=== PATIENT | female | born 1945 | race Caucasian/White ===

== ENCOUNTER → 2018-06-17 09:13 | Outpatient (CLI) | payer MEDICARE, OTHER, SELFPAY ==
[2018-06-17 10:33] LABS: Absolute Lymphocyte Count 1.86 X10^3/ul (0.83-4.51); Absolute Neutrophil Count 3.3 X10^3/uL (2.0-7.7); Basophil# 0.07 X10^3/uL; Basophil% 1.1 % (0-1); Eosinophil# 0.38 X10^3/uL; Eosinophils% 6.1 % (0-5); Hematocrit 43.9 % (37-47); Hemoglobin 14.1 g/dl (12.0-15.0); Lymphocyte # 1.86 X10^3/ul (4.0); Lymphocyte % 29.8 % (19-41); Mean Corp Hgb Conc 32.1 g/gl (32-36); Mean Corpuscular Hgb 31.1 pg (27.0-32.0); Mean Corpuscular Volume 96.9 fL (81-99); Monocyte# 0.59 X10^3/uL; Monocyte% 9.4 % (0-10); Neutrophil # 3.34 X10^3/uL (2.7-7.7); Neutrophil % 53.4 % (47-70); Platelet Count 218 K/mm3 (150-450); RBC Distribution Width CV 12.7 % (11.6-14.6); RBC Distribution Width SD 43.9 fl (35.1-43.9); Red Blood Count 4.53 M/mm3 (4.2-5.4); White Blood Count 6.3 K/mm3 (4.4-11.0)
[2018-06-17 10:40] LABS: POSITIVE COUNT NO; POSITIVE DIFFERENTIAL NO; POSITIVE MORPHOLOGY NO
[2018-06-17 10:52] LABS: Microalbumin,Random Urine 17.4 mg/L (NO RANGE EST.); Microalbumin:Creatinine Ratio 8.6 mg/g CRE (<30 mg/g CRE)
[2018-06-17 11:02] LABS: Vitamin D,25 Hydroxy 26.8 ng/mL (29.95-100.01)
[2018-06-17 11:26] LABS: ALB/GLOB Ratio 0.9 RATIO (0.9-2.4); AST(SGOT) 18 U/L (15-37); Alanine Aminotransfer ALT/SGPT 23 U/L (13-56); Albumin, Serum 3.4 g/dL (3.2-5.0); Alkaline Phosphatase 85 U/L (45-117); Anion Gap 5 (5-15); BUN 16 mg/dL (7-18); BUN/Creat Ratio 16.7 RATIO (10-20); Calcium,Total 9.2 mg/dL (8.5-10.1); Chloride 109 mmol/L (98-107); Cholesterol 189 mg/dL (200); Creatinine, Serum 0.96 mg/dL (0.55-1.02); EST Glomerular Filtration Rate 61 mL/min (>60); Est Glom Filt Rate - Afr Amer 74 mL/min (>60); Ferritin 154 ng/mL (8-252); Free T3 2.7 pg/mL (2.18-3.98); Globulin 3.8 g/dL (2.2-4.2); Glucose 91 mg/dL (74-106); High Density Lipoprotein 38 mg/dL; Potassium 4.5 mmol/L (3.5-5.1); Protein, Total 7.2 g/dL (6.4-8.2); Sodium Level 143 mmol/L (136-145); T4 Free Direct 1.27 ng/dL (0.76-1.46); Thyroid Stim Hormone (TSH) 1.04 uIU/mL (0.358-3.74); Triglycerides 268 mg/dL; Very Low Density Lipoprotein 54 mg/dL (5-40)
== END ==
PROVIDERS: Family Provider Family Medicine; PCP Family Medicine; Visit Provider Family Medicine
DX: I10 Essential (primary) hypertension (principal); E78.5 Hyperlipidemia, unspecified; E03.9 Hypothyroidism, unspecified; E55.9 Vitamin D deficiency, unspecified; M79.7 Fibromyalgia; E72.12 Methylenetetrahydrofolate reductase deficiency
CPT/HCPCS: 36415; 80053; 80061; 82043; 82306; 82570; 82728; 84439; 84443; 84481; 85025

== ENCOUNTER → 2018-07-02 09:54 | Outpatient (CLI) | payer MEDICARE, OTHER, SELFPAY ==
--- NOTE | 2018-07-02 10:20 | CT_ITS ---
STUDY: CT ABDOMEN AND PELVIS WITHOUT CONTRAST REASON FOR EXAM: Female, 73 years old. Bloody diarrhea. History of colitis. RADIATION DOSAGE (If Supplied By Facility): CTDIvol = ( 13.70 ) mGy, DLP = ( 708.34 ) mGycm TECHNIQUE: Transaxial images were obtained from the dome of the diaphragm to the symphysis pubis without oral contrast, and without intravenous contrast. Sagittal and coronal images were reconstructed. Individualized dose optimization techniques were used for this CT. COMPARISON: Comparison is made with prior study dated April 04, 2010. FINDINGS: Mild degree of increased markings at the lung bases with evidence of bronchiectasis in the left lower lobe suggestive of scarring. Calcified granulomas in the right lung base. Coronary artery calcification. Minimal pericardial thickening. Normal liver. Normal gallbladder and extrahepatic biliary system. There are multiple benign calcified granulomata of the spleen. Normal pancreas. Normal bilateral adrenal glands. Normal right kidney. Normal left kidney. Normal visualized stomach. Mild degree of thickening of the terminal ileum. There are scattered colonic diverticula consistent with diverticulosis. The appendix is visualized and appears normal. There is diffuse atherosclerotic calcification of the abdominal aorta and its major visceral branches, without a demonstrated aneurysm. Normal inferior vena cava. There is borderline retroperitoneal lymphadenopathy with enlarged nodes no greater than 10mm in the short axis diameter. Normal urinary bladder. There is a 2 cm x 2.6 cm cyst in the left ovary. This is essentially unchanged. There is also evidence of a septated cyst in the right ovary measuring 2.4 cm x 1.7 cm. There is a small umbilical hernia containing fat. There are diffuse degenerative changes of the visualized lumbar spine. CT/Abdomen/Pelvis without Cont IMPRESSION: Small bilateral ovarian cysts. Mild degree of thickening of the terminal ileum. Moderate amount of fecal material is seen in the colon. Electronically Signed: Haider Driscoll MD at 13:30 EDT Tel [phone], Service support ,
[2018-07-02 12:00] LABS: Absolute Lymphocyte Count 1.72 X10^3/ul (0.83-4.51); Absolute Neutrophil Count 4.7 X10^3/uL (2.0-7.7); Basophil# 0.04 X10^3/uL; Basophil% 0.5 % (0-1); Eosinophil# 0.34 X10^3/uL; Eosinophils% 4.6 % (0-5); Hematocrit 45.4 % (37-47); Hemoglobin 14.4 g/dl (12.0-15.0); Lymphocyte # 1.72 X10^3/ul (4.0); Lymphocyte % 23.3 % (19-41); Mean Corp Hgb Conc 31.7 g/gl (32-36); Mean Corpuscular Hgb 30.6 pg (27.0-32.0); Mean Corpuscular Volume 96.4 fL (81-99); Mean Platelet Vol. 9.8 fl (6.2-12.0); Monocyte# 0.62 X10^3/uL; Monocyte% 8.4 % (0-10); Neutrophil # 4.66 X10^3/uL (2.7-7.7); Neutrophil % 63.2 % (47-70); POSITIVE COUNT NO; POSITIVE DIFFERENTIAL NO; POSITIVE MORPHOLOGY NO; Platelet Count 219 K/mm3 (150-450); RBC Distribution Width CV 12.7 % (11.6-14.6); RBC Distribution Width SD 44.7 fl (35.1-43.9); Red Blood Count 4.71 M/mm3 (4.2-5.4); White Blood Count 7.4 K/mm3 (4.4-11.0)
[2018-07-02 12:01] LABS: Erythrocyte Sedimentation Rate 14 mm/hr (0-30)
[2018-07-02 12:12] LABS: ALB/GLOB Ratio 0.9 RATIO (0.9-2.4); AST(SGOT) 23 U/L (15-37); Alanine Aminotransfer ALT/SGPT 28 U/L (13-56); Albumin, Serum 3.6 g/dL (3.2-5.0); Alkaline Phosphatase 98 U/L (45-117); Anion Gap 8 (5-15); BUN 11 mg/dL (7-18); BUN/Creat Ratio 10.9 RATIO (10-20); Calcium,Total 9.2 mg/dL (8.5-10.1); Chloride 106 mmol/L (98-107); Creatinine, Serum 1.01 mg/dL (0.55-1.02); EST Glomerular Filtration Rate 57 mL/min (>60); Est Glom Filt Rate - Afr Amer 69 mL/min (>60); Globulin 3.8 g/dL (2.2-4.2); Glucose 99 mg/dL (74-106); Potassium 4.2 mmol/L (3.5-5.1); Protein, Total 7.4 g/dL (6.4-8.2); Sodium Level 141 mmol/L (136-145)
== END ==
PROVIDERS: Family Provider Family Medicine; PCP Family Medicine; Referring Provider Family Medicine; Visit Provider Family Medicine
DX: K52.9 Noninfective gastroenteritis and colitis, unspecified (principal)
CPT/HCPCS: 36415; 74176; 80053; 85025; 85652; 86140; 87506

== ENCOUNTER → 2018-11-25 12:55 | Outpatient (CLI) | payer MEDICARE, OTHER, SELFPAY ==
--- NOTE | 2018-11-25 12:58 | BI_ITS ---
MAMMOGRAPHY - BILATERAL SCREENING 3-D EVY SYNTHESIS REASON FOR EXAM: Female, 73 years old. Bilateral Screening 3-D tomosynthesis PERTINENT HISTORY: Family history of breast cancer in maternal grandmother at age 70. TECHNIQUE: 2-D mammograms and 3-D Evy synthesis of the breast (s) were performed. CAD was performed. COMPARISON: August 11, 2017, August 09, 2016, July 12, 2015 FINDINGS: The breast composition is almost entirely fat. Scattered benign calcifications are stable. There are stable normal-appearing lymph nodes. No dense spiculated masses or suspicious microcalcifications are identified. No architectural distortion is identified. There is no skin thickening or retraction. There has been no significant change since the prior study. BI/SCREENING MAMM (CAD), BILAT IMPRESSION: No mammographic signs of malignancy. Routine yearly mammograms recommended. ASSESSMENT CATEGORY: BIRADS Category 2: Benign. A letter regarding these results will be sent to the patient by the facility within 30 days. FOLLOW UP RECOMMENDATION: Yearly follow up mammogram recommended. (A) Approximately 10% of breast cancers are not detected by mammography. A normal mammogram should not delay biopsy of a clinically suspicious abnormality. Electronically Signed: Justin Gonzalez MD at 13:05 EDT , Service support ,
== END ==
PROVIDERS: Family Provider Family Medicine; PCP Family Medicine; Referring Provider Family Medicine; Visit Provider Family Medicine
DX: Z12.31 Encounter for screening mammogram for malignant neoplasm of breast (principal)
CPT/HCPCS: 77063; 77067

== ENCOUNTER → 2019-01-14 08:45 | Outpatient (CLI) | payer MEDICARE, OTHER, SELFPAY ==
--- NOTE | 2019-01-14 08:50 | BD_ITS ---
STUDY: DUAL ENERGY X-RAY ABSORPTIOMETRY / DXA REASON FOR EXAM: Female, 73 years old. The patient is postmenopausal. Loss of height. TECHNIQUE: Bone Mineral Density (BMD) measurements of lumbar spine and bilateral hips were obtained. COMPARISON: Comparison is made with prior study dated August 11, 2014. FINDINGS: Lumbar Spine (L1-L4): g/cm2 (1.016) / T-score (-1.2) / Z-score (0.5) Findings are suggestive of osteopenia with a low fracture risk. Left Femur Total: g/cm2 (0.874) / T-score (-1.1) / Z-score (0.5) Left Femoral Neck: g/cm2 (0.835) / T-score (-1.5) / Z-score (0.4) Right Femur Total: g/cm2 (0.898) / T-score (-0.9) / Z-score (0.7) Right Femoral Neck: g/cm2 (0.834) / T-score (-1.5) / Z-score (0.3) The T-Scores on the most recent prior examination were: Lumbar Spine (L1-L4): There has been improvement of bone density since the previous examination. Left Femur Total: which represents a worsening of 4.9%. Right Femur Total: which represents a worsening of 1.3%. BD/Dexa Bone Density Study IMPRESSION: The patient is considered osteopenic as outlined below according to World [employer] Organization (WHO) criteria with a low fracture risk. There has been worsening of bone density since the previous examination. Reference Information: The T-score is the number of standard deviations above or below the standard which is normal for young adults at their peak bone mineral density. The World Health Organization (WHO) interprets the T-scores as follows: Above -1 Normal bone density Between -1 and -2.5 Osteopenia Equal to / or below -2.5 Osteoporosis As a practical clinical guideline, osteopenia may be graded as follows: Mild -1 through -1.5 Moderate -1.6 through -2.0 Severe -2.1 through -2.4 The Z-score is the number of standard deviations above or below age-matched controls. A Z-score of less than -1.5 would be considered abnormal. References: 1. NIH Osteoporosis and Related Bone Diseases http://www.osteo.org 2. International Society for Clinical Densitometry http://www.iscd.org 3. National Osteoporosis Foundation http://www.nof.org Electronically Signed: Haider Driscoll, at 12:56 EDT , Service support ,
== END ==
PROVIDERS: Family Provider Family Medicine; PCP Family Medicine; Referring Provider Family Medicine; Visit Provider Family Medicine
DX: Z78.0 Asymptomatic menopausal state (principal); M85.80 Other specified disorders of bone density and structure, unspecified site
CPT/HCPCS: 77080

== ENCOUNTER → 2019-07-12 | Outpatient (CLI) | payer MEDICARE, OTHER, SELFPAY ==
[2019-07-12 10:54] LABS: Erythrocyte Sedimentation Rate 10 mm/hr (0-30)
[2019-07-12 10:56] LABS: Hematocrit 46.4 % (37-47); Hemoglobin 14.9 g/dL (12.0-15.0); Mean Corp Hgb Conc 32.1 g/dL (32-36); Mean Corpuscular Volume 96.7 fL (81-99); Mean Platelet Vol. 9.7 fl (6.2-12.0); Platelet Count 232 K/mm3 (150-450); RBC Distribution Width CV 12.1 % (11.6-14.6); RBC Distribution Width SD 43.8 fl (35.1-43.9); White Blood Count 5.6 K/mm3 (4.4-11.0)
[2019-07-12 11:10] LABS: AST(SGOT) 24 U/L (15-37); Alanine Aminotransfer ALT/SGPT 22 U/L (13-56); Albumin, Serum 3.5 g/dL (3.2-5.0); Alkaline Phosphatase 80 U/L (45-117); Anion Gap 7 (5-15); BUN 18 mg/dL (7-18); Calcium,Total 9.4 mg/dL (8.5-10.1); Chloride 107 mmol/L (98-107); Cholesterol 181 mg/dL (200); EST Glomerular Filtration Rate 58 mL/min (>60); Est Glom Filt Rate - Afr Amer 70 mL/min (>60); Globulin 3.6 g/dL (2.2-4.2); Glucose 98 mg/dL (74-106); High Density Lipoprotein 46 mg/dL; Potassium 4.5 mmol/L (3.5-5.1); Protein, Total 7.1 g/dL (6.4-8.2); Sodium Level 140 mmol/L (136-145); T4 Free Direct 1.35 ng/dL (0.76-1.46); Thyroid Stim Hormone (TSH) 1.21 uIU/mL (0.358-3.74); Triglycerides 206 mg/dL; Very Low Density Lipoprotein 41 mg/dL (5-40)
[2019-07-12 11:36] LABS: Microalbumin,Random Urine 6.4 mg/L (NO RANGE EST.); Microalbumin:Creatinine Ratio 6.4 mg/g CRE (<30 mg/g CRE)
== END | disposition home or self-care (01) ==
LOC: MFPLAB 09:14
PROVIDERS: Family Provider Family Medicine; PCP Family Medicine; Visit Provider Family Medicine
DX: I10 Essential (primary) hypertension (principal); M79.7 Fibromyalgia; E03.9 Hypothyroidism, unspecified; E78.5 Hyperlipidemia, unspecified
CPT/HCPCS: 36415; 80053; 80061; 82043; 82570; 84439; 84443; 85027; 85652

== ENCOUNTER → 2020-06-09 | Outpatient (CLI) | payer MEDICARE, OTHER, SELFPAY ==
[2020-06-09 10:41] LABS: ALB/GLOB Ratio 0.9 RATIO (0.9-2.4); AST(SGOT) 30 U/L (15-37); Alanine Aminotransfer ALT/SGPT 36 U/L (13-56); Albumin, Serum 3.4 g/dL (3.2-5.0); Alkaline Phosphatase 96 U/L (45-117); Anion Gap 4 (5-15); BUN 13 mg/dL (7-18); BUN/Creat Ratio 12.7 RATIO (10-20); Calcium,Total 9.5 mg/dL (8.5-10.1); Chloride 109 mmol/L (98-107); Cholesterol 193 mg/dL (200); Creatinine, Serum 1.02 mg/dL (0.55-1.02); EST Glomerular Filtration Rate 56 mL/min (>60); Est Glom Filt Rate - Afr Amer 68 mL/min (>60); Globulin 3.9 g/dL (2.2-4.2); Glucose 101 mg/dL (74-106); High Density Lipoprotein 41 mg/dL; Protein, Total 7.3 g/dL (6.4-8.2); Sodium Level 142 mmol/L (136-145); Thyroid Stim Hormone (TSH) 2.38 uIU/mL (0.358-3.74); Triglycerides 258 mg/dL; Very Low Density Lipoprotein 52 mg/dL (5-40)
== END | disposition home or self-care (01) ==
LOC: MTLAB 08:11
PROVIDERS: PCP Family Medicine; Referring Provider Nurse Practitioner Family; Visit Provider Nurse Practitioner Family
DX: E78.5 Hyperlipidemia, unspecified (principal); E03.9 Hypothyroidism, unspecified; I10 Essential (primary) hypertension
CPT/HCPCS: 36415; 80053; 80061; 84443

== ENCOUNTER → 2020-06-10 | Outpatient (CLI) | payer MEDICARE, OTHER, SELFPAY ==
--- NOTE | 2020-06-10 10:54 | CT_ITS ---
HISTORY: FULLNESS LEFT SUPRECALVICULAR AREA EXAMINATION: CT Soft Tissue Neck W/O Contrast Injection TECHNIQUE: Multiple axial images were obtained of the neck. A radiation dose optimization technique was used for this scan. IV Contrast dosage and agent: COMPARISON: None FINDINGS: NASOPHARYNX: Unremarkable. SUPRAHYOID NECK: Unremarkable oropharynx, oral cavity, parapharyngeal space, and retropharyngeal space. INFRAHYOID NECK: Unremarkable larynx, hypopharynx, and supraglottis. THYROID: No focal lesions. SALIVARY GLANDS: Unremarkable. LYMPH NODES: Shotty supraclavicular lymphadenopathy is present. This does continue more cranially within the neck, left side to a slightly greater degree than the right VASCULAR STRUCTURES: Some calcific plaque within the elongated thoracic aorta. VISUALIZED PORTIONS OF THE ORBITS, PARANASAL SINUSES, MASTOID AIR CELLS AND SKULL BASE: Unremarkable. BONES: Multilevel degenerative disc disease. Facet arthritis. Levoscoliosis at the upper thoracic spine. No acute fracture. Degenerative malalignment. Metal within the patient's maxillary and mandibular teeth obscure some fine bony detail. THORACIC INLET: Clear lung apices. CT/Soft Tissue Neck without Contr IMPRESSION: Mild shotty lymphadenopathy within the neck greater on the left than right without focal abscess or perceived lesion. Individualized dose optimization techniques were used for this CT. at 0523 Reported and signed by: Jackson Olsen MD Electronically Signed: Jackson Olsen MD at 5:22 EDT Tel , Service support ,
== END | disposition home or self-care (01) ==
LOC: CT 10:50
PROVIDERS: PCP Family Medicine; Referring Provider Nurse Practitioner Family; Visit Provider Nurse Practitioner Family
DX: R22.2 Localized swelling, mass and lump, trunk (principal)
CPT/HCPCS: 70490

== ENCOUNTER → 2020-06-28 | Outpatient (CLI) | payer MEDICARE, OTHER, SELFPAY ==
--- NOTE | 2020-06-28 08:05 | BI_ITS ---
MAMMOGRAPHY - BILATERAL SCREENING REASON FOR EXAM: Female, 75 years old. Routine annual screening examination. PERTINENT HISTORY: Grandmother with breast cancer. Aunt with breast cancer. Remote left excisional breast biopsy. TECHNIQUE: Digital bilateral breast evy (3D mammographic acquisition) in the CC and MLO projections. 2-D mediolateral oblique (MLO) and craniocaudad (CC) views of both breasts were obtained. CAD: Full Field Digital Mammography with Computer Added Detection was performed. COMPARISON: Comparison is made with prior study dated 11/25/2018 and 08/11/2017. FINDINGS: Breast Composition: There are scattered areas of fibroglandular density. There are no dominant masses or suspicious calcifications. Stable 3.9 mm well-defined nodule in the upper lateral aspect of the right breast most likely representing a small lymph node. Stable benign-appearing bilateral axillary lymph nodes. No other significant abnormalities are identified. There has been no significant change since the prior study. BI/SCREEN MAMM (CAD) W/EVY BILAT IMPRESSION: Stable bilateral screening mammogram. Yearly follow-up mammogram recommended. (A) ASSESSMENT CATEGORY: BIRADS Category 2: Benign. A letter regarding these results will be sent to the patient by the facility within 30 days. Approximately 10% of breast cancers are not detected by mammography. A normal mammogram should not delay biopsy of a clinically suspicious abnormality. [id number] Electronically Signed: Haider Driscoll, at 10:13 EDT , Service support ,
== END | disposition home or self-care (01) ==
LOC: OPBI 08:04
PROVIDERS: PCP Family Medicine; Visit Provider Family Medicine
DX: Z12.31 Encounter for screening mammogram for malignant neoplasm of breast (principal)
CPT/HCPCS: 77063; 77067

== ENCOUNTER → 2020-12-04 10:36 | Outpatient (CLI) | payer MEDICARE, OTHER, SELFPAY ==
--- NOTE | 2020-12-04 10:43 | RAD_ITS ---
STUDY: X-RAY CHEST REASON FOR EXAM: Female, 75 years old. APNEA TECHNIQUE: PA and lateral views of the chest. COMPARISON: Comparison is made with prior examination dated 2015 and 08/26/2015. FINDINGS: Stable minimal elevation of the anterior aspect of the right hemidiaphragm. There is no demonstrated pleural abnormality. Normal size heart. Normal mediastinum and thony. Normal visualized pulmonary arteries. There is atherosclerotic calcification of the aortic arch with tortuosity. There is a dextroscoliosis of the thoracic spine. Normal visualized ribs, clavicles, and shoulders. There is no demonstrated abnormality of the visualized soft tissue structures of the upper abdomen. RAD/Chest PA and Lateral IMPRESSION: Stable examination. No acute abnormality is seen. Electronically Signed: Haider Driscoll MD at 11:08 EDT , Service support ,
[2020-12-04 12:04] LABS: Absolute Lymphocyte Count 1.93 X10^3/uL (0.83-4.51); Absolute Neutrophil Count 3.8 X10^3/uL (2.0-7.7); Basophil# 0.08 X10^3/uL; Basophil% 1.2 % (0-1); Eosinophil# 0.37 X10^3/uL; Eosinophils% 5.5 % (0-5); Hematocrit 46.5 % (37-47); Hemoglobin 14.8 g/dL (12.0-15.0); Lymphocyte # 1.93 X10^3/ul (4.0); Lymphocyte % 28.6 % (19-41); Mean Corp Hgb Conc 31.8 g/dL (32-36); Mean Corpuscular Hgb 30.6 pg (27.0-32.0); Mean Corpuscular Volume 96.3 fL (81-99); Mean Platelet Vol. 9.2 fl (6.2-12.0); Monocyte# 0.54 X10^3/uL; NRBC Flagged by Analyzer 0 % (0-5); Neutrophil # 3.82 X10^3/uL (2.7-7.7); Neutrophil % 56.4 % (47-70); Platelet Count 255 K/mm3 (150-450); RBC Distribution Width CV 12.4 % (11.6-14.6); RBC Distribution Width SD 44.5 fl (35.1-43.9); Red Blood Count 4.83 M/mm3 (4.2-5.4); White Blood Count 6.8 K/mm3 (4.4-11.0)
[2020-12-04 12:33] LABS: AST(SGOT) 34 U/L (15-37); Alanine Aminotransfer ALT/SGPT 38 U/L (13-56); Albumin, Serum 3.6 g/dL (3.2-5.0); Alkaline Phosphatase 102 U/L (45-117); Anion Gap 3 (5-15); BUN 12 mg/dL (7-18); BUN/Creat Ratio 11.7 RATIO (10-20); Calcium,Total 9.6 mg/dL (8.5-10.1); Chloride 107 mmol/L (98-107); Creatinine, Serum 1.03 mg/dL (0.55-1.02); EST Glomerular Filtration Rate 56 mL/min (>60); Est Glom Filt Rate - Afr Amer 67 mL/min (>60); Globulin 3.7 g/dL (2.2-4.2); Glucose 102 mg/dL (74-106); Potassium 4.3 mmol/L (3.5-5.1); Protein, Total 7.3 g/dL (6.4-8.2); Sodium Level 140 mmol/L (136-145)
== END ==
PROVIDERS: PCP Family Medicine; Referring Provider Family Medicine; Visit Provider Family Medicine
DX: R06.81 Apnea, not elsewhere classified (principal); R59.1 Generalized enlarged lymph nodes
CPT/HCPCS: 36415; 71046; 80053; 85025

== ENCOUNTER → 2021-05-30 10:24 | Outpatient (CLI) | payer MEDICARE, OTHER, SELFPAY ==
[2021-05-30 12:57] LABS: Anion Gap 5 (5-15); BUN 11 mg/dL (7-18); BUN/Creat Ratio 12.9 RATIO (10-20); Calcium,Total 9.3 mg/dL (8.5-10.1); Chloride 111 mmol/L (98-107); Creatinine, Serum 0.86 mg/dL (0.55-1.02); EST Glomerular Filtration Rate 69 mL/min (>60); Est Glom Filt Rate - Afr Amer 83 mL/min (>60); Glucose 105 mg/dL (74-106); Potassium 4.7 mmol/L (3.5-5.1); Sodium Level 141 mmol/L (136-145); T4 Free Direct 1.09 ng/dL (0.76-1.46)
[2021-05-30 13:02] LABS: Vitamin D,25 Hydroxy 40.7 ng/mL
== END ==
PROVIDERS: PCP Family Medicine; Referring Provider Family Medicine; Visit Provider Family Medicine
DX: I10 Essential (primary) hypertension (principal); M85.80 Other specified disorders of bone density and structure, unspecified site; E03.9 Hypothyroidism, unspecified
CPT/HCPCS: 36415; 80048; 82306; 84439; 84443

== ENCOUNTER 2021-12-09 13:33 | Inpatient (IN) | payer MEDICARE, OTHER, SELFPAY ==
[2021-12-09] VITALS (10 sets, daily range): BP systolic 148–176; BP diastolic 91–112; PULSE 73–91; RESP 18–20; TEMP 36.4–36.6; O2SAT 88–99; BMI 29.1; BMI 28.6
--- NOTE | 2021-12-09 13:48 | EKG12_ITS ---
Test Reason : SOB Blood Pressure : / mmHG Vent. Rate : 088 BPM Atrial Rate : 088 BPM P-R Int : 186 ms QRS Dur : 142 ms QT Int : 386 ms P-R-T Axes : 054 -44 019 degrees QTc Int : 467 ms Normal sinus rhythm Left axis deviation Right bundle branch block Left ventricular hypertrophy T wave abnormality, consisder LVH repolarization, myocardial ischemia; metabolic effect, medication e ffect Abnormal ECG Confirmed by EMILY JUAREZ, SANDY ([id number]), rewrite editor GERI DEMARCO ([id number]) on 12/12/2021 10:41:35 AM Referred By: RU Confirmed By:SANDY DIAZ MD
[2021-12-09] MEDS: Aspirin 81 MG TAB.CHEW 324 MG PO (13:59)
--- NOTE | 2021-12-09 14:09 | RAD_ITS ---
STUDY: X-RAY CHEST REASON FOR EXAM: Female, 76 years old. chest pain TECHNIQUE: Single AP portable view of the chest. COMPARISON: December 04, 2020 FINDINGS: The lungs are clear and expanded. There is no demonstrated pleural abnormality. Normal size heart. Normal mediastinum and thony. Normal visualized pulmonary arteries. There is atherosclerotic calcification of the aortic arch with tortuosity. There are diffuse degenerative changes of the visualized thoracic spine, as well as moderate dextroscoliosis. Normal visualized ribs, clavicles, and shoulders. There is no demonstrated abnormality of the visualized soft tissue structures of the upper abdomen. RAD/Chest 1 View (Portable) IMPRESSION: No acute process Electronically Signed: Aguilar Asher MD at 14:54 EDT ,
[2021-12-09 14:18] LABS: Absolute Neutrophil Count 7.3 X10^3/uL (2.0-7.7); Basophil# 0.06 X10^3/uL; Basophil% 0.6 % (0-1); Eosinophil# 0.24 X10^3/uL; Eosinophils% 2.3 % (0-5); Hematocrit 46.3 % (37-47); Hemoglobin 15.4 g/dL (12.0-15.0); Lymphocyte % 19.2 % (19-41); Mean Corp Hgb Conc 33.3 g/dL (32-36); Mean Corpuscular Hgb 31.7 pg (27.0-32.0); Mean Corpuscular Volume 95.3 fL (81-99); Mean Platelet Vol. 9.5 fl (6.2-12.0); Monocyte# 0.75 X10^3/uL; Monocyte% 7.2 % (0-10); NRBC Flagged by Analyzer 0 % (0-5); Neutrophil # 7.34 X10^3/uL (2.7-7.7); Neutrophil % 70.5 % (47-70); Platelet Count 239 K/mm3 (150-450); RBC Distribution Width CV 12.4 % (11.6-14.6); RBC Distribution Width SD 43.8 fl (35.1-43.9); Red Blood Count 4.86 M/mm3 (4.2-5.4); White Blood Count 10.4 K/mm3 (4.4-11.0)
--- NOTE | 2021-12-09 14:34 | EX.ED.DYSGE1 ---
HPI <CORA Kam - Last Filed: 12/09/21 17:25> History of Present Illness Chief Complaint: Shortness of Breath Narrative Narrative: 76-year-old female with history of hypertension, CAD presents to the emergency department with 5 days of progressing shortness of breath. Patient was ill 3 weeks ago was placed on antibiotics, steroids, patient did get better. Patient does live in [facility] for the last 5 days she has been feeling more short of breath worse on exertion, she did drive from [place] at home and got home last night. Today, patient was much more winded around the house and is here for evaluation. Denies any fevers or chills, denies any cough, denies any infectious symptoms, denies any sick contacts. PFSH <CORA Kam - Last Filed: 12/09/21 17:25> [facility] Medical History (Updated 12/09/21 @ 17:[address] Steven Mccarty, DO) History of kidney stones Hx of cardiac arrhythmia Hyperlipidemia Hypertension Hypothyroidism Home Medications amitriptyline 50 mg PO DAILY 08/26/15 [History Last Taken Unknown] aspirin 81 mg PO DAILY@0800 08/26/15 [History Last Taken Unknown] atorvastatin 40 mg PO QHS 08/26/15 [History Last Taken Unknown] levothyroxine 100 mcg PO DAILY 08/26/15 [History Last Taken Unknown] losartan 50 mg PO QHS 12/09/21 [History Last Taken Unknown] metoprolol succinate 100 mg PO DAILY 12/09/21 [History Last Taken Unknown] Allergy/AdvReac Type Severity Reaction Status Date / Time Iodinated Contrast Media Allergy Hives Verified 12/09/21 13:35 [Iodinated Contrast Media - IV Dye] Surgical History (Updated 12/09/21 @ 13:46 by Lalita Martinez) History of radiofrequency ablation procedure for cardiac arrhythmia Social History Smoking Status: Unknown if ever smoked ROS <CORA Kam - Last Filed: 12/09/21 17:25> ROS ED ROS Narrative Constitutional: Negative for fever, chills, weight loss or gain, weakness Eyes: Negative for vision loss, vision change, double vision ENT: Negative for any hearing changes, ringing in the ears, discharge, pain Nose: Negative for any congestion, runny nose, sinus pain, allergies Throat: Negative for any sore throat, swelling, voice changes, Cardiovascular: Negative for any chest pain, tightness, palpitations, racing heartbeat Respiratory: Negative for any cough, sputum production, hemoptysis. Positive shortness of breath, shortness of breath on exertion Gastrointestinal: Negative for any abdominal pain, nausea, vomiting, diarrhea, constipation, blood in stool, blood in vomit : Negative for any urinary frequency, incontinence, dysuria, retention, blood in urine Muscle skeletal: Negative for any muscle joint pain, stiffness, myalgias, arthralgias, neck pain, back pain Neurological: Negative for any headache, dizziness, syncope, numbness or tingling Skin: Negative for any rashes, lumps, itching, abrasions, lacerations Psychiatric: Negative for any depression, anxiety, stress, suicidal ideation, homicidal ideation Hematologic: Negative for any easy bruising, excessive bruising, easy bleeding Allergies: Negative for any eczema, hives, rash EXAM <CORA Kam - Last Filed: 12/09/21 17:25> Physical Exam Narrative Exam Narrative: At rest, patient was 88 to 89%, patient responds well to 2 L nasal cannula. Const Vital Signs: 12/09/21 13:33 12/09/21 13:42 12/09/21 13:50 Temperature 97.6 F L Temperature Source Temporal Pulse Rate 89 Respiratory Rate 20 H Respiratory Pattern Blood Pressure 176/112 H Blood Pressure Mean 133 Pulse Ox 99 88 97 Oxygen Delivery Method Room Air Room Air Nasal Cannula Oxygen Flow Rate (L/min) 2 12/09/21 13:58 12/09/21 17:15 Temperature Temperature Source Pulse Rate 85 Respiratory Rate 18 Respiratory Pattern Tachypnea Blood Pressure 148/102 H Blood Pressure Mean 117 Pulse Ox 97 Oxygen Delivery Method Nasal Cannula Oxygen Flow Rate (L/min) 2 Positive well nourished and well developed General Appearance ED: well developed HEENT Reports TM's clear and moist mucous membranes Tympanic Membrane ED: Yes TM's clear Eyes PERRL and EOMs intact bilaterally Neck no lymphadenopathy and supple Chest Wall inspection of chest normal and palpation of chest normal Resp normal respiratory effort and clear to auscultation bilaterally Cardio regular rate, regular rhythm and no murmurs GI normal to inspection, nondistended, normoactive bowel sounds, non-tender, non-distended and no masses Auscultation: normoactive bowel sounds Palpation: soft Back/Spine no CVA tenderness Extremity normal to inspection Neuro oriented x3 and CN's II-XII intact bilaterally Sensorium / Orientation: alert Motor Exam: strength 5/5 throughout Psych mental status grossly normal Mood & Affect: anxious Skin no rashes or lesions noted <Dr. Steven Mccarty DO - Last Filed: 12/09/21 17:11> Physical Exam Const Vital Signs: 12/09/21 13:33 12/09/21 13:42 12/09/21 13:50 Temperature 97.6 F L Temperature Source Temporal Pulse Rate 89 Respiratory Rate 20 H Respiratory Pattern Blood Pressure 176/112 H Blood Pressure Mean 133 Pulse Ox 99 88 97 Oxygen Delivery Method Room Air Room Air Nasal Cannula Oxygen Flow Rate (L/min) 2 12/09/21 13:58 12/09/21 17:15 Temperature Temperature Source Pulse Rate 85 Respiratory Rate 18 Respiratory Pattern Tachypnea Blood Pressure 148/102 H Blood Pressure Mean 117 Pulse Ox 97 Oxygen Delivery Method Nasal Cannula Oxygen Flow Rate (L/min) 2 MDM <CORA Kam - Last Filed: 12/09/21 17:25> [facility] MDM Narrative Medical decision making narrative: Patient appears in mild respiratory distress, patient responded well to liters nasal cannula oxygen, patient presents emergency department for worsening shortness of breath over the last 5 days. Patient did receive a full respiratory work-up, patient CBC was unremarkable however patient did have a elevated D-dimer, in the differential of her shortness of breath, a pulmonary embolus was considered. Due to the patient's allergy to IV contrast dye, the patient be premedicated with Solu-Medrol, Benadryl. That in 1 hour should be taken for a CTA of the chest to rule out any pulmonary embolus. Patient had multiple abnormal lab values, patient's D-dimer was significantly elevated, patient's troponin was 551, repeat was 616. I do believe that this is secondary to a pulmonary embolus. Patient did receive a CT scan of the chest, this showed a large volume acute pulmonary emboli involving all of the segmental and subsegmental pulmonary arteries. No evidence of the right heart strain. Few scattered areas of groundglass opacity in the right lower lobe and middle lobes may be infectious or inflammatory etiology. Patient was started on a heparin drip, patient remains stable, patient appears to be in no respiratory distress at rest. Patient will be admitted to the hospital for pulmonary embolus, elevated troponin. Patient stable for admission Lab Data Labs: Laboratory Results - last 24 hr 12/09/21 12/09/21 12/09/21 14:05 14:05 14:05 WBC 10.4 RBC 4.86 Hgb 15.4 H Hct 46.3 MCV 95.3 MCH 31.7 MCHC 33.3 RDW Std Deviation 43.8 RDW Coeff of Karina 12.4 Plt Count 239 MPV 9.5 Immature Gran % (Auto) 0.200 Neut % (Auto) 70.5 H Lymph % (Auto) 19.2 Amelia % (Auto) 7.2 Eos % (Auto) 2.3 Baso % (Auto) 0.6 Absolute Neuts (auto) 7.3 Absolute Lymphs (auto) 2.00 Nucleated RBC % 0 PT INR APTT D-Dimer Quant (PE/DVT) 6.27 H* Sodium Potassium Chloride Carbon Dioxide Anion Gap BUN Creatinine Estim Creat Clear Calc Est GFR (MDRD) Af Amer Est GFR (MDRD) Non-Af BUN/Creatinine Ratio Glucose Calcium Troponin I High Sens B-Natriuretic Peptide 330.0 H 12/09/21 12/09/21 12/09/21 14:05 14:05 16:43 WBC RBC Hgb Hct MCV MCH MCHC RDW Std Deviation RDW Coeff of Karina Plt Count MPV Immature Gran % (Auto) Neut % (Auto) Lymph % (Auto) Amelia % (Auto) Eos % (Auto) Baso % (Auto) Absolute Neuts (auto) Absolute Lymphs (auto) Nucleated RBC % PT 12.7 INR 1.0 APTT 31.3 D-Dimer Quant (PE/DVT) Sodium 140 Potassium 4.3 Chloride 109 H Carbon Dioxide 26.0 Anion Gap 5 BUN 13 Creatinine 1.10 H Estim Creat Clear Calc 42.97 Est GFR (MDRD) Af Amer 62 Est GFR (MDRD) Non-Af 51 L BUN/Creatinine Ratio 11.8 Glucose 113 H Calcium 9.7 Troponin I High Sens 551 H* 616 H* B-Natriuretic Peptide Radiography Diagnostic Testing: Clinical Impression(s) from Imaging Studies Chest X-Ray 12/09/21 14:09 IMPRESSION: No acute process Electronically Signed: Aguilar Asher MD at 14:54 EDT , Chest CTA 12/09/21 16:18 IMPRESSION: Large volume acute pulmonary emboli involving all of the segmental and subsegmental pulmonary arteries. No evidence of right heart strain. Few scattered areas of groundglass opacity in the right lower lobe and middle lobes may be infectious or inflammatory in etiology. Electronically Signed: Ashkan Jj MD at 16:54 EDT , <Dr. Steven Mccarty, DO - Last Filed: 12/09/21 17:11> [facility] Narrative Medical decision making narrative: I have personally performed a face to face assessment of the patient and have reviewed the MANDY Note. I performed a substantive portion of the visit including all aspects of the following. My wilson findings include: History is [patient presents with exertional dyspnea for at least a week. Patient recently drove back up from [place]. She had a illness about 3 weeks ago with headache cough and sore throat. She took several home Covid test that were negative. Patient denies any chest pain. No history of PE or DVT.] Exam is [HEENT-PERRLA, EOMI. Cranial nerves II through XII grossly intact. TMs clear. Mucous membranes moist. No adenopathy. Cardiovascular-regular rate and rhythm without murmur or ectopy Lungs-clear to auscultation, chest wall stable without crepitus or subcu emphysema Abdomen-normoactive bowel sounds, soft, nontender, no rebound or rigidity, no peritoneal signs. Extremities-intact ?4, normal range of motion, normal pulses, atraumatic] Medical Decison Making [IV line established on arrival. Patient placed on a traffic monitor specialist. Lab work was significant for an elevated D-dimer and an elevated troponin. I was concerned about PE therefore CTA was obtained to evaluate further. Patient was noted to have bilateral PEs with some groundglass opacities in both lower lobes. I suspect patient likely had Covid and subsequently developed PEs. Patient is hypoxic and will need to be admitted to the hospital. Patient was started on heparin drip. Case will be discussed with hospitalist for admission.] Other additions or changes: [None] Lab Data Attestation: I reviewed the patient's lab results. Labs: Laboratory Results - last 24 hr 12/09/21 12/09/21 12/09/21 14:05 14:05 14:05 WBC 10.4 RBC 4.86 Hgb 15.4 H Hct 46.3 MCV 95.3 MCH 31.7 MCHC 33.3 RDW Std Deviation 43.8 RDW Coeff of Karina 12.4 Plt Count 239 MPV 9.5 Immature Gran % (Auto) 0.200 Neut % (Auto) 70.5 H Lymph % (Auto) 19.2 Amelia % (Auto) 7.2 Eos % (Auto) 2.3 Baso % (Auto) 0.6 Absolute Neuts (auto) 7.3 Absolute Lymphs (auto) 2.00 Nucleated RBC % 0 PT INR APTT D-Dimer Quant (PE/DVT) 6.27 H* Sodium Potassium Chloride Carbon Dioxide Anion Gap BUN Creatinine Estim Creat Clear Calc Est GFR (MDRD) Af Amer Est GFR (MDRD) Non-Af BUN/Creatinine Ratio Glucose Calcium Troponin I High Sens B-Natriuretic Peptide 330.0 H 12/09/21 12/09/21 12/09/21 14:05 14:05 16:43 WBC RBC Hgb Hct MCV MCH MCHC RDW Std Deviation RDW Coeff of Karina Plt Count MPV Immature Gran % (Auto) Neut % (Auto) Lymph % (Auto) Amelia % (Auto) Eos % (Auto) Baso % (Auto) Absolute Neuts (auto) Absolute Lymphs (auto) Nucleated RBC % PT 12.7 INR 1.0 APTT 31.3 D-Dimer Quant (PE/DVT) Sodium 140 Potassium 4.3 Chloride 109 H Carbon Dioxide 26.0 Anion Gap 5 BUN 13 Creatinine 1.10 H Estim Creat Clear Calc 42.97 Est GFR (MDRD) Af Amer 62 Est GFR (MDRD) Non-Af 51 L BUN/Creatinine Ratio 11.8 Glucose 113 H Calcium 9.7 Troponin I High Sens 551 H* 616 H* B-Natriuretic Peptide Radiography Chest X-Ray - ED: 1 View Diagnostic Testing: Clinical Impression(s) from Imaging Studies Chest X-Ray 12/09/21 14:09 IMPRESSION: No acute process Electronically Signed: Aguilar Asher MD at 14:54 EDT , Chest CTA 12/09/21 16:18 IMPRESSION: Large volume acute pulmonary emboli involving all of the segmental and subsegmental pulmonary arteries. No evidence of right heart strain. Few scattered areas of groundglass opacity in the right lower lobe and middle lobes may be infectious or inflammatory in etiology. Electronically Signed: Ashkan Jj MD at 16:54 EDT , 1 view chest x-ray obtained interpreted by myself as no acute disease process. Radiology in agreement. EKG Initial EKG: Attestation: I personally reviewed and interpreted this EKG as follows: Comments: Sinus rhythm with a ventricular rate of 88 bpm with a right bundle branch block and LVH with early repole. Prior EKG tracings: available for review Prior: Changed Discharge Plan Dx/Rx/DC Orders Clinical Impression: Pulmonary emboli, Hypoxemia, Elevated troponin Disposition Disposition: Acute Care [facility]
[2021-12-09 14:46] LABS: D-Dimer Quantitative (DVT/PE) 6.27 FEU/ug/m (0.27-0.49)
[2021-12-09] MEDS: DiphenhydrAMINE 50 MG/ML Syringe 25 MG IV (14:53)
[2021-12-09] MEDS: MethylPREDNISolone 125 MG/2 ML Vial IV (14:53)
[2021-12-09 15:26] LABS: Anion Gap 5 (5-15); BUN 13 mg/dL (7-18); BUN/Creat Ratio 11.8 RATIO (10-20); Calcium,Total 9.7 mg/dL (8.5-10.1); Chloride 109 mmol/L (98-107); EST Glomerular Filtration Rate 51 mL/min (>60); Est Glom Filt Rate - Afr Amer 62 mL/min (>60); Estimated Creatinine Clearance 42.97 ml/min; Glucose 113 mg/dL (74-106); Potassium 4.3 mmol/L (3.5-5.1); Sodium Level 140 mmol/L (136-145); Troponin-I HS (w/2H Reflex) 551 pg/mL (3.0-54.0)
[2021-12-09 15:56] LABS: Prothrombin Time (Protime)PT. 12.7 SECONDS (11.7-14.9)
[2021-12-09 15:57] LABS: Partial Thromboplast Time 31.3 Seconds (24.1-36.2)
[2021-12-09] MEDS: Heparin Injection (Vial) 5,000 UNIT/ML VIAL 6000 UNIT IV (15:57)
[2021-12-09 16:16] LABS: Reflex Troponin-HS? (from REC) Y
--- NOTE | 2021-12-09 16:18 | CT_ITS ---
INDICATION: concern for PE EXAMINATION: CTA Chest WO/W Contrast Injection TECHNIQUE: Helically acquired images were obtained of the chest following administration of IV contrast. A radiation dose optimization technique was used for this scan. 3D postprocessing images including MIPS were reviewed. IV Contrast dosage and agent: IV 100mL [id number] COMPARISON: None. FINDINGS: Lungs: Few scattered areas of groundglass opacity in the right lower lobe and middle lobes. Mediastinum: The heart is mildly enlarged. No mediastinal, hilar or axillary adenopathy. Mild aortic arch and coronary artery calcifications. Moderate large volume of clot is seen within all of the segmental and subsegmental pulmonary arteries. No evidence of right heart strain. Pleura: Unremarkable Bones/Soft tissues: There are diffuse degenerative changes of the spine. Upper abdomen: No visualized abnormalities in the upper abdomen. CT/CTA Chest W/WO Contrast IMPRESSION: Large volume acute pulmonary emboli involving all of the segmental and subsegmental pulmonary arteries. No evidence of right heart strain. Few scattered areas of groundglass opacity in the right lower lobe and middle lobes may be infectious or inflammatory in etiology. Electronically Signed: Ashkan Jj MD at 16:54 EDT ,
[2021-12-09 17:16] LABS: Troponin-I HS 616 pg/mL (3.0-54.0)
--- NOTE | 2021-12-09 17:39 | HP.PCM.HOS_ITS ---
HPI - General General Date of Admission: 12/09/21 Date of Service: 12/09/21 Chief Complaint: shortness of breath HPI Narrative CASS RODRIGUEZ, is a 76 F who presents presents with shortness of breath. Shortness of breath began several weeks ago after eyad an illness. Did check herself these couple times of rapid Covid test that were negative. Did go to an urgent care but was not checked Covid was started on prednisone. Shortness of breath got worse several days ago. Admits that several days, patient came back from [place] to [place] and got back yesterday. Shortness of breath has not gotten any worse but has discontinued. Patient was just very short of breath exertion. She presented to the emergency room for work-up. D-dimer was elevated 6 troponin was elevated at 616 showed a large volume acute pulmonary emboli involv ing all of the segmental and subsegmental pulmonary arteries. No evidence of right heart strain. Patient was started on a heparin drip and the hospital service was contacted for admission. Patient denies ever having had DVT or PE previously. [facility] Medical History History of kidney stones Hx of cardiac arrhythmia Hyperlipidemia Hypertension Hypothyroidism Home Medications amitriptyline 50 mg PO DAILY 08/26/15 [History Last Taken Unknown] aspirin 81 mg PO DAILY@0800 08/26/15 [History Last Taken Unknown] atorvastatin 40 mg PO QHS 08/26/15 [History Last Taken Unknown] levothyroxine 100 mcg PO DAILY 08/26/15 [History Last Taken Unknown] losartan 50 mg PO QHS 12/09/21 [History Last Taken Unknown] metoprolol succinate 100 mg PO DAILY 12/09/21 [History Last Taken Unknown] Allergy/AdvReac Type Severity Reaction Status Date / Time Iodinated Contrast Media Allergy Hives Verified 12/09/21 13:35 [Iodinated Contrast Media - IV Dye] Surgical History History of radiofrequency ablation procedure for cardiac arrhythmia Social History (Updated 12/09/21 @ 17:[address] Tejas Titus DO) Smoking Status: Never smoker ROS ROS Narrative Patient states that she chronically gets right ankle swelling but has not noticed it lately and was checking it to try to [place]. She denies any history of hematochezia, melena, hematuria hemoptysis. All review of systems were negative except as mentioned above in the history of present illness and the other review of systems. Vital Signs Vital Signs Vital Signs: 12/09/21 13:33 12/09/21 13:42 12/09/21 13:50 Temperature 36.4 C L Temperature Source Temporal Pulse Rate 89 Respiratory Rate 20 H Respiratory Pattern Blood Pressure 176/112 H Blood Pressure Mean 133 Pulse Ox 99 88 97 Oxygen Delivery Method Room Air Room Air Nasal Cannula Oxygen Flow Rate (L/min) 2 12/09/21 13:58 12/09/21 17:15 12/09/21 17:30 Temperature 36.6 C Temperature Source Oral Pulse Rate 85 85 Respiratory Rate 18 19 H Respiratory Pattern Tachypnea Blood Pressure 148/102 H 152/91 H Blood Pressure Mean 117 111 Pulse Ox 97 95 Oxygen Delivery Method Nasal Cannula Nasal Cannula Oxygen Flow Rate (L/min) 2 2 Weight Weight: 84.368 kg Body Mass Index (BMI) 29.1 Physical Exam Const alert and no apparent distress General Appearance: cooperative HEENT normocephalic and head/scalp atraumatic Eyes Eyes Narrative: No icterus Neck no lymphadenopathy and no JVD Cardio regular rate, regular rhythm, S1 normal heart sound and S2 normal heart sound GI normal to inspection, nondistended, normoactive bowel sounds, soft to palpation, non-tender and non-distended Extremity normal to inspection and no clubbing, cyanosis or edema Extremity Narrative: No calf tenderness. Skin no rashes or lesions noted and no wounds Neuro oriented x3 Sensorium / Orientation: awake, alert and oriented to person Psych affect normal Results Lab / Micro Data Attestation: I reviewed the patient's lab results. Result Diagrams: 12/09/21 14:05 12/09/21 14:05 Labs: Laboratory Results - last 24 hr 12/09/21 14:05: B-Natriuretic Peptide 330.0 H 12/09/21 14:05: WBC 10.4, RBC 4.86, Hgb 15.4 H, Hct 46.3, MCV 95.3, MCH 31.7, MCHC 33.3, RDW Std Deviation 43.8, RDW Coeff of Karina 12.4, Plt Count 239, MPV 9.5, Immature Gran % (Auto) 0.200, Neut % (Auto) 70.5 H, Lymph % (Auto) 19.2, [place] % (Auto) 7.2, Eos % (Auto) 2.3, Baso % (Auto) 0.6, Absolute Neuts (auto) 7. 3, Absolute Lymphs (auto) 2.00, Nucleated RBC % 0 12/09/21 14:05: D-Dimer Quant (PE/DVT) 6.27 H* 12/09/21 14:05: Sodium 140, Potassium 4.3, Chloride 109 H, Carbon Dioxide 26.0, Anion Gap 5, BUN 13, Creatinine 1.10 H, Estim Creat Clear Calc 42.97, Est GFR (MDRD) Af Amer 62, Est GFR (MDRD) Non-Af 51 L, BUN/Creatinine Ratio 11.8, Glucose 113 H, Calcium 9.7, Troponin I High Sens 551 H* 12/09/21 14:05: PT 12.7, INR 1.0, APTT 31.3 12/09/21 16:43: Troponin I High Sens 616 H* Micro: Microbiology 12/09/21 14:05 Nasal Secretion SARS-CoV-2 & FLU Antigen (Rapid) - Final EKG Initial EKG: Attestation: I personally reviewed and interpreted this EKG as follows: Prior EKG tracings: available for review EKG Rhythm Intrepretation: Sinus Rhythm (Right bundle branch block. No prior EKG since August 26, 2015. No right bundle branch block was noted at that time) Radiology Impression Chest X-Ray 12/09/21 14:09 IMPRESSION: No acute process Electronically Signed: Aguilar Asher MD at 14:54 EDT , Chest CTA 12/09/21 16:18 IMPRESSION: Large volume acute pulmonary emboli involving all of the segmental and subsegmental pulmonary arteries. No evidence of right heart strain. Few scattered areas of groundglass opacity in the right lower lobe and middle lobes may be infectious or inflammatory in etiology. Electronically Signed: Ashkan Jj MD at 16:54 EDT , Assessment & Plan Assessment/Plan (1) Pulmonary emboli: QUALIFIERS: Pulmonary embolism type: multiple subsegmental (without acute cor pulmonale) Qualified Code(s): I26.94 - Multiple subsegmental pulmonary emboli without acute cor pulmonale (2) Acute and chronic respiratory failure with hypoxia: (3) NSTEMI, initial episode of care: PLAN: 1. Pulmonary emboli Patient had traveled but I feel that, given her history, the pulmonary emboli were present before her travel. Patient did have an unspecified illness that is unclear if that was actually Covid. Her tests were negative for Covid. Patient is started on heparin drip given the elevated troponins If echocardiogram does not show any heart strain and patient could be transitioned over to 10 a inhibitor such as apixaban or paroxetine. No need for TPA at this time I suspect the patient will need lifelong anticoagulation answers no clear etiology event 2. Acute hypoxic respiratory failure Secondary to PE Wean oxygen as able Check ambulatory pulse ox prior to discharge 3. Non-STEMI Likely type II event given the embolism Patient already on aspirin Cycle troponins 4. VTE prophylaxis: Not indicated while patient is anticoagulated 5. CODE STATUS: Addressed with the patient. Patient unsure. Told her that we would leave her at full CODE STATUS unless she indicates otherwise 6. COVID-19 vaccination status: Patient has been vaccinated and boosted. Patient was due for her fourth booster but I advised her to hold Discussed with the patient's son and at bedside. Charges/Coding Visit Charges Inpatient E&M: 87086 Init Hosp L3
--- NOTE | 2021-12-09 17:42 | ECHOCS_ITS ---
Reason For Study: PE Procedure This was a 2D Doppler, Color Flow transthoracic echocardiogram. The study was technically difficult. Contrast injection was performed. Exam performed portable in patient room. Left Ventricle Normal LV size. Mild eccentric left ventricular hypertrophy. Left ventricular systolic function is normal. The estimated ejection fraction is 65 %. No regional wall motion abnormalities noted. Right Ventricle Normal RV size. Normal systolic function. Atria Normal left atrium. Normal right atrium. Mitral Valve Normal mitral valve. Tricuspid Valve Normal tricuspid valve. Mild to moderate (1-2+) tricuspid valve insufficiency. Pulmonary artery systolic pressure is 44 mmHg. Aortic Valve Trisinus/trileaflet aortic valve. Pulmonic Valve The pulmonic valve is not well visualized. Great Vessels Mildly dilated aortic root. The pulmonary artery is normal size. Normal inferior vena cava. Pericardium/Pleural No pericardial effusion. Medication Diluted definity 2ml given slow IV push to enhance endocardial definition. MMode/2D Measurements & Calculations LVIDd: 3.6 cm IVSd: 1.4 cm Ao root diam: 3.8 cm LVIDs: 1.4 cm LVPWd: 1.1 cm RVDd: 3.4 cm FS: 59.5 % LAV(MOD-bp): 27.1 ml LVAd ap4: 18.1 cm2 SV(MOD-sp4): 31.2 ml LAV(MOD-bp) Indexed: 13.9 ml/m2 LVLd ap4: 7.2 cm LAV(MOD-sp2): 26.9 ml EDV(MOD-sp4): 39.5 ml LAV(MOD-sp4): 24.1 ml EDV(sp4-el): 38.6 ml LVAs ap4: 6.8 cm2 LVLs ap4: 5.0 cm ESV(MOD-sp4): 8.4 ml ESV(sp4-el): 7.9 ml EF(MOD-sp4): 78.9 % EF(sp4-el): 79.6 % SV(sp4-el): 30.7 ml LA A4 area: 10.9 cm2 LA dimension(2D): 4.1 cm RA A4 area: 13.2 cm2 Doppler Measurements & Calculations MV E max frank: 50.7 cm/sec Lat Peak E' Frank: 6.5 cm/sec Med Peak E' Frank: 6.6 cm/sec MV A max frank: 126.7 cm/sec E/E' lat: 7.9 E/E' med: 7.6 MV E/A: 0.40 Ao V2 max: 175.1 cm/sec LV V1 max: 156.0 cm/sec PA V2 max: 76.6 cm/sec Ao max P.3 mmHg LV V1 max P.7 mmHg Ao V2 mean: 121.0 cm/sec Ao mean P.6 mmHg Ao V2 VTI: 24.8 cm TR max frank: 317.4 cm/sec TR max P.3 mmHg ECHO/Echo Complete W/ Contrast Interpretation Summary Normal LV size. Mild eccentric left ventricular hypertrophy. Left ventricular systolic function is normal. The estimated ejection fraction is 65 %. Pulmonary artery systolic pressure is 44 mmHg. Contrast injection was performed. Ordering Physician: Tejas Titus Referring Physician: Tejas Garcia Performed By: Maureen Herman, ANA LAURA, RVT
--- NOTE | 2021-12-09 17:50 | EKG12_ITS ---
Test Reason : ADMIT EKG Blood Pressure : / mmHG Vent. Rate : 079 BPM Atrial Rate : 079 BPM P-R Int : 196 ms QRS Dur : 142 ms QT Int : 432 ms P-R-T Axes : 057 -51 -43 degrees QTc Int : 495 ms Normal sinus rhythm Left axis deviation Right bundle branch block Left ventricular hypertrophy with QRS widening T wave abnormality, consider lateral ischemia Abnormal ECG Confirmed by EMILY JUAREZ, SANDY ([id number]), editorial project manager DOUG ARELLANO ([id number]) on 12/20/2021 1:36:51 PM Referred By: DR KELLY Confirmed By:SANDY DIAZ MD
--- NOTE | 2021-12-09 18:46 | NURSING ---
Adilene primary RN notified of pt BP.
[2021-12-09 20:30] LABS: Troponin-I HS 452 pg/mL (3.0-54.0)
[2021-12-09] MEDS: Senna/Docusate Sodium 1 Tablet 2 TABLET PO (22:21)
[2021-12-09] MEDS: Atorvastatin Calcium 40 MG Tablet PO (22:26)
[2021-12-09] MEDS: Losartan Potassium 50 MG Tablet PO (22:26)
[2021-12-09 22:46] LABS: Partial Thromboplast Time 219.2 Seconds (24.1-36.2)
[2021-12-10] VITALS (10 sets, daily range): BP systolic 121–143; BP diastolic 86–100; PULSE 65–88; RESP 16–18; TEMP 36.3–37.1; O2SAT 95–98
[2021-12-10] MEDS: Levothyroxine 100 MCG Tablet PO (05:59)
[2021-12-10 06:46] LABS: Absolute Lymphocyte Count 1.03 X10^3/uL (0.83-4.51); Basophil# 0.01 X10^3/uL; Basophil% 0.1 % (0-1); Hematocrit 44.9 % (37-47); Lymphocyte # 1.03 X10^3/ul (0.83-4.51); Lymphocyte % 9.9 % (19-41); Mean Corp Hgb Conc 33.4 g/dL (32-36); Mean Corpuscular Hgb 31.5 pg (27.0-32.0); Mean Corpuscular Volume 94.3 fL (81-99); Mean Platelet Vol. 9.7 fl (6.2-12.0); Monocyte# 0.37 X10^3/uL; Monocyte% 3.6 % (0-10); NRBC Flagged by Analyzer 0 % (0-5); Neutrophil # 8.96 X10^3/uL (2.7-7.7); Platelet Count 242 K/mm3 (150-450); RBC Distribution Width CV 12.3 % (11.6-14.6); RBC Distribution Width SD 42.8 fl (35.1-43.9); Red Blood Count 4.76 M/mm3 (4.2-5.4); White Blood Count 10.4 K/mm3 (4.4-11.0)
[2021-12-10 06:57] LABS: Partial Thromboplast Time 85.4 Seconds (24.1-36.2)
[2021-12-10 07:33] LABS: ALB/GLOB Ratio 0.7 RATIO (0.9-2.4); AST(SGOT) 28 U/L (15-37); Alanine Aminotransfer ALT/SGPT 24 U/L (13-56); Albumin, Serum 3.1 g/dL (3.2-5.0); Alkaline Phosphatase 73 U/L (45-117); Anion Gap 6 (5-15); BUN 15 mg/dL (7-18); BUN/Creat Ratio 16.7 RATIO (10-20); Calcium,Total 9.5 mg/dL (8.5-10.1); Chloride 109 mmol/L (98-107); EST Glomerular Filtration Rate 65 mL/min (>60); Est Glom Filt Rate - Afr Amer 79 mL/min (>60); Estimated Creatinine Clearance 52.52 ml/min; Globulin 4.2 g/dL (2.2-4.2); Glucose 142 mg/dL (74-106); Protein, Total 7.3 g/dL (6.4-8.2); Sodium Level 138 mmol/L (136-145)
--- NOTE | 2021-12-10 08:13 | PCM.PN.HOSP ---
Subjective Subjective Follow-up for pulmonary emboli. Patient is states she had right-sided ischemic colitis found when she had abdominal pain in 2008. At that time, she had GI work-up by Dr. Garber. Her PCP, Dr. Garcia had work-up and found MTHFR abnormality but unclear heterozygous or homozygous. Since then she is on folic acid but I do not see it. She denies family history in her parents, grandparents, siblings or children She has dyspnea on exertion on going to bathroom but not at rest. Denies chest pain or tightness. Objective Data Objective Data Vital Signs: Vital Signs Temp Pulse Resp BP Pulse Ox 97.9 F 78 18 143/100 H 95 12/10/21 03:30 12/10/21 06:53 12/10/21 03:30 12/10/21 03:30 12/10/21 03:30 Oxygen Flow Rate (L/min) 3 Oxygen Delivery Method Nasal Cannula Weight: 182 lb 12.8 oz Body Mass Index (BMI) 28.6 Intake & Output: Intake and Output for Last 24 Hours 12/08/21 12/09/21 12/10/21 23:59 23:59 23:59 Intake Total 82 / 382 456.1 / 456.1 Output Total / Balance 82 / 382 455.1 / 455.1 Lab / Micro Data Result Diagrams: 12/10/21 06:37 12/10/21 06:37 Labs: Laboratory Results - last 24 hr 12/09/21 14:05: B-Natriuretic Peptide 330.0 H 12/09/21 14:05: WBC 10.4, RBC 4.86, Hgb 15.4 H, Hct 46.3, MCV 95.3, MCH 31.7, MCHC 33.3, RDW Std Deviation 43.8, RDW Coeff of Karina 12.4, Plt Count 239, MPV 9.5, Immature Gran % (Auto) 0.200, Neut % (Auto) 70.5 H, Lymph % (Auto) 19.2, [place] % (Auto) 7.2, Eos % (Auto) 2.3, Baso % (Auto) 0.6, Absolute Neuts (auto) 7.3, Absolute Lymphs (auto) 2.00, Nucleated RBC % 0 12/09/21 14:05: D-Dimer Quant (PE/DVT) 6.27 H* 12/09/21 14:05: Sodium 140, Potassium 4.3, Chloride 109 H, Carbon Dioxide 26.0, Anion Gap 5, BUN 13, Creatinine 1.10 H, Estim Creat Clear Calc 42.97, Est GFR (MDRD) Af Amer 62, Est GFR (MDRD) Non-Af 51 L, BUN/Creatinine Ratio 11.8, Glucose 113 H, Calcium 9.7, Troponin I High Sens 551 H* 12/09/21 14:05: PT 12.7, INR 1.0, APTT 31.3 12/09/21 16:43: Troponin I High Sens 616 H* 12/09/21 19:52: Troponin I High Sens 452 H* 12/09/21 22:14: APTT 219.2 H* 12/10/21 06:37: WBC 10.4, RBC 4.76, Hgb 15.0, Hct 44.9, MCV 94.3, MCH 31.5, MCHC 33.4, RDW Std Deviation 42.8, RDW Coeff of Karina 12.3, Plt Count 242, MPV 9.7, Immature Gran % (Auto) 0.400, Neut % (Auto) 86.0 H, Lymph % (Auto) 9.9 L, [place] % (Auto) 3.6, Eos % (Auto) 0.0, Baso % (Auto) 0.1, Absolute Neuts (auto) 9.0 H, Absolute Lymphs (auto) 1.03, Nucleated RBC % 0 12/10/21 06:37: Sodium 138, Potassium 4.0, Chloride 109 H, Carbon Dioxide 23.0, Anion Gap 6, BUN 15, Creatinine 0.90, Estim Creat Clear Calc 52.52, Est GFR (MDRD) Af Amer 79, Est GFR (MDRD) Non-Af 65, BUN/Creatinine Ratio 16.7, Glucose 142 H, Calcium 9.5, Total Bilirubin 0.70, AST 28, ALT 24, Alkaline Phosphatase 73, Total Protein 7.3, Albumin 3.1 L, Globulin 4.2, Albumin/Globulin Ratio 0.7 L 12/10/21 06:37: APTT 85.4 H Micro: Microbiology 12/09/21 14:05 Nasal Secretion SARS-CoV-2 & FLU Antigen (Rapid) - Final Radiography Diagnostic Testing: Radiology Impression Chest X-Ray 12/09/21 14:09 IMPRESSION: No acute process Electronically Signed: Aguilar Asher MD at 14:54 EDT , Chest CTA 12/09/21 16:18 IMPRESSION: Large volume acute pulmonary emboli involving all of the segmental and subsegmental pulmonary arteries. No evidence of right heart strain. Few scattered areas of groundglass opacity in the right lower lobe and middle lobes may be infectious or inflammatory in etiology. Electronically Signed: Ashkan Jj MD at 16:54 EDT , Physical Exam Narrative General: Alert, Oriented x3, Cooperative HEENT: Atraumatic, PERRLA, EOMI, Normocephalic Oral: No Gingival or Mucosal Lesions/ Ulcerations Neck: Supple, No JVD, Negative Carotid Bruits Lungs: Air entry diminished in bilateral lung bases. No crepitation/rhonchi Cardiovascular: Regular rate, Regular Rhythm, Normal S1, Normal S2, No murmurs Abdomen: Bowel Sounds Present, Soft, Non Tender, Non-Distended : No renal angle tenderness. No suprapubic tenderness. Extremities: No edema, Capillary Refill Less than 3 Seconds Skin: No rashes, No breakdown Musculoskeletal: No Tenderness to Palpation of Joints or Extremities Neurological: Cranial nerves II-XII grossly intact, DTR 2+/4 and Symmetrical, Neuro grossly intact Psych/Mental Status: Normal Affect, Appropriate Assessment & Plan Assessment/Plan (1) Pulmonary emboli: QUALIFIERS: Pulmonary embolism type: multiple subsegmental (without acute cor pulmonale) Qualified Code(s): I26.94 - Multiple subsegmental pulmonary emboli without acute cor pulmonale PLAN: This is 76-year-old female was admitted with shortness of breath for several weeks with negative rapid Covid test. In ED, D-dimer was found elevated along with troponin and BNP. CTPA showed large volume acute pulmonary emboli involving all the segmental and subsegmental pulmonary arteries. 1. Acute large volume pulmonary emboli involving all segmental and subsegmental pulmonary arteries with right heart strain: Patient is admitted in PCU. 2D echo shows mild to moderate TR, PASP 44 mmHg. Normal RV size and systolic function. Elevation in troponin and BNP suggestive of right-sided strain and echo shows mild to moderate tricuspid regurgitation with mild to moderate pulmonary hypertension. No hypotension but patient subjectively short of breath on exertion/dyspnea on exertion. Pulse ox 95% on 2 L of oxygen. No indication for TPA. Patient will need lifelong anticoagulation and follow-up in pulmonary clinic. 2. Acute hypoxic respiratory failure Secondary to PE Wean oxygen as able Check ambulatory pulse ox prior to discharge 3. Non-STEMI Likely type II event given the embolism. Serial troponin shows decrease in trends. Discontinue baby aspirin as patient is on full anticoagulation. Patient was on aspirin for primary prophylaxis. Denied history of a stroke or coronary artery disease. 4. VTE prophylaxis: Not indicated while patient is anticoagulated 5. CODE STATUS: Addressed with the patient. Patient unsure. Told her that we would leave her at full CODE STATUS unless she indicates otherwise 6. COVID-19 vaccination status: Patient has been vaccinated and boosted. Patient was due for her fourth booster but I advised her to hold Clinical Impression(s) from Imaging Studies Chest X-Ray 12/09/21 14:09 IMPRESSION: No acute process Chest CTA 12/09/21 16:18 IMPRESSION: Large volume acute pulmonary emboli involving all of the segmental and subsegmental pulmonary arteries. No evidence of right heart strain. Few scattered areas of groundglass opacity in the right lower lobe and middle lobes may be infectious or inflammatory in etiology. Echocardiogram 12/09/21 17:42 Interpretation Summary Normal LV size. Mild eccentric left ventricular hypertrophy. Left ventricular systolic function is normal. The estimated ejection fraction is 65 %. Pulmonary artery systolic pressure is 44 mmHg. Contrast injection was performed. Charges/Coding Visit Charges Inpatient E&M: 15579 Subs Hosp L2
[2021-12-10] MEDS: Aspirin 81 MG TAB.CHEW PO (08:32)
[2021-12-10] MEDS: Amitriptyline 25 MG Tablet 50 MG PO (09:58)
[2021-12-10] MEDS: Enoxaparin 80 MG/0.8 ML Syringe SC ×2 (09:58→21:28)
[2021-12-10] MEDS: Metoprolol(XL)Succ 100 MG Tablet PO (09:58)
[2021-12-10] MEDS: Senna/Docusate Sodium 1 Tablet 2 TABLET PO (09:59)
--- NOTE | 2021-12-10 11:15 | CASEMGMT ---
RN CM Face to Face with patient for initial transition planning/care coordination assessment. RN CM introduced self and role at [facility]. Patient lying in bed, alert and oriented, at bedside. Patient willing to participate in assessment and is able to answer all questions appropriately. Care providers, pharmacy, and demographics verified. Patient wishes to discharge home, denies need for home health at this time. Patient states she has no further needs or concerns at this time. CM to follow for discharge planning needs that may arise. PCP: Jose Specialists: none Preferred Pharmacy: [facility]; [facility] retail at discharge Insurance: MORELIA, Erinn Prescription Benefit: yes Living Will/HPOA: yes, Chilango Gonzales LNOK: , daughter, son Living Arrangements: Patient lives with in a single story home with 3 steps to enter. Patient states she is independent at home. Transportation: self, DME/HHC: Patient states she has shower chair, raised toilet, cane, walker, grab bar at home. Patient prefers [employer] for DME. Will monitor patient for home oxygen at discharge. Disposition Plan: Patient to discharge home with family support and follow-up plans in place. Laurie SANTOS, RN, CM
--- NOTE | 2021-12-10 14:23 | CHAPLAIN ---
Type of Pastoral Visit _x__ Initial Visit ___ Follow-up Visit ___ On-call Visit ___ General Patient Visit ___ Spiritual Assessment ___ Family Conference ___ Bereavement ___ Rapid Response ___ Code Blue ___ Other (describe below) Pastoral Care Referral From _x__ Patient ___ Family ___ Nurse ___ Physician ___ Hospital Nurse ___ Community Arts Officer ___ Other (describe below) Sacrament/Intervention _x__ Active listening ___ Anointing ___ Church ___ Bereavement ___ Communion ___ Mary Jane exploration ___ _x__ Life review _x__ Prayer ___ Reconciliation ___ Sacrament of Sick _x__ Supportive presence ___ Wedding ___ Other (describe below) Pastoral Comments patient gives her story about making it to [facility] from [place] for treatment and thankful that God answered her prayers; pt appreciative of staff and good care; pt hopeful and welcomes prayer and presence for support
[2021-12-10] MEDS: Losartan Potassium 50 MG Tablet PO (21:27)
[2021-12-10] MEDS: Atorvastatin Calcium 40 MG Tablet PO (21:27)
[2021-12-11] VITALS (7 sets, daily range): BP systolic 143–146; BP diastolic 79–93; PULSE 60–70; RESP 16–18; TEMP 36.4–36.6; O2SAT 88–96
[2021-12-11] MEDS: Levothyroxine 100 MCG Tablet PO (06:21)
--- NOTE | 2021-12-11 07:48 | PCM.DC ---
Discharge Instructions Diet Discharge Diet: Low fat / Low cholesterol and 2000 mg Sodium Diet Activity Discharge Activity: Return to Normal Activity Dressing / Incision Call your doctor if you observe: Fever of 101 or Higher, Coldness, Increased Pain, Numbness or Tingling, Change in Color, Inability to urinate, Inability to have a bowel movement, Using more than 1 pad per hour, Shortness of breath, Dizziness, Fainting spells, Swelling in the ankles, Chest pain, Prolonged hiccupping, Increased palpitations (irregular heartbeat), Calf discomfort and Uncontrolled pain Follow Up Care Test Results: Test results from this visit will be discussed in further detail at your follow-up appointment, if applicable. Discharge Plan Admission Admit Date/Time: 12/09/21 17:33 Primary Reason for Your Visit: B/L PE with hypoxia Attending Provider: Jakob Gomez Primary Care Provider: Tejas Garcia Discharge Orders/Prescriptions Prescriptions: New Eliquis DVT-PE Treat 30D Start 5 mg (74 tabs) tablets,dose pack 5 mg PO BID Qty: 74 RF: 0 Continued atorvastatin 40 MG tablet 40 mg PO QHS RF: 0 levothyroxine 100 MCG tablet 100 mcg PO DAILY RF: 0 amitriptyline 100 MG tablet 50 mg PO QHS RF: 0 losartan 50 mg tablet 50 mg PO QHS RF: 0 metoprolol succinate 100 mg tablet extended release 24 hr 100 mg PO DAILY RF: 0 Discontinued aspirin 81 MG tablet,chewable 81 mg PO DAILY@0800 RF: 0 Referrals / Follow Up: Jean-Claude Parkinson MD [STAFF PHYSICIAN] - Within 1 Month (For orthopnea. Possible diastolic heart failure.) Steve Staley DO [STAFF PHYSICIAN] - Within 1 Month ( For sleep study and PFT. Bilateral segmental and subsegmental PE with mild to moderate TR on Eliquis) Tejas Garcia MD [Primary Care Provider] - In 1 Week Disposition Disposition (needs filled in before D/C Order can be placed): Home, Self Care
[2021-12-11] MEDS: Aspirin 81 MG TAB.CHEW PO (08:28)
[2021-12-11 08:36] LABS: Absolute Lymphocyte Count 2.77 X10^3/uL (0.83-4.51); Absolute Neutrophil Count 9.2 X10^3/uL (2.0-7.7); Basophil# 0.05 X10^3/uL; Basophil% 0.4 % (0-1); Eosinophil# 0.24 X10^3/uL; Eosinophils% 1.8 % (0-5); Hematocrit 46.5 % (37-47); Hemoglobin 15.3 g/dL (12.0-15.0); Lymphocyte # 2.77 X10^3/ul (0.83-4.51); Lymphocyte % 20.7 % (19-41); Mean Corp Hgb Conc 32.9 g/dL (32-36); Mean Corpuscular Hgb 31.4 pg (27.0-32.0); Mean Corpuscular Volume 95.5 fL (81-99); Mean Platelet Vol. 9.7 fl (6.2-12.0); Monocyte# 1.07 X10^3/uL; NRBC Flagged by Analyzer 0 % (0-5); Neutrophil # 9.22 X10^3/uL (2.7-7.7); Neutrophil % 68.7 % (47-70); Platelet Count 249 K/mm3 (150-450); RBC Distribution Width CV 12.7 % (11.6-14.6); RBC Distribution Width SD 44.9 fl (35.1-43.9); Red Blood Count 4.87 M/mm3 (4.2-5.4); White Blood Count 13.4 K/mm3 (4.4-11.0)
[2021-12-11] MEDS: Metoprolol(XL)Succ 100 MG Tablet PO (09:50)
[2021-12-11] MEDS: Amitriptyline 25 MG Tablet 50 MG PO (09:50)
--- NOTE | 2021-12-11 10:19 | CASEMGMT ---
Addendum entered by Laurie Jones 12/11/21 11:26: Per [facility] pharm, pt's co-pay/deductible is $446.59 but eliquis 30 day free trial card applied so pt's cost today is $0. Pt/ updated on all(med/oxygen), voice understanding. Pt voices no further questions/concerns/needs. Jie ROSALES CM Addendum entered by Laurie Jones 12/11/21 10:33: Eliquis e-scribed to [facility] pharm and call to Keiko for her to have her call this RN CM back when she obtains coverage/co-pay for med. CM to follow. Jie ROSALES CM Original Note: Pt qualifies for 2L continuous home oxygen and had stated previous preference for [employer]. Order obtained and faxed to [facility] [place]. [facility] notified of new referral and need for e-tank. Pt also to be sent home on Eliquis and this RN CM will call to check coverage/co-pay. CM to follow. Jie ROSALES CM
--- NOTE | 2021-12-11 10:41 | PCM.DC.SUM ---
Providers Date of Admission: 12/09/21 Date of Discharge: 12/11/21 Primary Care Physician: Dr. Tejas Garcia MD Reason For Visit: PE Diagnosis Discharge Diagnosis (1) Pulmonary emboli: Status: Acute Code(s): I26.99 - Other pulmonary embolism without acute cor pulmonale Qualifiers: Pulmonary embolism type: multiple subsegmental (without acute cor pulmonale) Qualified Code(s): I26.94 - Multiple subsegmental pulmonary emboli without acute cor pulmonale Medications at Discharge Home Medications amitriptyline 50 mg PO QHS 08/26/15 atorvastatin 40 mg PO QHS 08/26/15 levothyroxine 100 mcg PO DAILY 08/26/15 losartan 50 mg PO QHS 12/09/21 metoprolol succinate 100 mg PO DAILY 12/09/21 apixaban [Eliquis DVT-PE Treat 30D Start] 5 mg PO BID #74 tab 12/11/21 Hospital Course Summary of Care Provided Hospital Course: This is 76-year-old female was admitted with shortness of breath for several weeks with negative rapid Covid test. In ED, D-dimer was found elevated along with troponin and BNP. CTPA showed large volume acute pulmonary emboli involving all the segmental and subsegmental pulmonary arteries. 1. Acute large volume pulmonary emboli involving all segmental and subsegmental pulmonary arteries with right heart strain: Patient is admitted in PCU. 2D echo shows mild to moderate TR, PASP 44 mmHg. Normal RV size and systolic function. Elevation in troponin and BNP suggestive of right-sided strain and echo shows mild to moderate tricuspid regurgitation with mild to moderate pulmonary hypertension. No hypotension but patient subjectively short of breath on exertion/dyspnea on exertion. Pulse ox 95% on 2 L of oxygen. No indication for TPA. Patient was started on IV heparin drip in the ED changed to Lovenox 1 mg/kg body weight every 12 hourly. In the morning today, started on Eliquis 10 mg twice daily. I explained the dose of Eliquis to patient and her , 10 mg twice daily for 1 week until 411 [id number] 5 mg twice daily to continue. Patient will need lifelong anticoagulation and follow-up in pulmonary clinic with Dr. Staley in 1 month.. 2. Acute hypoxic respiratory failure Secondary to PE. Patient requires 2 L of oxygen.Patient met criteria for home oxygen. Patient is ambulatory in home and in the community and requires home oxygen with portability. Patient symptom of orthopnea, not able to lay flat, gurgling sound in throat mainly from heart failure, obstructive sleep apnea. 2D echo shows mild eccentric LVH. Advised follow-up with regional sales consultant Dr. Parkinson as patient's follow-up with him. Patient is already on metoprolol succinate [id number] mg daily and losartan. Heart rate and blood pressure reasonably controlled.Chest x-ray and CT Does not show pulmonary edema. 3. Non-STEMI Likely type II event given the embolism. Serial troponin shows decrease in trends. Discontinue baby aspirin as patient is on full anticoagulation. Patient was on aspirin for primary prophylaxis. Denied history of a stroke or coronary artery disease. 4. VTE prophylaxis: Not indicated while patient is anticoagulated 5. CODE STATUS: Addressed with the patient. Patient unsure. Told her that we would leave her at full CODE STATUS unless she indicates otherwise 6. COVID-19 vaccination status: Patient has been vaccinated and boosted. Patient was due for her fourth booster but I advised her to hold Clinical Impression(s) from Imaging Studies Chest X-Ray 12/09/21 14:09 IMPRESSION: No acute process Chest CTA 12/09/21 16:18 IMPRESSION: Large volume acute pulmonary emboli involving all of the segmental and subsegmental pulmonary arteries. No evidence of right heart strain. Few scattered areas of groundglass opacity in the right lower lobe and middle lobes may be infectious or inflammatory in etiology. Echocardiogram 12/09/21 17:42 Interpretation Summary Normal LV size. Mild eccentric left ventricular hypertrophy. Left ventricular systolic function is normal. The estimated ejection fraction is 65 %. Pulmonary artery systolic pressure is 44 mmHg. Contrast injection was performed. Physical Exam Narrative Her said patient sleeps on a recliner or on the side. She gets short of breath when he lays flat on her back. Denies PND. Patient has not seen any regional sales consultant or table cut off saw operator in the past. No chest pain. General: Alert, Oriented x3, Cooperative HEENT: Atraumatic, PERRLA, EOMI, Normocephalic Oral: No Gingival or Mucosal Lesions/ Ulcerations Neck: Wide and short neck. Supple, No JVD, Negative Carotid Bruits Lungs: Air entry diminished in bilateral lung bases. No crepitation/rhonchi Cardiovascular: Regular rate, Regular Rhythm, Normal S1, Normal S2, No murmurs Abdomen: Bowel Sounds Present, Soft, Non Tender, Non-Distended : No renal angle tenderness. No suprapubic tenderness. Extremities: No pedal/ankle edema, Capillary Refill Less than 3 Seconds Skin: No rashes, No breakdown Musculoskeletal: No Tenderness to Palpation of Joints or Extremities Neurological: Cranial nerves II-XII grossly intact, DTR 2+/4 and Symmetrical, Neuro grossly intact Psych/Mental Status: Normal Affect, Appropriate Weight / BMI Weight Weight: 182 lb 12.211 oz Body Mass Index (BMI) 28.6 ABG / Lab / Microbiology Data Result Diagrams: 12/11/21 08:29 12/10/21 06:37 Microbiology: Microbiology 12/09/21 14:05 Nasal Secretion SARS-CoV-2 & FLU Antigen (Rapid) - Final Radiography Diagnostic Testing: Radiology Impression Echocardiogram 12/09/21 17:42 Interpretation Summary Normal LV size. Mild eccentric left ventricular hypertrophy. Left ventricular systolic function is normal. The estimated ejection fraction is 65 %. Pulmonary artery systolic pressure is 44 mmHg. Contrast injection was performed. Ordering Physician: Tejas Titus Referring Physician: Tejas Garcia Performed By: Maureen Herman, ANA LAURA, RVT Meaningful Use Info Meaningful Use Diagnoses (Choose all that apply): VTE VTE Anticoag overlap given w/in hospital stay or rx'd at dc?: No Pt receive overlap for 5 days?: No Reason overlap not ordered, prescribed, or given for 5 days: Procedure Not Indicated Discharge Plan Admission Admit Date/Time: 12/09/21 17:33 Primary Reason for Your Visit: B/L PE with hypoxia Attending Provider: Jakob Gomez Primary Care Provider: Tejas Garcia Discharge Orders/Prescriptions Prescriptions: New Eliquis DVT-PE Treat 30D Start 5 mg (74 tabs) tablets,dose pack 5 mg PO BID Qty: 74 RF: 0 Continued atorvastatin 40 MG tablet 40 mg PO QHS RF: 0 levothyroxine 100 MCG tablet 100 mcg PO DAILY RF: 0 amitriptyline 100 MG tablet 50 mg PO QHS RF: 0 losartan 50 mg tablet 50 mg PO QHS RF: 0 metoprolol succinate 100 mg tablet extended release 24 hr 100 mg PO DAILY RF: 0 Discontinued aspirin 81 MG tablet,chewable 81 mg PO DAILY@0800 RF: 0 Referrals / Follow Up: Jean-Claude Parkinson MD [STAFF PHYSICIAN] - Within 1 Month (For orthopnea. Possible diastolic heart failure.) Steve Staley DO [STAFF PHYSICIAN] - Within 1 Month ( For sleep study and PFT. Bilateral segmental and subsegmental PE with mild to moderate TR on Eliquis) Tejas Garcia MD [Primary Care Provider] - In 1 Week Disposition Disposition (needs filled in before D/C Order can be placed): Home, Self Care Charges/Coding Visit Charges Inpatient E&M: 16622 Disch Hosp
[2021-12-11] MEDS: APIXABAN 5 MG TABLET 10 MG PO (10:44)
== END 2021-12-11 13:00 | disposition home or self-care (01) | DRG 175 ==
LOC: ED 17:11 → PCU 17:36
PROVIDERS: Emergency Medicine; Nurse Practitioner; Emergency Provider Emergency Medicine; PCP Family Medicine; Visit Provider Internal Medicine
DX: I26.94 Multiple subsegmental thrombotic pulmonary emboli without acute cor pulmonale (principal); J96.01 Acute respiratory failure with hypoxia; I21.A1 Myocardial infarction type 2; I27.20 Pulmonary hypertension, unspecified; E78.5 Hyperlipidemia, unspecified; I25.10 Atherosclerotic heart disease of native coronary artery without angina pectoris; I10 Essential (primary) hypertension; I07.1 Rheumatic tricuspid insufficiency; E03.9 Hypothyroidism, unspecified; Z79.01 Long term (current) use of anticoagulants; Z79.899 Other long term (current) drug therapy
CPT/HCPCS: 36415; 71045; 71275; 80048; 80053; 83880; 84484; 85025; 85379; 85610; 85730; 87428; 93005; 93306; 99285; Q9957; Q9967; A4216; C8929

== ENCOUNTER 2021-12-18 09:09 | Outpatient (CLI) | payer MEDICARE, OTHER, SELFPAY ==
--- NOTE | 2021-12-18 09:11 | BI_ITS ---
MAMMOGRAPHY - BILATERAL SCREENING REASON FOR EXAM: Female, 76 years old. Routine annual screening examination. PERTINENT HISTORY: Grandmother with breast cancer. Aunt with breast cancer. Remote left excisional breast biopsy. TECHNIQUE: Digital bilateral breast evy (3D mammographic acquisition) in the CC and MLO projections. 2-D mediolateral oblique (MLO) and craniocaudad (CC) views of both breasts were obtained. CAD: Full Field Digital Mammography with Computer Added Detection was performed. COMPARISON: Comparison is made with prior study dated 06/28/2020 and 11/25/2018. FINDINGS: Breast Composition: There are scattered areas of fibroglandular density. There are no dominant masses or suspicious calcifications. Stable 3.9 mm well-defined nodule in the upper lateral aspect of the right breast most likely representing a small lymph node. Stable appearance of the left axillary lymph nodes. No other significant abnormalities are identified. There has been no significant change since the prior study. BI/SCRN MAMM (CAD)W/EVY BILAT IMPRESSION: Stable bilateral screening mammogram. Yearly follow-up mammogram recommended. (A) ASSESSMENT CATEGORY: BIRADS Category 2: Benign. A letter regarding these results will be sent to the patient by the facility within 30 days. Approximately 10% of breast cancers are not detected by mammography. A normal mammogram should not delay biopsy of a clinically suspicious abnormality. [id number] Electronically Signed: Haider Driscoll MD at 9:53 EDT ,
== END 2021-12-18 23:59 | disposition home or self-care (01) ==
LOC: OPBI 09:10
PROVIDERS: PCP Family Medicine; Visit Provider Family Medicine
DX: Z12.31 Encounter for screening mammogram for malignant neoplasm of breast (principal); Z80.3 Family history of malignant neoplasm of breast
CPT/HCPCS: 77063; 77067

== ENCOUNTER → 2022-01-07 | Outpatient (CLI) | payer MEDICARE, OTHER, SELFPAY | END | disposition home or self-care (01) | LOC: MFPLAB 13:36 | PROVIDERS: PCP Family Medicine; Visit Provider Nurse Practitioner Family | DX: N39.0 Urinary tract infection, site not specified (principal) | CPT/HCPCS: 87077; 87086; 87088; 87186 ==

== ENCOUNTER → 2022-01-09 | Outpatient (CLI) | payer MEDICARE, OTHER, SELFPAY ==
[2022-01-09 12:53] VITALS: PULSE 64; PULSE 69; PULSE 71; PULSE 79; PULSE 80; O2SAT 97; O2SAT 98; O2SAT 99
--- NOTE | 2022-01-10 09:48 | PCM.PSN.6M ---
PSN 6 Minute Walk Test 6 Minute Walk Test 6 Minute Walk Test: 6 Minute Walk Test PSN:6-Minute Walk Test Start: 01/09/22 12:53 Freq: Status: Active Protocol: [id number] Document 01/09/22 12:53 BRITTANI (Rec: 01/09/22 12:55 BRITTANI [id number]) 6 Minute Walk Test Date Performed 01/09/22 Time Performed 12:30 Height 5 ft 7 in Weight: 81.647 kg Weight in Pounds 180.[address]: Steve Staley Assistive device used: None Pre-test Oxygen Delivery Method Room Air Pulse Ox (%) 98 Pulse Rate (60-100 beats/min) 64 Dyspnea Brianne Scale (0-10) 0 Exertion Brianne Scale (6-20) 6 1st minute Oxygen Delivery Method Room Air Pulse Ox (%) 97 Pulse Rate (60-100 beats/min) 71 2nd minute Oxygen Delivery Method Room Air Pulse Ox (%) 99 Pulse Rate (60-100 beats/min) 79 3rd minute Oxygen Delivery Method Room Air Pulse Ox (%) 98 Pulse Rate (60-100 beats/min) 79 4th minute Oxygen Delivery Method Room Air Pulse Ox (%) 97 Pulse Rate (60-100 beats/min) 80 5th minute Oxygen Delivery Method Room Air Pulse Ox (%) 98 Pulse Rate (60-100 beats/min) 80 6th minute Oxygen Delivery Method Room Air Pulse Ox (%) 98 Pulse Rate (60-100 beats/min) 80 Dyspnea Brianne Scale (0-10) 3 Exertion Brianne Scale (6-20) 13 Post-test Oxygen Delivery Method Room Air Pulse Ox (%) 99 Pulse Rate (60-100 beats/min) 69 Full Laps Walked 19 Partial Lap, Number of Tiles Walked 5 Total Distance Walked (ft) 1126 Interpretation Interpretation: The patient ambulated 1126 feet over the course of 6 minutes beginning on room air without assistive devices or breaks. Seen oxygen saturation was noted to be 98% on room air. With ambulation, the clary oxygen saturation was 97%. There was no significant exertional oxygen desaturation. Recommendations Recommendations: There is no indication for the use of supplemental oxygen at this time.
== END | disposition home or self-care (01) ==
LOC: PSN 12:35
PROVIDERS: PCP Family Medicine; Visit Provider Internal Medicine Critical Care Medicine
DX: I26.99 Other pulmonary embolism without acute cor pulmonale (principal)
CPT/HCPCS: 94618

== ENCOUNTER → 2022-02-11 | Outpatient (CLI) | payer MEDICARE, OTHER, SELFPAY | END | disposition home or self-care (01) | PROVIDERS: PCP Family Medicine; Referring Provider Family Medicine; Visit Provider Family Medicine | DX: Z20.822 Contact with and (suspected) exposure to COVID-19 (principal) | CPT/HCPCS: 36415 ==

== ENCOUNTER → 2022-03-26 | Outpatient (CLI) | payer MEDICARE, OTHER, SELFPAY ==
[2022-03-26 12:36] LABS: Anion Gap 5 (5-15); BUN 12 mg/dL (7-18); BUN/Creat Ratio 11.5 RATIO (10-20); Calcium,Total 9.7 mg/dL (8.5-10.1); Chloride 106 mmol/L (98-107); Creatinine, Serum 1.04 mg/dL (0.55-1.02); EST Glomerular Filtration Rate 55 mL/min (>60); Est Glom Filt Rate - Afr Amer 66 mL/min (>60); Glucose 100 mg/dL (74-106); Potassium 4.1 mmol/L (3.5-5.1); Sodium Level 140 mmol/L (136-145)
== END | disposition home or self-care (01) ==
LOC: MFPLAB 10:39
PROVIDERS: PCP Family Medicine; Visit Provider Family Medicine
DX: I10 Essential (primary) hypertension (principal)
CPT/HCPCS: 36415; 80048

== ENCOUNTER → 2022-04-12 | Outpatient (CLI) | payer MEDICARE, OTHER, SELFPAY ==
--- NOTE | 2022-04-12 09:57 | ECHOCS_ITS ---
Reason For Study: Dyspnea/SOB Procedure This was a 2D Doppler, Color Flow transthoracic echocardiogram. Contrast injection was performed. Exam performed in department. Left Ventricle Normal LV size. Left ventricular systolic function is normal. The estimated ejection fraction is 55 %. Stage 1 diastolic dysfunction. No regional wall motion abnormalities noted. Right Ventricle Normal RV size. Normal systolic function. Atria Normal left atrium. Normal right atrium. Mitral Valve Normal mitral valve. Tricuspid Valve Normal tricuspid valve. Mild tricuspid valve insufficiency. Pulmonary artery systolic pressure is 29 mmHg. Aortic Valve Trisinus/trileaflet aortic valve. Pulmonic Valve The pulmonic valve is not well visualized. Great Vessels Normal aortic root. The pulmonary artery is normal size. Normal inferior vena cava. Pericardium/Pleural No pericardial effusion. Medication Diluted definity 3.5ml given slow IV push to enhance endocardial definition. MMode/2D Measurements & Calculations LVIDd: 3.8 cm IVSd: 1.3 cm Ao root diam: 3.8 cm LVIDs: 2.2 cm LVPWd: 1.0 cm RVDd: 2.6 cm FS: 42.7 % LAV(MOD-bp): 34.9 ml LVAd ap4: 20.1 cm2 SV(MOD-sp4): 36.4 ml LAV(MOD-bp) Indexed: 18.1 ml/m2 LVLd ap4: 6.4 cm LAV(MOD-sp2): 44.0 ml EDV(MOD-sp4): 53.1 ml LAV(MOD-sp4): 27.9 ml EDV(sp4-el): 53.7 ml LVAs ap4: 10.2 cm2 LVLs ap4: 5.3 cm ESV(MOD-sp4): 16.7 ml ESV(sp4-el): 16.7 ml EF(MOD-sp4): 68.5 % EF(sp4-el): 68.9 % SV(sp4-el): 37.0 ml LA A4 area: 12.9 cm2 LA dimension(2D): 3.8 cm RA A4 area: 11.6 cm2 Doppler Measurements & Calculations MV E max frank: 67.0 cm/sec Lat Peak E' Frank: 6.6 cm/sec Med Peak E' Frank: 4.7 cm/sec MV A max frank: 83.5 cm/sec E/E' lat: 10.2 E/E' med: 14.2 MV E/A: 0.80 Ao V2 max: 124.5 cm/sec LV V1 max: 114.3 cm/sec PA V2 max: 77.3 cm/sec Ao max P.2 mmHg LV V1 max P.2 mmHg Ao V2 mean: 85.6 cm/sec Ao mean P.2 mmHg Ao V2 VTI: 25.0 cm TR max frank: 245.0 cm/sec TR max P.0 mmHg ECHO/Echo Complete W/ Contrast Interpretation Summary Pulmonary artery systolic pressure is 29 mmHg. Normal LV size. Left ventricular systolic function is normal. The estimated ejection fraction is 55 %. Stage 1 diastolic dysfunction. Contrast injection was performed. Ordering Physician: Jean-Claude Parkinson Referring Physician: Tejas Garcia Performed By: Maureen Herman, RDCS, RVT
== END | disposition home or self-care (01) ==
LOC: CVS 09:57
PROVIDERS: PCP Family Medicine; Referring Provider Internal Medicine Cardiovascular Disease; Visit Provider Internal Medicine Cardiovascular Disease
DX: I26.94 Multiple subsegmental thrombotic pulmonary emboli without acute cor pulmonale (principal); R06.02 Shortness of breath
CPT/HCPCS: 93306; Q9957; A4216; C8929

== ENCOUNTER 2022-04-25 19:28 | Emergency (ER) | payer MEDICARE, OTHER, SELFPAY ==
[2022-04-25 19:29] VITALS: BP 130/81; PULSE 66; RESP 15; TEMP 36.8; O2SAT 95; BMI 28.6
--- NOTE | 2022-04-25 19:49 | CT_ITS ---
INDICATION: LLQ abdominal pain EXAMINATION: CT ABDOMEN AND PELVIS WITHOUT CONTRAST - CT Abdomen And Pelvis W/O Contrast Injection TECHNIQUE: Helically acquired images were obtained of the abdomen and pelvis without oral or IV contrast. A radiation dose optimization technique was used for this scan. IV Contrast dosage and agent: None. Oral contrast: None. RADIATION DOSAGE (If Supplied By Facility): CTDIvol = ( 10.96 ) mGy, DLP = ( 520.07 ) mGycm COMPARISON: 07/02/2018 FINDINGS: LOWER CHEST: Lung bases are clear of consolidation, minimal atelectasis and interstitial prominence at the LEFT lung base.. No cardiomegaly or pericardial effusion. LIVER: The liver has normal configuration and density given the limitation of noncontrast exam. No focal mass. GALLBLADDER AND BILIARY TREE: No calcified gallstones. No gallbladder distension or wall edema. No intra- or extrahepatic biliary ductal dilation. PANCREAS: No focal cystic or solid mass. SPLEEN: Normal size without focal cystic or solid mass. ADRENAL GLANDS: No nodules. KIDNEYS AND URETERS: Normal renal size and position. There is a exophytic low-density lesion from the inferior pole LEFT kidney measuring approximately 3.8 x 3.7 cm consistent with a benign cyst. No calcifications noted. No ureteral stones. PERITONEUM: No ascites or free air. No other fluid collection. BOWEL: Moderate amount retained stool throughout the colon consistent with developing constipation. No diverticulitis. No masses or bowel obstruction. No evidence of appendicitis. LYMPH NODES: No enlarged mesenteric or retroperitoneal lymph nodes. VESSELS: Aorta is non-dilated. URINARY BLADDER: Unremarkable. REPRODUCTIVE ORGANS: Normal appearance of the uterus. There is a 2.4 x 2.1 cm low-density LEFT ovary consistent with a cyst. No free fluid. ABDOMINAL WALL: No discrete abdominal or pelvic wall hernia. BONES: Mild lumbar spondylosis straightening of lordosis noted. No evidence fracture destructive bony process. CT/Abdomen/Pelvis without Cont IMPRESSION: 1. Moderate to large amount retained stool throughout the colon consistent with developing constipation. 2. No evidence of diverticulitis or appendicitis. 3. No free fluid. 4. There is a 2.4 x 2.1 cm low-density area in the LEFT ovary likely representing a cyst. No free fluid. 5. No radiodense calcifications gallbladder. 6. Minimal interstitial prominence at the LEFT lung base. No consolidation. Electronically Signed: Jaren Elias MD at 21:40 EDT ,
--- NOTE | 2022-04-25 19:49 | ED.VIS.GI ---
HPI HPI - GI History of Present Illness Chief Complaint: Abd Pain Informant: patient and family Narrative Narrative: Increasing lower abdominal pain since this afternoon causing nausea and lightheaded symptoms. She is constipated for 4 days had a period bowel movement yesterday however none today stool softeners. Prior to 4 days ago had diarrhea, for which she took Imodium which bacteria. No abdominal surgeries in the past. Colonoscopy [address] Garber. Denies any acute findings. No urinary symptoms. No fevers. From records recent history pulmonary emboli in December currently on Eliquis twice a day. Currently symptoms have subsided. Denies any diverticulitis in the past. Prior similar symptoms: No PFSH PFSH Medical History (HFpEF) heart failure with preserved ejection fraction Acute and chronic respiratory failure with hypoxia Depression Essential hypertension History of kidney stones History of non-ST elevation myocardial infarction (NSTEMI) (12/09/21) Hyperlipidemia Hypothyroidism Hypoxemia Ischemic colitis Kidney disease MTHFR gene mutation Pneumonia Pulmonary emboli (12/09/21) Right bundle branch block (RBBB) Secondary pulmonary arterial hypertension Wide-complex tachycardia Home Medications atorvastatin 40 mg tablet 40 mg PO QHS 08/26/15 [History Last Taken Unknown] levothyroxine 100 mcg tablet 100 mcg PO DAILY thyroid 08/26/15 [History Last Taken Unknown] metoprolol succinate 100 mg tablet,extended release 24 hr 100 mg PO DAILY bp 12/09/21 [History Last Taken Unknown] cyanocobalamin (vitamin B-12) 500 mcg lozenges 500 mcg PO DAILY 12/20/21 [History Last Taken Unknown] folic acid 800 mcg tablet 0.8 mg PO DAILY 12/20/21 [History Last Taken Unknown] tizanidine 4 mg capsule 4 mg PO QHS PRN Muscle Spasm 12/20/21 [History Last Taken Unknown] yoxcrxknvezxf-aacjvdvcimoiq-fbmhzsdbduvqo 65 mg-100 mg-325 mg capsule 1 cap PO .prn migraines 12/24/21 [History Last Taken Unknown] alprazolam 0.25 mg tablet 0.25 mg PO DAILY PRN Anxiety 12/28/21 [History Last Taken Unknown] losartan 50 mg tablet 50 mg PO BID #180 tabs 03/04/22 [Rx Last Taken Unknown] apixaban 5 mg tablet (Eliquis) 5 mg PO BID #180 tabs 03/19/22 [Rx Last Taken Unknown] amitriptyline 50 mg tablet 50 mg PO DAILY 04/19/22 [History Last Taken Unknown] bupropion HCl 150 mg 24 hr tablet, extended release 150 mg PO DAILY 04/19/22 [History Last Taken Unknown] spironolactone 25 mg-hydrochlorothiazide 25 mg tablet 1 tab PO DAILY 04/19/22 [History Last Taken Unknown] Allergy/AdvReac Type Severity Reaction Status Date / Time bupropion [From Wellbutrin] Allergy rash Verified 04/19/22 09:21 Iodinated Contrast Media Allergy Hives Verified 04/19/22 09:21 [Iodinated Contrast Media - IV Dye] nefazodone [From Serzone] Allergy Rash Verified 04/19/22 09:21 buspirone [From BuSpar] AdvReac weight gain Verified 04/19/22 09:21 escitalopram [From Lexapro] AdvReac affected Verified 04/19/22 09:21 sex sertraline [From Zoloft] AdvReac affected Verified 04/19/22 09:21 sex venlafaxine [From Effexor] AdvReac affected Verified 04/19/22 09:21 sleep Family History Grandfather Cancer Grandmother Heart disease Breast cancer Obesity Mother Heart disease Myocardial infarction, Onset Age: 78 Asthma Father Dementia Hypertension Cancer prostate CVA (cerebral vascular accident) Afib Surgical History H/O breast biopsy H/O lymph node biopsy History of dilatation and curettage History of electrophysiologic study (12/13/98) History of left heart catheterization (03/01/98) History of tonsillectomy and adenoidectomy Social History household members: spouse housing: house Smoking Status: Never smoker alcohol intake: current alcohol intake frequency: holidays/special occasions only Alcohol type: wine ROS ROS ED Constitutional Constitutional ED: Denies chills, fever(s) or sweats Eyes Eyes: Denies change in vision ENT ENT ED: Denies dysphagia or sore throat Cardiovascular Cardiovascular: Denies chest pain, leg edema, palpitations or racing heartbeat Respiratory/Chest Respiratory/Chest: Denies cough, dyspnea or dyspnea on exertion Gastrointestinal Gastrointestinal: Reports abdominal pain and nausea; Denies diarrhea or vomiting Genitourinary Genitourinary ED: Denies dysuria, hematuria or urinary frequency Musculoskeletal Musculoskeletal: Denies back pain, extremity pain or neck pain Integumentary Denies rash or wounds Neurologic Neurologic: Denies headache(s), paresthesias or weakness EXAM Physical Exam Const Vital Signs: 04/25/22 19:29 04/25/22 22:44 Temperature 98.3 F Temperature Source Temporal Pulse Rate 66 70 Respiratory Rate 15 15 Blood Pressure 130/81 H 162/75 H Blood Pressure Mean 97 Pulse Ox 95 98 Oxygen Delivery Method Room Air Positive well nourished and well developed General Appearance ED: well developed and NAD HEENT Reports dry mucous membranes normocephalic and atraumatic Mouth ED: Yes dry mucous membranes Mouth: dry mucous membranes Eyes PERRL, EOMs intact bilaterally and conjunctivae normal General Eye ED: Yes normal appearance of both eyes Neck no lymphadenopathy and supple General: Negative for tenderness Chest Wall Chest: Negative for tenderness Resp normal respiratory effort and normal air movement Effort and Inspection: symmetric chest movement; Negative for respiratory distress Cardio regular rate, regular rhythm and no murmurs Peripheral Pulses: pulses 2+ throughout GI normal to inspection, nondistended, normoactive bowel sounds GI Narrative: Tender deep palpation suprapubic left lower quadrant, no guarding or rebound Palpation: Negative for guarding or rebound tenderness present Back/Spine no CVA tenderness and no thoracic nor lumbar tenderness Extremity normal to inspection General Extremety ED: Negative for edema or tenderness General Extremity: Negative for edema Neuro oriented x3 and no sensory deficits noted Sensorium / Orientation: awake and alert Skin no rashes or lesions noted and no wounds MDM MDM MDM Narrative Medical decision making narrative: Patient with a nonsurgical abdomen. Tender to deep palpation left lower quadrant. Labs obtained white count 8.4 hemoglobin 14.6. Creatinine 1.62 up from 1.08 previously. She was given IV fluids. Urine noted leukocytes white cells however noted epithelials. Urine culture sent. She denies urine symptoms. Would not treat at this time. CT scan negative for any diverticulitis. Noted developing constipation. Also noted possible left ovarian cyst up to 2.4 cm. Discussed findings with the patient. She has MiraLAX at home, discussed using this to help with bowel movements. She understands. Prior to discharge IV fluids infiltrated upper left arm. They have are comfortable managing and monitoring at home. Follow-up as an outpatient. All questions were answered. Lab Data Attestation: I reviewed the patient's lab results. Labs: Laboratory Results - last 24 hr 04/25/22 04/25/22 04/25/22 19:53 19:53 20:07 WBC 8.4 RBC 4.65 Hgb 14.6 Hct 44.1 MCV 94.8 MCH 31.4 MCHC 33.1 RDW Std Deviation 42.3 RDW Coeff of Karina 12.1 Plt Count 203 MPV 10.3 Immature Gran % (Auto) 0.200 Neut % (Auto) 62.0 Lymph % (Auto) 25.7 Harmon % (Auto) 7.4 Eos % (Auto) 3.9 Baso % (Auto) 0.8 Absolute Neuts (auto) 5.2 Absolute Lymphs (auto) 2.15 Nucleated RBC % 0 Sodium 139 Potassium 4.6 Chloride 107 Carbon Dioxide 26.0 Anion Gap 6 BUN 19 H Creatinine 1.62 H Estim Creat Clear Calc 27.66 Est GFR (MDRD) Af Amer 40 L Est GFR (MDRD) Non-Af 33 L BUN/Creatinine Ratio 11.7 Glucose 135 H Calcium 9.8 Urine Color Yellow Urine Clarity Sl. Cloudy Urine pH 6.0 Ur Specific Drayton 1.015 Urine Protein 15 H Urine Glucose (UA) Normal Urine Ketones 5 H Urine Occult Blood 10 H Urine Nitrite Negative Urine Bilirubin Negative Urine Urobilinogen 1 H Ur Leukocyte Esterase 500 H Urine RBC 0-5 SEEN Urine WBC 10-25 SEEN Ur Squamous Epith Cells 10-25 SEEN Urine Bacteria 2+ Urine Mucus 0 SEEN Radiography Diagnostic Testing: Clinical Impression(s) from Imaging Studies Abdomen/Pelvis CT 04/25/22 19:49 IMPRESSION: 1. Moderate to large amount retained stool throughout the colon consistent with developing constipation. 2. No evidence of diverticulitis or appendicitis. 3. No free fluid. 4. There is a 2.4 x 2.1 cm low-density area in the LEFT ovary likely representing a cyst. No free fluid. 5. No radiodense calcifications gallbladder. 6. Minimal interstitial prominence at the LEFT lung base. No consolidation. Electronically Signed: Jaren Elias MD at 21:40 EDT , Discharge Plan Triage Chief Complaint: Abd Pain ED Provider: Gt Madsen Dx/Rx/DC Orders Clinical Impression: Constipation, Abdominal pain, LLQ, Acute renal insufficiency, Cyst of left ovary Instructions: ED Constipation (Adult), ED Renal Insufficiency Prescriptions: No Action alprazolam 0.25 mg tablet 0.25 mg PO DAILY PRN (Reason: Anxiety) cyanocobalamin (vitamin B-12) 500 mcg lozenge 500 mcg PO DAILY tizanidine 4 mg capsule 4 mg PO QHS PRN (Reason: Muscle Spasm) folic acid 800 mcg tablet 0.8 mg PO DAILY zyjzech-zdnkmyxdv-zthkulkamlrm 65-100-325 mg capsule 1 cap PO .prn Eliquis 5 mg tablet 5 mg PO BID Qty: 180 3RF amitriptyline 50 mg tablet 50 mg PO DAILY bupropion HCl 150 mg tablet extended release 24 hr 150 mg PO DAILY spironolacton-hydrochlorothiaz 25-25 mg tablet 1 tab PO DAILY atorvastatin 40 MG tablet 40 mg PO QHS levothyroxine 100 MCG tablet 100 mcg PO DAILY Rx Instructions: pt cant take generic. on synthroid metoprolol succinate 100 mg tablet extended release 24 hr 100 mg PO DAILY Label Comments: TAKE ONE TABLET BY MOUTH ONE TIME DAILY losartan 50 mg tablet 50 mg PO BID Qty: 180 3RF Primary Care Provider: Esthela Sands Referrals: Tejas Garcia MD [Med Staff - Cable Television Access Coordinator] - Activity Restrictions/Additional Instructions: White count normal creatinine 1.6 today. Status post 1 L fluids. Continue oral fluids for hydration. Reevaluate labs as an outpatient. CT scan for your pain notes constipation. Use your MiraLAX at home as discussed. Your urine shows signs of bacteria however also signs of contaminant. You have no symptoms. Urine culture sent. We will call you if positive for treatment. Follow-up with your doctor. Return if any worsening symptoms. Disposition Disposition: Home, Self Care Discharge Date/Time: 04/25/22 22:45
[2022-04-25] MEDS: 0.9% Normal Saline 1,000 ML 1000 ML IV (20:12)
[2022-04-25 20:14] LABS: Mucous, Urine 0 SEEN /hpf (<or=2+)
[2022-04-25 20:35] LABS: Absolute Lymphocyte Count 2.15 X10^3/uL (0.83-4.51); Absolute Neutrophil Count 5.2 X10^3/uL (2.0-7.7); Basophil# 0.07 X10^3/uL; Basophil% 0.8 % (0-1); Eosinophil# 0.33 X10^3/uL; Eosinophils% 3.9 % (0-5); Hematocrit 44.1 % (37-47); Hemoglobin 14.6 g/dL (12.0-15.0); Lymphocyte # 2.15 X10^3/ul (0.83-4.51); Lymphocyte % 25.7 % (19-41); Mean Corp Hgb Conc 33.1 g/dL (32-36); Mean Corpuscular Hgb 31.4 pg (27.0-32.0); Mean Corpuscular Volume 94.8 fL (81-99); Mean Platelet Vol. 10.3 fl (6.2-12.0); Monocyte# 0.62 X10^3/uL; Monocyte% 7.4 % (0-10); NRBC Flagged by Analyzer 0 % (0-5); Neutrophil # 5.19 X10^3/uL (2.7-7.7); Platelet Count 203 K/mm3 (150-450); RBC Distribution Width CV 12.1 % (11.6-14.6); RBC Distribution Width SD 42.3 fl (35.1-43.9); Red Blood Count 4.65 M/mm3 (4.2-5.4); White Blood Count 8.4 K/mm3 (4.4-11.0)
[2022-04-25 20:43] LABS: Color, Urine Yellow (Yellow); Glucose, Dipstick Normal (Normal); Ketone-Dipstick 5 mg/dl (Negative); Leukocyte Esterase-Dipstick 500 /ul (Negative); Nitrite-Dipstick Negative (Negative); Occult Blood-Urine 10 /ul (Negative); Protein-Dipstick 15 mg/dl (Negative); Specific Gravity, Urine 1.015 (1.002-1.030); Urine Bilirubin Dipstick Negative (Negative); Urine Clarity Sl. Cloudy (Clear); Urine Urobilinogen 1 mg/dl (Normal)
[2022-04-25 20:57] LABS: Anion Gap 6 (5-15); BUN 19 mg/dL (7-18); BUN/Creat Ratio 11.7 RATIO (10-20); Calcium,Total 9.8 mg/dL (8.5-10.1); Chloride 107 mmol/L (98-107); Creatinine, Serum 1.62 mg/dL (0.55-1.02); EST Glomerular Filtration Rate 33 mL/min (>60); Est Glom Filt Rate - Afr Amer 40 mL/min (>60); Estimated Creatinine Clearance 27.66 ml/min; Glucose 135 mg/dL (74-106); Potassium 4.6 mmol/L (3.5-5.1); Sodium Level 139 mmol/L (136-145)
[2022-04-25 21:19] LABS: Bacteria 2+ /hpf (None Seen); Red Blood Cells-Urine 0-5 SEEN /hpf (0-5); Squamous Epithelial Cells - UA 10-25 SEEN /hpf (5-10); White Blood Cells 10-25 SEEN /hpf (0-5)
[2022-04-25 22:44] VITALS: BP 162/75; PULSE 70; RESP 15; O2SAT 98
== END 2022-04-25 22:45 | disposition home or self-care (01) ==
PROVIDERS: Emergency Provider Emergency Medicine; PCP Internal Medicine; Visit Provider Emergency Medicine
DX: K59.00 Constipation, unspecified (principal); I11.0 Hypertensive heart disease with heart failure; I50.32 Chronic diastolic (congestive) heart failure; N28.9 Disorder of kidney and ureter, unspecified; N83.202 Unspecified ovarian cyst, left side; R10.32 Left lower quadrant pain; E78.5 Hyperlipidemia, unspecified; E03.9 Hypothyroidism, unspecified; F32.A Depression, unspecified; Z79.899 Other long term (current) drug therapy
CPT/HCPCS: 74176; 80048; 81001; 85025; 87077; 87086; 87088; 87186; 96360; 96361; 99284; J7030; A4216

== ENCOUNTER → 2022-05-02 | Outpatient (CLI) | payer MEDICARE, OTHER, SELFPAY ==
--- NOTE | 2022-05-02 16:08 | US_ITS ---
STUDY: ULTRASOUND OF THE FEMALE PELVIS - COMPLETE REASON FOR EXAM: Female, 77 years old. CYST-LTO LMP: Unknown. TECHNIQUE: Transabdominal and Transvaginal TECHNICAL QUALITY: Limited. Examination limited by bowel gas. COMPARISON: None. FINDINGS: The uterus is anteverted and is in a midline position. The uterus measures 6.8 x 4.1 x 3.7 cm. Normal uterine cervix. The endometrium measures 3 mm in thickness, and is fluid distended. There is no demonstrated endometrial mass. There is no demonstrated myometrial mass. I.U.D. - The patient does not have an I.U.D. The right ovary is non-visualized. No right adnexal lesions. The left ovary is visualized. The left ovary measures 3.5 x 2.2 x 1.8 cm. Dominant anechoic left ovarian follicle measuring 2.4 x 1.7 x 1.6 cm. There is no visualized left adnexal mass or complex lesion. There is normal arterial and normal venous vascularity. There is no fluid in the cul-de-sac. US/Pelvic (Non ) IMPRESSION: Mildly fluid distended endometrium, nonspecific. Nonvisualized right ovary. Dominant left ovarian follicle. Remainder is unremarkable. Electronically Signed: Arnaud Carlos DO at 6:44 EDT ,
== END | disposition home or self-care (01) ==
LOC: US 16:06
PROVIDERS: PCP Internal Medicine; Referring Provider Internal Medicine; Visit Provider Internal Medicine
DX: N83.202 Unspecified ovarian cyst, left side (principal)
CPT/HCPCS: 76856

== ENCOUNTER → 2022-05-23 | Outpatient (CLI) | payer MEDICARE, OTHER, SELFPAY ==
--- NOTE | 2022-05-23 13:00 | BD_ITS ---
STUDY: DUAL ENERGY X-RAY ABSORPTIOMETRY / DXA REASON FOR EXAM: Female, 77 years old. [id number]. Patient is postmenopausal. TECHNIQUE: Bone Mineral Density (BMD) measurements of lumbar spine and bilateral hips were obtained. COMPARISON: Comparison is made with prior study dated 01/14/2019. FINDINGS: Lumbar Spine (L1-L4): g/cm2 (0.931) / T-score (-1.1) / Z-score (1.4) Findings are suggestive of osteopenia with a low fracture risk. Left Femur Total: g/cm2 (0.815) / T-score (-1.0) / Z-score (0.8) Left Femoral Neck: g/cm2 (0.626) / T-score (-2.0) / Z-score (0.1) Right Femur Total: g/cm2 (0.848) / T-score (-0.8) / Z-score (1.1) Right Femoral Neck: g/cm2 (0.645) / T-score (-1.8) / Z-score (0.3) The T-Scores on the most recent prior examination were: Lumbar Spine (L1-L4): There has been worsening of bone density since the previous examination. Left Femur Total: which represents an improvement of 0.4%. Right Femur Total: which represents an improvement of 1.6%. BD/Dexa Bone Density Study IMPRESSION: The patient is considered osteopenic as outlined below according to World [place] Organization (WHO) criteria with a moderate fracture risk. There has been improvement of bone density since the previous examination. Reference Information: The T-score is the number of standard deviations above or below the standard which is normal for young adults at their peak bone mineral density. The World Health Organization (WHO) interprets the T-scores as follows: Above -1 Normal bone density Between -1 and -2.5 Osteopenia Equal to / or below -2.5 Osteoporosis As a practical clinical guideline, osteopenia may be graded as follows: Mild -1 through -1.5 Moderate -1.6 through -2.0 Severe -2.1 through -2.4 The Z-score is the number of standard deviations above or below age-matched controls. A Z-score of less than -1.5 would be considered abnormal. References: 1. NIH Osteoporosis and Related Bone Diseases www osteo.org 2. International Society for Clinical Densitometry www iscd.org 3. National Osteoporosis Foundation www nof.org Electronically Signed: Haider Driscoll MD at 10:04 EDT ,
== END | disposition home or self-care (01) ==
LOC: OPBD 12:52
PROVIDERS: PCP Internal Medicine; Referring Provider Internal Medicine; Visit Provider Internal Medicine
DX: M85.80 Other specified disorders of bone density and structure, unspecified site (principal); Z78.0 Asymptomatic menopausal state
CPT/HCPCS: 77080

== ENCOUNTER → 2022-12-23 | Outpatient (CLI) | payer MEDICARE, OTHER, SELFPAY ==
--- NOTE | 2022-12-23 07:40 | BI_ITS ---
MAMMOGRAPHY - BILATERAL SCREENING REASON FOR EXAM: Female, 77 years old. Routine annual screening examination. PERTINENT HISTORY: Grandmother with breast cancer. Aunt with breast cancer. TECHNIQUE: Digital bilateral breast evy (3D mammographic acquisition) in the CC and MLO projections. 2-D mediolateral oblique (MLO) and craniocaudad (CC) views of both breasts were obtained. CAD: Full Field Digital Mammography with Computer Added Detection was performed. COMPARISON: Comparison is made with prior study dated December 18, 2021 and June 28, 2020. FINDINGS: Breast Composition: There are scattered areas of fibroglandular density. There are no dominant masses or suspicious calcifications. Stable benign-appearing bilateral axillary lymph nodes. Stable 3.9 mm well-defined nodule in the upper lateral aspect of the right breast. No other significant abnormalities are identified. There has been no significant change since the prior study. BI/SCRN MAMM (CAD)W/EVY BILAT IMPRESSION: Stable bilateral screening mammogram. Yearly follow-up mammogram recommended. (A) ASSESSMENT CATEGORY: BIRADS Category 2: Benign. A letter regarding these results will be sent to the patient by the facility within 30 days. Approximately 10% of breast cancers are not detected by mammography. A normal mammogram should not delay biopsy of a clinically suspicious abnormality. [id number] Electronically Signed: Haider Driscoll MD at 8:54 EDT ,
== END | disposition home or self-care (01) ==
LOC: OPBI 07:38
PROVIDERS: PCP Internal Medicine; Referring Provider Internal Medicine; Visit Provider Internal Medicine
DX: Z12.31 Encounter for screening mammogram for malignant neoplasm of breast (principal)
CPT/HCPCS: 77063; 77067

== ENCOUNTER → 2023-01-28 | Outpatient (CLI) | payer MEDICARE, OTHER, SELFPAY ==
[2023-01-28 09:17] LABS: AST(SGOT) 29 U/L (15-37); Alanine Aminotransfer ALT/SGPT 33 U/L (13-56); Albumin, Serum 3.3 g/dL (3.2-5.0); Alkaline Phosphatase 86 U/L (45-117); Anion Gap 5 (5-15); BUN 16 mg/dL (7-18); BUN/Creat Ratio 13.4 RATIO (10-20); Calcium,Total 9.2 mg/dL (8.5-10.1); Chloride 110 mmol/L (98-107); Cholesterol 166 mg/dL (200); Creatinine, Serum 1.19 mg/dL (0.55-1.02); EST Glomerular Filtration Rate 47 mL/min (>60); Est Glom Filt Rate - Afr Amer 57 mL/min (>60); Globulin 3.3 g/dL (2.2-4.2); Glucose 117 mg/dL (74-106); High Density Lipoprotein 46 mg/dL; Potassium 3.9 mmol/L (3.5-5.1); Protein, Total 6.6 g/dL (6.4-8.2); Sodium Level 142 mmol/L (136-145); Thyroid Stim Hormone (TSH) 0.97 uIU/mL (0.358-3.74); Triglycerides 190 mg/dL; Very Low Density Lipoprotein 38 mg/dL (5-40)
== END | disposition home or self-care (01) ==
LOC: LAB 08:12
PROVIDERS: PCP Internal Medicine; Referring Provider Internal Medicine; Visit Provider Internal Medicine
DX: E78.00 Pure hypercholesterolemia, unspecified (principal)
CPT/HCPCS: 36415; 80053; 80061; 84443

== ENCOUNTER → 2023-02-19 | Outpatient (CLI) | payer MEDICARE, OTHER, SELFPAY ==
--- NOTE | 2023-02-19 09:18 | CT_ITS ---
STUDY: CT BRAIN WITHOUT CONTRAST REASON FOR EXAM: Female, 77 years old. HEAD TRAUMA-FALL ON BLOOD THINNERS RADIATION DOSAGE (If Supplied By Facility): CTDIvol = ( 47.06 ) mGy, DLP = ( 943.26 ) mGycm TECHNIQUE: Transaxial CT imaging of the brain was performed without administration of intravenous contrast material. Individualized dose optimization techniques were used for this CT. COMPARISON: No relevant priors. FINDINGS: Normal soft tissue structures. There is hyperostosis frontalis internus. There is mild cerebral atrophy with widening of the extra-axial spaces and ventricular dilatation. There are areas of decreased attenuation within the white matter tracts of the supratentorial brain, consistent with microvascular disease changes. Normal basal ganglia and thalami. Normal brainstem. Normal cerebellum. There is no intracranial hemorrhage. There are no findings of an acute ischemic infarction. Atherosclerotic calcification of the cavernous portions of the internal carotid arteries bilaterally. Mucosal thickening of the left maxillary and left ethmoid sinus. CT/Brain/Head without Contrast IMPRESSION: Chronic involutional changes of the brain. Electronically Signed: Haider Driscoll MD at 10:45 EDT ,
--- NOTE | 2023-02-19 09:20 | RAD_ITS ---
STUDY: X-RAY - RIGHT ELBOW REASON FOR EXAM: Female, 77 years old. Posterior elbow pain and swelling following a fall. TECHNIQUE: 3 view(s) of the elbow. COMPARISON: None. FINDINGS: Normal visualized humerus, radius and ulna. Normal radiocapitellar and ulnotrochlear articulations. Soft tissue swelling overlying the dorsal aspect of the proximal ulna. RAD/Elbow min 3 Views IMPRESSION: Soft tissue swelling overlying the dorsal aspect of the proximal ulna. No fracture or dislocation is seen. Electronically Signed: Haider Driscoll MD at 10:06 EDT ,
== END | disposition home or self-care (01) ==
PROVIDERS: PCP Internal Medicine; Referring Provider Nurse Practitioner Family; Visit Provider Nurse Practitioner Family
DX: S09.90XA Unspecified injury of head, initial encounter (principal); M25.521 Pain in right elbow; X58.XXXA Exposure to other specified factors, initial encounter
CPT/HCPCS: 70450; 73080

== ENCOUNTER → 2023-12-02 | Outpatient (CLI) | payer MEDICARE, OTHER, SELFPAY ==
[2023-12-02 11:16] LABS: Troponin-I HS 9 pg/mL (3.0-54.0)
== END | disposition home or self-care (01) ==
LOC: LABSPEC 10:44
PROVIDERS: PCP Internal Medicine; Referring Provider Internal Medicine; Visit Provider Internal Medicine
DX: R94.31 Abnormal electrocardiogram [ECG] [EKG] (principal)
CPT/HCPCS: 84484

== ENCOUNTER → 2023-12-04 | Outpatient (CLI) | payer MEDICARE, OTHER, SELFPAY ==
--- NOTE | 2023-12-04 12:28 | STRESSREP ---
Stress Test Report Exercise myocardial perfusion stress test. 78-year-old lady with a history of abnormal EKG Stress protocol: Resting EKG demonstrates normal sinus rhythm with a rate of 64 and a right bundle branch block ; resting blood pressure is 128/82 mmHg. The patient exercised according to the regular Gil protocol for a total duration of 4 minutes and 30 seconds attaining a maximum heart rate of 131 bpm which was 91% of maximum predicted heart rate; the maximum workload was 7 metabolic equivalents. At rest there were no ST or T wave changes noted to suggest ischemia and at peak exercise upsloping ST changes only were noted which did not meet the criteria for ischemia. No clinical angina was noted the test was terminated due to the target heart rate being achieved/fatigue. The peak blood pressure was 158/94 mmHg. Rate-pressure product was 16,700. Myocardial perfusion protocol. 12 mCi of technetium 99m sestamibi was injected at rest. The patient exercised according to regular Gil protocol for total duration of 4-1/2 minutes and at peak exercise 34.6 mCi of technetium 99m sestamibi was injected stress images were obtained stress and rest images were reconstructed in comparing the short axis vertical long and horizontal long axis. Gated images were also obtained. Perfusion SPECT analysis: Review of the stress images demonstrate normal uptake of tracer noted in all areas of the myocardium. The resting images similarly demonstrate normal uptake of tracer noted in all areas of the myocardium. No areas of reversibility are noted to suggest ischemia no previous infarct was noted. Gated SPECT analysis: The gated ejection fraction is 80% plus. Conclusion: Normal exercise myocardial perfusion stress test at a moderate workload Preserved ejection fraction.
== END | disposition home or self-care (01) ==
LOC: CVS 07:01
PROVIDERS: PCP Internal Medicine; Referring Provider Internal Medicine; Visit Provider Internal Medicine
DX: R07.9 Chest pain, unspecified (principal)
CPT/HCPCS: 78452; 93017; A9500

== ENCOUNTER → 2024-01-08 | Outpatient (CLI) | payer MEDICARE, OTHER, SELFPAY ==
--- NOTE | 2024-01-08 09:12 | BI_ITS ---
MAMMOGRAPHY - BILATERAL SCREENING REASON FOR EXAM: Female, 78 years old. Routine annual screening examination. PERTINENT HISTORY: Grandmother with breast cancer. Aunt with breast cancer. Remote left excisional breast biopsy. TECHNIQUE: Digital bilateral breast evy (3D mammographic acquisition) in the CC and MLO projections. 2-D mediolateral oblique (MLO) and craniocaudad (CC) views of both breasts were obtained. CAD: Full Field Digital Mammography with Computer Added Detection was performed. COMPARISON: Comparison is made with prior study dated December 23, 2022 and December 18, 2021. FINDINGS: Breast Composition: There are scattered areas of fibroglandular density. There are no dominant masses or suspicious calcifications. Stable bilateral fat containing axillary lymph nodes. Stable 3.9 mm well-defined nodule in the upper lateral aspect of the right breast. No other significant abnormalities are identified. There has been no significant change since the prior study. BI/SCRN MAMM (CAD)W/EVY BILAT IMPRESSION: Stable bilateral screening mammogram. Yearly follow-up mammogram recommended. (A) ASSESSMENT CATEGORY: BIRADS Category 2: Benign. A letter regarding these results will be sent to the patient by the facility within 30 days. Approximately 10% of breast cancers are not detected by mammography. A normal mammogram should not delay biopsy of a clinically suspicious abnormality. [id number] Electronically Signed: Haider Driscoll MD at 10:52 EDT ,
== END | disposition home or self-care (01) ==
LOC: OPBI 09:12
PROVIDERS: PCP Internal Medicine; Referring Provider Internal Medicine; Visit Provider Internal Medicine
DX: Z12.31 Encounter for screening mammogram for malignant neoplasm of breast (principal)
CPT/HCPCS: 77063; 77067

== ENCOUNTER → 2024-01-15 | Outpatient (CLI) | payer MEDICARE, OTHER, SELFPAY ==
--- NOTE | 2024-01-15 14:53 | CT_ITS ---
STUDY: CT SOFT TISSUE NECK WITH CONTRAST REASON FOR EXAM: Female, 78 years old. Nodule of parotid gland RADIATION DOSAGE (If Supplied By Facility): CTDIvol = ( 18.59 ) mGy, DLP = ( 535.86 ) mGycm TECHNIQUE: The patient was scanned in a multi-detector CT scanner. High resolution transaxial imaging was performed following intravenous administration of IV 75mL Isovue-300. Sagittal and coronal images were reconstructed. Individualized dose optimization techniques were used for this CT. COMPARISON: Comparison is made with prior study dated June 10, 2020. FINDINGS: There is a 6 mm x 7 mm enhancing nodule in the anterior lateral aspect of the right parotid gland. This corresponds to the palpable abnormality. A similar-appearing nodule is seen just cephalad to the dominant nodule. This nodule measures 4.4 mm x 4.4 mm. Normal bilateral educational program assistant spaces. Normal bilateral parapharyngeal spaces. Normal bilateral carotid spaces. Normal bilateral sublingual and submandibular glands and spaces. Normal visualized nasopharynx. Normal retropharyngeal space. Normal perivertebral space. Normal visualized bilateral faucial tonsils. There is asymmetry of soft tissue prominence in the left hypopharynx as seen on axial image #61 through 56. Clinical correlation recommended. There are small lymph nodes of the neck, with preservation of normal benjamin architecture, consistent with a reactive lymph hyperplasia. There is no demonstrated solid or cystic mass lesion. There is no abnormal contrast enhancement. Normal epiglottis, bilateral vallecula and hypopharynx. The pre-epiglottic and paraglottic adipose spaces are normal. Normal visualized bilateral piriform sinuses, aryepiglottic folds, vocal cords, and arytenoid-cricoid articulations. Normal subglottic trachea. Normal bilateral lobes of the thyroid gland. Normal visualized pulmonary apices. Normal visualized paranasal sinuses. Normal visualized cervical spine. CT/Soft Tissue Neck WITH Contrast IMPRESSION: The palpable abnormality corresponds to a 6 mm x 7 mm enhancing nodule in the anterior lateral aspect of the lower pole of the right parotid gland. A similar appearing nodular density measuring 4.4 mm x 4.4 mm is seen just cephalad to the dominant nodule. Biopsy recommended. Soft tissue asymmetry in the left upper phalanx as seen on axial image 56 through 61. Clinical correlation recommended. Electronically Signed: Haider Driscoll MD at 11:02 EDT ,
[2024-01-15 15:30] LABS: CREATININE FINGERSTICK 1.1 mg/dL (0.55-1.02)
== END | disposition home or self-care (01) ==
LOC: CT 14:53
PROVIDERS: PCP Internal Medicine; Visit Provider Internal Medicine
DX: K11.8 Other diseases of salivary glands (principal)
CPT/HCPCS: 70491; Q9967

== ENCOUNTER → 2024-01-22 | Outpatient (CLI) | payer MEDICARE, OTHER, SELFPAY ==
--- NOTE | 2024-01-22 | ASPOS_PTH ---
PATIENT: CASS RODRIGUEZ LOC: [facility] U#:[id number] AGE/SX: 78/F ROOM: RE01/22/[address]: Dr. Ander Carrasco MD : 1945 BED: DIS: 01/22/2024 SPEC #: [id number] RECD: 01/22/24 10:00 STATUS: FREDY KENDALLCj #: [id number] LOVELY: 01/22/24 00:[address]: Ander Carrasco DEPT: CYTOLOGY RECD BY: Marisol Cruz ENTERED: 01/22/24 12:18 SP TYPE: ASP HERE OTHR DR: Dr. Esthela Sands MD Tissues: Parotid gland, NOS Procedures: Surgery Specimen Level IV Cytology Other Fine Needle Asp on Site HEADER OPERATION: Fine needle aspiration right parotid mass PRE-OP DIAGNOSIS: Right parotid mass TISSUE SUBMITTED: Smears and fluid for cytology DIAGNOSIS CYTOLOGY Fine needle aspiration, right parotid mass (smears and cellblock): Normal salivary gland tissue. Chronic inflammatory cells present. See comment. AM/mr 01/23/2024 COMMENT Smears are prepared at time of procedure and reviewed by Dr. Hanks and the following interpretation is rendered: Fine needle aspiration, right parotid gland (wet preparation): Normal salivary gland tissue with mild chronic inflammation. Smears and cellblock show normal salivary gland elements. There is a background of chronic inflammatory cells present. A small lymph node adjacent to the parotid gland or within it cannot be entirely excluded. There is no evidence of malignancy. Clinical correlation is suggested. Case has been reviewed in consultation with Dr. Quintana who concurs with the above diagnosis. IDC:SJ CYTOLOGY STUDY Slides are reviewed. CYTOLOGY GROSS Received is 0.2 ml of reddish zamudio fluid labeled with the patient's name, and designated Right parotid mass. 4 imprints and 4 Paps are made from the submitted fluid and the rest is added to CytoLyt for cell block preparation. Submitted for cytology study. AM/mr 01/22/24 TC:3 CPT: 87271,82061,14390,90695
== END | disposition home or self-care (01) ==
LOC: LAB 09:14
PROVIDERS: PCP Internal Medicine; Referring Provider Otolaryngology; Visit Provider Otolaryngology
DX: K11.23 Chronic sialoadenitis (principal)
CPT/HCPCS: 10021; 88161; 88305

== ENCOUNTER → 2024-03-15 | Outpatient (CLI) | payer MEDICARE, OTHER, SELFPAY ==
[2024-03-15 12:08] LABS: Absolute Lymphocyte Count 1.75 X10^3/uL (0.83-4.51); Basophil# 0.07 X10^3/uL; Basophil% 1.2 % (0-1); Eosinophil# 0.39 X10^3/uL; Eosinophils% 6.8 % (0-5); Hematocrit 43.8 % (37-47); Hemoglobin 14.2 g/dL (12.0-15.0); Lymphocyte # 1.75 X10^3/ul (0.83-4.51); Lymphocyte % 30.6 % (19-41); Mean Corp Hgb Conc 32.4 g/dL (32-36); Mean Corpuscular Hgb 31.5 pg (27.0-32.0); Mean Corpuscular Volume 97.1 fL (81-99); Mean Platelet Vol. 9.4 fl (6.2-12.0); Monocyte# 0.52 X10^3/uL; Monocyte% 9.1 % (0-10); NRBC Flagged by Analyzer 0 % (0-5); Neutrophil # 2.96 X10^3/uL (2.7-7.7); Neutrophil % 51.9 % (47-70); Platelet Count 233 K/mm3 (150-450); RBC Distribution Width CV 12.4 % (11.6-14.6); RBC Distribution Width SD 44.3 fl (35.1-43.9); Red Blood Count 4.51 M/mm3 (4.2-5.4); White Blood Count 5.7 K/mm3 (4.4-11.0)
[2024-03-15 12:40] LABS: BNP,B-Type NATRIURETIC PEPTIDE 99.5 pg/mL (0-100)
[2024-03-15 12:46] LABS: Anion Gap 4 (5-15); BUN 18 mg/dL (7-18); BUN/Creat Ratio 15.8 RATIO (10-20); Calcium,Total 9.7 mg/dL (8.5-10.1); Chloride 106 mmol/L (98-107); Creatinine, Serum 1.14 mg/dL (0.55-1.02); EST Glomerular Filtration Rate 49 mL/min (>60); Est Glom Filt Rate - Afr Amer 59 mL/min (>60); Glucose 106 mg/dL (74-106); Potassium 3.9 mmol/L (3.5-5.1); Sodium Level 140 mmol/L (136-145); Thyroid Stim Hormone (TSH) 0.88 uIU/mL (0.358-3.74)
== END | disposition home or self-care (01) ==
LOC: LAB 11:34
PROVIDERS: PCP Internal Medicine; Referring Provider Nurse Practitioner Gerontology; Visit Provider Nurse Practitioner Gerontology
DX: R53.83 Other fatigue (principal); R06.09 Other forms of dyspnea
CPT/HCPCS: 36415; 80048; 83880; 84443; 85025

== ENCOUNTER → 2024-03-29 | Outpatient (CLI) | payer MEDICARE, OTHER, SELFPAY ==
--- NOTE | 2024-03-29 13:48 | ECHOCS_ITS ---
Reason For Study: SOB Procedure This was a 2D Doppler, Color Flow transthoracic echocardiogram. The study was technically difficult. Exam performed in department. Left Ventricle Normal LV size. Left ventricular systolic function is normal. The left ventricular ejection fraction is 65 %. No regional wall motion abnormalities noted. Right Ventricle Normal RV size. Normal systolic function. Atria The left atrium is not well visualized. The right atrium is not well visualized. Mitral Valve Normal mitral valve. Tricuspid Valve Normal tricuspid valve. Mild (1+) tricuspid valve insufficiency. Pulmonary artery systolic pressure is 25 mmHg. Aortic Valve Normal aortic valve. Pulmonic Valve The pulmonic valve is not well visualized. Great Vessels Normal aortic root. The pulmonary artery is normal size. Normal inferior vena cava. Pericardium/Pleural No pericardial effusion. Medication 22 gauge I.V. with prn adaptor inserted into left arm. Diluted definity 2.0ml given slow IV push to enhance endocardial definition. MMode/2D Measurements & Calculations RVDd: 2.7 cm Ao root diam: 3.7 cm LAV(MOD-bp): 35.6 ml LAV(MOD-bp) Indexed: 18.9 ml/m2 LAV(MOD-sp2): 41.9 ml LAV(MOD-sp4): 22.5 ml LA dimension(2D): 3.0 cm TAPSE: 1.7 cm LA A4 area: 11.9 cm2 Time Measurements MV dec time: 0.29 sec Doppler Measurements & Calculations MV E max frank: 59.4 cm/sec Lat Peak E' Frank: 7.7 cm/sec Med Peak E' Frank: 6.1 cm/sec MV A max frank: 97.7 cm/sec E/E' lat: 7.7 E/E' med: 9.8 MV E/A: 0.61 MV V2 max: 104.1 cm/sec Ao V2 max: 118.9 cm/sec MV max P.3 mmHg MV dec slope: 206.7 cm/sec2 Ao max P.7 mmHg MV V2 mean: 55.6 cm/sec MV mean P.4 mmHg MV V2 VTI: 21.8 cm LV V1 max: 98.0 cm/sec PA V2 max: 71.3 cm/sec TR max frank: 234.3 cm/sec LV V1 max P.8 mmHg TR max P.0 mmHg ECHO/Echo Complete W/ Contrast Interpretation Summary Normal LV size. Left ventricular systolic function is normal. The left ventricular ejection fraction is 65 %. Contrast injection was performed. The study was technically difficult. Ordering Physician: Bryanna Cee Referring Physician: Esthela Sands M.D. Performed By: Jasmine Velasco RDCS and Student
== END | disposition home or self-care (01) ==
LOC: CVS 13:47
PROVIDERS: PCP Internal Medicine; Referring Provider Nurse Practitioner Gerontology; Visit Provider Nurse Practitioner Gerontology
DX: R06.09 Other forms of dyspnea (principal)
CPT/HCPCS: 93306; Q9957; A4216; C8929

== ENCOUNTER → 2024-05-25 | Outpatient (CLI) | payer MEDICARE, OTHER, SELFPAY ==
--- NOTE | 2024-05-25 08:34 | BD_ITS ---
STUDY: DUAL ENERGY X-RAY ABSORPTIOMETRY / DXA REASON FOR EXAM: Female, 79 years old. [id number] TECHNIQUE: Bone Mineral Density (BMD) measurements of lumbar spine and bilateral hips were obtained. COMPARISON: Comparison is made with prior study dated May 23, 2022. FINDINGS: Lumbar Spine (L1-L4): g/cm2 (0.914) / T-score (-1.3) / Z-score (1.3) Findings are suggestive of osteopenia with a low fracture risk. Left Femur Total: g/cm2 (0.823) / T-score (-1.0) / Z-score (1.0) Left Femoral Neck: g/cm2 (0.645) / T-score (-1.8) / Z-score (0.4) Right Femur Total: g/cm2 (0.847) / T-score (-0.8) / Z-score (1.2) Right Femoral Neck: g/cm2 (0.677) / T-score (-1.6) / Z-score (0.7) The T-Scores on the most recent prior examination were: Lumbar Spine (L1-L4): There has been worsening of bone density since the previous examination. Left Femur Total: which represents an improvement of and post. Right Femur Total: which represents a worsening of 0.2%. BD/Dexa Bone Density Study IMPRESSION: The patient is considered osteopenic as outlined below according to World [employer] Organization (WHO) criteria with a moderate fracture risk. There has been worsening of bone density since the previous examination. Reference Information: The T-score is the number of standard deviations above or below the standard which is normal for young adults at their peak bone mineral density. The World Health Organization (WHO) interprets the T-scores as follows: Above -1 Normal bone density Between -1 and -2.5 Osteopenia Equal to / or below -2.5 Osteoporosis As a practical clinical guideline, osteopenia may be graded as follows: Mild -1 through -1.5 Moderate -1.6 through -2.0 Severe -2.1 through -2.4 The Z-score is the number of standard deviations above or below age-matched controls. A Z-score of less than -1.5 would be considered abnormal. References: 1. NIH Osteoporosis and Related Bone Diseases www osteo.org 2. International Society for Clinical Densitometry www iscd.org 3. National Osteoporosis Foundation www nof.org Electronically Signed: Haider Driscoll MD at 10:12 EDT ,
== END | disposition home or self-care (01) ==
LOC: OPBD 08:27
PROVIDERS: PCP Internal Medicine; Referring Provider Internal Medicine; Visit Provider Internal Medicine
DX: Z78.0 Asymptomatic menopausal state (principal)
CPT/HCPCS: 77080

== ENCOUNTER → 2025-01-24 | Outpatient (CLI) | payer MEDICARE, OTHER, SELFPAY ==
--- NOTE | 2025-01-24 07:50 | BI_ITS ---
EXAM: SCRN MAMM (CAD)W/EVY BILAT DATE: 01/24/2025 CLINICAL HISTORY: F, Age 79 y/o , SCRN MAMM (CAD)W/EVY BILAT BREAST CANCER RISK ASSESSMENT: Has not been calculated. TECHNIQUE: Bilateral screening digital breast tomosynthesis with 2D and 3D images. Computer aided detection. COMPARISON: Prior exam(s) dated 01/08/2024 and 12/23/2022 FINDINGS: TISSUE DENSITY: The breast tissue is composed of scattered area of fibroglandular density. Bilateral Breast Mammographic Findings: Stable benign-appearing intramammary lymph node in the superior outer aspect of the right breast is noted measuring approximately 6 mm. Benign vascular calcifications are seen in both breasts. There are no suspicious masses, suspicious cluster of microcalcifications, architectural distortion or secondary signs of malignancy identified in either breast. BI/SCRN MAMM (CAD)W/EVY BILAT IMPRESSION: OVERALL FINAL ASSESSMENT: BIRADS 2 BENIGN FINDING RECOMMENDATION: Routine annual follow-up in 1 Year A letter with findings and recommendations will be mailed to the patient. Reading Location: [id number]
== END | disposition home or self-care (01) ==
LOC: OPBI 07:48
PROVIDERS: PCP Internal Medicine; Referring Provider Internal Medicine; Visit Provider Internal Medicine
DX: Z12.31 Encounter for screening mammogram for malignant neoplasm of breast (principal)
CPT/HCPCS: 77063; 77067

== ENCOUNTER → 2025-02-14 | Outpatient (CLI) | payer MEDICARE, OTHER, SELFPAY ==
--- OUTSIDE RECORDS SUMMARY | 2025-02-14 06:46 | XMS RPT_ITS | CCD ---
Author Organization [facility] CliniSyak Care Team Providers Care Commodity Analyst Name Role Phone Dr. Tejas Garcia Primary Care Provider Dr. Steven Mccarty Emergency Provider Dr. Tejas Titus Admit Provider Dr. Tejas Titus Attending Provider Dr. Tejas Titus Other Provider Dr. Jakob Gomez Attending Provider Dr. Jakob Gomez Other Provider 1([facility])[phone] Jean-Claude Parkinson Attending Provider Dr. Tejas Garcia Referring Provider Dr. Sotero Murphy Attending Provider Dr. Tejas Garcia Primary Care Provider [phone] Stuart Prado Attending Provider Dr. Tejas Titus Referring Provider Dr. Jean-Claude Parkinson Attending Provider Dr. Steve Staley Attending Provider Dr. Steve Staley Other Provider Dr. Steve Staley Referring Provider Virgilio THREAD SINGER, THREAD SINGER-C Daria Attending Provider Esthela Sands MD Unavailable Carlin Peoples Unavailable Milady ORACLE BRM DEVELOPER, Marylin Unavailable Unavailable Raúl Alberts LPN Unavailable Unavailable Edgardo RN, Dary Ferguson Unavailable Unavailable Unavailable Unavailable Unavailable Unavailable Dr. Tejas Garcia Primary Care Provider Dr. Jean-Claude Parkinson Attending Provider Teresita Reed Attending Provider Unavailable Dr. Tejas Garcia Primary Care Provider Dr. Tejas Garcia Referring Provider Dr. Tejas Garcia Primary Care Provider Dr. Steve Staley Attending Provider Dr. Tejas Garcia Referring Provider Dr. Tejas Garcia Primary Care Provider Dr. Tejas Garcia Referring Provider Dr. Jean-Claude Parkinson Attending Provider [phone] Unavailable Unavailable Esthela Sands MD Unavailable [place] TELEPHONE QUOTATION CLERK, Kayela Unavailable Unavailable MD Esthela Rice Primary Care Provider Unava ilable MD Esthela Rice Referring Provider Unavaila ble Dr. Sotero Murphy Attending Provider Shiloh Lira CNP Unavailable Max Pa Unavailable Dr. Esthela Sands Primary Care Provider Dr. Jean-Claude Parkinson Attending Provider [phone] Yamila Multani LPN Unavailable Unavailable Esthela Sands MD Unavailable Max Pa Unavailable Carlin Peoples Unavailable Rangel HARVEY, Yamila Unavailable Unavailable Edgardo RN, Dary Ferguson Unavailable Unavailable Marylin Henning LPN Unavailable Unavailable Unavailable Unavailable Dr. Esthela Sands Primary Care Provider Dr. Audra Milan Referring Provider Dr. Audra Milan Other Provider Dr. Jean-Claude Parkinson Attending Provider Shavon JUAREZ, Dr. Proctor Primary Care Provider Shavon JUAREZ, Dr. Proctor Attending Provider Shavon JUAREZ, Dr. Proctor Referring Provider Lisa Estevez Attending Provider Fawn MONTENEGRO, Lisa Gore Attending Unavail able Lisa Estevez Referring Unavail able Bonezzi, Esthela Primary Care Unavailable Bonezzi, Esthela Referring Unavailable Bonezzi, Esthela Primary Care Unavailable Bonezzi, Esthela Attending Unavailable Iggy, [place] Attending Unavailable Bonezzi, Esthela Primary Care Unavailable Bonezzi, Esthela Primary Care Unavailable Coleman THREAD SINGER, Nay Attending Unavailable Bonezzi, Esthela Referring Unavailable Lisa Estevez Attending Unavail able Bonezzi, Esthela Primary Care Unavailable Bonezzi, Esthela Referring Unavailable Bonezzi, Esthela Primary Care Unavailable Coleman THREAD SINGER, Nay Attending Unavailable Bonezzi, Esthela Attending Unavailable Bonezzi, Esthela Referring Unavailable Bonezzi, Esthela Primary Care Unavailable Coleman DOCKERY, Nay Referring Unavailable Bonezzi, Esthela Primary Care Unavailable Coleman THREAD SINGER, Nay Attending Unavailable Bonezzi, Esthela Primary Care Unavailable Coleman THREAD SINGER, Nay Attending Unavailable Coleman THREAD SINGER, Nay Referring Unavailable Allergies Allergy Classification Reported Allergen(s) Allergy Type Date of Onset Reaction(s) Facility (18 sources) Iodinated Contrast Media; Translations: [Iodinated Contrast Media] Allergy to substance 12-10-19 [facility] (16 sources) buPROPion Drug Allergy 12-25-19 [facility] (20 sources) busPIRone; Translations: [BuSpar *ANTIANXIETY AGENTS*] Drug Allergy 12-25-19 22 weight gain [facility] Work Phone: Comment on above: weight gain (20 sources) Escitalopram; Translations: [Lexapro *ANTIDEPRESSANTS *] Drug Allergy 12-25-19 22 affected sex [facility] Work Phone: Comment on above: affect sex (20 sources) nefazodone; Translations: [Serzone *ANTIDEPRESSANTS *] Drug Allergy 12-25-19 22 [facility] Work Phone: Comment on above: rash (20 sources) Sertraline; Translations: [Zoloft *ANTIDEPRESSANTS *] Drug Allergy 12-25-19 affected sex [facility] Work Phone: Comment on above: affect sex (20 sources) venlafaxine; Translations: [Effexor *ANTIDEPRESSANTS *] Drug Allergy 12-25-19 affected sleep [facility] Work Phone: Comment on above: affect sex (20 sources) Iodinated Contrast; Translations: [Iodinated Contrast] Allergy to substance (finding) [facility] Work Phone: Comment on above: hives (1 source) buPROPion Drug Allergy 02-03-20 25 [facility] (1 source) busPIRone Drug Allergy 02-03-20 25 [facility] (1 source) Escitalopram Drug Allergy 02-03-20 25 [facility] (1 source) nefazodone Drug Allergy 02-03-20 25 [facility] (1 source) Sertraline Drug Allergy 03-15-20 24 [facility] (1 source) venlafaxine Drug Allergy 02-03-20 25 [facility] NEGATED: Highlighted row has been ruled out! (1 source) Allergy to drug (finding) 04-29-20 [facility] Work Phone: NEGATED: Highlighted row has been ruled out! (1 source) Allergy to drug (finding) 04-29-20 [facility]; [facility] Work Phone: NEGATED: Highlighted row has been ruled out! (1 source) Allergy to drug (finding) 04-29-20 [facility]; [facility] Work Phone: NEGATED: Highlighted row has been ruled out! (1 source) Allergy to drug (finding) 04-29-20 [facility]; [facility] Work Phone: NEGATED: Highlighted row has been ruled out! (1 source) Allergy to drug (finding) 04-29-20 [facility]; [facility] Work Phone: NEGATED: Highlighted row has been ruled out! (1 source) Allergy to drug (finding) 04-29-20 [facility]; [facility] Work Phone: NEGATED: Highlighted row has been ruled out! (1 source) Allergy to drug (finding) 04-29-20 [facility]; [facility] Work Phone: NEGATED: Highlighted row has been ruled out! (1 source) Allergy to drug (finding) 04-29-20 [facility]; [facility] Work Phone: NEGATED: Highlighted row has been ruled out! (1 source) Allergy to drug (finding) 04-29-20 [facility]; [facility] Work Phone: NEGATED: Highlighted row has been ruled out! (1 source) Allergy to drug (finding) 04-29-20 [facility]; [facility] Work Phone: NEGATED: Highlighted row has been ruled out! (1 source) Allergy to drug (finding) 04-29-20 [facility]; [facility] Work Phone: NEGATED: Highlighted row has been ruled out! (1 source) Allergy to drug (finding) 04-29-20 [facility]; [facility] Work Phone: NEGATED: Highlighted row has been ruled out! (1 source) Allergy to drug (finding) 04-29-20 [facility]; [facility] Work Phone: Medications Current Medications Medication Drug Class(es) Dates Sig (Normalized) Sig (Original) ALPRAZolam 0.25 mg oral tablet (20 sources) Benzodiazepine Start: 11-17-2015 take 1 tablet by mouth once daily as needed for anxiety Alprazolam 0.25 mg tablet Active 0.25 mg PO DAILY as needed for Anxiety December 28, 2021 12:00am Comment on above: Mail order. Mail order. ten amitriptyline hydrochloride 50 mg oral tablet (20 sources) Tricyclic Antidepressant Start: 06-05-2023 End: 02-02-2025 Amitriptyline 50 mg tablet Active 25 mg PO DAILY February 02, 2025 1:44pm Start: 06-05-2023 take 25 mg by mouth once daily Amitriptyline Active 25 MG PO DAILY June 05, 2023 9:57am Start: 03-10-2023 take 0.5 tablet by m outh once daily amitriptyline 50 mg oral tablet 1/2 Tablet QD for 0 days Quantity: 90 {Tablet} Refills: 3 Ordered: 10-Mar-2023 Esthela Sands MD, MD, Esthela Gore Start : 10-Mar-2023 Active Comments: EMILIE Start: 04-19-2022 End: 06-05-2023 take 1 tablet by mouth once daily Amitriptyline 50 mg tablet Discontinued 50 mg PO DAILY April 19, 2022 12:00am June 05, 2023 9:58am Start: 11-17-2015 take 1 tablet by jaylene th once daily AMITRIPTYLINE HCL, 50MG (Oral Tablet) 1 Tablet QD for 0 days Quantity: 90 {Tablet} Refills: 3 Ordered: 17-Nov-2015 Esthela Sands MD, MD, Esthela Gore Start : 17-Nov-2015 Active Comments: Mail order. Start: 08-26-2015 End: 04-19-2022 Amitriptyline 100 MG tablet Discontinued 50 mg PO AT BEDTIME August 26, 2015 1:00am April 19, 2022 10:48am cannot take generic- Start: 08-26-2015 End: 04-19-2022 take 50 mg by mouth at bedtime Amitriptyline Discontin ued 50 MG PO AT BEDTIME August 26, 2015 1:00am April 19, 2022 10:48am cannot take generic- Comment on above: Mail order. EMILIE atorvastatin 40 mg oral tablet (20 sources) HMG-CoA Reductase Inhibitor Start: 5 take 1 tablet by mouth at bedtime Atorvastatin 40 MG tablet Active 40 mg PO AT BEDTIME August 26, 2015 1:00am Start: 03-14-2011 End: 08-26-2011 Start: 03-14-2011 End: 08-26-2011 take 0.5 tablet by mouth once daily LIPITOR, 40MG (Oral Tablet) 1/2 Tablet QD for 0 days Quantity: 45 {Tablet} Refills: 3 Ordered: 26-Aug-2011 Krista Antonio LPN Start : 14-Mar-2011 End : 26-Aug-2011 Inactive Comment on above: Mail order. cholecalciferol 0.05 mg oral capsule (20 sources) Vitamin D Start: take 1 capsule by mouth once daily Cholecalciferol (Vitamin D3) 50 mcg (2,000 unit) capsule Active 50 ug PO DAILY March 15, 2024 12:00am Start: 04-02-2016 End: 04-10-2022 Start: 04-02-2016 End: 04-10-2022 take 1 tablet by mouth once daily Vitamin D3 50 MCG (2 000 UT) Oral Tablet 1 (one) Tablet daily for 0 days Quantity: 30 {Tablet} Refills: 0 Ordered: 10-Apr-2022 Blaze Le CMA Start : 02-Apr-2016 End : 10-Apr-2022 Inactive Start: 08-30-2015 End: 09-29-2015 Start: 08-30-2015 End: 09-29-2015 take 1 tablet by mouth once daily VITAMIN D3, 3000UNIT (Oral Tablet) 1 (one) Tablet daily for 30 days Refills: 0 Ordered: 17-Nov-2015 AngelaKait cardozo Start : 30-Aug-2015 End : 29-Sep-2015 Inactive folic acid 0.8 mg oral tablet (20 sources) Start: 12-20-2021 take 0.8 mg by mouth once daily Folic Acid 800 mcg tablet Active 0.8 mg PO DAILY December 20, 2021 12:00am Start: 12-20-2021 take 0.8 mg by mouth once adolph y Folic Acid Active 0.8 MG PO DAILY December 20, 2021 12:00am End: 08-08-2008 Kolalbs-Sfdkbbkew-Ldqtwwbzoc hn (20 sources) Start: 12-24-2021 Ozjginv-Dpmawlixs-Jqoffybrvx hn Active 1 CAP PO .prn December 24, 2021 10:00am Start: 12-20-2021 End: 12-24-2021 Tthoqcy-Dizeqywsn-Djixbachem hn Discontinued 0 PO .COMPLEX December 20, 2021 1:25pm December 24, 2021 10:01am PO; Start: 12-20-2021 End: 12-24-2021 Yyntvzy-Rpxtkokbz-Aftpbhtxgd hn Discontinued 0 PO .COMPLEX December 20, 2021 12:00am December 24, 2021 10:01am PO; levothyroxine sodium 0.1 mg oral tablet (20 sources) l-Thyroxine Start: 08-26-2015 End: 11-17-2015 take 1 tablet by mouth once daily Levothyroxine 100 MCG tablet Active 100 ug PO DAILY August 26, 2015 1:00am pt cant take generic. on synthroid Comment on above: Mail order. EMILIE Mail order. EMILIE losartan potassium 50 mg oral tablet (20 sources) Angiotensin 2 Receptor [place]ham Start: 12-09-2021 End: 03-08-2024 take 1 tablet by mouth twice daily Losartan 50 mg tablet Active 50 mg PO TWICE A DAY 180 March 08, 2024 2:21pm magnesium oxide 250 mg oral tablet (20 sources) Start: 02-02-2025 take 1 tablet by mouth once daily Magnesium Oxide 250 mg magnesium tablet Active 250 mg PO daily February 02, 2025 12:00am take 3 tablets by mouth once nancy ly MAGNESIUM OXIDE, 400MG (Oral Tablet) 3 qd (400 MG) Inactive melatonin 5 mg oral capsule (1 source) Start: 02-02-2025 Melatonin 5 mg capsule Active mg PO February 02, 2025 12:00am 24 hr metoprolol succinate 50 mg extended release oral tablet (20 sources) beta-Adrenergic [place]ham Start: 03-15-2024 take 1 tablet by mouth once daily Metoprolol Succinate 50 mg tablet extended release 24 hr Active 50 mg PO DAILY March 15, 2024 11:14am Start: 06-09-2023 Start: 06-05-2023 End: 03-15-2024 take 2 tablets by mouth once daily Metoprolol Succinate 100 mg tablet extended release 24 hr Discontinued 50 mg PO DAILY June 05, 2023 9:57am March 15, 2024 11:15am Start: 04-08-2023 take 50 mg by mouth once daily Metoprolol Succinate Active 50 MG PO DAILY June 05, 2023 9:57am Start: 02-14-2023 take 1 tablet by jaylene th once daily metoprolol succinate 50 mg oral Tablet, Extended Release 24 hr 1 (one) Tablet daily for 90 days Quantity: 90 {Tablet} Refills: 3 Ordered: 14-Feb-2023 Shavon JUAREZ, Esthela Sands MD, Esthela Gore Start : 14-Feb-2023 Active Comments: Mail order. Start: 12-09-2021 End: 06-05-2023 take 1 tablet by mouth once daily Metoprolol Succinate 100 mg tablet extended release 24 hr Discontinued 100 mg PO DAILY December 09, 2021 12:00am June 05, 2023 9:58am Comment on above: Mail order. sertraline 50 mg oral tablet (1 source) Serotonin Reuptake Inhibitor Start: 5 Sertraline 50 mg tablet Active 75 mg PO daily February 02, 2025 12:00am tiZANidine 4 mg oral capsule (16 sources) Central alpha-2 Adrenergic Agonist Start: 2 take 1 capsule by mouth at bedtime as needed for muscle spasms Tizanidine 4 mg capsule Active 4 mg PO AT BEDTIME as needed for Muscle Spasm December 20, 2021 12:00am vitamin b12 0.5 mg oral lozenge (20 sources) Vitamin B12 Start: 2 take 500 ug by mouth once daily Cyanocobalamin (Vitamin B-12) 500 mcg lozenge Active 500 ug PO DAILY December 20, 2021 12:00am Completed/Discontinued Medications Medication Drug Class(es) Dates Sig (Normalized) Sig (Original) acetaminophen 300 mg / butalbital 50 mg / caffeine 40 mg oral capsule (20 sources) Barbiturate, Central Nervous System Stimulant, Methylxanthine Start: 11-23-2015 End: 04-10-2022 Comment on above: twenty acetaminophen 325 mg / dichloralphenazone 100 mg / isometheptene 65 mg oral capsule (20 sources) Start: 11-17-2015 End: 11-17-2015 Start: 08-02-2009 End: 08-21-2011 Start: 08-02-2009 End: 08-21-2011 take 1 capsule by mouth once as needed MIGRAZONE, [id number] (Oral Capsule) Capsule prn for 0 days Quantity: 20 {Capsule} Refills: 0 Ordered: 02-Aug-2009 Dary Reynoso RN Start : 02-Aug-2009 End : 21-Aug-2011 Discontinued Comments: This order discontinued per [facility]. Comment on above: Mail order. This order discontin ued per [facility]. acetaminophen 325 mg / HYDROcodone bitartrate 5 mg oral tablet (20 sources) Opioid Agonist Start: 09-28-2022 End: 02-14-2023 Start: 09-28-2022 End: 02-14-2023 take 1 tablet by mouth every six hours as needed HYDROcodone-acetaminophen 5-325 mg oral tablet 1 (one) tablet every 6hrs prn for 0 days Quantity: 10 {Tablet} Refills: 0 Ordered: 14-Feb-2023 Rashmi Billingsley CMA Start : 28-Sep-2022 End : 14-Feb-2023 Inactive Comments: ten Comment on above: ten acetaminophen 325 mg / oxyCO DONE hydrochloride 5 mg oral tablet (20 sources) Opioid Agonist Start: 05-28-2013 End: 03-14-2014 Start: 05-28-2013 End: 03-14-2014 take 1 tablet by mouth every six hours as needed PERCOCET, 5-325MG (Oral Tablet) 1 Tablet every 6 hours prn for 0 days Quantity: 10 {Tablet} Refills: 0 Ordered: 14-Mar-2014 PRANAY Colon LPN Start : 28-May-2013 End : 14-Mar-2014 Inactive Comments: ten Comment on above: alejandra [id number] 200 actuat albuter ol 0.09 mg/actuat metered dose inhaler (20 sources) beta2-Adrenergic Agonist Start: 08-30-2015 End: 09-15-2015 Start: 08-30-2015 End: 09-15-2015 PROAIR HFA, 108 (90 Base)MCG /ACT (Inhalation Aerosol Solution) 1 (one) Aerosol Soln q 4 hours as needed for 30 days Quantity: 1 {Inhaler} Refills: 0 Ordered: 15-Sep-2015 Marylin Henning LPN Start : 30-Aug-2015 End : 15-Sep-2015 Discontinued Comments: Medication taken as needed. Start: 07-22-2013 End: 08-08-2014 Start: 07-22-2013 End: 08-08-2014 PROVENTIL HFA, 108 (90 Base) MCG/ACT (Inhalation Aerosol Solution) 2 (two) Aerosol Soln Aerosol Soln q 6 hr prn for 0 days Quantity: 1 {Aerosol_Soln} Refills: 0 Ordered: 08-Aug-2014 PRANAY Colon LPN Start : 22-Jul-2013 End : 08-Aug-2014 Inactive Comment on above: Medication taken as needed. amoxicillin 875 mg oral tabl et (20 sources) Penicillin-class Antibacterial Start: 03-14-2023 End: 03-21-2023 Start: 04-05-2016 End: 04-15-2016 take 1 tablet by mouth twice daily Amoxicillin 875 MG Oral Tablet 1 (one) Tablet bid for 10 days Quantity: 20 {Tablet} Refills: 0 Ordered: 05-Apr-2016 Shavon JUAREZ, Esthela Sands MD, Esthela Gore Start : 05-Apr-2016 End : 15-Apr-2016 Inactive amoxicillin 875 mg / clavula kelly 125 mg oral tablet (20 sources) Penicillin-class Antibacterial Start: 08-29-2009 Start: 08-29-2009 take 1 tablet by jaylene th twice daily AUGMENTIN, 875-125MG (Oral Tablet) 1 (one) Tablet Twice daily for 0 days Quantity: 20 {Tablet} Refills: 0 Ordered: 20-Sep-2009 PRANAY Colon LPN Start : 29-Aug-2009 Inactive apixaban 5 mg oral tablet (20 sources) Factor Xa Inhibitor Start: 12-28-2021 End: 11-12-2022 take 1 tablet by mouth twice daily Apixaban (Eliquis) 5 mg tablet Discontinued 5 mg PO TWICE A DAY 180 November 11, 2022 11:58am November 12, 2022 6:43am Start: 12-11-2021 End: 01-22-2022 take 2 tablets by mouth twice daily, then take 1 tablet by mouth twice daily Apixaban (Eliquis Dvt-Pe Treat 30d Start) 5 mg (74 tabs) tablets,dose pack Discontinued 5 mg PO TWICE A DAY 74 December 11, 2021 12:00am January 22, 2022 12:58pm 10 mg twice daily for 1 week until 12/17/2021 then 5 mg twice daily to continue ascorbic acid 500 mg chewabl e tablet (20 sources) Vitamin C End: 12-17-2012 End: 12-17-2012 take 1 tablet by mouth once daily VITAMIN C, 500MG (Oral Tablet Chewable) 1 QD for 0 days Refills: 0 Ordered: 17-Dec-2012 PRANAY Colon LPN End : 17-Dec-2012 Inactive take 1 tablet by jaylene th once daily VITAMIN C (Oral Tablet Chewable) 1,000mg qd Inactive aspirin 81 mg chewable tablet (20 sources) Platelet Aggregation Inhibitor, Nonsteroidal Anti-inflammatory Drug Start: 08-26-2015 End: 12-11-2021 take 1 tablet by mouth once daily Aspirin 81 MG tablet,chewable Discontinued 81 mg PO DAILY@0800 August 26, 2015 1:00am December 11, 2021 10:23am atenolol 50 mg oral tablet (20 sources) beta-Adrenergic [place]ham Start: 11-17-2015 End: 04-10-2022 Comment on above: Mail order. ZITHROMAX Z-MYRTLE, 250MG (Oral Tablet) (20 sources) Macrolide Antimicrobial Start: 07-22-2013 End: 03-14-2014 Start: 07-22-2013 End: 03-14-2014 take 1 tablet by mouth once daily ZITHROMAX Z-MYRTLE, 250MG (Oral Tablet) tad Tablet qd for 0 days Quantity: 1 {package(s)} Refills: 0 Ordered: 14-Mar-2014 PRANAY Colon LPN Start : 22-Jul-2013 End : 14-Mar-2014 Inactive bifidobacterium animalis [id number] unt / lactobacillus acidophilus [id number] unt oral capsule (20 sources) Start: 04-02-2016 End: 04-10-2022 Start: 04-02-2016 End: 04-10-2022 take 1 capsule by mouth once daily Probiotic Oral Capsule 1 (one) Capsule daily for 0 days Quantity: 30 {Capsule} Refills: 0 Ordered: 10-Apr-2022 Blaze Le CMA Start : 02-Apr-2016 End : 10-Apr-2022 Discontinued Comments: This order discontinued per [facility]. Comment on above: This order discontin ued per [facility]. 24 hr buPROPion hydrochlorid e 150 mg extended release oral tablet (20 sources) Aminoketone Start: 06-04-2023 Start: 05-29-2022 take 1 tablet by jaylene th every twenty-four hours in the morning Wellbutrin XL 150 MG Oral Tablet Extended Release 24 Hour 1 (one) Tablet in am for 90 days Quantity: 90 {Tablet} Refills: 3 Ordered: 29-May-2022 Shavon JUAREZ, Esthela Javier MD Start : 29-May-2022 Active Start: 04-19-2022 End: 02-02-2025 take 1 tablet by mouth once daily Bupropion Hcl 150 mg tablet extended release 24 hr Discontinued 150 mg PO DAILY April 19, 2022 12:00am February 02, 2025 1:44pm Start: 04-10-2022 take 1 tablet by jaylene th every twenty-four hours in the morning Wellbutrin XL 150 MG Oral Tablet Extended Release 24 Hour 1 (one) Tablet in am for 30 days Quantity: 30 {Tablet} Refills: 0 Ordered: 10-Apr-2022 Esthela Sands MD, MD, Esthela Gore Start : 10-Apr-2022 Active Comment on above: Mail order. cefdinir 300 mg oral capsule (20 sources) Cephalosporin Antibacterial Start: 6 End: 6 Cerefolin (13 sources) Start: 1 End: 1 CEREFOLIN, 6-1-50-5MG (Oral Tablet) (20 sources) Start: 1 End: 1 take 1 tablet by mouth once daily CEREFOLIN, 6-1-50-5MG (Oral Tablet) 1 Tablet QD for 0 days Quantity: 90 {Tablet} Refills: 3 Ordered: 16-Apr-2011 PRANAY Colon LPN Start : 16-Apr-2011 End : 16-Apr-2011 Inactive ciprofloxacin 500 mg oral tablet (20 sources) Quinolone Antimicrobial Start: 3 Start: 04-02-2016 End: 04-05-2016 Start: 04-20-2009 End: 08-02-2009 take 1 tablet by mouth twice daily CIPRO, 500MG (Oral Tablet) 1 Tablet Twice daily for 0 days Quantity: 20 {Tablet} Refills: 0 Ordered: 20-Apr-2009 PRANAY Colon LPN Start : 20-Apr-2009 End : 02-Aug-2009 Inactive Coconut Oil (20 sources) Start: 04-02-2016 End: 05-02-2016 Start: 04-02-2016 End: 05-02-2016 take 2 capsules by mouth once daily Coconut Oil 1000 MG Oral Capsule 2 (two) Capsule daily for 30 days Quantity: 60 {Capsule} Refills: 0 Ordered: 02-Apr-2016 Rashmi Billingsley CMA Start : 02-Apr-2016 End : 02-May-2016 Inactive codeine phosphate 2 mg/ml / phenylephrine hydrochloride 1 mg/ml / promethazine hydrochloride 1.25 mg/ml oral solution (7 sources) Opioid Agonist, Phenothiazine, alpha-1 Adrenergic Agonist Start: 08-30-2015 End: 09-15-2015 take 5 mL by mouth every six hours as needed PROMETHAZINE VC/CODEINE, 6.25-5-10MG/5ML (Oral Syrup) 5 Milliliter q6hrs prn for 0 days Quantity: 120 {Milliliter} Refills: 0 Ordered: 15-Sep-2015 Milady HARVEYMarylin Start : 30-Aug-2015 End : 15-Sep-2015 Discontinued cranberry fruit (13 sources) CRANBERRY FRUIT, 475MG (Oral Capsule) (20 sources) take 1 capsule by mouth once daily CRANBERRY FRUIT, 475MG (Oral Capsule) 1 qd (475 MG) Active cyclobenzaprine hydrochloride 10 mg oral tablet (20 sources) Muscle Relaxant Start: 03-14-2014 Start: 08-08-2008 End: 08-02-2009 doxycycline hyclate 100 mg oral tablet (20 sources) Tetracycline-class Drug Start: 08-30-2015 End: 09-09-2015 DULoxetine 30 mg delayed release oral capsule (20 sources) Serotonin and Norepinephrine Reuptake Inhibitor Start: 10-12-2012 End: 10-12-2012 Start: 10-12-2012 End: 10-12-2012 take 4 capsules by mouth once daily CYMBALTA, 30MG (Oral Capsule Delayed Release Particles) [address] Part daily for 0 days Quantity: 90 {Capsule_DR_Part} Refills: 3 Ordered: 12-Oct-2012 Shavon JUAREZ, Esthela Sands MD, Esthela Gore Start : 12-Oct-2012 End : 12-Oct-2012 Discontinued Comments: Mail order. Comment on above: Mail order. escitalopram 5 mg oral tablet (20 sources) Serotonin Reuptake Inhibitor Start: 2 End: 2 take 1 tablet by mouth once daily Escitalopram Oxalate 5 mg tablet Discontinued 5 mg PO DAILY January 22, 2022 12:00am April 19, 2022 10:50am Start: 12-17-2012 End: 12-17-2012 Comment on above: hives, unable to hav e orgasim gabapentin 300 mg oral capsu le (20 sources) Anti-epileptic Agent Start: 03-05-2010 End: 08-08-2008 hydroCHLOROthiazide 12.5 mg oral tablet (20 sources) Thiazide Diuretic Start: 03-15-2024 End: 02-02-2025 take 1 tablet by mouth once daily Hydrochlorothiazide 12.5 mg tablet Discontinued 12.5 mg PO DAILY March 15, 2024 10:58am February 02, 2025 1:45pm Start: 05-26-2023 Start: 04-08-2023 take 1 capsule by mo [facility] once daily hydroCHLOROthiazide 12.5 mg oral capsule 1 (one) Capsule daily for 0 days Quantity: 90 {Capsule} Refills: 3 Ordered: 08-Apr-2023 Shavon JUAREZ, Esthela Sands MD, Esthela Gore Start : 08-Apr-2023 Active Comments: Mail order. Start: 12-23-2022 End: 03-15-2024 take 1 tablet by mouth every other day Hydrochlorothiazide 12.5 mg tablet Discontinued 12.5 mg PO every other day December 23, 2022 12:00am March 15, 2024 10:58am Start: 05-14-2022 hydroCHLOROthi azide 12.5 MG Oral Capsule 1 (one) Capsule every other day and then can increase daily if need for BP and swelling for 0 days Quantity: 30 {Capsule} Refills: 4 Ordered: 14-May-2022 Raúl Alberts LPN Start : 14-May-2022 Active Comment on above: Mail order. hydroCHLOROthiazide 25 mg / spironolactone 25 mg oral tablet (20 sources) Thiazide Diuretic, Aldosterone Antagonist Start: 04-30-2022 End: 04-30-2022 Start: 04-19-2022 End: 12-23-2022 take 1 tablet by mouth once daily Spironolacton-Hydrochlorothiaz 25-25 mg tablet Discontinued 1 {tbl} PO DAILY April 19, 2022 12:00am December 23, 2022 3:05pm Start: 04-19-2022 End: 12-23-2022 take 1 tablet by mouth once daily Spironolacton-Hydrochlorothiaz Discontin ued 1 TABLET PO DAILY April 19, 2022 12:00am December 23, 2022 3:05pm Start: 04-10-2022 take 1 tablet by jaylene in the morning Spironolactone-HCTZ 25-25 MG Oral Tablet 1 (one) Tablet in am for 0 days Quantity: 30 {Tablet} Refills: 0 Ordered: 10-Apr-2022 Shavon JUAREZ, Esthela Javier MD Start : 10-Apr-2022 Active ibuprofen 600 mg oral tablet (20 sources) Nonsteroidal Anti-inflammatory Drug Start: 03-08-2013 End: 05-28-2013 Start: 03-08-2013 End: 05-28-2013 IBUPROFEN, 600MG (Oral Table t) 1 Tablet q 8 with food for 7 days then prn for 0 days Quantity: 60 {Tablet} Refills: 0 Ordered: 28-May-2013 PRANAY Colon LPN Start : 08-Mar-2013 End : 28-May-2013 Inactive Jqekulk-Ztzxlkmtj-Yjlhpbjriz hn 65-100-325 mg capsule (2 sources) Start: 12-24-2021 End: 02-02-2025 Mlcfjww-Ldadhxytu-Rytobjgrau hn 65-100-325 mg capsule Discontinued 1 NMA PO .prn December 24, 2021 10:00am February 02, 2025 1:45pm Start: 12-20-2021 End: 12-24-2021 Hgikozd-Ddkcczvfb-Saiqagcdfz hn 65-100-325 mg capsule Discontinued 0 PO .COMPLEX December 20, 2021 12:00am December 24, 2021 10:01am PO; linaclotide 0.29 mg oral capsule (20 sources) Guanylate Cyclase-C Agonist Start: 05-21-2022 liothyronine sodium 0.025 mg oral tablet (20 sources) l-Triiodothyronine Start: 08-27-2007 End: 09-26-2008 lubiprostone 0.008 mg oral capsule (20 sources) Chloride Channel Activator Start: 05-14-2022 End: 02-14-2023 meloxicam 7.5 mg oral tablet (20 sources) Nonsteroidal Anti-inflammatory Drug Start: 05-24-2013 End: 03-14-2014 Metanx (13 sources) Start: 04-22-2011 End: 08-21-2011 METANX, 3-35-2MG (Oral Tablet) (20 sources) Start: 04-22-2011 End: 08-21-2011 take 1 tablet by mouth once daily METANX, 3-35-2MG (Oral Tablet) 1 Tablet daily for 0 days Quantity: 90 {Tablet} Refills: 3 Ordered: 21-Aug-2011 Dary Reynoso RN Start : 22-Apr-2011 End : 21-Aug-2011 Inactive Metaprolol (4 sources) Metaprolol 100mg 1 (One) Once a day. Active methylPREDNISolone 4 mg oral tablet (20 sources) Corticosteroid Start: 09-28-2022 End: 02-14-2023 Start: 05-28-2013 End: 03-14-2014 MEDROL (MYRTLE), 4MG (Oral Tabl et) 1 (one) Tablet as directed for 0 days Quantity: 1 {Package(s)} Refills: 0 Ordered: 14-Mar-2014 PRANAY Colon LPN Start : 28-May-2013 End : 14-Mar-2014 Inactive nortriptyline 50 mg oral cap gilma (20 sources) Tricyclic Antidepressant Start: 01-06-2015 End: 01-06-2015 omeprazole 40 mg delayed rel ease oral capsule (20 sources) Proton Pump Inhibitor Start: 11-01-2010 End: 08-21-2011 Start: 11-01-2010 End: 08-21-2011 OMEPRAZOLE, 40MG (Oral Capsu le Delayed Release) [address] daily for 0 days Quantity: 30 {Capsule_DR} Refills: 0 Ordered: 21-Aug-2011 Dary Reynoso RN Start : 01-Nov-2010 End : 21-Aug-2011 Inactive oseltamivir 75 mg oral capsu le (20 sources) Neuraminidase Inhibitor Start: 09-05-2014 End: 09-15-2014 plecanatide 3 mg oral tablet (20 sources) Start: 05-16-2022 End: 05-21-2022 Comment on above: Pt will call when e is ready for fill predniSONE 20 mg oral tablet (20 sources) Start: 06-12-2023 Start: 08-30-2015 End: 09-15-2015 Start: 07-22-2013 End: 03-14-2014 Promethazine VC-Codeine (13 sources) Start: 08-30-2015 End: 09-15-2015 PROMETHAZINE VC/CODEINE, 6.25-5-10MG/5ML (Oral Syrup) (13 sources) Start: 08-30-2015 End: 09-15-2015 take 5 mL by mouth every six hours as needed PROMETHAZINE VC/CODEINE, 6.25-5-10MG/5ML (Oral Syrup) 5 Milliliter q6hrs prn for 0 days Quantity: 120 {Milliliter} Refills: 0 Ordered: 15-Sep-2015 Marylin Henning LPN Start : 30-Aug-2015 End : 15-Sep-2015 Discontinued risedronate sodium 150 mg oral tablet (20 sources) Start: 11-01-2010 End: 11-01-2010 Start: 09-17-2010 End: 09-17-2010 Start: 09-17-2010 End: 09-17-2010 take 1 tablet by mouth every week ACTONEL, 35MG (Oral Tablet) 1 q week (35 MG) Start : 17-Sep-2010 End : 17-Sep-2010 Inactive rosuvastatin calcium 40 mg o ral tablet (20 sources) HMG-CoA Reductase Inhibitor Start: 01-06-2015 End: 01-06-2015 Start: 01-06-2015 End: 01-06-2015 take 0.5 tablet by mouth once daily CRESTOR, 40MG (Oral Tablet) 1/2 Tablet qd for 0 days Quantity: 45 {Tablet} Refills: 3 Ordered: 06-Jan-2015 Shavon JUAREZ, Esthela Sands MD, Esthela Gore Start : 06-Jan-2015 End : 06-Jan-2015 Discontinued ubidecarenone 200 mg oral ca psule (20 sources) Start: 03-31-2013 End: 04-10-2022 valACYclovir 1000 mg oral ta blet (20 sources) Herpesvirus Nucleoside Analog DNA Polymerase Inhibitor, Herpes Simplex Virus Nucleoside Analog DNA Polymerase Inhibitor, Herpes Zoster Virus Nucleoside Analog DNA Polymerase Inhibitor Start: 12-17-2012 End: 08-08-2014 Problems Active Problems Problem Classification Problem Date Documented Date Episodic/Chronic Abdominal pain (20 sources) Acute abdominal pain; Translations: [Abdominal pain, acute, right upper quadrant] Resolved: 3 07-24-2015 Episodic Comment on above: ? GB Acute bronchitis (6 sources) Acute infective bronchitis; Translations: [Acute bronchitis due to other specified organisms] 06-12-2023 Episodic Acute myocardial infarction (20 sources) Myocardial infarction; Translations: [Non-ST elevation (NSTEMI) myocardial infarction] Chronic Anxiety disorders (20 sources) Mixed anxiety and depressive disorder; Translations: [Depression with anxiety] Resolved: 4 04-02-2016 Chronic Comment on above: seeing sam avila counselor. tried buspar, wellbutrin, SSRI. not notice hlep. stable father just at 91 yo. Asthma (20 sources) Uncomplicated asthma; Translations: [Unspecified asthma, uncomplicated] Resolved: 0 08-16-2015 Chronic Comment on above: Asthmatic bronchitis Asthma (20 sources) Asthma Blindness and vision defects (20 sources) Blurring of visual image; Translations: [Blurred vision] 04-02-2016 Episodic Comment on above: on prednisone from E R with blurred vision Cardiac dysrhythmias (20 sources) Wide QRS ventricular tachycardia; Translations: [Ventricular tachycardia] 04-02-2016 Chronic Comment on above: stable last saw year ago and stable work up good not want genetic and he not want to follow up stable last saw year ago and stable work up good not want genetic and he not want to follow upcath 1995 clear stable last saw year ago and stable work up good not want genetic and he not want to follow upcath 1995 clear did ablation nothing to ablate. using metoprolol Cardiac dysrhythmias (7 sources) Tachycardia; Translations: [Tachycardia, unspecified] 01-21-2022 Episodic Chronic kidney disease (20 sources) Chronic kidney disease stage 3; Translations: [CKD (chronic kidney disease), stage III] 05-14-2022 Chronic Chronic obstructive pulmonary disease and bronchiectasis (20 sources) Bronchitis; Translations: [Bronchitis] Resolved: 4 03-14-2014 Episodic Coagulation and hemorrhagic disorders (20 sources) Hypercoagulability state; Translations: [Hypercoagulable state] 04-02-2016 Chronic Comment on above: homocystiene good Conduction disorders (20 sources) Right bundle branch block; Translations: [Unspecified right bundle-branch block] 05-14-2022 Chronic Comment on above: onset 4-22 Congestive heart failure; nonhypertensive (14 sources) Heart failure with normal ejection fraction; Translations: [Unspecified diastolic (congestive) heart failure] 01-21-2022 Chronic Coronary atherosclerosis and other heart disease (20 sources) History of non-ST segment elevation myocardial infarction; Translations: [Old myocardial infarction] Onset: 2 05-14-2022 Chronic Comment on above: 4-22 Diabetes mellitus without complication (20 sources) Impaired fasting glycemia; Translations: [Impaired fasting glucose] 04-10-2022 Episodic Diseases of mouth; excluding dental (20 sources) Bleeding from mouth; Translations: [Nodule of cheek] 04-08-2023 Episodic Comment on above: getting smaller will recheck Disorders of lipid metabolism (20 sources) Hyperlipidemia; Translations: [Hyperlipidemia, unspecified] 04-02-2016 Chronic Comment on above: pt want cheaper than crestor. increase vegetales, lower pasteries, check atherosclerosis, do BV screening told CIMT, CCTA E Codes: Fall (20 sources) Accidental fall ; Translations: [Accidental fall] 02-19-2023 Episodic Essential hypertension (20 sources) Essential hypertension; Translations: [Essential (primary) hypertension] Chronic Comment on above: high now and think f rom lower bbkler. no signs and symptoms of ERNESTINE. willinrease backup Genitourinary symptoms and ill-defined conditions (20 sources) Urinary symptoms ; Translations: [UTI symptoms] Resolved: 9 04-10-2022 Episodic Comment on above: she has to heart to t he bathroom cranberry tablets help Headache; including migraine (20 sources) Migraine with aura; Translations: [Migraine with aura and without status migrainosus, not intractable] 04-02-2016 Chronic Comment on above: rarely. will stay aw ay from imitrex with TCA and heart issues. was using isometh/apap but not making anymore. last [id number] ago rare try fiorect Immunizations and screening for infectious disease (20 sources) Patient encounter status; Translations: [Encounter for immunization] Resolved: 5 07-25-2015 Episodic Comment on above: 2010 BD osteopenia. colonscopy 2009. pap 1-13 Mood disorders (6 sources) Mild depression; Translations: [Mild depression] 04-10-2022 Chronic Mood disorders (20 sources) Mood disorders Nausea and vomiting (20 sources) Nausea and vomiting; Translations: [Nausea and vomiting] Resolved: 3 12-17-2012 Episodic Comment on above: ? reflux ? actonel ? GB hold actonel for now Nutritional deficiencies (20 sources) Vitamin D deficiency; Translations: [Vitamin D deficiency] 05-14-2022 Chronic Open wounds of extremities (20 sources) Laceration of finger; Translations: [Laceration of finger, initial encounter] 04-02-2016 Episodic Comment on above: rt thumb with knife Other aftercare (20 sources) Long-term current use of anticoagulant; Translations: [Chronic anticoagulation] 02-19-2023 Episodic Comment on above: eliquis for PE. Other bone disease and musculoskeletal deformities (20 sources) Osteopenia; Translations: [Osteopenia] 04-02-2016 Episodic Comment on above: bd 12-14 some improv ement in hips mild osteopenia. pt aware risk fracture even in osteopenia. she is back on calcium and will make sure with vit d3 and exercising more. Other circulatory disease (20 sources) Raynaud's disease; Translations: [Raynaud's syndrome] 04-02-2016 Chronic Other circulatory disease (20 sources) Raynaud's syndrome Chronic Other circulatory disease (20 sources) History of cardiac arrhythmia; Translations: [History of cardiac arrhythmia] 05-14-2022 Episodic Comment on above: history of radiofreq uency ablation Other connective tissue disease (20 sources) Fibromyalgia; Translations: [Fibromyalgia] 04-02-2016 Episodic Comment on above: cymbalta not help do ing very well on clean eating and exercise. Other connective tissue disease (20 sources) Trochanteric bursitis; Translations: [Greater trochanteric bursitis] Resolved: 5 05-19-2015 Episodic Comment on above: better now reviewed with patient specialist's note PT mte will continue stretches an dexercises Other connective tissue disease (20 sources) Primary fibromyalgia syndrome Episodic Other diseases of kidney and ureters (10 sources) Acute renal insufficiency; Translations: [Disorder of kidney and ureter, unspecified] 05-03-2022 Episodic Other diseases of kidney and ureters (20 sources) Renal insufficiency; Translations: [Renal insufficiency, mild] 05-14-2022 Episodic Other eye disorders (20 sources) Tear film insufficiency; Translations: [Dry eye syndrome, bilateral] 05-14-2022 Episodic Other gastrointestinal disorders (20 sources) Constipation; Translations: [Constipation, unspecified] 05-21-2022 Episodic Comment on above: related to meds and IBS. tried mirilax and colace. senakot stillissue try amitiza related to meds and IBS. tried mirilax and colace. right now senofot and working. Other gastrointestinal disorders (20 sources) History of ischemic colitis; Translations: [History of ischemic colitis] 05-14-2022 Episodic Comment on above: 2009 had MTHFR Other hematologic conditions (17 sources) Raised cardiac enzyme or marker; Translations: [Other specified abnormalities of plasma proteins] 12-19-2021 Episodic Other hematologic conditions (6 sources) Other specified abnormalities of plasma proteins; Translations: [Other abnormal blood chemistry] Episodic Other injuries and conditions due to external causes (20 sources) Injury of head; Translations: [Head trauma] 02-19-2023 Episodic Other lower respiratory disease (1 source) Hypoxemia; Translations: [Hypoxemia] Episodic Other lower respiratory disease (1 source) Hypoxemia; Translations: [Hypoxemia] Episodic Other lower respiratory disease (20 sources) Dyspnea on exertion; Translations: [Dyspnea, unspecified] Resolved: 0 07-21-2015 Episodic Other lower respiratory disease (20 sources) Cough; Translations: [Cough] Resolved: 5 Episodic Other lower respiratory disease (20 sources) Abnormal findings on diagnostic imaging of lung; Translations: [Pulmonary infiltrate in right lung on CXR] Resolved: 6 11-17-2015 Episodic Comment on above: resolved, off predni sone, off doxycycline, chest xray repeated and normal Other lower respiratory disease (20 sources) Wheezing; Translations: [Wheezing] Resolved: 4 03-14-2014 Episodic Other lower respiratory disease (16 sources) Dyspnea Episodic Other lower respiratory disease (2 sources) Other forms of dyspnea; Translations: [Other forms of dyspnea] Onset: Episodic Other non-traumatic joint disorders (20 sources) Hip pain; Translations: [Hip pain] Resolved: 5 05-19-2015 Episodic Other non-traumatic joint disorders (20 sources) Pain in elbow; Translations: [Right elbow pain] 02-19-2023 Episodic Comment on above: sally cain ongoing. neg xray but will reimage and send to ortho Other nutritional; endocrine; and metabolic disorders (20 sources) Body mass index 25-29 - overweight; Translations: [BMI 27.0-27.9,adult] 04-10-2022 Episodic Other nutritional; endocrine; and metabolic disorders (20 sources) Overweight; Translations: [Over weight] 04-02-2016 Episodic Comment on above: doing very well. kelli matamoros about where to do with this. on phase 2 diet and add back some diary. talk bout 80% good and if have sweet or sugar then alot water and rinse out. not have sugar or sweets for 3 days for sure after. Other nutritional; endocrine; and metabolic disorders (20 sources) Overweight in adulthood with body mass index of 25 or more but less than 30; Translations: [BMI 26.0-26.9,adult] Resolved: 3 05-14-2022 Episodic Other screening for suspected conditions (not mental disorders or infectious disease) (20 sources) Electrocardiogram abnormal; Translations: [Abnormal EKG] Onset: 5 Resolved: 5 07-24-2015 Episodic Comment on above: new flipped T waves in anterior leads. in past had vt with stress. Other skin disorders (20 sources) [place] - lesion ; Translations: [[place] of foot] 06-09-2023 Episodic Other upper respiratory disease (20 sources) Acute bronchospasm; Translations: [Bronchospasm] 04-02-2016 Episodic Other upper respiratory infections (20 sources) Acute sinusitis; Translations: [Acute sinusitis, unspecified] Resolved: 0 06-13-2015 Episodic Comment on above: pos Ovarian cyst (20 sources) Cyst of ovary; Translations: [Unspecified ovarian cyst, left side] 05-14-2022 Episodic Comment on above: follow up on this Peripheral and visceral atherosclerosis (20 sources) Ischemic colitis Resolved: 9 09-10-2012 Chronic Comment on above: reveiwed with patien t recent tests and hosp reports blood pressure not too low. do hpercoag work up Pleurisy; pneumothorax; pulmonary collapse (20 sources) Atelectasis; Translations: [Atelectasis] 04-02-2016 Episodic Comment on above: will order spirometr y Pulmonary heart disease (20 sources) Pulmonary arterial hypertension; Translations: [Secondary pulmonary arterial hypertension] 04-10-2022 Chronic Comment on above: having repeat and th inik secondary to PE Residual codes; unclassified (20 sources) Hereditary disorder of endocrine system; Translations: [Genetic susceptibility to other disease] 05-14-2022 Episodic Residual codes; unclassified (6 sources) Non-smoker; Translations: [Non-smoker] 06-12-2023 Episodic Respiratory failure; insufficiency; arrest (adult) (2 sources) Eewgg-re-gnrrgpq respiratory failure; Translations: [Acute and chronic respiratory failure with hypoxia] Chronic Spondylosis; intervertebral disc disorders; other back problems (20 sources) Degeneration of lumbar intervertebral disc; Translations: [Degeneration of intervertebral disc of lumbar region] 04-02-2016 Chronic Spondylosis; intervertebral disc disorders; other back problems (20 sources) Low back pain; Translations: [Low back pain] Resolved: 5 09-10-2012 Episodic Comment on above: better with PT will continue and do home program doing better with ch iropactor care. will give some percocet and medrol dose myrtle to take with her on trip Substance-related disorders (20 sources) Tobacco dependence in remission; Translations: [Tobacco abuse, in remission (Renamed from Tobacco dependence in remission)] 04-10-2022 Chronic Thyroid disorders (20 sources) Hypothyroidism; Translations: [Hypothyroidism] 04-02-2016 Chronic Comment on above: pt feel better witht hat little increase and tsh is still good Unclassified (20 sources) Allergy to contrast media (Renamed from contrast media) Resolved: 0 09-10-2012 Unclassified (20 sources) Allergy to Serzone (Renamed from Wellbutrin) Resolved: 0 09-10-2012 Unclassified (20 sources) Allergy to Wellbutrin (Renamed from Wellbutrin) Resolved: 0 09-10-2012 Unclassified (20 sources) NSVT Resolved: 0 09-10-2012 Unclassified (20 sources) WWV-BARE Resolved: 9 09-10-2012 Unclassified (20 sources) Unclassified (20 sources) Headache,Migraine (346.00) Unclassified (20 sources) DEGENERATION, DISC NOS (722.6) Unclassified (20 sources) HYPERCOAGULABLE STATE, PRIMARY, OTHER SPECIFIED DISEASES OF BLOOD AND BLOOD-FORMING ORGANS (289.81) Unclassified (20 sources) [employer] Exam , Medicare (V76.2) (Renamed from [facility] Exam , Medicare (V76.2, V72.31)) Unclassified (12 sources) Greater trochanteric bursitis (726.5) Unclassified (12 sources) Abnormal EKG(794.31) Unclassified (12 sources) Recurrent cold sores (054.9) Unclassified (4 sources) Need for shingles vaccine (V04.89) Unclassified (16 sources) Stress Reaction (308.4) Unclassified (12 sources) ABNORMAL BLOOD CHEMISTRY NEC (790.6) Unclassified (8 sources) SCREENING MAMMOGRAM NEC (V76.12) Unclassified (20 sources) LOW BACK PAIN WITH RADICULOPATHY (724.4) Urinary tract infections (20 sources) Acute cystitis; Translations: [Cystitis, acute] Resolved: 9 07-04-2015 Episodic Viral infection (20 sources) Herpes zoster with complication; Translations: [Other complicated herpes zoster] Resolved: 4 08-18-2015 Episodic Comment on above: labialisrecurrent tr y valtrex use lysine and ASA Past or Other Problems Problem Classification Problem Date Documented Date Episodic/Chronic Malaise and fatigue (15 sources) Fatigue; Translations: [Other fatigue] Onset: 03-25-2024 01-22-2022 Episodic Pulmonary heart disease (20 sources) Pulmonary embolism; Translations: [Other pulmonary embolism without acute cor pulmonale] Onset: 12-09-2021 Resolved: 05-14-2022 Episodic Comment on above: 12-28 multiiple 4- Large volume acute p ulmonary emboli involving all of the segmental and subsegmental pulmonary arteries. No evidence of right heart strain. CT 12/09/21 Residual codes; unclassified (1 source) Asymptomatic menopausal state; Translations: [Asymptomatic menopausal state] Onset: 06-21-2024 Episodic Unclassified (20 sources) Deliveries (Parity); Translations: [Deliveries (Parity)] 04-10-2022 Comment on above: 2 Unclassified (20 sources) Pregnancies (); Translations: [Pregnancies ()] 04-10-2022 Comment on above: 2 Unclassified (20 sources) Unspecified Diagnosis Resolved: 11-17-2015 04-05-2016 Unclassified (8 sources) Tobacco abuse, in remission (Renamed from Tobacco dependence in remission) Unclassified (4 sources) Laceration of finger, initial encounter Unclassified (4 sources) Encounter for screening for malignant neoplasm of cervix Unclassified (4 sources) Encounter for Medicare annual wellness exam Unclassified (4 sources) BMI 27.0-27.9,adult Unclassified (4 sources) Migraine with aura and without status migrainosus, not intractable Unclassified (4 sources) Degeneration of intervertebral disc of lumbar region Unclassified (8 sources) Blurred vision Unclassified (4 sources) Hypercoagulable state Unclassified (8 sources) Pulmonary infiltrate in right lung on CXR Unclassified (4 sources) SHINGLES,NEED FOR PROPHYLACTIC VACCINATION AND INOCULATION AGAINST (V05.8) Unclassified (12 sources) Annual Medicare Physical (V70.0) Unclassified (4 sources) Abdominal Pain,RUQ(789.01) Unclassified (4 sources) SYMPTOMS INVOLVING URINARY SYSTEM; DYSURIA (788.1) Unclassified (4 sources) Cystitis,Acute (595.0) Unclassified (3 sources) Multiple pulmonary emboli Unclassified (13 sources) Deliveries (Parity); Translations: [Deliveries (Parity)] 06-09-2023 Unclassified (13 sources) Pregnancies (); Translations: [Pregnancies ()] 06-09-2023 Urinary tract infections (4 sources) Urinary tract infections Results Test Name Value Interpretation Reference Range Facility Cardiology Visit Reporton Cardiology Visit Report [facility] [address] [place] [address] OFFICE VISIT Date of Service: 02/02/25 MR#: [id number] Acct: [id number] Name: CASS GONZALES Rep #: [id number] : 1945 Provider: LAN Diaz Age/Sex: 79/F [place] [facility] Status: Signed HPI HPI History of Present Illness Details: Pleasant 79-year-old lady who presents to the office today for a cardiovascular follow up visit. She has no previous obstructive coronary artery disease history whose history dates back to 1995 when she had presented with a wide-complex tachycardia on a treadmill stress test. She underwent a left heart catheterization which demonstrated normal coronary arteries. In 1998 she underwent an EP study during which no inducible VT was noted. She had had a cardiac MRI which demonstrated no evidence of right ventricular dysplasia this was repeated in 2011. She also had a normal echocardiogram as well as stress echocardiogram. She said that she had been in [place] the last few months and had noticed that she was getting increasingly short of breath. In December of this year they decided to drive up from [place] and she was getting rather short of breath she presented to the emergency room here and was diagnosed as having multiple pulmonary emboli and an elevated troponin level. She had an echocardiogram performed which demonstrated an ejection fraction of 65%, mild concentric left ventricular hypertrophy, pulmonary systolic pressure 44 mmHg. She was anticoagulated and was eventually discharged home on Eliquis as well as 2 L of supplemental oxygen. She says that she has been doing much better and has recently been off her Lasix. She was identified a few years ago was having the MTHFR mutation. She has been on folic acid and B12 since. A coronary calcium score in 2018 was 0 and she has been on lipid-lowering medication. She is here for a follow-up. Since her last visit she has done remarkably well. She did have a repeat echocardiogram in April 2022 demonstrating an ejection fraction of 55%, no wall motion abnormalities, stage I diastolic dysfunction and pulmonary systolic pressure of 29 mmHg. From a cardiac standpoint, patient is doing well. She does not have any chest discomfort/heaviness/t ightness. Her exercise tolerance is stable for her age. She does not have any worsening symptoms of shortness of breath. She does not have any orthopnea. She denies PND. She does not have any symptoms of congestive heart failure. She does not have any palpitations that she is aware of. She does not have any lightheadedness or dizziness. She does not have any near- syncope or syncope. She does not have any lower extremity edema. She does not have any symptoms of claudication. Intake Vital Signs 03/15/24 10:51 02/02/25 13:48 Height 5 ft 7 in 5 ft 7 in Weight: 175 lb BMI 27.3 BP 128/83 H Blood Pressure Location Lt brachial Position Sitting Respiration 16 Pulse 73 Pulse Source NIBP Intake Visit Reasons: 8 m fu Applications Development Analyst Required: No Accompanied by: Is patient in pain?: No Allergies bupropion (From Wellbutrin) Allergy (Verified 02/02/25 13:43) rash Iodinated Contrast Media (Iodinated Contrast Media - IV Dye) Allergy (Verified 02/02/25 13:43) Hives nefazodone (From Serzone) Allergy (Verified 02/02/25 13:43) Rash buspirone (From BuSpar) Adverse Reaction (Verified 02/02/25 13:43) weight gain escitalopram (From Lexapro) Adverse Reaction (Verified 02/02/25 13:43) affected sex venlafaxine (From Effexor) Adverse Reaction (Verified 02/02/25 13:43) affected sleep Medications ???Medication ???Instructions ???Recorded ???Confirmed ???Type atorvastatin 40 mg tablet 40 mg PO QHS 08/26/15 02/02/25 His tory levothyroxine 100 mcg tablet 100 mcg PO DAILY thyroid 08/26/15 02/02/25 History cyanocobalamin (vitamin B-12) 500 500 mcg PO DAILY 12/20/21 5 History mcg lozenges folic acid 800 mcg tablet 0.8 mg PO DAILY 12/20/21 02/02/25 History tizanidine 4 mg capsule 4 mg PO QHS PRN Muscle Spasm 12/2002/02/25 History alprazolam 0.25 mg tablet 0.25 mg PO DAILY PRN Anxiety 12/2802/02/25 History apixaban 5 mg tablet (Eliquis) 5 mg PO BID #180 tabs 11/12/22 Rx losartan 50 mg tablet 50 mg PO BID #180 tabs 03/08/24 Rx cholecalciferol (vitamin D3) 50 50 mcg PO DAILY 03/15/24 02/02/25 History mcg (2,000 unit) capsule metoprolol succinate 50 mg 50 mg PO DAILY bp #90 tabs 4 02/02/25 Rx tablet,extended release 24 hr amitriptyline 50 mg tablet 25 mg PO DAILY 02/02/25 02/02/25 H istory magnesium oxide 250 mg PO QDAY 02/02/25 02/02/25 H istory melatonin 5 mg capsule mg PO 02/02/25 02/02/25 History sertraline 50 mg tablet 75 mg PO QDAY 02/02/25 02/02/[address] (more content not included)... Normal [facility] SCRN MAMM (CAD)W/EVY BILATo n 01-24-2025 SCRN MAMM (CAD)W/EVY BILAT [facility] Imaging Services [address] [place] [address] SCRN MAMM (CAD)W/EVY BILAT MR#: [id number] Acct: [id number] Name: CASS GONZALES Rep #: [id number] : 1945 F 79 From: Judy Fonseca PCP: Dr. Esthela Sands MD Status: REG CLI Study: SCRN MAMM (CAD)W/EVY BILAT Date of Exam: 01/06 06/02 Exam# [id number] Ordering Dr: Esthela Sands MD EXAM: SCRN MAMM (CAD)W/EVY BILAT DATE: 01/24/2025 CLINICAL HISTORY: F, Age 79 y/o , SCRN MAMM (CAD)W/EVY BILAT BREAST CANCER RISK ASSESSMENT: Has not been calculated. TECHNIQUE: Bilateral screening digital breast tomosynthesis with 2D and 3D images. Computer aided detection. COMPARISON: Prior exam(s) dated 01/08/2024 and 12/23/2022 FINDINGS: TISSUE DENSITY: The breast tissue is composed of scattered area of fibroglandular density. Bilateral Breast Mammographic Findings: Stable benign-appearing intramammary lymph node in the superior outer aspect of the right breast is noted measuring approximately 6 mm. Benign vascular calcifications are seen in both breasts. There are no suspicious masses, suspicious cluster of microcalcifications, architectural distortion or secondary signs of malignancy identified in either breast. BI/SCRN MAMM (CAD)W/EVY BILAT IMPRESSION: OVERALL FINAL ASSESSMENT: BIRADS 2 BENIGN FINDING RECOMMENDATION: Routine annual follow-up in 1 Year A letter with findings and recommendations will be mailed to the patient. Reading Location: [id number] CC: Dr. Esthela Sands MD Metals Sales Representative: Signed Normal [facility] Dexa Bone Density Studyon Dexa Bone Density Study [facility] Imaging Services [address] [place] [address] Dexa Bone Density Study MR#: [id number] Acct: [id number] Name: CASS GONZALES Rep #: [id number] : 1945 F 79 From: Haider flores MD PCP: Dr. Esthela Sands MD Status: [facility] Study: Dexa Bone Density Study Date of Exam: 05/25/24 Exam# [id number] Ordering Dr: Esthela Sands MD [id number] STUDY: DUAL ENERGY X-RAY ABSORPTIOMETRY / DXA REASON FOR EXAM: Female, 79 years old. Z780 TECHNIQUE: Bone Mineral Density (BMD) measurements of lumbar spine and bilateral hips were obtained. COMPARISON: Comparison is made with prior study dated May 23, 2022. FINDINGS: Lumbar Spine (L1-L4): g/cm2 (0.914) / T-score (-1.3) / Z-score (1.3) Findings are suggestive of osteopenia with a low fracture risk. Left Femur Total: g/cm2 (0.823) / T-score (-1.0) / Z-score (1.0) Left Femoral Neck: g/cm2 (0.645) / T-score (-1.8) / Z-score (0.4) Right Femur Total: g/cm2 (0.847) / T-score (-0.8) / Z-score (1.2) Right Femoral Neck: g/cm2 (0.677) / T-score (-1.6) / Z-score (0.7) The T-Scores on the most recent prior examination were: Lumbar Spine (L1-L4): There has been worsening of bone density since the previous examination. Left Femur Total: which represents an improvement of and post. Right Femur Total: which represents a worsening of 0.2%. BD/Dexa Bone Density Study IMPRESSION: The patient is considered osteopenic as outlined below according to World R[place] Organization (WHO) criteria with a moderate fracture risk. There has been worsening of bone density since the previous examination. Reference Information: The T-score is the number of standard deviations above or below the standard which is normal for young adults at their peak bone mineral density. The World Health Organization (WHO) interprets the T-scores as follows: Above -1 Normal bone density Between -1 and -2.5 Osteopenia Equal to / or below -2.5 Osteoporosis As a practical clinical guideline, osteopenia may be graded as follows: Mild -1 through -1.5 Moderate -1.6 through -2.0 Severe -2.1 through -2.4 The Z-score is the number of standard deviations above or below age-matched controls. A Z-score of less than -1.5 would be considered abnormal. References: 1. NIH Osteoporosis and Related Bone Diseases www osteo.org 2. International Society for Clinical Densitometry www iscd.org 3. National Osteoporosis Foundation www nof.org Electronically Signed: Haider Driscoll MD at 10:12 EDT Reading Location ID and State: [address] [place] [address] , Service support , CC: Dr. Esthela Sands MD Metals Sales Representative: Signed Normal [facility] Echo Complete W/ Contraston 03-29-2024 Echo Complete W/ Contrast [facility] Services [address] [place] [address] Echo Complete W/ Contrast 03/29/24 1424 MR#: [id number] Acct: [id number] Name: CASS GONZALES Rep #: [id number] : 1945 79 From: Jean-Claude Parkinson MD Attending Dr: Nay Cee NP-C Status: REG C Ordering Dr: Nay Cee NP THREAD SINGER-C Date: 03/29/24 Location: [facility] Sex: F C Admitted: Reason For Study: SOB Procedure This was a 2D Doppler, Color Flow transthoracic echocardiogram. The study was technically difficult. Exam performed in department. Left Ventricle Normal LV size. Left ventricular systolic function is normal. The left ventricular ejection fraction is 65 %. No regional wall motion abnormalities noted. Right Ventricle Normal RV size. Normal systolic function. Atria The left atrium is not well visualized. The right atrium is not well visualized. Mitral Valve Normal mitral valve. Tricuspid Valve Normal tricuspid valve. Mild (1+) tricuspid valve insufficiency. Pulmonary artery systolic pressure is 25 mmHg. Aortic Valve Normal aortic valve. Pulmonic Valve The pulmonic valve is not well visualized. Great Vessels Normal aortic root. The pulmonary artery is normal size. Normal inferior vena cava. Pericardium/Pleural No pericardial effusion. Medication 22 gauge I.V. with prn adaptor inserted into left arm. Diluted definity 2.0ml given slow IV push to enhance endocardial definition. MMode/2D Measurements Calculations RVDd: 2.7 cm Ao root diam: 3.7 cm LAV(MOD-bp): 35.6 ml LAV(MOD-bp) Indexed: 18.9 ml/m2 LAV(MOD-sp2): 41.9 ml LAV(MOD-sp4): 22.5 ml LA dimension(2D): 3.0 cm TAPSE: 1.7 cm LA A4 area: 11.9 cm2 Time Measurements MV dec time: 0.29 sec Doppler Measurements Calculations MV E max lisa: 59.4 cm/sec Lat Peak E' Lisa: 7.7 cm/sec Med Peak E' Lisa: 6.1 cm/sec MV A max lisa: 97.7 cm/sec E/E' lat: 7.7 E/E' med: 9.8 MV E/A: 0.61 MV V2 max: 104.1 cm/sec Ao V2 max: 118.9 cm/sec MV max P.3 mmHg MV dec slope: 206.7 cm/sec2 Ao max P.7 mmHg MV V2 mean: 55.6 cm/sec MV mean P.4 mmHg MV V2 VTI: 21.8 cm LV V1 max: 98.0 cm/sec PA V2 max: 71.3 cm/sec TR max lisa: 234.3 cm/sec LV V1 max P.8 mmHg TR max P.0 mmHg ECHO/Echo Complete W/ Contrast Interpretation Summary Normal LV size. Left ventricular systolic function is normal. The left ventricular ejection fraction is 65 %. Contrast injection was performed. The study was technically difficult. Ordering Physician: Nay Cee Referring Physician: Esthela Sands M.D. Performed By: Jasmine Velasco RDCS and Student 03/29/24 1729 Date Jean-Claude Parkinson MD CC: CORA Cee; Dr. Esthela Sands MD Date Dictated: 03/29/24 1424 Date Transcribed: 03/29/24 6467 Metals Sales Representative: Signed Normal [facility] BNP,B-Type NATRIURETIC PEPTI Jacek 03-15-2024 Natriuretic peptide B (Bld) [Mass/Vol] 99.5 pg/mL Normal 0-100 [facility] Comment on above: Performed By: #### L 503.6620, L100.0100, L500.2500, L501.9520 #### [facility] [address] [place], [address] Basic Metabolic Profile (BMP )on 03-15-2024 BUN/CRE 15.8 RATIO Normal 10-20 [facility] Comment on above: Performed By: #### L 503.6620, L100.0100, L500.2500, L501.9520 #### [facility] [address] [place], [address] CA,Total 9.7 mg/dL Normal 8.5-10.1 [facility] Comment on above: Performed By: #### L 503.6620, L100.0100, L500.2500, L501.9520 #### [facility] [address] [place], [address] Chloride [Moles/Vol] 106 mmol/L Normal 98-107 [facility] Comment on above: Performed By: #### L 503.6620, L100.0100, L500.2500, L501.9520 #### [facility] [address] [place], [address] CO2 [Moles/Vol] 30.0 mmol/L Normal 21.0-32.0 [facility] Comment on above: Performed By: #### L 503.6620, L100.0100, L500.2500, L501.9520 #### [facility] [address] [place], [address] Creatinine [Mass/Vol] 1.14 mg/dL High 0.55-1.02 [facility] Comment on above: Result Comment: The validity of the calculated GFR GFRAA in patients over 70 years has not been determined. Clinical correlation is essential. Performed By: #### L 503.6620, L100.0100, L500.2500, L501.9520 #### [facility] [address] [place], [address] EST GFR - AA 59 mL/min Low >60 [facility] Comment on above: Result Comment: Afri can [place] GFR Calc Performed By: #### L 503.6620, L100.0100, L500.2500, L501.9520 #### [facility] [address] [place], [address] GAP 4 Low 5-15 [facility] Comment on above: Performed By: #### L 503.6620, L100.0100, L500.2500, L501.9520 #### [facility] [address] [place], [address] GFR/1.73 sq M.predicted among non-blacks MDRD (S/P/Bld) [Vol rate/Area] 49 mL/min/{1.73_m2} Low >60 [facility] Comment on above: Result Comment: Non- GFR Calc Performed By: #### L 503.6620, L100.0100, L500.2500, L501.9520 #### [facility] [address] [place], [address] Glucose [Mass/Vol] 106 mg/dL Normal 74-106 [facility] Comment on above: Result Comment: Fast ing Glucose result from 100 to 125 mg/dL suggests IMPAIRED HOMEOSTASIS per A.D.A. criteria. Performed By: #### L 503.6620, L100.0100, L500.2500, L501.9520 #### [facility] [address] [place], [address] Potassium [Moles/Vol] 3.9 mmol/L Normal 3.5-5.1 [facility] Comment on above: Performed By: #### L 503.6620, L100.0100, L500.2500, L501.9520 #### [facility] [address] [place], [address] Sodium [Moles/Vol] 140 mmol/L Normal 136-145 [facility] Comment on above: Performed By: #### L 503.6620, L100.0100, L500.2500, L501.9520 #### [facility] [address] [place], [address] Urea nitrogen [Mass/Vol] 18 mg/dL Normal 7-18 [facility] Comment on above: Performed By: #### L 503.6620, L100.0100, L500.2500, L501.9520 #### [facility] [address] [place], [address] CBC W/Diff, Automatedon 07-0 8-4 Absolute Lymph 1.75 X10 3/uL Normal 0.83-4.51 [facility] Comment on above: Performed By: #### L 503.6620, L100.0100, L500.2500, L501.9520 #### [facility] [address] [place], [address] Absolute Neut 3.0 X10 3/uL Normal 2.0-7.7 [facility] Comment on above: Performed By: #### L 503.6620, L100.0100, L500.2500, L501.9520 #### [facility] [address] [place], [address] Basophils/100 WBC (Bld) 1.2 % High 0-1 [facility] Comment on above: Performed By: #### L 503.6620, L100.0100, L500.2500, L501.9520 #### [facility] [address] [place], [address] Eosinophils/100 WBC (Bld) 6.8 % High 0-5 [facility] Comment on above: Performed By: #### L 503.6620, L100.0100, L500.2500, L501.9520 #### [facility] [address] [place], [address] Erythrocyte distribution width (RBC) [Ratio] 12.4 % Normal 11.6-14.6 [facility] Comment on above: Performed By: #### L 503.6620, L100.0100, L500.2500, L501.9520 #### [facility] [address] [place], [address] Hematocrit (Bld) [Volume fraction] 43.8 % Normal 37-47 [facility] Comment on above: Performed By: #### L 503.6620, L100.0100, L500.2500, L501.9520 #### [facility] [address] [place], [address] Hemoglobin (Bld) [Mass/Vol] 14.2 g/dL Normal 12.0-15.0 [facility] Comment on above: Performed By: #### L 503.6620, L100.0100, L500.2500, L501.9520 #### [facility] [address] [place], [address] IG% 0.400 Normal 0.0-0.9 [facility] Comment on above: Result Comment: IG% - Immature Granulocytes (promyelocytes, myelocytes and metamyelocytes) > 1% indicates that a LEFT SHIFT is Present. Performed By: #### L 503.6620, L100.0100, L500.2500, L501.9520 #### [facility] [address] [place], [address] Lymphocytes/100 WBC (Bld) 30.6 % Normal 19-41 [facility] Comment on above: Performed By: #### L 503.6620, L100.0100, L500.2500, L501.9520 #### [facility] [address] [place], [address] MCH (RBC) [Entitic mass] 31.5 pg Normal 27.0-32.0 [facility] Comment on above: Performed By: #### L 503.6620, L100.0100, L500.2500, L501.9520 #### [facility] [address] [place], [address] MCHC (RBC) [Mass/Vol] 32.4 g/dL Normal 32-36 [facility] Comment on above: Performed By: #### L 503.6620, L100.0100, L500.2500, L501.9520 #### [facility] [address] [place], [address] MCV (RBC) [Entitic vol] 97.1 fL Normal 81-99 [facility] Comment on above: Performed By: #### L 503.6620, L100.0100, L500.2500, L501.9520 #### [facility] [address] [place], [address] Monocytes/100 WBC (Bld) 9.1 % Normal 0-10 [facility] Comment on above: Performed By: #### L 503.6620, L100.0100, L500.2500, L501.9520 #### [facility] [address] [place], [address] Neutrophils/100 WBC (Bld) 51.9 % Normal 47-70 [facility] Comment on above: Performed By: #### L 503.6620, L100.0100, L500.2500, L501.9520 #### [facility] [address] [place], [address] Nucleated RBC (Bld) [#/Vol] 0 10*3/uL Normal 0-5 [facility] Comment on above: Performed By: #### L 503.6620, L100.0100, L500.2500, L501.9520 #### [facility] [address] [place], [address] Platelet mean volume (Bld) [Entitic vol] 9.4 fL Normal 6.2-12.0 [facility] Comment on above: Performed By: #### L 503.6620, L100.0100, L500.2500, L501.9520 #### [facility] [address] [place], [address] Platelets (Bld) [#/Vol] 233 10*3/uL Normal 150-450 [facility] Comment on above: Performed By: #### L 503.6620, L100.0100, L500.2500, L501.9520 #### [facility] [address] [place], [address] RBC (Bld) [#/Vol] 4.51 10*6/uL Normal 4.2-5.4 [facility] Comment on above: Performed By: #### L 503.6620, L100.0100, L500.2500, L501.9520 #### [facility] [address] [place], [address] RDW SD 44.3 fl High 35.1-43.9 [facility] Comment on above: Performed By: #### L 503.6620, L100.0100, L500.2500, L501.9520 #### [facility] [address] [place], [address] WBC (Bld) [#/Vol] 5.7 10*3/uL Normal 4.4-11.0 [facility] Comment on above: Performed By: #### L 503.6620, L100.0100, L500.2500, L501.9520 #### [facility] [address] [place], [address] Cardiology Visit Reporton Cardiology Visit Report [facility] [address] [place] [address] OFFICE VISIT Date of Service: 03/15/24 MR#: [id number] Acct: [id number] Name: CASS GONZALES Rep #: [id number] : 1945 Provider: CORA portillo Age/Sex: 78/F [facility] [facility] Status: Signed HPI HPI History of Present Illness Details: Pleasant 78-year-old lady who presents to the office today for a cardiovascular follow up visit. She has no previous obstructive coronary artery disease history whose history dates back to 1995 when she had presented with a wide-complex tachycardia on a treadmill stress test. She underwent a left heart catheterization which demonstrated normal coronary arteries. In 1998 she underwent an EP study during which no inducible VT was noted. She had had a cardiac MRI which demonstrated no evidence of right ventricular dysplasia this was repeated in 2011. She also had a normal echocardiogram as well as stress echocardiogram. She said that she had been in [place] the last few months and had noticed that she was getting increasingly short of breath. In December of this year they decided to drive up from [place] and she was getting rather short of breath she presented to the emergency room here and was diagnosed as having multiple pulmonary emboli and an elevated troponin level. She had an echocardiogram performed which demonstrated an ejection fraction of 65%, mild concentric left ventricular hypertrophy, pulmonary systolic pressure 44 mmHg. She was anticoagulated and was eventually discharged home on Eliquis as well as 2 L of supplemental oxygen. She says that she has been doing much better and has recently been off her Lasix. She was identified a few years ago was having the MTHFR mutation. She has been on folic acid and B12 since. A coronary calcium score in 2018 was 0 and she has been on lipid-lowering medication. She is here for a follow-up. Since her last visit she has done remarkably well. She did have a repeat echocardiogram in April 2022 demonstrating an ejection fraction of 55%, no wall motion abnormalities, stage I diastolic dysfunction and pulmonary systolic pressure of 29 mmHg. From a cardiac standpoint, the patient is doing well. She denies any palpitations, chest pain, pressure or heaviness. She does acknowledge SOB with exertion-this is newer. She denies Orthopnea, and PND. She does not have bleeding issues; no blood in urine, stool or nosebleeds. She does acknowledge a decrease in energy level. She states that her has been ill over the last 7 months, and she is attributing this to stress. She denies myalgias, or claudication. She does not have edema, or sudden weight gain. She denies dizziness, lightheadedness, syncopal or near syncopal episodes, and headaches. Intake Vital Signs 06/05/23 09:54 03/15/24 10:51 Height 5 ft 7 in 5 ft 7 in Weight: 170 lb BMI 26.6 BP 113/76 Blood Pressure Location Lt brachial Position Sitting Respiration 18 Pulse 65 Pulse Source Monitor Pulse Oximetry (%) 97 Intake Visit Reasons: 3 M FU Applications Development Analyst Required: No Is patient in pain?: No Allergies bupropion (From Wellbutrin) Allergy (Verified 03/15/24 11:04) rash Iodinated Contrast Media (Iodinated Contrast Media - IV Dye) Allergy (Verified 03/15/24 11:04) Hives nefazodone (From Serzone) Allergy (Verified 03/15/24 11:04) Rash buspirone (From BuSpar) Adverse Reaction (Verified 03/15/24 11:04) weight gain escitalopram (From Lexapro) Adverse Reaction (Verified 03/15/24 11:04) affected sex sertraline (From Zoloft) Adverse Reaction (Verified 03/15/24 11:04) affected sex venlafaxine (From Effexor) Adverse Reaction (Verified 03/15/24 11:04) affected sleep Medications ???Medication ???Instructions ???Recorded ???Confirmed ???Type atorvastatin 40 mg tablet 40 mg PO QHS 08/26/15 03/15/24 History levothyroxine 100 mcg tablet 100 mcg PO DAILY thyroid 08/26/15 03/15/24 History cyanocobalamin (vitamin B-12) 500 500 mcg PO DAILY 12/20/21 03/15/24 History mcg lozenges folic acid 800 mcg tablet 0.8 mg PO DAILY 12/20/21 03/15/24 History tizanidine 4 mg capsule 4 mg PO QHS PRN Muscle Spasm 12/20/21 03/15/24 History isometheptene-dichlora lphen-acetaminophen 1 cap PO .prn migraines 12/24/21 03/15/24 History 65 mg-100 mg-325 mg capsule alprazolam 0.25 mg tablet 0.25 mg PO DAILY PRN Anxiety 12/28/21 03/15/24 History bupropion HCl 150 mg 24 hr tablet, 150 mg PO DAILY 04/19/22 03/15/24 History extended release apixaban 5 mg tablet (Eliquis) 5 mg PO BID #180 tabs 11/12/22 03/15/24 Rx amitriptyline 50 mg tablet 25 mg PO DAILY 06/05/23 03/15/24 History losartan 50 mg tablet 50 mg PO BID #180 tabs 03/08/24 03/15/24 Rx cholecalciferol (vitamin D3) 50 50 mcg PO DAILY 03/15/24 03/15/24 History mcg (2,000 unit) capsule (more content not included)... Normal [facility] Thyroid Stim Hormone (TSH)on 03-15-2024 TSH 0.88 uIU/mL Normal 0.358-3.74 [facility] Comment on above: Performed By: #### L 503.6620, L100.0100, L500.2500, L501.9520 #### [facility] [address] [place], [address] Basophil percentageOrdered B y: Esthela Sands on 01-15-2024 Creatinine [Mass/Vol] 1.1 mg/dL 0.55-1.02 [facility] - Chemistry and C hemistry - challengeOrdered By: Esthela Sands on 01-15-2024 GFR/1.73 sq M.predicted among non-blacks MDRD (S/P/Bld) [Vol rate/Area] 52.0000 mL/min/{1.73_m2} >60 [facility] No Panel InformationOrdered By: Audra Milan on 12-02-2023 Troponin I High Sensitivity 9 pg/mL 3.0-54.0 [facility] Comment on above: Please Note: New [place] t Units and Gender Specific Reference Ranges. For more information see Policy Stat Procedure [place] High Sensitivity Troponin (TNIH) and attachments. TSH (THYROID STIMULATING HOR [place]) (34016)Ordered By: Patrol Agent on 05-01-2023 TSH Qn 0.795 {uIU/mL} Normal 0.450-4.500 [facility]; [facility] Work Phone: Comment on above: PATIENT WAS FASTINGP ERFORMED BY: [facility] [place] [id number] URINE ZIGGY CULTURE-IDENTIF[place] ([id number])Ordered By: Patrol Agent on 03-10-2023 Bacteria identified Cx Nom (U) Final report Abnormal [facility]; [facility] Work Phone: Comment on above: PERFORMED BY: [employer] richa [place] [id number] Information: SRC:UR Bacteria identified Cx Nom (U) ECV Abnormal [facility]; [facility] Work Phone: Comment on above: Escherichia coli, id entified by an automated biochemical system.Greater than 100,000 colony forming units per mLCefazolin <=4 ug/mLCefazolin with an RENETTA <=16 predicts susceptibility to the oral agentscefaclor, cefdinir, cefpodoxime, cefprozil, cefuroxime, cephalexin,and loracarbef when used for therapy of uncomplicated urinary tractinfections due to E. coli, Klebsiella pneumoniae, and Proteusmirabilis. S = Susceptible; I = Intermediate; R = Resistant P = Positive; N = Negative MICS are expressed in micrograms per mL Antibiotic RSLT#1 RSLT#2 RSLT#3 RSLT#4Amoxicillin/Clavulanic Acid SAmpicillin SCefepime SCeftriaxone SCefuroxime ICiprofloxacin RErtapenem SGentamicin SImipenem SLevofloxacin RMeropenem SNitrofurantoin SPiperacillin/Tazobactam STetracycline STobramycin STrimethoprim/Sulfa S PERFORMED BY: [facility] rich[place] [id number] Information: SRC:UR Urinalysis, Office ([id number])Or dered By: Blaze Le on 03-10-2023 Bilirubin Ql (U) Negative Normal Com[facility]; [facility] Work Phone: Glucose Test strip (U) [Mass/Vol] Negative Normal [facility]; [facility] Work Phone: Hemoglobin Ql (U) + Abnormal Compreh [facility]; [facility] Work Phone: Ketones Ql (U) Negative Normal [facility]prehens [facility]; [facility] Work Phone: Leukocyte esterase Test strip Ql (U) Small Normal [facility]; [facility] Work Phone: Nitrite Ql (U) Negative Normal [facility]; [facility] Work Phone: pH (U) 6.0 [pH] Normal [facility]; [facility] Work Phone: Protein Ql (U) Negative Normal [facility]; [facility] Work Phone: Specific gravity (U) [Rel density] 1.020 1 Normal [facility]; [facility] Work Phone: Urobilinogen (24H U) [Mass/Time] 2 mg/dL Normal [facility]; [facility] Work Phone: Basophil percentageOrdered B y: Dr. Sands on 01-28-2023 Bilirubin [Mass/Vol] 0.40 mg/dL 0.20-1.00 [facility] Comment on above: For patients on eltr ombopag therapy, use of Dimension [place] TBIL is not recommended. Chloride [Moles/Vol] 110 mmol/L 98-107 [facility] Cholesterol [Mass/Vol] 166 mg/dL <200 [facility] Comment on above: <200 mg/dL Desirable 200-240 mg/dL Borderline >240 mg/dL High Risk Glucose [Mass/Vol] 117 mg/dL 74-106 [facility] Comment on above: Fasting Glucose resu lt from 100 to 125 mg/dL suggests IMPAIRED HOMEOSTASIS per A.D.A. criteria. Potassium [Moles/Vol] 3.9 mmol/L 3.5-5.1 [facility] Protein [Mass/Vol] 6.6 g/dL 6.4-8.2 [facility] Sodium [Moles/Vol] 142 mmol/L 136-145 [facility] Triglyceride [Mass/Vol] 190 mg/dL <199 [facility] Comment on above: The drugs N-Acetylcy steine and Metamizole may falsely depress this assay.Serum Triglycerides Reference Interval Normal <150 mg/dL Borderline high 150 - 199 mg/dL High 200 - 499 mg/dL Very High > or = 500 mg/dL Laboratory - Chemistry and C hemistry - challengeOrdered By: Dr. Sands on 01-28-2023 ALP [Catalytic activity/Vol] 86 U/L 45-117 [facility] ALT [Catalytic activity/Vol] 33 U/L 13-56 [facility] CO2 [Moles/Vol] 27.0 mmol/L 21.0-32.0 [facility] Globulin (S) [Mass/Vol] 3.3 g/dL 2.2-4.2 [facility] Urea nitrogen/Creatinine [Mass ratio] 13.4 mg/mg 10-20 [facility] No Panel InformationOrdered By: Dr. Sands on 01-28-2023 Estimated GFR (MDRD) Amer 57 mL/min >60 [facility] Comment on above: GFR Calc Estimated GFR (MDRD) Non-Af Amer 47 mL/min >60 [facility] Comment on above: Non- GFR Calc Thyroid Stimulating Hormone (TSH) 0.97 uIU/mL 0.358-3.74 [facility] Serum or plasma albumin delilah urement (mass/volume)Ordered By: Dr. Sands on 01-28-2023 Albumin [Mass/Vol] 3.3 g/dL 3.2-5.0 [facility] Serum or plasma albumin/glob ulin mass ratioOrdered By: Dr. Sands on 01-28-2023 Albumin/Globulin [Mass ratio] 1.0 {ratio} 0.9-2.4 [facility] Serum or plasma calcium delilah urement (mass/volume)Ordered By: Dr. Sands on 01-28-2023 Calcium [Mass/Vol] 9.2 mg/dL 8.5-10.1 [facility] Serum or plasma cholesterol in HDL measurement (mass/volume)Ordered By: Dr. Sands on 01-28-2023 Cholesterol in HDL [Mass/Vol] 46 mg/dL >40 [facility] Comment on above: The drugs N-Acetylcy steine and Metamizole may falsely depress this assay. Reference Range HDL <40 mg/dL Low HDL Cholesterol HDL >or= 60 mg/dL High HDL Cholesterol Serum or plasma cholesterol in VLDL measurement (mass/volume)Ordered By: Dr. Sands on 01-28-2023 Cholesterol in VLDL [Mass/Vol] 38 mg/dL 5-40 [facility] Serum or plasma creatinine m easurement (mass/volume)Ordered By: Dr. Sands on 01-28-2023 Creatinine [Mass/Vol] 1.19 mg/dL 0.55-1.02 [facility] Comment on above: The validity of the calculated GFR & GFRAA in patients over 70 years has not been determined. Clinical correlation is essential. Serum or plasma low density lipoprotein (LDL) cholesterol measurement (mass/volume)Ordered By: Dr. Sands on 01-28-2023 Cholesterol in LDL [Mass/Vol] 82 mg/dL 0-130 [facility] Serum or plasma urea nitroge n measurement (mass/volume)Ordered By: Dr. Sands on 01-28-2023 Urea nitrogen [Mass/Vol] 16 mg/dL 7-18 [facility] Thin prep Papanicolaou smear with manual screeningOrdered By: Dr. Sands on 01-28-2023 Thin prep Papanicolaou smear with manual screening 29 U/L 15-37 [facility] Thin prep Papanicolaou smear with manual screening 5 5-15 [facility] Absolute lymphocyte counton 04-25-2022 Lymphocytes Auto (Unsp spec) [#/Vol] 2.15 10*3/uL 0.83-4.51 [facility] Work Phone: Basophil percentageon 2021 Basophil percentage 10-25 SEEN /hpf 0-5 [facility] Work Phone: Basophils/100 WBC (Bld) 0.8 % 0-1 [facility] Work Phone: Chloride [Moles/Vol] 107 mmol/L 98-107 [facility] Work Phone: Eosinophils/100 WBC (Bld) 3.9 % 0-5 [facility] Work Phone: Glucose [Mass/Vol] 135 mg/dL 74-106 [facility] Work Phone: Comment on above: Fasting Glucose resu lt greater than or equal to 126 mg/dL suggests DIABETES MELLITUS per A.D.A. criteria. Neutrophils (Bld) [#/Vol] 5.2 10*3/uL 2.0-7.7 [facility] Work Phone: Neutrophils/100 WBC (Bld) 62.0 % 47-70 [facility] Work Phone: Potassium [Moles/Vol] 4.6 mmol/L 3.5-5.1 [facility] Work Phone: Comment on above: Moderate Hemolysis, Result may be falsely increased. Sodium [Moles/Vol] 139 mmol/L 136-145 [facility] Work Phone: WBC (Bld) [#/Vol] 8.4 10*3/uL 4.4-11.0 [facility] Work Phone: Bilirubin Test strip Ql (U)o n 04-25-2022 Bilirubin Ql (U) Negative Negative [facility] Work Phone: Blood erythrocytes count (nu mber/volume)on 04-25-2022 RBC (Bld) [#/Vol] 4.65 10*6/uL 4.2-5.4 [facility] Work Phone: Blood hemoglobin measurement (mass/volume)on 04-25-2022 Hemoglobin (Bld) [Mass/Vol] 14.6 g/dL 12.0-15.0 [facility] Work Phone: Blood lymphocytes/100 leukoc yteson 04-25-2022 Lymphocytes/100 WBC (Bld) 25.7 % 19-41 [facility] Work Phone: Blood monocytes/100 leukocyt eson 04-25-2022 Monocytes/100 WBC (Bld) 7.4 % 0-10 [facility] Work Phone: Blood platelet mean volumeon 04-25-2022 Platelet mean volume (Bld) [Entitic vol] 10.3 fL 6.2-12.0 [facility] Work Phone: Determination of erythrocyte mean corpuscular volume (MCV)on 04-25-2022 MCV (RBC) [Entitic vol] 94.8 fL 81-99 [facility] Work Phone: Hematocrit Auto (Bld) [Volum e fraction]on 04-25-2022 Hematocrit (Bld) [Volume fraction] 44.1 % 37-47 [facility] Work Phone: Ketones Test strip Ql (U)on 04-25-2022 Ketones Ql (U) 5 mg/dl Negative [facility] Work Phone: Laboratory - Chemistry and C hemistry - challengeon 04-25-2022 CO2 [Moles/Vol] 26.0 mmol/L 21.0-32.0 [facility] Work Phone: Urea nitrogen/Creatinine [Mass ratio] 11.7 mg/mg 10-20 [facility] Work Phone: Laboratory - Hematology and Cell countson 04-25-2022 Erythrocyte distribution width (RBC) [Entitic vol] 42.3 fL 35.1-43.9 [facility] Work Phone: Erythrocyte distribution width (RBC) [Ratio] 12.1 % 11.6-14.6 [facility] Work Phone: Immature granulocytes/100 WBC (Bld) 0.200 % 0.0-0.9 [facility] Work Phone: Comment on above: IG% - Immature Granu locytes (promyelocytes, myelocytes and metamyelocytes) > 1% indicates that a LEFT SHIFT is Present. MCH (RBC) [Entitic mass] 31.4 pg 27.0-32.0 [facility] Work Phone: Nucleated RBC/100 WBC (Bld) [Ratio] 0 % 0-5 [facility] Work Phone: MCHC Auto (RBC) [Mass/Vol]on 04-25-2022 MCHC (RBC) [Mass/Vol] 33.1 g/dL 32-36 [facility] Work Phone: Mucus LM Ql (Urine sed)on Mucus Ql (Urine sed) 0 SEEN /hpf [facility] Work Phone: Nitrite Test strip Ql (U)on 04-25-2022 Nitrite Ql (U) Negative Negative [facility] Work Phone: No Panel Informationon 04-25 Estimated Creatinine Clearance Calc 27.66 ml/min [facility] Work Phone: Estimated GFR (MDRD) Amer 40 mL/min >60 [facility] Work Phone: Comment on above: GFR Calc Estimated GFR (MDRD) Non-Af Amer 33 mL/min >60 [facility] Work Phone: Comment on above: Non- GFR Calc Platelets bldon 04-25-2022 Platelets (Bld) [#/Vol] 203 10*3/uL 150-450 [facility] Work Phone: Protein Test strip Ql (U)on 04-25-2022 Protein Ql (U) 15 mg/dl Negative [facility] Work Phone: Serum or plasma calcium delilah urement (mass/volume)on 04-25-2022 Calcium [Mass/Vol] 9.8 mg/dL 8.5-10.1 [facility] Work Phone: Serum or plasma creatinine m easurement (mass/volume)on 04-25-2022 Creatinine [Mass/Vol] 1.62 mg/dL 0.55-1.02 [facility] Work Phone: Comment on above: The validity of the calculated GFR & GFRAA in patients over 70 years has not been determined. Clinical correlation is essential. Serum or plasma urea nitroge n measurement (mass/volume)on 04-25-2022 Urea nitrogen [Mass/Vol] 19 mg/dL 03-25 [facility] Work Phone: Squamous epithelial cells de tection in urine sediment by light microscopyon 04-25-2022 Epithelial cells.squamous LM Ql (Urine sed) 10-25 SEEN /hpf 5-10 [facility] Work Phone: Thin prep Papanicolaou smear with manual screeningon 04-25-2022 Thin prep Papanicolaou smear with manual screening 6 5-15 [facility] Work Phone: Urine blood detectionon 04-08 RBC Ql (U) 10 /ul Negative [facility] Work Phone: RBC Ql (U) 0-5 SEEN /hpf 0-5 [facility] Work Phone: Urine clarityon 04-25-2022 Clarity (U) Sl. Cloudy Clear [facility] Work Phone: Urine color determinationon 04-25-2022 Color (U) Yellow Yellow [facility] Work Phone: Urine glucose detectionon Glucose Ql (U) Normal mg/dl Normal [facility] Work Phone: Urine leukocyte esterase det ection by dipstickon 04-25-2022 Leukocyte esterase Test strip Ql (U) 500 /ul Negative [facility] Work Phone: Urine pHon 04-25-2022 pH (U) 6.0 [pH] 5.0 - 8.0 [facility] Work Phone: Urine sediment bacteria coun t by microscopy (number/high power field)on 04-25-2022 Bacteria LM.HPF (Urine sed) [#/Area] 2 /[HPF] None Seen [facility] Work Phone: Urine specific gravity measu rementon 04-25-2022 Specific gravity (U) [Rel density] 1.015 1.002-1.030 [facility] Work Phone: Urobilinogen Auto test strip Ql (U)on 04-25-2022 Urobilinogen Ql (U) 1 mg/dl [facility] Work [facility]: Basophil percentageon 2021 Chloride [Moles/Vol] 106 mmol/L 98-107 [facility] Work Phone: Glucose [Mass/Vol] 100 mg/dL 74-106 [facility] Work Phone: Comment on above: Fasting Glucose resu lt from 100 to 125 mg/dL suggests IMPAIRED HOMEOSTASIS per A.D.A. criteria. Potassium [Moles/Vol] 4.1 mmol/L 3.5-5.1 [facility] Work Phone: Sodium [Moles/Vol] 140 mmol/L 136-145 [facility] Work Phone: Laboratory - Chemistry and C hemistry - challengeon 03-26-2022 CO2 [Moles/Vol] 29.0 mmol/L 21.0-32.0 [facility] Work Phone: Urea nitrogen/Creatinine [Mass ratio] 11.5 mg/mg 10-20 [facility] Work Phone: No Panel Informationon 03-26 Estimated GFR (MDRD) Amer 66 mL/min >60 [facility] Work Phone: Comment on above: GFR Calc Estimated GFR (MDRD) Non-Af Amer 55 mL/min >60 [facility] Work Phone: Comment on above: Non- GFR Calc Serum or plasma calcium delilah urement (mass/volume)on 03-26-2022 Calcium [Mass/Vol] 9.7 mg/dL 8.5-10.1 [facility] Work Phone: Serum or plasma creatinine m easurement (mass/volume)on 03-26-2022 Creatinine [Mass/Vol] 1.04 mg/dL 0.55-1.02 [facility] Work Phone: Comment on above: The validity of the calculated GFR & GFRAA in patients over 70 years has not been determined. Clinical correlation is essential. Serum or plasma urea nitroge n measurement (mass/volume)on 03-26-2022 Urea nitrogen [Mass/Vol] 12 mg/dL 7-18 [facility] Work Phone: Thin prep Papanicolaou smear with manual screeningon 03-26-2022 Thin prep Papanicolaou smear with manual screening 5 5-15 [facility] Work Phone: No Panel Informationon 02-11 Miscellaneous Test See comment [facility] Work Phone: Comment on above: TEST RESULT LIMITSSA RS-COV-2 Ab, Nucleocapsid Negative NegativeThis sample does not contain detectable SARS-CoV-2 antibodies. This negative result does not rule out SARS-CoV-2 infection. Correlation with epidemiologic risk factors and other clinical and laboratory findings is recommended. Serologic results should not be used as the sole basis to diagnose or exclude recent SARS-CoV-2 infection.This assay will not detect antibodies induced by the currently available SARS-CoV-2 vaccines. The current vaccines elicit antibodies specific to the viral spike protein. [employer] offers two test codes that detect viral spike-specific antibodies:910297 SARS-CoV-2 Semi-Quantitative Total Antibody, Tony [id number] SARS-CoV-2 Antibody, IgG, Tony (Qualitative).Positive results with this SARS-CoV-2 Antibodies, Nucleocapsid assay suggest recent or previous natural infection with SARS-CoV-2.CommentsA: This test has not been FDA cleared or approved. This test has been authorized by FDA under an Emergency Use Authorization (EUA). This test is onlyauthorized for the duration of the declaration that circumstances exist justifying the authorization of emergency use of in vitro diagnostics for detectionand/or diagnosis of COVID-19 under Section 564(b)(1) of the Act, 21 U.S.C. 360bbb-3(b)(1), unless the authorization is terminated or revoked sooner. [employer]est has been authorized only for detecting the presence of antibodies against SARS-CoV-2, not for any other viruses or pathogens. ___ TESTING PERFORMED AT [facility]. ORIGINAL REPORT ON FILE IN LAB CONTAINS ADDITIONAL TEST SITE INFORMATION. Culture, urineon 01-07-2022 Bacteria identified Cx Nom (U) Escherichia coli [facility] Work Phone: Absolute lymphocyte counton 12-11-2021 Lymphocytes Auto (Unsp spec) [#/Vol] 2.77 10*3/uL 0.83-4.51 [facility] Work Phone: Basophil percentageon 2021 Basophils/100 WBC (Bld) 0.4 % 0-1 [facility] Work Phone: Eosinophils/100 WBC (Bld) 1.8 % 0-5 [facility] Work Phone: Neutrophils (Bld) [#/Vol] 9.2 10*3/uL 2.0-7.7 [facility] Work Phone: Neutrophils/100 WBC (Bld) 68.7 % 47-70 [facility] Work Phone: WBC (Bld) [#/Vol] 13.4 10*3/uL 4.4-11.0 [facility] Work Phone: Blood erythrocytes count (nu mber/volume)on 12-11-2021 RBC (Bld) [#/Vol] 4.87 10*6/uL 4.2-5.4 [facility] Work Phone: Blood hemoglobin measurement (mass/volume)on 12-11-2021 Hemoglobin (Bld) [Mass/Vol] 15.3 g/dL 12.0-15.0 [facility] Work Phone: Blood lymphocytes/100 leukoc yteson 12-11-2021 Lymphocytes/100 WBC (Bld) 20.7 % 19-41 [facility] Work Phone: Blood monocytes/100 leukocyt eson 12-11-2021 Monocytes/100 WBC (Bld) 8.0 % 0-10 [facility] Work Phone: Blood platelet mean volumeon 12-11-2021 Platelet mean volume (Bld) [Entitic vol] 9.7 fL 6.2-12.0 [facility] Work Phone: Determination of erythrocyte mean corpuscular volume (MCV)on 12-11-2021 MCV (RBC) [Entitic vol] 95.5 fL 81-99 [facility] Work Phone: Hematocrit Auto (Bld) [Volum e fraction]on 12-11-2021 Hematocrit (Bld) [Volume fraction] 46.5 % 37-47 [facility] Work Phone: Laboratory - Hematology and Cell countson 12-11-2021 Erythrocyte distribution width (RBC) [Entitic vol] 44.9 fL 35.1-43.9 [facility] Work Phone: Erythrocyte distribution width (RBC) [Ratio] 12.7 % 11.6-14.6 [facility] Work Phone: Immature granulocytes/100 WBC (Bld) 0.400 % 0.0-0.9 [facility] Work Phone: Comment on above: IG% - Immature Granu locytes (promyelocytes, myelocytes and metamyelocytes) > 1% indicates that a LEFT SHIFT is Present. MCH (RBC) [Entitic mass] 31.4 pg 27.0-32.0 [facility] Work Phone: Nucleated RBC/100 WBC (Bld) [Ratio] 0 % 0-5 [facility] Work Phone: MCHC Auto (RBC) [Mass/Vol]on 12-11-2021 MCHC (RBC) [Mass/Vol] 32.9 g/dL 32-36 [facility] Work Phone: Platelets bldon 12-11-2021 Platelets (Bld) [#/Vol] 249 10*3/uL 150-450 [facility] Work Phone: Basophil percentageon 2021 Bilirubin [Mass/Vol] 0.70 mg/dL 0.20-1.00 [facility] Work Phone: Comment on above: For patients on eltr ombopag therapy, use of Dimension [place] TBIL is not recommended. Chloride [Moles/Vol] 109 mmol/L 98-107 [facility] Work Phone: Glucose [Mass/Vol] 142 mg/dL 74-106 [facility] Work Phone: Comment on above: Fasting Glucose resu lt greater than or equal to 126 mg/dL suggests DIABETES MELLITUS per A.D.A. criteria. Potassium [Moles/Vol] 4.0 mmol/L 3.5-5.1 [facility] Work Phone: Protein [Mass/Vol] 7.3 g/dL 6.4-8.2 [facility] Work Phone: Sodium [Moles/Vol] 138 mmol/L 136-145 [facility] Work Phone: Laboratory - Chemistry and C hemistry - challengeon 12-10-2021 ALP [Catalytic activity/Vol] 73 U/L 45-117 [facility] Work Phone: ALT [Catalytic activity/Vol] 24 U/L 13-56 [facility] Work Phone: CO2 [Moles/Vol] 23.0 mmol/L 21.0-32.0 [facility] Work Phone: Globulin (S) [Mass/Vol] 4.2 g/dL 2.2-4.2 [facility] Work Phone: Urea nitrogen/Creatinine [Mass ratio] 16.7 mg/mg 10-20 [facility] Work Phone: Laboratory - Coagulationon 0 12-10-2021 aPTT Coag (Bld) [Time] 85.4 s 24.1-36.2 [facility] Work Phone: No Panel Informationon 12-10 Estimated Creatinine Clearance Calc 52.52 ml/min [facility] Work Phone: Estimated GFR (MDRD) Amer 79 mL/min >60 [facility] Work Phone: Comment on above: GFR Calc Estimated GFR (MDRD) Non-Af Amer 65 mL/min >60 [facility] Work Phone: Comment on above: Non- GFR Calc Serum or plasma albumin delilah urement (mass/volume)on 12-10-2021 Albumin [Mass/Vol] 3.1 g/dL 3.2-5.0 [facility] Work Phone: Serum or plasma albumin/glob ulin mass ratioon 12-10-2021 Albumin/Globulin [Mass ratio] 0.7 {ratio} 0.9-2.4 [facility] Work Phone: Serum or plasma calcium delilah urement (mass/volume)on 12-10-2021 Calcium [Mass/Vol] 9.5 mg/dL 8.5-10.1 [facility] Work Phone: Serum or plasma creatinine m easurement (mass/volume)on 12-10-2021 Creatinine [Mass/Vol] 0.90 mg/dL 0.55-1.02 [facility] Work Phone: Comment on above: The validity of the calculated GFR & GFRAA in patients over 70 years has not been determined. Clinical correlation is essential. Serum or plasma urea nitroge n measurement (mass/volume)on 12-10-2021 Urea nitrogen [Mass/Vol] 15 mg/dL 7-18 [facility] Work Phone: Thin prep Papanicolaou smear with manual screeningon 12-10-2021 Thin prep Papanicolaou smear with manual screening 28 U/L 15-37 [facility] Work Phone: Thin prep Papanicolaou smear with manual screening 6 5-15 [facility] Work Phone: INR in Blood by Coagulation assayon 12-09-2021 INR Coag (Bld) [Relative time] 1.0 {INR} [facility] Work Phone: Laboratory - Chemistry and C hemistry - challengeon 12-09-2021 Natriuretic peptide B (Bld) [Mass/Vol] 330.0 pg/mL 0-100 [facility] Work Phone: Laboratory - Coagulationon 0 12-09-2021 PT Coag (PPP) [Time] 12.7 s 11.7-14.9 [facility] Work Phone: No Panel Informationon 12-09 Troponin I High Sensitivity 452 pg/mL 3.0-54.0 [facility] Work Phone: Comment on above: Critical Result(s) C alled at: 20:35:51 12/09/2021 by: Marcelo Gongora to Rosalba(RN PCU). Results read back by same. Please Note: New Test Units and Gender Specific Reference Ranges. For more information see Policy Stat Procedure [place] High Sensitivity Troponin (TNIH) and attachments. D-Dimer Quantitative (PE/DVT) 6.27 FEU/ug/m 0.27-0.49 [facility] Work Phone: Comment on above: D-Dimer ELEVATED (>0 .49): Additional studies and clinicalassessments are indicated to conclude diagnosis of:Deep Vein Thrombosis (DVT) or Pulmonary Embolism (PE) SARS-CoV-2 & FLU Antigen (Rapid) [facility] Work Phone: URINE ZIGGY CULTURE-KVNG COL C OUNT ([id number])Ordered By: Patrol Agent on 04-02-2016 Bacteria identified Cx Nom (U) Final report Abnormal [facility]; [facility] Work Phone: Comment on above: PATIENT NOT FASTINGP ERFORMED BY: [facility] [id number] [id number] Information: SRC:[facility] [id number] Bacteria identified Cx Nom (U) ECV Abnormal [facility]; [facility] Work Phone: Comment on above: Escherichia coli, id entified by an automated biochemical system.Greater than 100,000 colony forming units per mL S = Susceptible; I = Intermediate; R = Resistant P = Positive; N = Negative MICS are expressed in micrograms per mL Antibiotic RSLT#1 RSLT#2 RSLT#3 RSLT#4Amoxicillin/Clavulanic Acid SAmpicillin SCefepime SCeftriaxone SCefuroxime ICephalothin RCiprofloxacin RErtapenem SGentamicin SImipenem SLevofloxacin RNitrofurantoin SPiperacillin STetracycline STobramycin STrimethoprim/Sulfa S PATIENT NOT FASTINGP ERFORMED BY: ABIEL [facility] [id number] Bob RoadDublin [place] [id number] Information: SRC:[facility] [id number] Urinalysis, Office ([id number])Or dered By: Nikole Guaman on 04-02-2016 Bilirubin Ql (U) Negative Normal Com[facility]; [facility] Work Phone: Glucose Test strip (U) [Mass/Vol] Negative Normal [facility]; [facility] Work Phone: Hemoglobin Ql (U) non-hemolyzed trace Normal [facility]; [facility] Work Phone: Ketones Ql (U) Negative Normal [facility]; [facility] Work Phone: Leukocyte esterase Test strip Ql (U) Moderate Normal [facility]; [facility] Work Phone: Nitrite Ql (U) Positive Normal [facility]; [facility] Work Phone: pH (U) 6 [pH] Abnormal [facility]; [facility] Work Phone: Protein Ql (U) Negative Normal [facility]; [facility] Work Phone: Specific gravity (U) [Rel density] 1.020 1 Normal [facility]; [facility] Work Phone: Urobilinogen (24H U) [Mass/Time] Normal Normal [facility]; [facility] Work Phone: Thin Prep Pap ([id number])Ordered By: Patrol Agent on 11-20-2015 Thin Prep Pap ([id number]) AGE7 Normal Com [facility]; [facility] Work Phone: Comment on above: <21 or >65 or no age provided Source.............C ervical;EndocervicalNo. of containers..01 CYTYC Thin Prep VialPATIENT NOT FASTINGPERFORMED BY: =G [employer] [id number] BY: WB [employer] [id number] Information: [id number] HgA1C , Office ([id number])Ordere d By: PRANAY Colon on 11-17-2015 HbA1c (Bld) [Mass fraction] 5.3 % Normal 4.6 - 7.1 [facility]; [facility] Work Phone: Blood Glucose , Office ([phone])Ordered By: Nikole Guaman on 08-30-2015 Glucose Glucometer (BldC) [Moles/Vol] 96 1 Normal [facility]; [facility] Work Phone: Blood Glucose , Office ([phone])Ordered By: PRANAY Colon on 05-19-2015 Glucose Glucometer (BldC) [Moles/Vol] 97 1 Normal [facility]; [facility] Work Phone: HgA1C , Office ([phone])Ordere d By: Esthela Sands on 05-19-2015 HbA1c (Bld) [Mass fraction] 5.5 % Normal 4.6 - 7.1 [facility]; [facility] Work Phone: Blood Glucose , Office ([phone])Ordered By: Rashmi Billingsley on 01-06-2015 Glucose Glucometer (BldC) [Moles/Vol] 105 1 Normal [facility]; [facility] Work Phone: Comment on above: fasting HgA1C , Office ([phone])Ordere d By: Rashmi Billingsley on 01-06-2015 HbA1c (Bld) [Mass fraction] 5.6 % Normal 4.6 - 7.1 [facility]; [facility] Work Phone: Blood Glucose , Office ([phone])Ordered By: PRANAY Colon on 10-07-2014 Glucose Glucometer (BldC) [Moles/Vol] 107 1 Normal [facility]; [facility] Work Phone: HgA1C , Office ([phone])Ordere d By: PRANAY Colon on 10-07-2014 HbA1c (Bld) [Mass fraction] 5.7 % Normal 4.6 - 7.1 [facility]; [facility] Work Phone: Thin prep Pap ([id number])Ordered By: Patrol Agent on 09-10-2012 Microscopic observation Other stain Nom (Unsp spec) . Normal Comprehens [facility]; [facility] Work Phone: Comment on above: Source.............C ervical;EndocervicalNo. of containers..01 CYTYC Thin Prep VialPATIENT NOT FASTINGPERFORMED BY: [facility] [employer] [id number] Information: [id number] Pathology report final diagnosis Narrative SPRCS Normal [facility]; [facility] Work Phone: Comment on above: NEGATIVE FOR INTRAEP ITHELIAL LESION AND MALIGNANCY.Satisfactory for evaluation. Endocervical and/or squamous metaplasticcells (endocervical component) are present.V76.2 ; Screening for malignant neoplasm of the cervixDana Lynne [employer] Operator Source.............C ervical;EndocervicalNo. of containers..01 CYTYC Thin Prep VialPATIENT NOT FASTINGPERFORMED BY: [employer] [place] [employer] [place] [id number] Information: [id number] Thin prep Pap ([id number]) PAPSMR Normal Com [facility]; [facility] Work Phone: Comment on above: The Pap smear is a s creening test designed to aid in the detection ofpremalignant and malignant conditions of the uterine cervix. It is not adiagnostic procedure and should not be used as the sole means of detectingcervical cancer. Both false-positive and false-negative reports do occur. .This liquid based ThinPrep(R) pap test was screened with theuse of an image guided system.The HPV DNA reflex criteria were not met with this specimen resulttherefore, no HPV testing was performed. . Source.............C ervical;EndocervicalNo. of containers..01 CYTYC Thin Prep VialPATIENT NOT FASTINGPERFORMED BY: [address] [id number] Information: [id number] Blood Glucose , Office ([phone])Ordered By: PRANAY Colon on 03-06-2012 Glucose Glucometer (BldC) [Moles/Vol] 100 1 Normal [facility]; [facility] Work Phone: HgA1C , Office ([phone])Ordere d By: PRANAY Colon on 03-06-2012 HbA1c (Bld) [Mass fraction] 5.8 % Normal 4.6 - 7.1 [facility]; [facility] Work Phone: Thin prep Pap ([id number])Ordered By: Patrol Agent on 08-21-2011 Microscopic observation Other stain Nom (Unsp spec) . Normal Comprehens [facility]; [facility] Work Phone: Comment on above: Source.............C ervical;EndocervicalNo. of containers..01 CYTYC Thin Prep VialPATIENT NOT FASTINGPERFORMED BY: [address] [id number] Information: [id number] Pathology report final diagnosis Narrative SPR[facility] Normal [facility]; [facility] Work Phone: Comment on above: NEGATIVE FOR INTRAEP ITHELIAL LESION AND MALIGNANCY.Satisfactory for evaluation. Endocervical and/or squamous metaplasticcells (endocervical component) are present.V76.2 ; Screening for malignant neoplasm of the cervixNay Calvillo, [employer] Operator (ASCP) Source.............C ervical;EndocervicalNo. of containers..01 CYTYC Thin Prep VialPATIENT NOT FASTINGPERFORMED BY: [employer] [id number] Information: [id number] Thin prep Pap ([id number]) PAPSMR [facility]; [facility] Work Phone: Comment on above: The Pap smear is a s creening test designed to aid in the detection ofpremalignant and malignant conditions of the uterine cervix. It is not adiagnostic procedure and should not be used as the sole means of detectingcervical cancer. Both false-positive and false-negative reports do occur. .This liquid based ThinPrep(R) pap test was screened with theuse of an image guided system.The HPV DNA reflex criteria were not met with this specimen resulttherefore, no HPV testing was performed. . Source.............C ervical;EndocervicalNo. of containers..01 CYTYC Thin Prep VialPATIENT NOT FASTINGPERFORMED BY: [employer] [id number] Information: [id number] HgA1C , Office ([phone])Ordere d By: Krista Antonio on 09-04-2010 HbA1c (Bld) [Mass fraction] 5.8 % Normal 4.6 - 7.1 [facility]; [facility] Work Phone: Urinalysis, Office ([phone])Or dered By: Krista Antonio on 04-20-2009 Bilirubin Ql (U) Negative Normal Comprehe nsive [facility]; [facility] Work Phone: Glucose Test strip (U) [Mass/Vol] Negative Normal [facility]; [facility] Work Phone: Hemoglobin Ql (U) Negative Normal Compreh ensive [facility]; [facility] Work Phone: Ketones Ql (U) Negative Normal Comprehens [facility]; [facility] Work Phone: Leukocyte esterase Test strip Ql (U) Moderate Normal [facility]; [facility] Work Phone: Nitrite Ql (U) Negative Normal Comprehens [facility]; [facility] Work Phone: pH (U) 8.5 [pH] Normal [facility]; [facility] Work Phone: Protein Ql (U) Trace Normal Comprehens [facility]; [facility] Work Phone: Specific gravity (U) [Rel density] 1.015 1 Normal [facility]; [facility] Work Phone: Urobilinogen (24H U) [Mass/Time] Normal Normal [facility]; [facility] Work Phone: Rapid Strep Test, Office ([phone])Ordered By: Nay Gomes on 10-27-2008 S. pyogenes Ag EIA Ql (Throat) Positive Normal [facility]; [facility] Work Phone: Comment on above: pos Culture, urine Bacteria identified Cx Nom (U) Escherichia coli [facility] Work Phone: No Panel Information SARS-CoV-2 & FLU Antigen (Rapid) [facility] Work Phone: Vital Signs Date Time Vital Sign Value Performing Clinician Facility 02-02-2025 13:48-0400 Body height 170.[address] Esthela Sands MD Work Phone: [facility] 02-02-2025 13:48-0400 Body mass index (BMI) [Ratio] 27.3 kg/m2 Dr. Esthela Sands MD Work Phone: [facility] 02-02-2025 13:48-0400 Body weight 79.[address] Esthela Sands MD Work Phone: [facility] 02-02-2025 13:48-0400 Diastolic blood pressure 83 mm[Hg] Dr. Esthela Sands MD Work Phone: [facility] 02-02-2025 13:48-0400 Heart rate 73 /min Dr. Esthela Sands MD Work Phone: [facility] 02-02-2025 13:48-0400 Respiratory rate 16 /min Dr. Esthela Sands MD Work Phone: [facility] 02-02-2025 13:48-0400 Systolic blood pressure 128 mm[Hg] Dr. Esthela Sands MD Work Phone: [facility] 06-12-2023 14:44-0400 Body height 172.72 cm Yamila Multani LPN [facility]; [facility] Work Phone: 06-12-2023 14:44-0400 Body mass index (BMI) [Ratio] 26.53 kg/m2 Yamila Multani LPN [facility]; [facility] Work Phone: 06-12-2023 14:44-0400 Body surface area Derived from formula 1.93 m2 Yamila Multani LPN [facility]; [facility] Work Phone: 06-12-2023 14:44-0400 Body temperature 97.9 [degF] Yamila Multani LPN [facility]; [facility] Work Phone: 06-12-2023 14:44-0400 Body weight 79.15 kg Yamila Multani LPN [facility]; [facility] Work Phone: 06-12-2023 14:44-0400 Diastolic blood pressure 82 mm[Hg] Yamila Multani LPN [facility]; [facility] Work Phone: 06-12-2023 14:44-0400 Heart rate 65 /min Yamila Multani LPN [facility]; [facility] Work Phone: 06-12-2023 14:44-0400 Respiratory rate 16 /min Yamila Rangel CANDICE [facility]; [facility] Work Phone: 06-12-2023 14:44-0400 SaO2% (BldA) [Mass fraction] 97 % Yamilabisi Multani CANDICE [facility]; [facility] Work Phone: 06-12-2023 14:44-0400 Systolic blood pressure 118 mm[Hg] Yamila Rangel HARVEY [facility]; [facility] Work Phone: 06-09-2023 10:07-0400 Body height 172.72 cm Yamila Multani LPN [facility]; [facility] Work Phone: 06-09-2023 10:07-0400 Body mass index (BMI) [Ratio] 26.53 kg/m2 Yamila Multani LPN [facility]; [facility] Work Phone: 06-09-2023 10:07-0400 Body surface area Derived from formula 1.93 m2 Yamila Rangel LPN [facility]; [facility] Work Phone: 06-09-2023 10:07-0400 Body temperature 98.1 [degF] Yamilabisi Multani CANDICE [facility]; [facility] Work Phone: 06-09-2023 10:07-0400 Body weight 79.15 kg Yamila Multani LPN [facility]; [facility] Work Phone: 06-09-2023 10:07-0400 Diastolic blood pressure 90 mm[Hg] Yamila Multani LPN [facility]; [facility] Work Phone: 06-09-2023 10:07-0400 Heart rate 69 /min Yamila Multani LPN [facility]; [facility] Work Phone: 06-09-2023 10:07-0400 Respiratory rate 16 /min Yamila Multani LPN [facility]; [facility] Work Phone: 06-09-2023 10:07-0400 SaO2% (BldA) [Mass fraction] 97 % Yamilabisi Multani CANDICE [facility]; [facility] Work Phone: 06-09-2023 10:07-0400 Systolic blood pressure 128 mm[Hg] Yamila Multani CANDICE [facility]; [facility] Work Phone: 04-08-2023 09:32-0400 Body height 172.72 cm Yamila Multani CANDICE [facility]; [facility] Work Phone: 04-08-2023 09:32-0400 Body mass index (BMI) [Ratio] 26.93 kg/m2 Yamilabisi Multani CANDICE [facility]; [facility] Work Phone: 04-08-2023 09:32-0400 Body surface area Derived from formula 1.94 m2 Yamilabisi Multani CANDICE [facility]; [facility] Work Phone: 04-08-2023 09:32-0400 Body temperature 98.1 [degF] Yamila Multani CANDICE [facility]; [facility] Work Phone: 04-08-2023 09:32-0400 Body weight 80.34 kg Yamila Multani CANDICE [facility]; [facility] Work Phone: 04-08-2023 09:32-0400 Diastolic blood pressure 92 mm[Hg] Yamilabisi Multani CANDICE [facility]; [facility] Work Phone: Comment on above: Patient Position: Sitting; Cuff Location : Left Arm; Cuff Size: Standard 04-08-2023 09:32-0400 Heart rate 64 /min Yamilabisi Multani CANDICE [facility]; [facility] Work Phone: Comment on above: Pattern: Regular 04-08-2023 09:32-0400 Respiratory rate 16 /min Yamilabisi Multani CANDICE [facility]; [facility] Work Phone: Comment on above: Pattern: Unlabored 04-08-2023 09:32-0400 SaO2% (BldA) [Mass fraction] 99 % Yamila Multani [employer] [facility]; [facility] Work Phone: Comment on above: Room air 04-08-2023 09:32-0400 Systolic blood pressure 148 mm[Hg] Yamila Multani CANDICE [facility]; [facility] Work Phone: Comment on above: Patient Position: Sitting; Cuff Location : Left Arm; Cuff Size: Standard 03-10-2023 08:130400 [facility] Work Phone: 03-10-2023 08:130400 Body mass index (BMI) [Ratio] 27.29 kg/m2 [facility]; [facility] Work Phone: 03-10-2023 08:130400 Body surface area Derived from formula 1.[address] [facility]; [facility] Work Phone: 03-10-2023 08:13-0400 Body temperature 98 [degF] [facility]; [facility] Work Phone: 03-10-2023 08:130400 Body weight 81.42 kg [facility]; [facility] Work Phone: 03-10-2023 08:130400 Diastolic blood pressure 80 mm[Hg] [facility]; [facility] Work Phone: Comment on above: Patient Position: Sitting; Cuff Location : Left Arm; Cuff Size: Standard 03-10-2023 08:130400 Heart rate 65 /min [facility]; [facility] Work Phone: Comment on above: Pattern: Regular 03-10-2023 08:13-0400 Respiratory rate 16 /min [facility]; [facility] Work Phone: Comment on above: Pattern: Unlabored 03-10-2023 08:13-0400 SaO2% (BldA) [Mass fraction] 99 % Blaze Le [facility]; [facility] Work Phone: Comment on above: Room air 03-10-2023 08:13-0400 Systolic blood pressure 130 mm[Hg] Blaze Le [facility]; [facility] Work Phone: Comment on above: Patient Position: Sitting; Cuff Location : Left Arm; Cuff Size: Standard 02-28-2023 09:55-0400 Body height 172.72 cm Marylin Olguinrb [employer] [facility]; [facility] Work Phone: 02-28-2023 09:55-0400 Body mass index (BMI) [Ratio] 27.49 kg/m2 Marylin Slarb [employer] [facility]; [facility] Work Phone: 02-28-2023 09:55-0400 Body surface area Derived from formula 1.96 m2 Marylin Slarb [employer] [facility]; [facility] Work Phone: 02-28-2023 09:55-0400 Body temperature 97.3 [degF] Marylin Sharifrb [employer] [facility]; [facility] Work Phone: Comment on above: Method: Temporal 02-28-2023 09:55-0400 Body weight 82.01 kg Marylin Olguinrb [employer] [facility]; [facility] Work Phone: 02-28-2023 09:55-0400 Diastolic blood pressure 82 mm[Hg] Marylin Slarb [employer] [facility]; [facility] Work Phone: Comment on above: Patient Position: Sitting; Cuff Location : Left Arm; Cuff Size: Standard 02-28-2023 09:55-0400 Heart rate 80 /min Marylin Slarb [employer] [facility]; [facility] Work Phone: Comment on above: Pattern: Regular 02-28-2023 09:55-0400 Respiratory rate 17 /min Marylin Slarb [employer] [facility]; [facility] Work Phone: Comment on above: Pattern: Unlabored 02-28-2023 09:55-0400 SaO2% (BldA) [Mass fraction] 98 % Marylin Sharifrb [employer] [facility]; [facility] Work Phone: Comment on above: Room air 02-28-2023 09:55-0400 Systolic blood pressure 124 mm[Hg] Marylin Olguinrb [employer] [facility]; [facility] Work Phone: Comment on above: Patient Position: Sitting; Cuff Location : Left Arm; Cuff Size: Standard 02-19-2023 08:35-0400 Body height 172.72 cm Marylin Slarb [employer] [facility]; [facility] Work Phone: 02-19-2023 08:35-0400 Body mass index (BMI) [Ratio] 27.49 kg/m2 Marylin Slarb [employer] [facility]; [facility] Work Phone: 02-19-2023 08:35-0400 Body surface area Derived from formula 1.96 m2 Marylin Slarb [employer] [facility]; [facility] Work Phone: 02-19-2023 08:35-0400 Body temperature 97.1 [degF] Marylin Slarb [employer] [facility]; [facility] Work Phone: Comment on above: Method: Temporal 02-19-2023 08:35-0400 Body weight 82.01 kg Marylin Sharifrb [employer] [facility]; [facility] Work Phone: 02-19-2023 08:35-0400 Diastolic blood pressure 86 mm[Hg] Marylin Slarb [employer] [facility]; [facility] Work Phone: Comment on above: Patient Position: Sitting; Cuff Location : Left Arm; Cuff Size: Standard 02-19-2023 08:35-0400 Heart rate 77 /min Marylin Slarb [employer] [facility]; [facility] Work Phone: Comment on above: Pattern: Regular 02-19-2023 08:35-0400 Respiratory rate 16 /min Marylin Slarb [employer] [facility]; [facility] Work Phone: Comment on above: Pattern: Unlabored 02-19-2023 08:35-0400 SaO2% (BldA) [Mass fraction] 99 % Marylin Henning [facility]; [facility] Work Phone: Comment on above: Room air 02-19-2023 08:35-0400 Systolic blood pressure 130 mm[Hg] Marylin Henning [facility]; [facility] Work Phone: Comment on above: Patient Position: Sitting; Cuff Location : Left Arm; Cuff Size: Standard 02-14-2023 08:06-0400 Body height 172.72 [facility]; [facility] Work Phone: 02-14-2023 08:06-0400 Body mass index (BMI) [Ratio] 27.49 kg/m2 [facility]; [facility] Work Phone: 02-14-2023 08:06-0400 Body surface area Derived from formula 1.96 m2 [facility]; [facility] Work Phone: 02-14-2023 08:06-0400 Body temperature 97.4 [degF] [facility]; [facility] Work Phone: Comment on above: Method: Thermal Scan 02-14-2023 08:06-0400 Body weight 82.01 kg [facility]; [facility] Work Phone: 02-14-2023 08:06-0400 Diastolic blood pressure 88 mm[Hg] [facility]; [facility] Work Phone: Comment on above: Patient Position: Sitting; Cuff Location : Left Arm; Cuff Size: Standard 02-14-2023 08:06-0400 Heart rate 61 /min [facility]; [facility] Work Phone: Comment on above: Pattern: Regular 02-14-2023 08:06-0400 Respiratory rate 16 /min [facility]; [facility] Work Phone: Comment on above: Pattern: Unlabored 02-14-2023 08:06-0400 SaO2% (BldA) [Mass fraction] 98 % Rashmi Billingsley [facility]; [facility] Work Phone: Comment on above: Room air 02-14-2023 08:06-0400 Systolic blood pressure 132 mm[Hg] Rashmi Baigsaturnino [facility]; [facility] Work Phone: Comment on above: Patient Position: Sitting; Cuff Location : Left Arm; Cuff Size: Standard 12-23-2022 15:07-0400 Body height 170.18 cm [facility] 12-23-2022 15:07-0400 Body mass index (BMI) [Ratio] 28.5 kg/m2 [facility] 12-23-2022 15:07-0400 Body temperature 97.6 [degF] [facility]-23-[facility]22 15:07-0400 Body weight 82.78 kg [facility] 12-23-2022 15:07-0400 Diastolic blood pressure 89 mm[Hg] [facility] 12-23-2022 15:07-0400 Heart rate 59 /min Esthela [facility] 12-23-2022 15:07-0400 Respiratory rate 16 /min [facility] 12-23-2022 15:07-0400 SaO2% (BldA) [Mass fraction] 97 % [facility] 12-23-2022 15:07-0400 Systolic blood pressure 128 mm[Hg] [facility] 05-23-2022 12:55-0400 Body height [address] Tejas Garcia Work Phone: [facility] Work Phone: 05-14-2022 07:54-0400 Body height 172.72 cm Raúl Alberts LPN [facility]; [facility] Work Phone: 05-14-2022 07:54-0400 Body mass index (BMI) [Ratio] 26.88 kg/m2 Raúl Alberts LPN [facility]; [facility] Work Phone: 05-14-2022 07:54-0400 Body surface area Derived from formula 1.94 m2 Raúl Alberts LPN [facility]; [facility] Work Phone: 05-14-2022 07:54-0400 Body temperature 97 [degF] Raúl Alberts LPN [facility]; [facility] Work Phone: Comment on above: Method: Infrared 05-14-2022 07:54-0400 Body weight 80.2 kg Raúl Alberts LPN [facility]; [facility] Work Phone: 05-14-2022 07:54-0400 Diastolic blood pressure 80 mm[Hg] Raúl Alberts LPN [facility]; [facility] Work Phone: Comment on above: Patient Position: Sitting; Cuff Location : Left Arm; Cuff Size: Standard 05-14-2022 07:54-0400 Heart rate 70 /min Raúl Alberts LPN [facility]; [facility] Work Phone: Comment on above: Pattern: Regular 05-14-2022 07:54-0400 Respiratory rate 17 /min Raúl Alberts LPN [facility]; [facility] Work Phone: Comment on above: Pattern: Unlabored 05-14-2022 07:54-0400 SaO2% (BldA) [Mass fraction] 96 % Raúl Alberts LPN [facility]; [facility] Work Phone: Comment on above: Room air 05-14-2022 07:54-0400 Systolic blood pressure 142 mm[Hg] Raúl Alberts LPN [facility]; [facility] Work Phone: Comment on above: Patient Position: Sitting; Cuff Location : Left Arm; Cuff Size: Standard 04-30-2022 08:09-0400 Body height 172.72 cm Esthela Sands MD Work Phone: [facility]; [facility] Work Phone: 04-30-2022 08:09-0400 Body mass index (BMI) [Ratio] 27.37 kg/m2 Esthela Sands MD Work Phone: [facility]; [facility] Work Phone: 04-30-2022 08:09-0400 Body surface area Derived from formula 1.95 m2 Esthela Sands MD Work Phone: [facility]; [facility] Work Phone: 04-30-2022 08:09-0400 Body temperature 96.62 [degF] Esthela Sands MD Work Phone: [facility]; [facility] Work Phone: Comment on above: Method: Oral 04-30-2022 08:09-0400 Body weight 81.65 kg Esthela Sands MD Work Phone: [facility]; [facility] Work Phone: 04-30-2022 08:09-0400 Diastolic blood pressure 90 mm[Hg] Esthela Sands MD Work Phone: [facility]; [facility] Work Phone: Comment on above: Patient Position: Sitting 04-30-2022 08:09-0400 Heart rate 69 /min Esthela Sands MD Work Phone: [facility]; [facility] Work Phone: Comment on above: Pattern: Regular 04-30-2022 08:09-0400 Respiratory rate 18 /min Esthela Sands MD Work Phone: [facility]; [facility] Work Phone: 04-30-2022 08:09-0400 SaO2% (BldA) [Mass fraction] 97 % Esthela Sands MD Work Phone: [facility]; [facility] Work Phone: Comment on above: Room air 04-30-2022 08:09-0400 Systolic blood pressure 121 mm[Hg] Esthela Sands MD Work Phone: [facility]; [facility] Work Phone: Comment on above: Patient Position: Sitting 04-25-2022 22:44-0400 Diastolic blood pressure 75 mm[Hg] Dr. Tejas Garcia Work Phone: [facility] Work Phone: 04-25-2022 22:44-0400 Heart rate 70 /min Dr. Tejas Garcia Work Phone: [facility] Work Phone: 04-25-2022 22:44-0400 Respiratory rate 15 /min Dr. Tejas Garcia Work Phone: [facility] Work Phone: 04-25-2022 22:44-0400 SaO2% (BldA) [Mass fraction] 98 % Dr. Tejas Garcia Work Phone: [facility] Work Phone: 04-25-2022 22:44-0400 Systolic blood pressure 162 mm[Hg] Dr. Tejas Garcia Work Phone: [facility] Work Phone: 04-25-2022 19:29-0400 Body height [address] Tejas Garcia Work Phone: [facility] Work Phone: 04-25-2022 19:29-0400 Body mass index (BMI) [Ratio] 28.6 kg/m2 Dr. Tejas Garcia Work Phone: [facility] Work Phone: 04-25-2022 19:29-0400 Body temperature 98.3 [degF] Dr. Tejas Garcia Work Phone: [facility] Work Phone: 04-25-2022 19:29-0400 Body weight 82.[address] Tejas Garcia Work Phone: [facility] Work Phone: 04-19-2022 09:20-0400 Body mass index (BMI) [Ratio] 27.8 kg/m2 Dr. Tejas Garcia Work Phone: [facility] Work Phone: 04-19-2022 09:20-0400 Body weight 80.[address] Tejas Garcia Work Phone: [facility] Work Phone: 04-19-2022 09:20-0400 Diastolic blood pressure 86 mm[Hg] Dr. Tejas Garcia Work Phone: [facility] Work Phone: 04-19-2022 09:20-0400 Heart rate 72 /min Dr. Tejas Garcia Work Phone: [facility] Work Phone: 04-19-2022 09:20-0400 Respiratory rate 16 /min Dr. Tejas Garcia Work Phone: [facility] Work Phone: 04-19-2022 09:20-0400 SaO2% (BldA) [Mass fraction] 96 % Dr. Tejas Garcia Work Phone: [facility] Work Phone: 04-19-2022 09:20-0400 Systolic blood pressure 127 mm[Hg] Dr. Tejas Garcia Work Phone: [facility] Work Phone: 04-10-2022 07:57-0400 Body height 172.72 cm [facility]; [facility] Work Phone: 04-10-2022 07:57-0400 Body mass index (BMI) [Ratio] 27.37 kg/m2 [facility]; [facility] Work Phone: 04-10-2022 07:57-0400 Body surface area Derived from formula 1.95 m2 Kayela Rey TELE[employer]ONE QUOTATION CLERK [facility]; [facility] Work Phone: 04-10-2022 07:57-0400 Body temperature 96.9 [degF] [facility]; [facility] Work Phone: 04-10-2022 07:57-0400 Body weight 81.65 kg [facility]; [facility] Work Phone: 04-10-2022 07:57-0400 Diastolic blood pressure 90 mm[Hg] [facility]; [facility] Work Phone: Comment on above: Patient Position: Sitting; Cuff Location : Left Arm; Cuff Size: Standard 04-10-2022 07:57-0400 Heart rate 63 /min [facility]; [facility] Work Phone: Comment on above: Pattern: Regular 04-10-2022 07:57-0400 Respiratory rate 16 /min [facility]; [facility] Work Phone: Comment on above: Pattern: Unlabored 04-10-2022 07:57-0400 SaO2% (BldA) [Mass fraction] 98 % [facility]; [facility] Work Phone: Comment on above: Room air 04-10-2022 07:57-0400 Systolic blood pressure 132 mm[Hg] [facility]; [facility] Work Phone: Comment on above: Patient Position: Sitting; Cuff Location : Left Arm; Cuff Size: Standard 03-19-2022 10:15-0400 Body height 170.[address] Tejas Garcia Work Phone: [facility] Work Phone: 03-19-2022 10:15-0400 Body mass index (BMI) [Ratio] 28 kg/m2 Dr. Tejas Garcia Work Phone: [facility] Work Phone: 03-19-2022 10:15-0400 Body temperature 97.2 [degF] Dr. Tejas Garcia Work Phone: [facility] Work Phone: 03-19-2022 10:15-0400 Body weight 81.[address] Tejas Garcia Work Phone: [facility] Work Phone: 03-19-2022 10:15-0400 Diastolic blood pressure 92 mm[Hg] Dr. Tejas Garcia Work Phone: [facility] Work Phone: 03-19-2022 10:15-0400 Heart rate 77 /min Dr. Tejas Garcia Work Phone: [facility] Work Phone: 03-19-2022 10:15-0400 Respiratory rate 16 /min Dr. Tejas Garcia Work Phone: [facility] Work Phone: 03-19-2022 10:15-0400 SaO2% (BldA) [Mass fraction] 95 % Dr. Tejas Garcia Work Phone: [facility] Work Phone: 03-19-2022 10:15-0400 Systolic blood pressure 150 mm[Hg] Dr. Tejas Garcia Work Phone: [facility] Work Phone: 01-22-2022 08:34-0400 Body height 170.[address] Tejas Garcia Work Phone: [facility] Work Phone: 01-22-2022 08:34-0400 Body mass index (BMI) [Ratio] 28.5 kg/m2 Dr. Tejas Garcia Work Phone: [facility] Work Phone: 01-22-2022 08:34-0400 Body weight 82.[address] Tejas Garcia Work Phone: [facility] Work Phone: 01-22-2022 08:34-0400 Diastolic blood pressure 97 mm[Hg] Dr. Tejas Garcia Work Phone: [facility] Work Phone: 01-22-2022 08:34-0400 Heart rate 70 /min Dr. Tejas Garcia Work Phone: [facility] Work Phone: 01-22-2022 08:34-0400 Respiratory rate 16 /min Dr. Tejas Garcia Work Phone: [facility] Work Phone: 01-22-2022 08:34-0400 SaO2% (BldA) [Mass fraction] 96 % Dr. Tejas Garcia Work Phone: [facility] Work Phone: 01-22-2022 08:34-0400 Systolic blood pressure 172 mm[Hg] Dr. Tejas Garcia Work Phone: [facility] Work Phone: 01-22-2022 08:34-0400 Body height 170.[address] Tejas Garcia Work Phone: [facility] Work Phone: 01-22-2022 08:34-0400 Body mass index (BMI) [Ratio] 28.5 kg/m2 Dr. Tejas Garcia Work Phone: [facility] Work Phone: 01-22-2022 08:34-0400 Body weight 82.[address] Tejas Garcia Work Phone: [facility] Work Phone: 01-22-2022 08:34-0400 Diastolic blood pressure 97 mm[Hg] Dr. Tejas Garcia Work Phone: [facility] Work Phone: 01-22-2022 08:34-0400 Heart rate 70 /min Dr. Tejas Garcia Work Phone: [facility] Work Phone: 01-22-2022 08:34-0400 Respiratory rate 16 /min Dr. Tejas Garcia Work Phone: [facility] Work Phone: 01-22-2022 08:34-0400 SaO2% (BldA) [Mass fraction] 96 % Dr. Tejas Garcia Work Phone: [facility] Work Phone: 01-22-2022 08:34-0400 Systolic blood pressure 172 mm[Hg] Dr. Tejas Garcia Work Phone: [facility] Work Phone: 01-09-2022 12:53-0400 Body height 170.[address] Tejas Garcia Work Phone: [facility] Work Phone: 01-09-2022 12:53-0400 Body weight 81.[address] Tejas Garcia Work Phone: [facility] Work Phone: 01-09-2022 12:53-0400 Heart rate 64 /min Dr. Tejas Garcia Work Phone: [facility] Work Phone: 01-09-2022 12:53-0400 SaO2% (BldA) [Mass fraction] 98 % Dr. Tejas Garcia Work Phone: [facility] Work Phone: 12-28-2021 10:40-0400 Body mass index (BMI) [Ratio] 28.2 kg/m2 Dr. Tejas Garcia Work Phone: [facility] Work Phone: 12-28-2021 10:40-0400 Body temperature 98.4 [degF] Dr. Tejas Garcia Work Phone: [facility] Work Phone: 12-28-2021 10:40-0400 Body weight [address] Tejas Garcia Work Phone: [facility] Work Phone: 12-28-2021 10:40-0400 Diastolic blood pressure 82 mm[Hg] Dr. Tejas Garcia Work Phone: [facility] Work Phone: 12-28-2021 10:40-0400 Heart rate 67 /min Dr. Tejas Garcia Work Phone: [facility] Work Phone: 12-28-2021 10:40-0400 Inhaled oxygen flow rate 2 L/min Dr. Tejas Garcia Work Phone: [facility] Work Phone: 12-28-2021 10:40-0400 Respiratory rate 16 /min Dr. Tejas Garcia Work Phone: [facility] Work Phone: 12-28-2021 10:40-0400 SaO2% (BldA) [Mass fraction] 98 % Dr. Tejas Garcia Work Phone: [facility] Work Phone: 12-28-2021 10:40-0400 Systolic blood pressure 135 mm[Hg] Dr. Tejas Garcia Work Phone: [facility] Work Phone: 12-28-2021 10:40-0400 Body mass index (BMI) [Ratio] 28.2 kg/m2 Dr. Tejas Garcia Work Phone: [facility] Work Phone: 12-28-2021 10:40-0400 Body temperature 98.4 [degF] Dr. Tejas Garcia Work Phone: [facility] Work Phone: 12-28-2021 10:40-0400 Body weight [address] Tejas Garcia Work Phone: [facility] Work Phone: 12-28-2021 10:40-0400 Diastolic blood pressure 82 mm[Hg] Dr. Tejas Garcia Work Phone: [facility] Work Phone: 12-28-2021 10:40-0400 Heart rate 67 /min Dr. Tejas Garcia Work Phone: [facility] Work Phone: 12-28-2021 10:40-0400 Respiratory rate 16 /min Dr. Tejas Garcia Work Phone: [facility] Work Phone: 12-28-2021 10:40-0400 SaO2% (BldA) [Mass fraction] 98 % Dr. Tejas Garcia Work Phone: [facility] Work Phone: 12-28-2021 10:40-0400 Systolic blood pressure 135 mm[Hg] Dr. Tejas Garcia Work Phone: [facility] Work Phone: 12-24-2021 10:04-0400 Body mass index (BMI) [Ratio] 28.5 kg/m2 Dr. Tejas Garcia Work Phone: [facility] Work Phone: 12-24-2021 10:04-0400 Body temperature 97.3 [degF] Dr. Tejas Garcia Work Phone: [facility] Work Phone: 12-24-2021 10:04-0400 Body weight 82.[address] Tejas Garcia Work Phone: [facility] Work Phone: 12-24-2021 10:04-0400 Diastolic blood pressure 90 mm[Hg] Dr. Tejas Garcia Work Phone: [facility] Work Phone: 12-24-2021 10:04-0400 Heart rate 65 /min Dr. Tejas Garcia Work Phone: [facility] Work Phone: 12-24-2021 10:04-0400 Inhaled oxygen flow rate 2 L/min Dr. Tejas Garcia Work Phone: [facility] Work Phone: 12-24-2021 10:04-0400 Respiratory rate 16 /min Dr. Tejas Garcia Work Phone: [facility] Work Phone: 12-24-2021 10:04-0400 SaO2% (BldA) [Mass fraction] 97 % Dr. Tejas Garcia Work Phone: [facility] Work Phone: 12-24-2021 10:04-0400 Systolic blood pressure 149 mm[Hg] Dr. Tejas Garcia Work Phone: [facility] Work Phone: 12-24-2021 10:04-0400 Body height 170.[address] Tejas Garcia Work Phone: [facility] Work Phone: 12-24-2021 10:04-0400 Body mass index (BMI) [Ratio] 28.5 kg/m2 Dr. Tejas Garcia Work Phone: [facility] Work Phone: 12-24-2021 10:04-0400 Body temperature 97.3 [degF] Dr. Tejas Garcia Work Phone: [facility] Work Phone: 12-24-2021 10:04-0400 Body weight 82.[address] Tejas Garcia Work Phone: [facility] Work Phone: 12-24-2021 10:04-0400 Diastolic blood pressure 90 mm[Hg] Dr. Tejas Garcia Work Phone: [facility] Work Phone: 12-24-2021 10:04-0400 Heart rate 65 /min Dr. Tejas Garcia Work Phone: [facility] Work Phone: 12-24-2021 10:04-0400 Respiratory rate 16 /min Dr. Tejas Garcia Work Phone: [facility] Work Phone: 12-24-2021 10:04-0400 SaO2% (BldA) [Mass fraction] 97 % Dr. Tejas Garcia Work Phone: [facility] Work Phone: 12-24-2021 10:04-0400 Systolic blood pressure 149 mm[Hg] Dr. Tejas Garcia Work Phone: [facility] Work Phone: 12-11-2021 09:50-0400 Diastolic blood pressure 79 mm[Hg] Dr. Tejas Garcia Work Phone: [facility] Work Phone: 12-11-2021 09:50-0400 Heart rate 70 /min Dr. Tejas Garcia Work Phone: [facility] Work Phone: 12-11-2021 09:50-0400 Systolic blood pressure 143 mm[Hg] Dr. Tejas Garcia Work Phone: [facility] Work Phone: 12-11-2021 08:22-0400 Inhaled oxygen flow rate 2 L/min Dr. Tejas Garcia Work Phone: [facility] Work Phone: 12-11-2021 08:12-0400 SaO2% (BldA) [Mass fraction] 94 % Dr. Tejas Garcia Work Phone: [facility] Work Phone: 12-11-2021 08:10-0400 Body temperature 97.5 [degF] Dr. Tejas Garcia Work Phone: [facility] Work Phone: 12-11-2021 08:10-0400 Respiratory rate 18 /min Dr. Tejas Garcia Work Phone: [facility] Work Phone: 12-10-2021 13:13-0400 Body height 170.[address] Tejas Garcia Work Phone: [facility] Work Phone: 12-10-2021 13:13-0400 Body weight 82.[address] Tejas Garcia Work Phone: [facility] Work Phone: 12-09-2021 17:49-0400 Body mass index (BMI) [Ratio] 28.6 kg/m2 Dr. Tejas Garcia Work Phone: [facility] Work Phone: 04-02-2016 15:12-0400 Body height 172.72 cm Marylin Henning LPN [facility]; [facility] Work Phone: 04-02-2016 15:12-0400 Body mass index (BMI) [Ratio] 28.13 kg/m2 Marylin Sharifrb [employer] DEVELOPER [facility]; [facility] Work Phone: 04-02-2016 15:12-0400 Body surface area Derived from formula 1.98 m2 Marylin Milady HARVEY [facility]; [facility] Work Phone: 04-02-2016 15:12-0400 Body temperature 97.4 [degF] Mraylin Sharifrb [employer] DEVELOPER [facility]; [facility] Work Phone: 04-02-2016 15:12-0400 Body weight 83.92 kg Marylin Sharifrb [employer] DEVELOPER [facility]; [facility] Work Phone: 04-02-2016 15:12-0400 Diastolic blood pressure 76 mm[Hg] Marylin Milady CASTREJONN [facility]; [facility] Work Phone: Comment on above: Patient Position: Sitting; Cuff Location : Left Arm; Cuff Size: Standard 04-02-2016 15:12-0400 Heart rate 74 /min Marylin Henning LPN [facility]; [facility] Work Phone: Comment on above: Pattern: Regular 04-02-2016 15:12-0400 Respiratory rate 16 /min Marylin Sharifrb [employer] DEVEL[employer] [facility]; [facility] Work Phone: Comment on above: Pattern: Unlabored 04-02-2016 15:12-0400 SaO2% (BldA) [Mass fraction] 98 % Marylin Slarb [employer] DEVELOPER [facility]; [facility] Work Phone: Comment on above: Room air 04-02-2016 15:12-0400 Systolic blood pressure 114 mm[Hg] Marylin Slarb [employer] DEVEL[employer] [facility]; [facility] Work Phone: Comment on above: Patient Position: Sitting; Cuff Location : Left Arm; Cuff Size: Standard 11-27-2015 08:24-0400 Body height 172.72 cm Marylin Slarb [employer]EL[employer] [facility]; [facility] Work Phone: 11-27-2015 08:24-0400 Body mass index (BMI) [Ratio] 28.13 kg/m2 Marylin Slarb [employer] [facility]; [facility] Work Phone: 11-27-2015 08:24-0400 Body surface area Derived from formula 1.98 m2 Marylin Slarb [employer] DEVELOPER [facility]; [facility] Work Phone: 11-27-2015 08:24-0400 Body temperature 97.8 [degF] Marylin Slarb [employer] DEVEL[employer] [facility]; [facility] Work Phone: 11-27-2015 08:24-0400 Body weight 83.92 kg Marylin Slarb [employer] DEVELOPER [facility]; [facility] Work Phone: 11-27-2015 08:24-0400 Diastolic blood pressure 84 mm[Hg] Marylin Slarb [employer] DEVEL[employer] [facility]; [facility] Work Phone: Comment on above: Patient Position: Sitting; Cuff Location : Left Arm; Cuff Size: Standard 11-27-2015 08:24-0400 Heart rate 69 /min Marylin Slarb [employer] DEVEL[employer] [facility]; [facility] Work Phone: Comment on above: Pattern: Regular 11-27-2015 08:24-0400 Respiratory rate 16 /min Marylin Henning CANDICE [facility]; [facility] Work Phone: Comment on above: Pattern: Unlabored 11-27-2015 08:24-0400 SaO2% (BldA) [Mass fraction] 97 % Marylin Henning CANDICE [facility]; [facility] Work Phone: Comment on above: Room air 11-27-2015 08:24-0400 Systolic blood pressure 126 mm[Hg] Marylin Henning CANDICE [facility]; [facility] Work Phone: Comment on above: Patient Position: Sitting; Cuff Location : Left Arm; Cuff Size: Standard 11-17-2015 09:35-0500 Body height 172.72 cm PRANAY Colon LPN [facility]; [facility] Work Phone: 11-17-2015 09:35-0500 Body mass index (BMI) [Ratio] 28.13 kg/m2 PRANAY Colon LPN [facility]; [facility] Work Phone: 11-17-2015 09:35-0500 Body surface area Derived from formula 1.98 m2 PRANAY Colon LPN [facility]; [facility] Work Phone: 11-17-2015 09:35-0500 Body temperature 97.6 [degF] PRANAY Colon LPN [facility]; [facility] Work Phone: Comment on above: Method: Temporal 11-17-2015 09:35-0500 Body weight 83.92 kg PRANAY Colon LPN [facility]; [facility] Work Phone: 11-17-2015 09:35-0500 Diastolic blood pressure 90 mm[Hg] PRANAY Colon LPN [facility]; [facility] Work Phone: Comment on above: Patient Position: Sitting; Cuff Location : Left Arm; Cuff Size: Large 11-17-2015 09:35-0500 Heart rate 74 /min PRANAY Colon LPN [facility]; [facility] Work Phone: Comment on above: Pattern: Regular 11-17-2015 09:35-0500 Respiratory rate 18 /min PRANAY Colon [employer]EL[employer] [facility]; [facility] Work Phone: Comment on above: Pattern: Unlabored 11-17-2015 09:35-0500 SaO2% (BldA) [Mass fraction] 97 % PRANAY Colon [employer]EL[employer] [facility]; [facility] Work Phone: Comment on above: Room air 11-17-2015 09:35-0500 Systolic blood pressure 130 mm[Hg] PRANAY Colon [employer]EL[employer] [facility]; [facility] Work Phone: Comment on above: Patient Position: Sitting; Cuff Location : Left Arm; Cuff Size: Large 09-15-2015 10:36-0500 Body height 172.72 cm Marylin Slaefren CASTREJONN [facility]; [facility] Work Phone: 09-15-2015 10:36-0500 Body mass index (BMI) [Ratio] 28.17 kg/m2 Marylin Sharifrb [employer]EL[employer] [facility]; [facility] Work Phone: 09-15-2015 10:36-0500 Body surface area Derived from formula 1.98 m2 Marylin Slarb [employer] DEVELOPER [facility]; [facility] Work Phone: 09-15-2015 10:36-0500 Body temperature 97.6 [degF] Marylin Slarb [employer] [facility]; [facility] Work Phone: 09-15-2015 10:36-0500 Body weight 84.03 kg Marylin Slarb [employer] [facility]; [facility] Work Phone: 09-15-2015 10:36-0500 Diastolic blood pressure 84 mm[Hg] Marylin Slarb [employer] [facility]; [facility] Work Phone: Comment on above: Patient Position: Sitting; Cuff Location : Left Arm; Cuff Size: Standard 09-15-2015 10:36-0500 Heart rate 72 /min Marylin Slarb [employer]EL[employer] [facility]; [facility] Work Phone: Comment on above: Pattern: Regular 09-15-2015 10:36-0500 Respiratory rate 16 /min Marylin Olguinrb [employer]EL[employer] [facility]; [facility] Work Phone: Comment on above: Pattern: Unlabored 09-15-2015 10:36-0500 SaO2% (BldA) [Mass fraction] 96 % Marylin Sharifrb [employer] [facility]; [facility] Work Phone: Comment on above: Room air 09-15-2015 10:36-0500 Systolic blood pressure 132 mm[Hg] Marylin Olguinrb [employer]EL[employer] [facility]; [facility] Work Phone: Comment on above: Patient Position: Sitting; Cuff Location : Left Arm; Cuff Size: Standard 08-30-2015 10:13-0500 Body height 172.72 cm Marylin Slarb [employer] [facility]; [facility] Work Phone: 08-30-2015 10:13-0500 Body mass index (BMI) [Ratio] 28.15 kg/m2 Marylin Slarb [employer] [facility]; [facility] Work Phone: 08-30-2015 10:13-0500 Body surface area Derived from formula 1.98 m2 Marylin Slarb [employer] [facility]; [facility] Work Phone: 08-30-2015 10:13-0500 Body temperature 97.1 [degF] Marylin Slarb [employer] [facility]; [facility] Work Phone: 08-30-2015 10:13-0500 Body weight 83.97 kg Marylin Sharifrb [employer] [facility]; [facility] Work Phone: 08-30-2015 10:13-0500 Diastolic blood pressure 78 mm[Hg] Marylin Slarb [employer] [facility]; [facility] Work Phone: Comment on above: Patient Position: Sitting; Cuff Location : Left Arm; Cuff Size: Standard 08-30-2015 10:13-0500 Heart rate 72 /min Marylin Slarb [employer] [facility]; [facility] Work Phone: Comment on above: Pattern: Regular 08-30-2015 10:13-0500 Respiratory rate 16 /min Marylin Slarb [employer] [facility]; [facility] Work Phone: Comment on above: Pattern: Unlabored 08-30-2015 10:13-0500 SaO2% (BldA) [Mass fraction] 95 % Marylinfavian Henning CANDICE [facility]; [facility] Work Phone: Comment on above: Room air 08-30-2015 10:13-0500 Systolic blood pressure 122 mm[Hg] Marylinfavian Henning CANDICE [facility]; [facility] Work Phone: Comment on above: Patient Position: Sitting; Cuff Location : Left Arm; Cuff Size: Standard 05-19-2015 09:39-0400 Body height 172.72 cm PRANAY Colon LPN [facility]; [facility] Work Phone: 05-19-2015 09:39-0400 Body mass index (BMI) [Ratio] 27.52 kg/m2 PRANAY Colon LPN [facility]; [facility] Work Phone: 05-19-2015 09:39-0400 Body surface area Derived from formula 1.96 m2 PRANAY Colon LPN [facility] Work Phone: 05-19-2015 09:39-0400 Body temperature 97.8 [degF] PRANAY Colon LPN [facility]; [facility] Work Phone: Comment on above: Method: Temporal 05-19-2015 09:39-0400 Body weight 82.1 kg PRANAY Colon LPN [facility]; [facility] Work Phone: 05-19-2015 09:39-0400 Diastolic blood pressure 82 mm[Hg] PRANAY Colon LPN [facility]; [facility] Work Phone: Comment on above: Patient Position: Sitting; Cuff Location : Left Arm; Cuff Size: Large 05-19-2015 09:39-0400 Heart rate 68 /min PRANAY Colon LPN [facility]; [facility] Work Phone: Comment on above: Pattern: Regular 05-19-2015 09:39-0400 Respiratory rate 20 /min PRANAY Colno LPN [facility]; [facility] Work Phone: Comment on above: Pattern: Unlabored 05-19-2015 09:39-0400 SaO2% (BldA) [Mass fraction] 98 % PRANAY Colon CANDICE [facility]; [facility] Work Phone: Comment on above: Room air 05-19-2015 09:39-0400 Systolic blood pressure 124 mm[Hg] PRANAY Colon LPN [facility]; [facility] Work Phone: Comment on above: Patient Position: Sitting; Cuff Location : Left Arm; Cuff Size: Large 02-10-2015 09:03-0400 Body height 172.72 cm PRANAY Colon LPN [facility]; [facility] Work Phone: 02-10-2015 09:03-0400 Body mass index (BMI) [Ratio] 27.82 kg/m2 PRANAY Colon LPN [facility]; [facility] Work Phone: 02-10-2015 09:03-0400 Body surface area Derived from formula 1.97 m2 PRANAY Colon LPN [facility]; [facility] Work Phone: 02-10-2015 09:03-0400 Body temperature 97.8 [degF] PRANAY Colon LPN [facility]; [facility] Work Phone: Comment on above: Method: Temporal 02-10-2015 09:03-0400 Body weight 83.01 kg PRANAY Colon LPN [facility]; [facility] Work Phone: 02-10-2015 09:03-0400 Diastolic blood pressure 80 mm[Hg] PRANAY Colon LPN [facility]; [facility] Work Phone: Comment on above: Patient Position: Sitting; Cuff Location : Left Arm; Cuff Size: Standard 02-10-2015 09:03-0400 Heart rate 70 /min PRANAY Colon LPN [facility]; [facility] Work Phone: Comment on above: Pattern: Regular 02-10-2015 09:03-0400 Respiratory rate 18 /min PRANAY Colon LPN [facility]; [facility] Work Phone: Comment on above: Pattern: Unlabored 02-10-2015 09:03-0400 SaO2% (BldA) [Mass fraction] 98 % PRANAY Colon CANDICE [facility]; [facility] Work Phone: Comment on above: Room air 02-10-2015 09:03-0400 Systolic blood pressure 120 mm[Hg] PRANAY Colon CANDICE [facility]; [facility] Work Phone: Comment on above: Patient Position: Sitting; Cuff Location : Left Arm; Cuff Size: Standard 01-06-2015 08:37-0400 Body height 172.72 cm RashmiGifi [facility]; [facility] Work Phone: 01-06-2015 08:37-0400 Body mass index (BMI) [Ratio] 29.8 kg/m2 Rashmi [employer] [facility] Work Phone: 01-06-2015 08:37-0400 Body surface area Derived from formula 2.03 m2 Rashmi [employer] [facility] Work Phone: 01-06-2015 08:37-0400 Body temperature 98.1 [degF] Rashmi [employer] [facility] Work Phone: Comment on above: Method: Oral 01-06-2015 08:37-0400 Body weight 88.91 kg Rashmi [employer] [facility] Work Phone: 01-06-2015 08:37-0400 Diastolic blood pressure 80 mm[Hg] Rashmi [employer] [facility]; [facility] Work Phone: Comment on above: Patient Position: Sitting; Cuff Location : Left Arm; Cuff Size: Standard 01-06-2015 08:37-0400 Heart rate 72 /min Rashmi [employer] [facility] Work Phone: Comment on above: Pattern: Regular 01-06-2015 08:37-0400 Respiratory rate 16 /min Rashmi [employer] [facility]; [facility] Work Phone: Comment on above: Pattern: Unlabored 01-06-2015 08:37-0400 SaO2% (BldA) [Mass fraction] 98 % Rashmi Mandeysi [facility]; [facility] Work Phone: Comment on above: Room air 01-06-2015 08:37-0400 Systolic blood pressure 130 mm[Hg] Rashmikarla Billingsley [facility]; [facility] Work Phone: Comment on above: Patient Position: Sitting; Cuff Location : Left Arm; Cuff Size: Standard 10-07-2014 08:15-0500 Body height 172.72 cm PRANAY Colon LPN [facility]; [facility] Work Phone: 10-07-2014 08:15-0500 Body mass index (BMI) [Ratio] 29.5 kg/m2 PRANAY Colon LPN [facility]; [facility] Work Phone: 10-07-2014 08:15-0500 Body surface area Derived from formula 2.02 m2 PRANAY Colon LPN [facility]; [facility] Work Phone: 10-07-2014 08:15-0500 Body temperature 97.9 [degF] PRANAY Colon LPN [facility]; [facility] Work Phone: Comment on above: Method: Temporal 10-07-2014 08:15-0500 Body weight 88 kg PRANAY Colon LPN [facility]; [facility] Work Phone: 10-07-2014 08:15-0500 Diastolic blood pressure 90 mm[Hg] PRANAY Colon LPN [facility]; [facility] Work Phone: Comment on above: Patient Position: Sitting; Cuff Location : Left Arm; Cuff Size: Standard 10-07-2014 08:15-0500 Heart rate 82 /min PRANAY Colon LPN [facility]; [facility] Work Phone: Comment on above: Pattern: Regular 10-07-2014 08:15-0500 Respiratory rate 18 /min PRANAY Colon LPN [facility]; [facility] Work Phone: Comment on above: Pattern: Unlabored 10-07-2014 08:15-0500 SaO2% (BldA) [Mass fraction] 97 % PRANAY Colon CANDICE [facility]; [facility] Work Phone: Comment on above: Room air 10-07-2014 08:15-0500 Systolic blood pressure 130 mm[Hg] PRANAY Colon CANDICE [facility]; [facility] Work Phone: Comment on above: Patient Position: Sitting; Cuff Location : Left Arm; Cuff Size: Standard 08-08-2014 14:41-0500 Body height 172.72 cm PRANAY Colon CNADICE [facility]; [facility] Work Phone: 08-08-2014 14:41-0500 Body mass index (BMI) [Ratio] 29.5 kg/m2 PRANAY Colon CANDICE [facility]; [facility] Work Phone: 08-08-2014 14:41-0500 Body surface area Derived from formula 2.02 m2 PRANAY Colon CANDICE [facility]; [facility] Work Phone: 08-08-2014 14:41-0500 Body temperature 97.7 [degF] PRANAY Colon CANDICE [facility]; [facility] Work Phone: Comment on above: Method: Temporal 08-08-2014 14:41-0500 Body weight 88 kg PRANAY Colon CANDICE [facility]; [facility] Work Phone: 08-08-2014 14:41-0500 Diastolic blood pressure 78 mm[Hg] PRANAY Colon CANDICE [facility]; [facility] Work Phone: Comment on above: Patient Position: Sitting; Cuff Location : Left Arm; Cuff Size: Standard 08-08-2014 14:41-0500 Heart rate 70 /min PRANAY Colon CANDICE [facility]; [facility] Work Phone: Comment on above: Pattern: Regular 08-08-2014 14:41-0500 Respiratory rate 20 /min PRANAY Colon CANDICE [facility]; [facility] Work Phone: Comment on above: Pattern: Unlabored 08-08-2014 14:41-0500 Systolic blood pressure 120 mm[Hg] PRANAY Colon CANDICE [facility]; [facility] Work Phone: Comment on above: Patient Position: Sitting; Cuff Location : Left Arm; Cuff Size: Standard 03-14-2014 13:10-0400 Body height 172.72 cm PRANAY Colon CANDICE [facility]; [facility] Work Phone: 03-14-2014 13:10-0400 Body mass index (BMI) [Ratio] 29.8 kg/m2 PRANAY Colon [employer] [facility]; [facility] Work Phone: 03-14-2014 13:10-0400 Body surface area Derived from formula 2.03 m2 PRANAY Colon CANDICE [facility]; [facility] Work Phone: 03-14-2014 13:10-0400 Body temperature 97.6 [degF] PRANAY Colon CANDICE [facility]; [facility] Work Phone: Comment on above: Method: Oral 03-14-2014 13:10-0400 Body weight 88.91 kg PRANAY Colon [employer] [facility]; [facility] Work Phone: 03-14-2014 13:10-0400 Diastolic blood pressure 80 mm[Hg] PRANAY Colon [employer] [facility]; [facility] Work Phone: Comment on above: Patient Position: Sitting; Cuff Location : Left Arm; Cuff Size: Standard 03-14-2014 13:10-0400 Heart rate 74 /min PRANAY Colon CANDICE [facility]; [facility] Work Phone: Comment on above: Pattern: Regular 03-14-2014 13:10-0400 Respiratory rate 20 /min PRANAY Colon CANDICE [facility]; [facility] Work Phone: Comment on above: Pattern: Unlabored 03-14-2014 13:10-0400 Systolic blood pressure 120 mm[Hg] PRANAY Colon [employer] [facility]; [facility] Work Phone: Comment on above: Patient Position: Sitting; Cuff Location : Left Arm; Cuff Size: Standard 07-22-2013 08:58-0500 Body height 172.72 cm Nay Gomes RN [facility]; [facility] Work Phone: 07-22-2013 08:58-0500 Body mass index (BMI) [Ratio] 28.89 kg/m2 Nay Gomes RN [facility]; [facility] Work Phone: 07-22-2013 08:58-0500 Body surface area Derived from formula 2 m2 Nay Gomes RN [facility]; [facility] Work Phone: 07-22-2013 08:58-0500 Body temperature 98.4 [degF] Nay Gomes RN [facility]; [facility] Work Phone: Comment on above: Method: Oral 07-22-2013 08:58-0500 Body weight 86.18 kg Nay Gomes RN [facility]; [facility] Work Phone: 07-22-2013 08:58-0500 Diastolic blood pressure 90 mm[Hg] Nay Gomes RN [facility]; [facility] Work Phone: Comment on above: Patient Position: Sitting; Cuff Location : Left Arm; Cuff Size: Large 07-22-2013 08:58-0500 Heart rate 84 /min Nay Gomes RN [facility]; [facility] Work Phone: Comment on above: Pattern: Regular 07-22-2013 08:58-0500 Respiratory rate 20 /min Nay Gomes RN [facility]; [facility] Work Phone: Comment on above: Pattern: Unlabored 07-22-2013 08:58-0500 SaO2% (BldA) [Mass fraction] 98 % Nay Gomes RN [facility]; [facility] Work Phone: Comment on above: Room air 07-22-2013 08:58-0500 Systolic blood pressure 132 mm[Hg] Nay Gomes RN [facility]; [facility] Work Phone: Comment on above: Patient Position: Sitting; Cuff Location : Left Arm; Cuff Size: Large 05-28-2013 10:32-0400 Body height 172.72 cm PRANAY Colon LPN [facility]; [facility] Work Phone: 05-28-2013 10:32-0400 Body mass index (BMI) [Ratio] 28.89 kg/m2 PRANAY Colon LPN [facility]; [facility] Work Phone: 05-28-2013 10:32-0400 Body surface area Derived from formula 2 m2 PRANAY Colon LPN [facility]; [facility] Work Phone: 05-28-2013 10:32-0400 Body temperature 97.6 [degF] PRANAY Colon LPN [facility]; [facility] Work Phone: Comment on above: Method: Oral 05-28-2013 10:32-0400 Body weight 86.18 kg PRANAY Colon LPN [facility]; [facility] Work Phone: 05-28-2013 10:32-0400 Diastolic blood pressure 78 mm[Hg] PRANAY Colon LPN [facility]; [facility] Work Phone: Comment on above: Patient Position: Sitting; Cuff Location : Left Arm; Cuff Size: Standard 05-28-2013 10:32-0400 Heart rate 74 /min PRANAY Colon LPN [facility]; [facility] Work Phone: Comment on above: Pattern: Regular 05-28-2013 10:32-0400 Respiratory rate 20 /min PRANAY Colon LPN [facility]; [facility] Work Phone: Comment on above: Pattern: Unlabored 05-28-2013 10:32-0400 Systolic blood pressure 120 mm[Hg] PRANAY Colon LPN [facility]; [facility] Work Phone: Comment on above: Patient Position: Sitting; Cuff Location : Left Arm; Cuff Size: Standard 05-24-2013 09:05-0400 Body height 172.72 cm [facility]; [facility] Work Phone: 05-24-2013 09:05-0400 Body mass index (BMI) [Ratio] 28.89 kg/m2 [facility]; [facility] Work Phone: 05-24-2013 09:05-0400 Body surface area Derived from formula 2 m2 Rashmi Billingsley [facility]; [facility] Work Phone: 05-24-2013 09:05-0400 Body weight 86.18 kg Rashmi Billingsley [facility]; [facility] Work Phone: 05-24-2013 09:05-0400 Diastolic blood pressure 78 mm[Hg] Rashmi Billingsley [facility]; [facility] Work Phone: Comment on above: Patient Position: Sitting; Cuff Location : Left Arm; Cuff Size: Standard 05-24-2013 09:05-0400 Heart rate 80 /min Rashmi Billingsley [facility]; [facility] Work Phone: Comment on above: Pattern: Regular 05-24-2013 09:05-0400 Respiratory rate 16 /min Rashmi Billingsley [facility]; [facility] Work Phone: Comment on above: Pattern: Unlabored 05-24-2013 09:05-0400 SaO2% (BldA) [Mass fraction] 98 % Rashmi Billingsley [facility]; [facility] Work Phone: Comment on above: Room air 05-24-2013 09:05-0400 Systolic blood pressure 124 mm[Hg] Rashmi Billingsley [facility]; [facility] Work Phone: Comment on above: Patient Position: Sitting; Cuff Location : Left Arm; Cuff Size: Standard 05-11-2013 15:02-0400 Body height 172.72 cm Patricia Johnson [facility]; [facility] Work Phone: 05-11-2013 15:02-0400 Body mass index (BMI) [Ratio] 28.89 kg/m2 Patricia Alex [facility]; [facility] Work Phone: 05-11-2013 15:02-0400 Body surface area Derived from formula 2 m2 Patricia Johnson [facility]; [facility] Work Phone: 05-11-2013 15:02-0400 Body weight 86.18 kg Patricia Johnson LPN [facility]; [facility] Work Phone: 05-11-2013 15:02-0400 Diastolic blood pressure 86 mm[Hg] Patricia Johnson LPN [facility]; [facility] Work Phone: Comment on above: Patient Position: Sitting; Cuff Location : Left Arm; Cuff Size: Standard 05-11-2013 15:02-0400 Heart rate 80 /min Patricia Johnson LPN [facility]; [facility] Work Phone: Comment on above: Pattern: Regular 05-11-2013 15:02-0400 Respiratory rate 18 /min Patricia Johnson LPN [facility]; [facility] Work Phone: 05-11-2013 15:02-0400 SaO2% (BldA) [Mass fraction] 96 % Patricia Johnson LPN [facility]; [facility] Work Phone: Comment on above: Room air 05-11-2013 15:02-0400 Systolic blood pressure 132 mm[Hg] Patricia Johnson LPN [facility]; [facility] Work Phone: Comment on above: Patient Position: Sitting; Cuff Location : Left Arm; Cuff Size: Standard 03-31-2013 09:46-0400 Body height 172.72 cm Nikole Guaman [facility]; [facility] Work Phone: 03-31-2013 09:46-0400 Body mass index (BMI) [Ratio] 28.89 kg/m2 Nikole Guaman [facility]; [facility] Work Phone: 03-31-2013 09:46-0400 Body surface area Derived from formula 2 m2 Nikole Guaman [facility]; [facility] Work Phone: 03-31-2013 09:46-0400 Body temperature 97.8 [degF] Nikole Guaman [facility]; [facility] Work Phone: Comment on above: Method: Oral 03-31-2013 09:46-0400 Body weight 86.18 kg Nikole Guaman [facility]; [facility] Work Phone: 03-31-2013 09:46-0400 Diastolic blood pressure 78 mm[Hg] Nikole Guaman [facility]; [facility] Work Phone: Comment on above: Patient Position: Sitting; Cuff Location : Left Arm; Cuff Size: Standard 03-31-2013 09:46-0400 Heart rate 77 /min Nikole Guaman [facility]; [facility] Work Phone: Comment on above: Pattern: Regular 03-31-2013 09:46-0400 Respiratory rate 16 /min Nikole Guaman [facility]; [facility] Work Phone: Comment on above: Pattern: Unlabored 03-31-2013 09:46-0400 SaO2% (BldA) [Mass fraction] 98 % Nikole Guaman [facility]; [facility] Work Phone: Comment on above: Room air 03-31-2013 09:46-0400 Systolic blood pressure 138 mm[Hg] Nikole Guaman [facility]; [facility] Work Phone: Comment on above: Patient Position: Sitting; Cuff Location : Left Arm; Cuff Size: Standard 03-08-2013 11:48-0400 Body height 172.72 cm Nay Gomes RN [facility]; [facility] Work Phone: 03-08-2013 11:48-0400 Body mass index (BMI) [Ratio] 28.59 kg/m2 Nay Gomes RN [facility]; [facility] Work Phone: 03-08-2013 11:48-0400 Body surface area Derived from formula 1.99 m2 Nay Gomes RN [facility]; [facility] Work Phone: 03-08-2013 11:48-0400 Body weight 85.28 kg Nay Gomes RN [facility]; [facility] Work Phone: 03-08-2013 11:48-0400 Diastolic blood pressure 80 mm[Hg] Nay Gomes RN [facility]; [facility] Work Phone: Comment on above: Patient Position: Sitting; Cuff Location : Left Arm; Cuff Size: Large 03-08-2013 11:48-0400 Heart rate 68 /min Nay Gomes RN [facility]; [facility] Work Phone: Comment on above: Pattern: Regular 03-08-2013 11:48-0400 Respiratory rate 20 /min Nay Gomes RN [facility]; [facility] Work Phone: Comment on above: Pattern: Unlabored 03-08-2013 11:48-0400 Systolic blood pressure 122 mm[Hg] Nay Gomes RN [facility]; [facility] Work Phone: Comment on above: Patient Position: Sitting; Cuff Location : Left Arm; Cuff Size: Large 12-17-2012 11:28-0400 Body height 172.72 cm PRANAY Colon LPN [facility]; [facility] Work Phone: 12-17-2012 11:28-0400 Body mass index (BMI) [Ratio] 28.59 kg/m2 PRANAY Colon LPN [facility]; [facility] Work Phone: 12-17-2012 11:28-0400 Body surface area Derived from formula 1.99 m2 PRANAY Colon LPN [facility]; [facility] Work Phone: 12-17-2012 11:28-0400 Body temperature 97.6 [degF] PRANAY Colon LPN [facility]; [facility] Work Phone: Comment on above: Method: Oral 12-17-2012 11:28-0400 Body weight 85.28 kg PRANAY Colon LPN [facility]; [facility] Work Phone: 12-17-2012 11:28-0400 Diastolic blood pressure 78 mm[Hg] PRANAY Colon LPN [facility]; [facility] Work Phone: Comment on above: Patient Position: Sitting; Cuff Location : Left Arm; Cuff Size: Standard 12-17-2012 11:28-0400 Heart rate 70 /min PRANAY Colon LPN [facility]; [facility] Work Phone: Comment on above: Pattern: Regular 12-17-2012 11:28-0400 Respiratory rate 18 /min PRANAY Colon LPN [facility]; [facility] Work Phone: Comment on above: Pattern: Unlabored 12-17-2012 11:28-0400 Systolic blood pressure 120 mm[Hg] PRANAYDAYNE Colon CANDICE [facility]; [facility] Work Phone: Comment on above: Patient Position: Sitting; Cuff Location : Left Arm; Cuff Size: Standard 10-12-2012 09:26-0500 Body height 172.72 cm Dary Reynoso RN [facility]; [facility] Work Phone: 10-12-2012 09:26-0500 Body mass index (BMI) [Ratio] 28.59 kg/m2 Dary Reynoso RN [facility]; [facility] Work Phone: 10-12-2012 09:26-0500 Body surface area Derived from formula 1.99 m2 Dary Reynoso RN [facility]; [facility] Work Phone: 10-12-2012 09:26-0500 Body temperature 98.1 [degF] Dary Reynoso RN [facility]; [facility] Work Phone: Comment on above: Method: Temporal 10-12-2012 09:26-0500 Body weight 85.28 kg Dary Reynoso RN [facility]; [facility] Work Phone: 10-12-2012 09:26-0500 Diastolic blood pressure 78 mm[Hg] Dary Reynoso RN [facility]; [facility] Work Phone: Comment on above: Patient Position: Sitting; Cuff Location : Left Arm; Cuff Size: Standard 10-12-2012 09:26-0500 Heart rate 68 /min Dary Reynoso RN [facility]; [facility] Work Phone: Comment on above: Pattern: Regular 10-12-2012 09:26-0500 Respiratory rate 16 /min Dary Reynoso RN [facility]; [facility] Work Phone: Comment on above: Pattern: Unlabored 10-12-2012 09:26-0500 SaO2% (BldA) [Mass fraction] 98 % Dary Reynoso RN [facility]; [facility] Work Phone: Comment on above: Room air 10-12-2012 09:26-0500 Systolic blood pressure 124 mm[Hg] Dary Reynoso RN [facility]; [facility] Work Phone: Comment on above: Patient Position: Sitting; Cuff Location : Left Arm; Cuff Size: Standard 09-10-2012 08:57-0500 Body height 172.72 cm PRANAY Colon [facility]; [facility] Work Phone: 09-10-2012 08:57-0500 Body mass index (BMI) [Ratio] 28.59 kg/m2 PRANAY Colon LPN [facility]; [facility] Work Phone: 09-10-2012 08:57-0500 Body surface area Derived from formula 1.99 m2 PRANAY Colon LPN [facility]; [facility] Work Phone: 09-10-2012 08:57-0500 Body temperature 97.6 [degF] PRANAY Colon LPN [facility]; [facility] Work Phone: Comment on above: Method: Oral 09-10-2012 08:57-0500 Body weight 85.28 kg PRANAY Colon LPN [facility]; [facility] Work Phone: 09-10-2012 08:57-0500 Diastolic blood pressure 74 mm[Hg] PRANAY Colon LPN [facility]; [facility] Work Phone: Comment on above: Patient Position: Sitting; Cuff Location : Left Arm; Cuff Size: Standard 09-10-2012 08:57-0500 Heart rate 70 /min PRANAY Colon LPN [facility]; [facility] Work Phone: Comment on above: Pattern: Regular 09-10-2012 08:57-0500 Respiratory rate 18 /min PRANAY Colon LPN [facility]; [facility] Work Phone: Comment on above: Pattern: Unlabored 09-10-2012 08:57-0500 Systolic blood pressure 120 mm[Hg] PRANAY Colon LPN [facility]; [facility] Work Phone: Comment on above: Patient Position: Sitting; Cuff Location : Left Arm; Cuff Size: Standard 03-06-2012 08:56-0400 Body height 172.72 cm PRANAY Colon CANDICE [facility]; [facility] Work Phone: 03-06-2012 08:56-0400 Body mass index (BMI) [Ratio] 28.13 kg/m2 PRANAY Colon CANDICE [facility]; [facility] Work Phone: 03-06-2012 08:56-0400 Body surface area Derived from formula 1.98 m2 PRANAY Colon CANDICE [facility]; [facility] Work Phone: 03-06-2012 08:56-0400 Body temperature 98 [degF] PRANAY Colon CANDICE [facility]; [facility] Work Phone: Comment on above: Method: Oral 03-06-2012 08:56-0400 Body weight 83.92 kg PRANAY Colon CANDICE [facility]; [facility] Work Phone: 03-06-2012 08:56-0400 Diastolic blood pressure 70 mm[Hg] PRANAY Colon CANDICE [facility]; [facility] Work Phone: Comment on above: Patient Position: Sitting; Cuff Location : Left Arm; Cuff Size: Standard 03-06-2012 08:56-0400 Heart rate 78 /min PRANAY Colon CANDICE [facility]; [facility] Work Phone: Comment on above: Pattern: Regular 03-06-2012 08:56-0400 Respiratory rate 20 /min PRANAY Colon CANDICE [facility]; [facility] Work Phone: Comment on above: Pattern: Unlabored 03-06-2012 08:56-0400 Systolic blood pressure 118 mm[Hg] PRANAY Colon CANDICE [facility]; [facility] Work Phone: Comment on above: Patient Position: Sitting; Cuff Location : Left Arm; Cuff Size: Standard 08-21-2011 12:35-0500 Body height 172.72 cm Dary Reynoso RN [facility]; [facility] Work Phone: 08-21-2011 12:35-0500 Body mass index (BMI) [Ratio] 28.13 kg/m2 Dary Reynoso RN [facility]; [facility] Work Phone: 08-21-2011 12:35-0500 Body surface area Derived from formula 1.98 m2 Dary Reynoso RN [facility]; [facility] Work Phone: 08-21-2011 12:35-0500 Body temperature 97.2 [degF] Dary Reynoso RN [facility]; [facility] Work Phone: Comment on above: Method: Oral 08-21-2011 12:35-0500 Body weight 83.92 kg Dary Reynoso RN [facility]; [facility] Work Phone: 08-21-2011 12:35-0500 Diastolic blood pressure 72 mm[Hg] Dary Reynoso RN [facility]; [facility] Work Phone: Comment on above: Patient Position: Sitting; Cuff Location : Left Arm; Cuff Size: Standard 08-21-2011 12:35-0500 Heart rate 72 /min Dary Reynoso RN [facility]; [facility] Work Phone: Comment on above: Pattern: Regular 08-21-2011 12:35-0500 Respiratory rate 16 /min Dary Reynoso RN [facility]; [facility] Work Phone: Comment on above: Pattern: Unlabored 08-21-2011 12:35-0500 Systolic blood pressure 122 mm[Hg] Dary Reynoso RN [facility]; [facility] Work Phone: Comment on above: Patient Position: Sitting; Cuff Location : Left Arm; Cuff Size: Standard 11-01-2010 12:48-0500 Body height 172.72 cm PRANAY Colon LPN [facility]; [facility] Work Phone: 11-01-2010 12:48-0500 Body mass index (BMI) [Ratio] 28.13 kg/m2 PRANAY Colon LPN [facility]; [facility] Work Phone: 11-01-2010 12:48-0500 Body surface area Derived from formula 1.98 m2 PRANAY Colon LPN [facility]; [facility] Work Phone: 11-01-2010 12:48-0500 Body temperature 97.6 [degF] PRANAY Colon LPN [facility]; [facility] Work Phone: Comment on above: Method: Oral 11-01-2010 12:48-0500 Body weight 83.92 kg PRANAY Colon LPN [facility]; [facility] Work Phone: 11-01-2010 12:48-0500 Diastolic blood pressure 78 mm[Hg] PRANAY Colon LPN [facility]; [facility] Work Phone: Comment on above: Patient Position: Sitting; Cuff Location : Left Arm; Cuff Size: Standard 11-01-2010 12:48-0500 Heart rate 72 /min PRANAY Colon LPN [facility]; [facility] Work Phone: Comment on above: Pattern: Regular 11-01-2010 12:48-0500 Respiratory rate 18 /min PRANAY Colon LPN [facility]; [facility] Work Phone: Comment on above: Pattern: Unlabored 11-01-2010 12:48-0500 Systolic blood pressure 118 mm[Hg] PRANAY Colon LPN [facility]; [facility] Work Phone: Comment on above: Patient Position: Sitting; Cuff Location : Left Arm; Cuff Size: Standard 09-04-2010 14:49-0500 Body height 172.72 cm PRANAY Colon LPN [facility]; [facility] Work Phone: 09-04-2010 14:49-0500 Body mass index (BMI) [Ratio] 28.13 kg/m2 PRANAY Colon LPN [facility]; [facility] Work Phone: 09-04-2010 14:49-0500 Body surface area Derived from formula 1.98 m2 PRANAY Colon LPN [facility]; [facility] Work Phone: 09-04-2010 14:49-0500 Body temperature 97.6 [degF] PRANAY Colon LPN [facility]; [facility] Work Phone: Comment on above: Method: Oral 09-04-2010 14:49-0500 Body weight 83.92 kg PRANAY Colon LPN [facility]; [facility] Work Phone: 09-04-2010 14:49-0500 Diastolic blood pressure 80 mm[Hg] PRANAY Colon LPN [facility]; [facility] Work Phone: Comment on above: Patient Position: Sitting; Cuff Location : Left Arm; Cuff Size: Standard 09-04-2010 14:49-0500 Heart rate 74 /min PRANAY Colon LPN [facility]; [facility] Work Phone: Comment on above: Pattern: Regular 09-04-2010 14:49-0500 Respiratory rate 18 /min PRANAY Colon LPN [facility]; [facility] Work Phone: Comment on above: Pattern: Unlabored 09-04-2010 14:49-0500 Systolic blood pressure 120 mm[Hg] PARNAY Colon LPN [facility]; [facility] Work Phone: Comment on above: Patient Position: Sitting; Cuff Location : Left Arm; Cuff Size: Standard 03-29-2010 09:27-0400 Body weight 81.19 kg PRANAY Colon LPN [facility]; [facility] Work Phone: 03-29-2010 09:27-0400 Diastolic blood pressure 78 mm[Hg] PRANAY Colon LPN [facility]; [facility] Work Phone: Comment on above: Patient Position: Sitting; Cuff Location : Left Arm; Cuff Size: Standard 03-29-2010 09:27-0400 Heart rate 76 /min PRANAY Colon LPN [facility]; [facility] Work Phone: Comment on above: Pattern: Regular 03-29-2010 09:27-0400 Respiratory rate 18 /min PRANAY Colon LPN [facility]; [facility] Work Phone: Comment on above: Pattern: Unlabored 03-29-2010 09:27-0400 Systolic blood pressure 124 mm[Hg] PRANAY Colon CANDICE [facility]; [facility] Work Phone: Comment on above: Patient Position: Sitting; Cuff Location : Left Arm; Cuff Size: Standard 03-05-2010 09:45-0400 Body temperature 97.7 [degF] Patricia Johnson LPN [facility]; [facility] Work Phone: Comment on above: Method: Oral 03-05-2010 09:45-0400 Body weight 82.56 kg Patricia Johnson [employer] [facility]; [facility] Work Phone: 03-05-2010 09:45-0400 Diastolic blood pressure 74 mm[Hg] Patricia Johnson [employer] [facility]; [facility] Work Phone: Comment on above: Patient Position: Sitting; Cuff Location : Left Arm; Cuff Size: Standard 03-05-2010 09:45-0400 Heart rate 82 /min Patricia Johnson [employer] [facility]; [facility] Work Phone: Comment on above: Pattern: Regular 03-05-2010 09:45-0400 Respiratory rate 16 /min Patricia Johnson LPN [facility]; [facility] Work Phone: Comment on above: Pattern: Unlabored 03-05-2010 09:45-0400 Systolic blood pressure 122 mm[Hg] Patricia Johnson LPN [facility]; [facility] Work Phone: Comment on above: Patient Position: Sitting; Cuff Location : Left Arm; Cuff Size: Standard 02-19-2010 12:11-0400 Body temperature 97 [degF] Patricia Johnson LPN [facility]; [facility] Work Phone: Comment on above: Method: Oral 02-19-2010 [id number]:[id number] Body weight 82.56 kg Patricia Johnson LPN [facility]; [facility] Work Phone: 02-19-2010 12:11-0400 Diastolic blood pressure 78 mm[Hg] Patricia Johnson [employer] [facility]; [facility] Work Phone: Comment on above: Patient Position: Sitting; Cuff Location : Left Arm; Cuff Size: Standard 02-19-2010 12:11-0400 Heart rate 84 /min Patricia Johnson LPN [facility]; [facility] Work Phone: Comment on above: Pattern: Regular 02-19-2010 12:11-0400 Respiratory rate 17 /min Patricia Johnson LPN [facility]; [facility] Work Phone: Comment on above: Pattern: Unlabored 02-19-2010 12:11-0400 Systolic blood pressure 132 mm[Hg] Patricia Johnson LPN [facility]; [facility] Work Phone: Comment on above: Patient Position: Sitting; Cuff Location : Left Arm; Cuff Size: Standard 08-29-2009 13:21-0500 Body height 0 cm Patricia Johnson LPN [facility]; [facility] Work Phone: 08-29-2009 13:21-0500 Body temperature 97.8 [degF] Patricia Johnson LPN [facility]; [facility] Work Phone: Comment on above: Method: Oral 08-29-2009 13:21-0500 Body weight 82.56 kg Patricia Johnson LPN [facility]; [facility] Work Phone: 08-29-2009 13:21-0500 Diastolic blood pressure 78 mm[Hg] Patricia Johnson LPN [facility]; [facility] Work Phone: Comment on above: Patient Position: Sitting; Cuff Location : Left Arm; Cuff Size: Standard 08-29-2009 13:21-0500 Head Occipital-frontal circumference 0 cm Patricia Johnson LPN [facility]; [facility] Work Phone: 08-29-2009 13:21-0500 Heart rate 81 /min Patricia Johnson LPN [facility]; [facility] Work Phone: Comment on above: Pattern: Regular 08-29-2009 13:21-0500 Respiratory rate 17 /min Patricia Johnson LPN [facility]; [facility] Work Phone: Comment on above: Pattern: Unlabored 08-29-2009 13:21-0500 SaO2% (BldA) [Mass fraction] 97 % Patricia Alex HARVEY [facility]; [facility] Work Phone: Comment on above: Room air 08-29-2009 13:21-0500 Systolic blood pressure 134 mm[Hg] Patricia Alex HARVEY [facility]; [facility] Work Phone: Comment on above: Patient Position: Sitting; Cuff Location : Left Arm; Cuff Size: Standard 08-02-2009 11:35-0500 Body height 0 cm Esthela Sands MD Work Phone: [facility]; [facility] Work Phone: 08-02-2009 11:35-0500 Body temperature 97.8 [degF] Esthela Sands MD Work Phone: [facility]; [facility] Work Phone: Comment on above: Method: Oral 08-02-2009 11:35-0500 Body weight 82.56 kg Esthela Sands MD Work Phone: [facility]; [facility] Work Phone: 08-02-2009 11:35-0500 Diastolic blood pressure 68 mm[Hg] Esthela Sands MD Work Phone: [facility]; [facility] Work Phone: Comment on above: Patient Position: Sitting; Cuff Location : Left Arm; Cuff Size: Large 08-02-2009 11:35-0500 Head Occipital-frontal circumference 0 cm Esthela Sands MD Work Phone: [facility]; [facility] Work Phone: 08-02-2009 11:35-0500 Heart rate 84 /min Esthela Sands MD Work Phone: [facility]; [facility] Work Phone: Comment on above: Pattern: Regular 08-02-2009 11:35-0500 Respiratory rate 18 /min Esthela Sands MD Work Phone: [facility]; [facility] Work Phone: Comment on above: Pattern: Unlabored 08-02-2009 11:35-0500 Systolic blood pressure 112 mm[Hg] Esthela Sands MD Work Phone: [facility]; [facility] Work Phone: Comment on above: Patient Position: Sitting; Cuff Location : Left Arm; Cuff Size: Large 04-20-2009 08:12-0400 Body height 0 cm Nay Gomes RN [facility]; [facility] Work Phone: 04-20-2009 08:12-0400 Body temperature 96 [degF] Nay Gomes RN [facility]; [facility] Work Phone: Comment on above: Method: Oral 04-20-2009 08:12-0400 Body weight 79.85 kg Nay Gomes RN [facility]; [facility] Work Phone: 04-20-2009 08:12-0400 Diastolic blood pressure 70 mm[Hg] Nay Gomes RN [facility]; [facility] Work Phone: Comment on above: Patient Position: Sitting; Cuff Location : Left Arm; Cuff Size: Large 04-20-2009 08:12-0400 Head Occipital-frontal circumference 0 cm Nay Gomes RN [facility]; [facility] Work Phone: 04-20-2009 08:12-0400 Heart rate 80 /min Nay Gomes RN [facility]; [facility] Work Phone: Comment on above: Pattern: Regular 04-20-2009 08:12-0400 Respiratory rate 20 /min Nay Gomes RN [facility]; [facility] Work Phone: Comment on above: Pattern: Unlabored 04-20-2009 08:12-0400 Systolic blood pressure 122 mm[Hg] Nay Gomes RN [facility]; [facility] Work Phone: Comment on above: Patient Position: Sitting; Cuff Location : Left Arm; Cuff Size: Large 10-27-2008 11:34-0500 Body height 0 cm Nay Gomes RN [facility]; [facility] Work Phone: 10-27-2008 11:34-0500 Body temperature 101.6 [degF] Nay Gomes RN [facility]; [facility] Work Phone: Comment on above: Method: Oral 10-27-2008 11:34-0500 Body weight 79.85 kg Nay Gomes RN [facility]; [facility] Work Phone: 10-27-2008 11:34-0500 Diastolic blood pressure 86 mm[Hg] Nay Gomes RN [facility]; [facility] Work Phone: Comment on above: Patient Position: Sitting; Cuff Location : Left Arm; Cuff Size: Large 10-27-2008 11:34-0500 Head Occipital-frontal circumference 0 cm Nay Gomes RN [facility]; [facility] Work Phone: 10-27-2008 11:34-0500 Heart rate 88 /min Nay Gomes RN [facility]; [facility] Work Phone: Comment on above: Pattern: Regular 10-27-2008 11:34-0500 Respiratory rate 20 /min Nay Gomes RN [facility]; [facility] Work Phone: Comment on above: Pattern: Unlabored 10-27-2008 11:34-0500 Systolic blood pressure 138 mm[Hg] Nay Gomes RN [facility]; [facility] Work Phone: Comment on above: Patient Position: Sitting; Cuff Location : Left Arm; Cuff Size: Large 09-26-2008 14:11-0500 Body height 0 cm PRANAY Colon LPN [facility]; [facility] Work Phone: 09-26-2008 14:11-0500 Body weight 79.85 kg PRANAY Colon LPN [facility]; [facility] Work Phone: 09-26-2008 14:11-0500 Diastolic blood pressure 78 mm[Hg] PRANAY Colon LPN [facility]; [facility] Work Phone: Comment on above: Patient Position: Sitting; Cuff Location : Left Arm; Cuff Size: Standard 09-26-2008 14:11-0500 Head Occipital-frontal circumference 0 cm PRANAY Colon [employer] [facility]; [facility] Work Phone: 09-26-2008 14:11-0500 Heart rate 68 /min PRANAY Colon LPN [facility]; [facility] Work Phone: Comment on above: Pattern: Regular 09-26-2008 14:11-0500 Respiratory rate 16 /min PRANAY Colon [employer] [facility]; [facility] Work Phone: Comment on above: Pattern: Unlabored 09-26-2008 14:11-0500 Systolic blood pressure 116 mm[Hg] PRANAY Colon [employer] [facility]; [facility] Work Phone: Comment on above: Patient Position: Sitting; Cuff Location : Left Arm; Cuff Size: Standard 08-08-2008 08:35-0500 Body height 0 cm PRANAY Colon CANDICE [facility]; [facility] Work Phone: 08-08-2008 08:35-0500 Body weight 84.37 kg PRANAY Colon CANDICE [facility]; [facility] Work Phone: 08-08-2008 08:35-0500 Diastolic blood pressure 80 mm[Hg] PRANAY Colon [employer] [facility]; [facility] Work Phone: Comment on above: Patient Position: Sitting; Cuff Location : Left Arm; Cuff Size: Large 08-08-2008 08:35-0500 Head Occipital-frontal circumference 0 cm PRANAY Colon CANDICE [facility]; [facility] Work Phone: 08-08-2008 08:35-0500 Heart rate 70 /min PRANAY Colon LPN [facility]; [facility] Work Phone: Comment on above: Pattern: Regular 08-08-2008 08:35-0500 Respiratory rate 16 /min PRANAY Colon [employer] [facility]; [facility] Work Phone: Comment on above: Pattern: Unlabored 08-08-2008 08:35-0500 Systolic blood pressure 120 mm[Hg] PRANAY Colon CANDICE [facility]; [facility] Work Phone: Comment on above: Patient Position: Sitting; Cuff Location : Left Arm; Cuff Size: Large 03-07-2008 09:35-0400 Body height 0 cm PRANAY Colon CANDICE [facility]; [facility] Work Phone: 03-07-2008 09:35-0400 Body temperature 97.8 [degF] PRANAY Colon [employer] [facility]; [facility] Work Phone: Comment on above: Method: Oral 03-07-2008 09:35-0400 Body weight 83.92 kg PRANAY Colon CANDICE [facility]; [facility] Work Phone: 03-07-2008 09:35-0400 Diastolic blood pressure 80 mm[Hg] PRANAY Colon CANDICE [facility]; [facility] Work Phone: Comment on above: Patient Position: Sitting; Cuff Location : Left Arm; Cuff Size: Standard 03-07-2008 09:35-0400 Head Occipital-frontal circumference 0 cm PRANAY Colon CANDICE [facility]; [facility] Work Phone: 03-07-2008 09:35-0400 Heart rate 74 /min PRANAY Colon CANDICE [facility]; [facility] Work Phone: Comment on above: Pattern: Regular 03-07-2008 09:35-0400 Respiratory rate 18 /min PRANAY Colon CANDICE [facility]; [facility] Work Phone: Comment on above: Pattern: Unlabored 03-07-2008 09:35-0400 Systolic blood pressure 124 mm[Hg] PRANAY Colon CANDICE [facility]; [facility] Work Phone: Comment on above: Patient Position: Sitting; Cuff Location : Left Arm; Cuff Size: Standard 08-27-2007 07:37-0500 Body height 0 cm PRANAY Colon CANDICE [facility]; [facility] Work Phone: 08-27-2007 07:37-0500 Body temperature 98.4 [degF] PRANAY Colon CANDICE [facility]; [facility] Work Phone: Comment on above: Method: Oral 08-27-2007 07:37-0500 Body weight 81.19 kg PRANAY Colon LPN [facility]; [facility] Work Phone: 08-27-2007 07:37-0500 Diastolic blood pressure 78 mm[Hg] PRANAY Colon LPN [facility]; [facility] Work Phone: Comment on above: Patient Position: Sitting; Cuff Location : Left Arm; Cuff Size: Standard 08-27-2007 07:37-0500 Head Occipital-frontal circumference 0 cm PRANAY Colon CANDICE [facility]; [facility] Work Phone: 08-27-2007 07:37-0500 Heart rate 76 /min PRANAY Colon [employer] [facility]; [facility] Work Phone: Comment on above: Pattern: Regular 08-27-2007 07:37-0500 Respiratory rate 18 /min PRANAY Colon LPN [facility]; [facility] Work Phone: Comment on above: Pattern: Unlabored 08-27-2007 07:37-0500 Systolic blood pressure 124 mm[Hg] PRANAY Colon CANDICE [facility]; [facility] Work Phone: Comment on above: Patient Position: Sitting; Cuff Location : Left Arm; Cuff Size: Standard 04-20-2007 12:100400 Body height 0 cm PRANAY Colon CANDICE [facility]; [facility] Work Phone: 04-20-2007 12:10-0400 Body temperature 98.6 [degF] PRANAY Colon CANDICE [facility]; [facility] Work Phone: Comment on above: Method: Oral 04-20-2007 12:10-0400 Body weight 0 kg PRANAY Colon LPN [facility]; [facility] Work Phone: 04-20-2007 12:10-0400 Diastolic blood pressure 80 mm[Hg] PRANAY Colon [employer] [facility]; [facility] Work Phone: Comment on above: Patient Position: Sitting; Cuff Location : Left Arm; Cuff Size: Standard 04-20-2007 12:10-0400 Head Occipital-frontal circumference 0 cm PRANAY Colon CANDICE [facility]; [facility] Work Phone: 04-20-2007 12:10-0400 Heart rate 70 /min PRANAY Colon LPN [facility]; [facility] Work Phone: Comment on above: Pattern: Regular 04-20-2007 12:10-0400 Respiratory rate 20 /min PRANAY Colon [facility] Work Phone: Comment on above: Pattern: Unlabored 04-20-2007 12:10-0400 Systolic blood pressure 120 mm[Hg] PRANAY Colon LPN [facility]; [facility] Work Phone: Comment on above: Patient Position: Sitting; Cuff Location : Left Arm; Cuff Size: Standard 01-16-2007 10:49-0400 Body height 0 cm PRANAY Colon [employer] [facility] Work Phone: 01-16-2007 10:49-0400 Body temperature 97.7 [degF] PRANAY Colon L[facility]; [facility] Work Phone: Comment on above: Method: Oral 01-16-2007 10:49-0400 Body weight 75.75 kg PRANAY Colon L[facility]; [facility] Work Phone: 01-16-2007 10:49-0400 Diastolic blood pressure 80 mm[Hg] PRANAY Colon LPN [facility]; [facility] Work Phone: Comment on above: Patient Position: Sitting; Cuff Location : Left Arm; Cuff Size: Standard 01-16-2007 10:49-0400 Head Occipital-frontal circumference 0 cm PRANAY Colon L[facility]; [facility] Work Phone: 01-16-2007 10:49-0400 Heart rate 80 /min PRANAY Colon L[facility]; [facility] Work Phone: Comment on above: Pattern: Regular 01-16-2007 10:49-0400 Respiratory rate 20 /min PRANAY Colon LPN [facility]; [facility] Work Phone: Comment on above: Pattern: Unlabored 01-16-2007 10:49-0400 Systolic blood pressure 122 mm[Hg] PRANAY Colon CANDICE [facility]; [facility] Work Phone: Comment on above: Patient Position: Sitting; Cuff Location : Left Arm; Cuff Size: Standard 09-05-2006 07:25-0500 Body height 0 cm PRANAY Colon CANDICE [facility]; [facility] Work Phone: 09-05-2006 07:25-0500 Body temperature 97.6 [degF] PRANAY Colon CANDICE [facility]; [facility] Work Phone: Comment on above: Method: Oral 09-05-2006 07:25-0500 Body weight 75.3 kg PRANAY Colon CANDICE [facility]; [facility] Work Phone: 09-05-2006 07:25-0500 Diastolic blood pressure 70 mm[Hg] PRANAY Colon CANDICE [facility]; [facility] Work Phone: Comment on above: Patient Position: Sitting; Cuff Location : Left Arm; Cuff Size: Standard 09-05-2006 07:25-0500 Head Occipital-frontal circumference 0 cm PRANAY Colon CANDICE [facility]; [facility] Work Phone: 09-05-2006 07:25-0500 Heart rate 78 /min PRANAY Colon CANDICE [facility]; [facility] Work Phone: Comment on above: Pattern: Regular 09-05-2006 07:25-0500 Respiratory rate 20 /min PRANAY Colon CANDICE [facility]; [facility] Work Phone: Comment on above: Pattern: Unlabored 09-05-2006 07:25-0500 Systolic blood pressure 100 mm[Hg] PRANAY Colon CANDICE [facility]; [facility] Work Phone: Comment on above: Patient Position: Sitting; Cuff Location : Left Arm; Cuff Size: Standard 05-08-2006 07:49-0400 Body height 172.72 cm Briseyda Alexander [employer] [facility]; [facility] Work Phone: 05-08-2006 07:490400 Body mass index (BMI) [Ratio] 27.06 kg/m2 Briseyda Alexander LPN [facility]; [facility] Work Phone: 05-08-2006 07:49-0400 Body surface area Derived from formula 1.95 m2 Briseyda Alexander LPN [facility]; [facility] Work Phone: 05-08-2006 07:49-0400 Body temperature 97.1 [degF] Briseyda Alexander LPN [facility]; [facility] Work Phone: Comment on above: Method: Oral 05-08-2006 07:49-0400 Body weight 80.74 kg Briseyda Alexander LPN [facility]; [facility] Work Phone: 05-08-2006 07:49-0400 Diastolic blood pressure 66 mm[Hg] Briseyda Alexander LPN [facility]; [facility] Work Phone: Comment on above: Patient Position: Sitting; Cuff Location : Undefined; Cuff Size: Undefined 05-08-2006 07:49-0400 Head Occipital-frontal circumference 0 cm Briseyda Alexander L[facility]; [facility] Work Phone: 05-08-2006 07:49-0400 Heart rate 80 /min Briseyda Alexander L[facility]; [facility] Work Phone: Comment on above: Pattern: Regular 05-08-2006 07:49-0400 Respiratory rate 16 /min Briseyda Alexander LPN [facility]; [facility] Work Phone: Comment on above: Pattern: Unlabored 05-08-2006 07:49-0400 Systolic blood pressure 104 mm[Hg] Briseyda Alexander LPN [facility]; [facility] Work Phone: Comment on above: Patient Position: Sitting; Cuff Location : Undefined; Cuff Size: Undefined Encounters Encounter Date Encounter Type Care Provider Facility Start: 02-14-2025 ambulatory Lisa MONTENEGRO Facility:[facility] Start: 02-02-2025 End: 02-02-2025 Patient encounter procedure Lisa MONTENEGRO -[facility] Work Phone: Start: 02-02-2025 End: 05-28-[address] Esthela Sands MD Work Phone: [facility] Work Phone: Start: 01-24-2025 End: 01-24-[address] Esthela Sands MD -[facility] Work Phone: Start: 01-24-2025 End: 01-24-2025 ambulatory Esthela Sands Facility:[facility] Start: 05-25-2024 End: 05-25-2024 ambulatory Esthela Boneozzyi Facility:[facility] Start: 03-30-2024 ambulatory Esthela Sands Facility:[facility] Start: 03-29-2024 ambulatory [place] Facility:[facility] Start: 03-29-2024 End: 03-29-2024 ambulatory Esthela Boneozzyi Facility:[facility] Start: 03-15-2024 End: 03-15-2024 ambulatory Esthela Sands Facility:[facility] Start: 03-15-2024 End: 03-15-2024 ambulatory Nay Cee NP Facility:[facility] Start: 01-15-[address] Esthela Sands Work Phone: [facility] Work Phone: Start: 01-08-2024 End: 01-08-[address] Esthela Sands Work Phone: [facility] Work Phone: Start: 01-08-2024 End: 01-08-[address] Esthela Sands Work Phone: [facility]-Outpatient Breast Imaging Work Phone: Start: 12-04-2023 Non-patient / Non-visit Dr. Yap Work Phone: [facility] Start: 12-04-2023 End: 12-04-[address] Esthela Sands Work Phone: [facility] Work Phone: Start: 12-04-2023 End: 12-04-[address] Esthela Sands Work Phone: [facility]-Cardiovascular Services Work Phone: Start: 12-02-2023 End: 12-02-[address] Esthela Sands Work Phone: [facility] Work Phone: Start: 12-02-2023 End: 12-02-[address] Esthela Sands Work Phone: [facility]-Laboratory, Specimen Work Phone: Start: 06-12-2023 End: 06-12-2023 Office outpatient visit 15 minutes Esthela Sands MD Work Phone: [facility] Start: 06-09-2023 End: 06-09-2023 Office outpatient visit 25 minutes Esthela Sands MD Work Phone: [facility] Start: 06-09-2023 End: 06-09-2023 Patient encounter status Esthela Sands MD Work Phone: [facility]; [facility] Work Phone: Start: 04-29-2023 End: 04-29-2023 Lab Order Esthela Sands MD Work Phone: [facility] Start: 04-29-2023 End: 04-29-2023 Esthela Sands MD Work Phone: [facility] Start: 04-08-2023 Review Esthela Renee Work Phone: [facility] Start: 04-08-2023 End: 04-08-2023 Office outpatient visit 25 minutes Esthela Sands MD Work Phone: [facility] Start: 04-05-2023 End: 04-22-2023 Prescription Refill Esthela Sands MD Work Phone: [facility] Start: 04-05-2023 Review Esthela Renee Work Phone: [facility] Start: 04-05-2023 End: 04-22-2023 Esthela Sands MD Work Phone: [facility] Start: 03-14-2023 End: 03-14-2023 Phone Encounter Esthela Sands MD Work Phone: [facility] Start: 03-14-2023 End: 03-14-2023 Esthela Sands MD Work Phone: [facility] Start: 03-10-2023 End: 03-10-2023 Office outpatient visit 25 minutes Esthela Sands MD Work Phone: [facility] Start: 03-10-2023 End: 03-10-2023 Phone Encounter Esthela Sands MD Work Phone: [facility] Start: 03-10-2023 End: 03-10-2023 Esthela Sands MD Work Phone: [facility] Start: 02-28-2023 End: 02-28-2023 Patient encounter procedure Marylin Henning LPN [facility]; [facility] Work Phone: Comment on above: 11-17-15 reviewed ester patient all questions. dealing with husbands depression. pap colonoscopy 09-16 good, mammogram , BD , whisper test WNL, mini mental=30/30, last eye exam=august 2015 included glaucoma screening, all immunizations are up to date bd 08-21 Start: 02-28-2023 End: 02-28-2023 Office outpatient visit 15 minutes Esthela Sands MD Work Phone: [facility] Start: 02-19-2023 End: 02-19-2023 ambulatory MD Esthela Sands [facility] Work Phone: Start: 02-19-2023 End: 02-19-2023 Patient encounter procedure MD Esthela Sands [facility]-Cat Scan, [facility] Comment on above: 11-17-15 reviewed ester patient all questions. dealing with husbands depression. pap colonoscopy 1-09 good, mammogram , BD , whisper test WNL, mini mental=30/30, last eye exam=august 2015 included glaucoma screening, all immunizations are up to date bd 08-21 Start: 02-19-2023 End: 02-19-2023 Office outpatient visit 15 minutes Esthela Sands MD Work Phone: [facility] Start: 02-14-2023 End: 02-18-2023 Office outpatient visit 25 minutes Esthela Sands MD Work Phone: [facility] Start: 02-14-2023 End: 02-18-2023 Patient encounter status Esthela Sands MD Work Phone: [facility] Start: 01-28-2023 End: 01-28-2023 ambulatory MD Esthela BUTTERFIELD [facility] Work Phone: Start: 01-28-2023 End: 01-28-2023 Patient encounter procedure MD Esthela BUTTERFIELD [facility]-Laboratory Start: 12-23-2022 End: 12-23-2022 Patient encounter procedure MD Esthela BUTTERFIELD [facility] Start: 12-23-2022 End: 12-23-2022 ambulatory MD Esthela BUTTERFIELD [facility] Work Phone: Start: 12-23-2022 End: 12-23-2022 Patient encounter procedure MD Esthela BUTTERFIELD [facility]-Outpatient Breast Imaging Start: 12-17-2022 End: 12-17-2022 Phone Encounter Esthela Sands MD Work Phone: [facility] Start: 12-17-2022 End: 12-17-2022 Esthela Sands MD Work Phone: [facility] Start: 09-28-2022 End: 09-29-2022 Phone Encounter Esthela Sands MD Work Phone: [facility] Start: 09-28-2022 End: 09-29-2022 Esthela Sands MD Work Phone: [facility] Start: 07-19-2022 End: 07-19-2022 Annotation/Addendum Esthela Sands MD Work Phone: [facility] Start: 07-19-2022 End: 07-19-2022 Esthela Sands MD Work Phone: [facility] Start: 05-23-2022 End: 05-23-[address] Tejas Garcia Work Phone: [facility] Work Phone: Start: 05-23-2022 End: 05-23-[address] Tejas Garcia Work Phone: [facility]-Outpatient Bone Densitometry Start: 05-21-2022 End: 05-21-2022 Annotation/Addendum Esthela Sands MD Work Phone: [facility] Start: 05-21-2022 End: 05-21-2022 Esthela Sands MD Work Phone: [facility] Start: 05-16-2022 End: 05-16-2022 Annotation/Addendum Esthela Sands MD Work Phone: [facility] Start: 05-16-2022 End: 05-16-2022 Esthela Sands MD Work Phone: [facility] Start: 05-14-2022 End: 06-04-2022 Annotation/Addendum Esthela Sands MD Work Phone: [facility] Start: 05-14-2022 End: 06-04-2022 Patient encounter procedure Raúl Alberts LPN [facility]; [facility] Work Phone: Comment on above: 11-17-15 reviewed wit h patient all questions. dealing with husbands depression. pap -2012 colonoscopy 09-16 good, mammogram , BD , whisper test WNL, mini mental=30/30, last eye exam=august 2015 included glaucoma screening, all immunizations are up to date bd 08-21 [facility] 05/14/ 2 Mammo-2Dexa 5/2019colonscopy ? 2019 Start: 05-14-2022 End: 06-04-2022 Esthela Sands MD Work Phone: [facility] Start: 05-02-2022 End: 05-02-[address] Tejas Garcia Work Phone: [facility] Work Phone: Start: 05-02-2022 End: 05-02-[address] Tejas Garcia Work Phone: [facility] Start: 05-01-2022 Review Esthela Renee Work Phone: [facility] Start: 04-30-2022 End: 04-30-2022 Annotation/Addendum Esthela Sands MD Work Phone: [facility] Start: 04-30-2022 End: 04-30-2022 Esthela Sands MD Work Phone: [facility] Start: 04-30-2022 End: 04-30-2022 Office outpatient visit 15 minutes Esthela Sands MD Work Phone: [facility] Start: 04-29-2022 End: 04-29-2022 Office outpatient visit 10 minutes Esthela Sands MD Work Phone: [facility] Start: 04-25-2022 End: 04-25-2022 Emergency department patient visit Dr. Tejas Garcia Work Phone: [facility]-Emergency Department Start: 04-19-2022 End: 04-19-[address] Tejas Garcia Work Phone: [facility] Start: 04-12-2022 Non-patient / Non-visit Dr. Bob Garcia Work Phone: [facility] Start: 04-12-2022 Non-patient / Non-visit Dr. Bob Garcia Work Phone: [facility] Start: 04-12-2022 End: 04-12-[address] [facility] Start: 04-10-2022 End: 04-10-2022 Office outpatient visit 15 minutes Esthela Sands MD Work Phone: [facility] Start: 04-10-2022 Review Esthela Renee Work Phone: [facility] Start: 03-26-2022 End: 03-26-[address] Tejas Garcia Work Phone: [facility] Start: 03-19-2022 End: 03-19-[address] [facility]jas Garcia [facility] Start: 02-11-2022 End: 02-11-[address] Tejas Garcia Work Phone: [facility] Start: 01-22-2022 End: 01-22-[address] Tejas Garcia Work Phone: [facility] Start: 01-10-2022 Non-patient / Non-visit Dr. Bob Garcia Work Phone: [facility] Start: 01-09-2022 End: 01-09-[address] Tejas Garcia [facility] Start: 01-07-2022 End: 01-07-[address] Tejas Garcia Work Phone: [facility] Start: 12-28-2021 End: 12-28-[address] Tejas Garcia [facility] Start: 12-24-2021 End: 12-24-[address] Tejas Garcia Work Phone: [facility] Start: 12-18-2021 End: 12-18-[address] Tejas Garcia Work Phone: [facility]-Outpatient Breast Imaging Start: 12-11-2021 Non-patient / Non-visit Dr. Bob Garcia Work Phone: [facility] Start: 12-10-2021 Non-patient / Non-visit Dr. Bob Garcia Work Phone: [facility] Start: 12-10-2021 Non-patient / Non-visit Dr. Bob Garcia Work Phone: [facility] Start: 12-09-2021 Non-patient / Non-visit Dr. Bob Garcia Work Phone: [facility] Start: 12-09-2021 End: 12-11-2021 Evaluation and management of inpatient Dr. Tejas Garcia Work Phone: [facility]-Progressive Care Unit Start: 12-09-2021 Non-patient / Non-visit Dr. Bob Garcia Work Phone: [facility] Start: 12-09-2021 Non-patient / Non-visit Dr. Bob Garcia Work Phone: [facility] Start: 04-05-2016 End: 04-05-2016 Phone Encounter Esthela Sands MD Work Phone: [facility] Start: 04-05-2016 End: 04-05-2016 Esthela Sands MD Work Phone: [facility] Start: 04-02-2016 End: 04-02-2016 Office outpatient visit 15 minutes Esthela Sands MD Work Phone: [facility] Start: 11-27-2015 End: 11-27-2015 Office outpatient visit 15 minutes Esthela Sands MD Work Phone: [facility] Start: 11-20-2015 End: 11-20-2015 Office outpatient visit 40 minutes Esthela Sands MD Work Phone: [facility] Start: 11-17-2015 End: 11-17-2015 Office outpatient visit 15 minutes Esthela Sands MD Work Phone: [facility] Start: 11-17-2015 End: 11-17-2015 Patient encounter procedure Esthela Sands MD Work Phone: [facility] Start: 11-17-2015 End: 11-17-2015 Historical Summary Esthela Sands MD Work Phone: [facility] Start: 11-17-2015 End: 11-17-2015 Esthela Sands MD Work Phone: [facility] Start: 09-15-2015 End: 09-15-2015 Admission to establishment Esthela Sands MD Work Phone: [facility] Start: 09-15-2015 End: 09-15-2015 Esthela Sands MD Work Phone: [facility] Start: 09-15-2015 End: 09-15-2015 Office outpatient visit 15 minutes Esthela Sands MD Work Phone: [facility] Start: 08-30-2015 End: 08-30-2015 Office outpatient visit 25 minutes Esthela Sands MD Work Phone: [facility] Start: 05-19-2015 End: 05-19-2015 Office outpatient visit 15 minutes Esthela Sands MD Work Phone: [facility] Start: 02-10-2015 End: 02-10-2015 Office outpatient visit 15 minutes Esthela Sands MD Work Phone: [facility] Start: 01-06-2015 End: 01-06-2015 Office outpatient visit 25 minutes Esthela Sands MD Work Phone: [facility] Start: 10-07-2014 End: 10-07-2014 Office outpatient visit 25 minutes Esthela Sands MD Work Phone: [facility] Start: 09-05-2014 End: 09-05-2014 Phone Encounter Esthela Sands MD Work Phone: [facility] Start: 09-05-2014 End: 09-05-2014 Estehla Sands MD Work Phone: [facility] Start: 08-08-2014 End: 08-09-2014 Office outpatient visit 40 minutes Esthela Sands MD Work Phone: [facility] Start: 03-14-2014 End: 03-14-2014 Patient encounter procedure Esthela Sands MD Work Phone: [facility] Start: 03-14-2014 End: 03-14-2014 Esthela Sands MD Work Phone: [facility] Start: 07-22-2013 End: 07-22-2013 Patient encounter procedure Esthela Sands MD Work Phone: [facility] Start: 07-22-2013 End: 07-22-2013 Esthela Sands MD Work Phone: [facility] Start: 05-28-2013 End: 05-28-2013 Patient encounter procedure Esthela Sands MD Work Phone: [facility] Start: 05-28-2013 End: 05-28-2013 Esthela Sands MD Work Phone: [facility] Start: 05-24-2013 End: 05-24-2013 Annotation/Addendum Esthela Sands MD Work Phone: [facility] Start: 05-24-2013 End: 05-24-2013 Esthela Sands MD Work Phone: [facility] Start: 05-24-2013 End: 05-24-2013 Office outpatient visit 15 minutes Esthela Sands MD Work Phone: [facility] Start: 05-11-2013 End: 05-11-2013 Office outpatient visit 25 minutes Esthela Sands MD Work Phone: [facility] Start: 03-31-2013 End: 03-31-2013 Patient encounter procedure Esthela Sands MD Work Phone: [facility] Start: 03-31-2013 End: 03-31-2013 Esthela Sands MD Work Phone: [facility] Start: 03-08-2013 End: 03-08-2013 Patient encounter procedure Esthela Sands MD Work Phone: [facility] Start: 03-08-2013 End: 03-08-2013 Esthela Sands MD Work Phone: [facility] Start: 12-17-2012 End: 12-17-2012 Patient encounter procedure Esthela Sands MD Work Phone: [facility] Start: 12-17-2012 End: 12-17-2012 Esthela Sands MD Work Phone: [facility] Start: 10-13-2012 End: 10-13-2012 Prescription Refill Esthela Sands MD Work Phone: [facility] Start: 10-13-2012 End: 10-13-2012 Esthela Sands MD Work Phone: [facility] Start: 10-12-2012 End: 10-12-2012 Patient encounter procedure Esthela Sands MD Work Phone: [facility] Start: 10-12-2012 End: 10-12-2012 Esthela Sands MD Work Phone: [facility] Start: 09-10-2012 End: 09-11-2012 Patient encounter procedure Esthela Sands MD Work Phone: [facility] Start: 09-10-2012 End: 09-11-2012 Esthela Sands MD Work Phone: [facility] Start: 03-06-2012 End: 03-06-2012 Patient encounter procedure Esthela Sands MD Work Phone: [facility] Start: 03-06-2012 End: 03-06-2012 Esthela Sands MD Work Phone: [facility] Start: 03-02-2012 End: 03-02-2012 Lab Order Esthela Sands MD Work Phone: [facility] Start: 03-02-2012 End: 03-02-2012 Esthela Sands MD Work Phone: [facility] Start: 08-26-2011 End: 08-26-2011 Annotation/Addendum Esthela Sands MD Work Phone: [facility] Start: 08-26-2011 End: 08-26-2011 Esthela Sands MD Work Phone: [facility] Start: 08-26-2011 End: 08-26-2011 Phone Encounter Esthela Sands MD Work Phone: [facility] Start: 08-26-2011 End: 08-26-2011 Esthela Sands MD Work Phone: [facility] Start: 08-21-2011 End: 08-21-2011 Patient encounter procedure Esthela Sands MD Work Phone: [facility] Start: 08-21-2011 End: 08-21-2011 Esthela Sands MD Work Phone: [facility] Start: 04-18-2011 End: 04-18-2011 Phone Encounter Esthela Sands MD Work Phone: [facility] Start: 04-18-2011 End: 04-18-2011 Esthela Sands MD Work Phone: [facility] Start: 11-01-2010 End: 11-01-2010 Patient encounter procedure Esthela Sands MD Work Phone: [facility] Start: 11-01-2010 End: 11-01-2010 Esthela Sands MD Work Phone: [facility] Start: 09-17-2010 End: 09-17-2010 Phone Encounter Esthela Sands MD Work Phone: [facility] Start: 09-17-2010 End: 09-17-2010 Esthela Sands MD Work Phone: [facility] Start: 09-04-2010 End: 09-04-2010 Patient encounter procedure Esthela Sands MD Work Phone: [facility] Start: 09-04-2010 End: 09-04-2010 Esthela Sands MD Work Phone: [facility] Start: 05-23-2010 End: 05-23-2010 Phone Encounter Esthela Sands MD Work Phone: [facility] Start: 05-23-2010 End: 05-23-2010 Esthela Sands MD Work Phone: [facility] Start: 03-29-2010 End: 03-29-2010 Patient encounter procedure Esthela Sands MD Work Phone: [facility] Start: 03-29-2010 End: 03-29-2010 Esthela Sands MD Work Phone: [facility] Start: 03-05-2010 End: 03-05-2010 Office outpatient visit 15 minutes Esthela Sands MD Work Phone: [facility] Start: 02-28-2010 End: 02-28-2010 Phone Encounter Esthela Sands MD Work Phone: [facility] Start: 02-28-2010 End: 02-28-2010 Esthela Sands MD Work Phone: [facility] Start: 02-19-2010 End: 02-19-2010 Office outpatient visit 25 minutes Esthela Sands MD Work Phone: [facility] Start: 08-29-2009 End: 08-29-2009 Office outpatient visit 15 minutes Esthela Sands MD Work Phone: [facility] Start: 08-02-2009 End: 08-02-2009 Patient encounter procedure Esthela Sands MD Work Phone: [facility] Start: 08-02-2009 End: 08-02-2009 Esthela Sands MD Work Phone: [facility] Start: 04-20-2009 End: 04-20-2009 Patient encounter procedure Esthela Sands MD Work Phone: [facility] Start: 04-20-2009 End: 04-20-2009 Esthela Sands MD Work Phone: [facility] Start: 10-27-2008 End: 10-27-2008 Patient encounter procedure Esthela Sands MD Work Phone: [facility] Start: 10-27-2008 End: 10-27-2008 Esthela Sands MD Work Phone: [facility] Start: 10-21-2008 End: 10-21-2008 Phone Encounter Esthela Sands MD Work Phone: [facility] Start: 10-21-2008 End: 10-21-2008 Esthela Sands MD Work Phone: [facility] Start: 09-26-2008 End: 09-26-2008 Patient encounter procedure Esthela Sands MD Work Phone: [facility] Start: 09-26-2008 End: 09-26-2008 Esthela Sands MD Work Phone: [facility] Start: 08-08-2008 End: 08-08-2008 Patient encounter procedure Esthela Sands MD Work Phone: [facility] Start: 08-08-2008 End: 08-08-2008 Esthela Sands MD Work Phone: [facility] Start: 03-07-2008 End: 03-07-2008 Patient encounter procedure Esthela Sands MD Work Phone: [facility] Start: 03-07-2008 End: 03-07-2008 Esthela Sands MD Work Phone: [facility] Start: 08-27-2007 End: 08-27-2007 Patient encounter procedure Esthela Sands MD Work Phone: [facility] Start: 08-27-2007 End: 08-27-2007 Esthela Sands MD Work Phone: [facility] Start: 04-29-2007 End: 04-29-2007 Historical Summary Esthela Sands MD Work Phone: [facility] Start: 04-29-2007 End: 04-29-2007 Esthela Sands MD Work Phone: [facility] Start: 04-20-2007 End: 04-20-2007 Patient encounter procedure Esthela Sands MD Work Phone: [facility] Start: 04-20-2007 End: 04-20-2007 Esthela Sands MD Work Phone: [facility] Start: 01-16-2007 End: 01-16-2007 Patient encounter procedure Esthela Sands MD Work Phone: [facility] Start: 01-16-2007 End: 01-16-2007 Esthela Sands MD Work Phone: [facility] Start: 09-11-2006 End: 09-11-2006 Patient encounter procedure Esthela Sands MD Work Phone: [facility] Start: 09-11-2006 End: 09-11-2006 Esthela Sands MD Work Phone: [facility] Start: 09-05-2006 End: 09-05-2006 Patient encounter procedure Esthela Sands MD Work Phone: [facility] Start: 09-05-2006 End: 09-05-2006 Esthela Sands MD Work Phone: [facility] Start: 08-25-2006 End: 08-25-2006 Historical Summary Esthela Sands MD Work Phone: [facility] Start: 08-25-2006 End: 08-25-2006 Esthela Sands MD Work Phone: [facility] Start: 05-05-2006 End: 05-08-2006 Office outpatient visit 15 minutes Esthela Sands MD Work Phone: [facility] Start: 04-23-2006 End: 04-23-2006 Historical Summary Esthela Sands MD Work Phone: [facility] Start: 04-23-2006 End: 04-23-2006 Esthela Sands MD Work Phone: [facility] Patient encounter procedure Raúl Alberts LPN [facility]; [facility] Work Phone: Comment on above: 11-17-15 reviewed wit h patient all questions. dealing with husbands depression. pap colonoscopy 09-16 good, mammogram , BD , whisper test WNL, mini mental=30/30, last eye exam=august 2015 included glaucoma screening, all immunizations are up to date bd 08-21 Patient encounter procedure Blaze Le CMA [facility]; [facility] Work Phone: Comment on above: 11-17-15 reviewed wit h patient all questions. dealing with husbands depression. pap colonoscopy 09-16 good, mammogram , BD , whisper test WNL, mini mental=30/30, last eye exam=august 2015 included glaucoma screening, all immunizations are up to date bd 08-21 Patient encounter procedure Yamila Multani LPN [facility]; [facility] Work Phone: Comment on above: 11-17-15 reviewed wit h patient all questions. dealing with husbands depression. pap colonoscopy 09-16 good, mammogram , BD , whisper test WNL, mini mental=30/30, last eye exam=august 2015 included glaucoma screening, all immunizations are up to date bd 08-21 Patient encounter procedure Yamila Multani LPN [facility]; [facility] Work Phone: Patient encounter procedure Yamila Multani LPN [facility]; [facility] Work Phone: Patient encounter status Marylin Henning LPN [facility]; [facility] Work Phone: Comment on above: AMP 6- [facility] 05/14/22 AMP [id number] 2023colonscopy ? 2018 Patient encounter status Marylin Henning LPN [facility]; [facility] Work Phone: Comment on above: AMP 6- [facility] 05/14/22 AMP [id number] 2023colonscopy ? 2018 Patient encounter status Blaze Marquis MA [facility]; [facility] Work Phone: Comment on above: AMP 6-23 [facility] 05/14/22 AMP [id number] 2023colonscopy ? 2019 Patient encounter status Yamila Multani LUCÍA N [facility]; [facility] Work Phone: Comment on above: AMP 02-28 [facility] 05/14/22 AMP [id number] 2023colonscopy ? 2019 Patient encounter status Yamila Multani LUCÍA N [facility]; [facility] Work Phone: Procedures Date Procedure Procedure Detail Performing Clinician Start: 01-24-[address] Esthela Sands MD Work Phone: Start: 01-15-2024 CT of soft tissues of neck with contrast Dr. Esthela Sands Work Phone: Start: 01-08-[address] Esthela Sands Work Phone: Start: 12-04-2023 Radionuclide imaging of perfusion of myocardium under exercise stress Dr. Esthela Sands Work Phone: Start: 06-05-2023 End: 06-05-2023 Procedure Note: See Note; NOTES: [facility] [place], [place] [address] OFFICE VISIT Date of Service: 06/05/23 MR#: [id number] Acct: [id number] Name: CSAS GONZALES Rep #: [id number] : 1945 Provider: LAN Diaz Age/Sex: 78/F [place] [facility] [place] Signed [facility] History of Present Illness Details: Pleasant 77-year-old lady with no previous obstructive coronary artery disease history whose history dates back to 1995 when she had presented with a wide-complex tachycardia on a treadmill stress test. She underwent a left heart catheterization which demonstrated normal coronary arteries. In 1998 she underwent an EP study during which no inducible VT was noted. She had had a cardiac MRI which demonstrated no evidence of right ventricular dysplasia this was repeated in 2011. She also had a normal echocardiogram as well as stress echocardiogram. She said that she had been in [place] the last few months and had noticed that she was getting increasingly short of breath. In December of this year they decided to drive up from [place] and she was getting rather short of breath she presented to the emergency room here and was diagnosed as having multiple pulmonary emboli and an elevated troponin level. She had an echocardiogram performed which demonstrated an ejection fraction of 65%, mild concentric left ventricular hypertrophy, pulmonary systolic pressure 44 mmHg. She was anticoagulated and was eventually discharged home on Eliquis as well as 2 L of supplemental oxygen. She says that she has been doing much better and has recently been off her Lasix. She was identified a few years ago was having the MTHFR mutation. She has been on folic acid and B12 since. A coronary calcium score in 2019 was 0 and she has been on lipid-lowering medication. She is here for a follow-up. Since her last visit she has done remarkably well. She did have a repeat echocardiogram in April 2022 demonstrating an ejection fraction of 55%, no wall motion abnormalities, stage I diastolic dysfunction and pulmonary systolic pressure of 29 mmHg. Pt tells me that overall she is doing okay. She does have issues with her memory. She does not sleep well. Dr. Sands has been working with her on this. She does not have any chest disco mfort/heaviness/tightness. She does not have any worsening symptoms of shortness of breath. She does not have any orthopnea. She denies PND. She does not have any symptoms of congestive heart failure. She does not have any palpitations that she is aware of. She does not have any lightheadedness or dizziness. She does not have any near-syncope or syncope. She does not have any lower extremity edema. She does not have any symptoms of claudication. Intake Vital Signs 12/23/22 15:07 06/05/23 09:54 Height 5 ft 7 in 5 ft 7 in Weight: 182 lb 8 oz 175 lb BMI 28.5 27.3 BP 128/89 H 114/75 Blood Pressure Location Rt brachial Lt brachial Position Sitting Sitting Respiration 16 18 Pulse 59 L 66 Pulse Source Monitor Monitor Temp 97.6 F L Temperature Source Temporal Artery Pulse Oximetry (%) 97 99 Oxygen Delivery Method room air Intake Visit Reasons: 1 Y FU Applications Development Analyst Required: No Is patient in pain?: No Allergies bupropion [From Wellbutrin] Allergy (Verified 06/05/23 09:54) rash Iodinated Contrast Media [Iodinated Contrast Media - IV Dye] Allergy (Verified 06/05/23 09:54) Hives nefazodone [From Serzone] Allergy (Verified 06/05/23 09:54) Rash buspirone [From BuSpar] Adverse Reaction (Verified 06/05/23 09:54) weight gain escitalopram [From Lexapro] Adverse Reaction (Verified 06/05/23 09:54) affected sex sertraline [From Zoloft] Adverse Reaction (Verified 06/05/23 09:54) affected sex venlafaxine [From Effexor] Adverse Reaction (Verified 06/05/23 09:54) affected sleep Medications atorvastatin 40 mg tablet 40 mg PO QHS 08/26/15 [History Confirmed 06/05/23] levothyroxine 100 mcg tablet 100 mcg PO DAILY thyroid 08/26/15 [History Confirmed 06/05/23] cyanocobalamin (vitamin B-12) 500 mcg lozenges 500 mcg PO DAILY 12/20/21 [History Confirmed 06/05/23] folic acid 800 mcg tablet 0.8 mg PO DAILY 12/20/21 [History Confirmed 06/05/23] tizanidine 4 mg capsule 4 mg PO QHS PRN Muscle Spasm 12/20/21 [History Confirmed 12/23/22] isometheptene-dichloralphen- acetaminophen 65 mg-100 mg-325 mg capsule 1 cap PO .prn migraines 12/24/21 [History Confirmed 06/05/23] alprazolam 0.25 mg tablet 0.25 mg PO DAILY PRN Anxiety 12/28/21 [History Confirmed 06/05/23] bupropion HCl 150 mg 24 hr tablet, extended release 150 mg PO DAILY 04/19/22 [History Confirmed 06/05/23] apixaban 5 mg tablet (Eliquis) 5 mg PO BID #180 tabs 11/12/22 [Rx Confirmed 06/05/23] hydrochlorothiazide 12.5 mg tablet 12.5 mg PO Q OTHER DAY 12/23/22 [History Confirmed 06/05/23] losartan 50 mg tablet 50 mg PO BID #180 tabs 02/19/23 [Rx Confirmed 06/05/23] amitriptyline 50 mg tablet 25 mg PO DAILY 06/05/23 [History Confirmed 09/28/23] metoprolol succinate 100 mg tablet,extended release 24 hr 50 mg PO DAILY bp 06/05/23 [History Confirmed 06/05/23] [facility] Medical History (HFpEF) heart failure with preserved ejection fraction Acute and chronic respiratory failure with hypoxia Depression Essential hypertension History of kidney stones History of non-ST elevation myocardial infarction (NSTEMI) (12/09/21) Hyperlipidemia Hypothyroidism Hypoxemia Ischemic colitis Kidney disease MTHFR gene mutation Pneumonia Pulmonary emboli (12/09/21) Right bundle branch block (RBBB) Secondary pulmonary arterial hypertension Wide-complex tachycardia Surgical History H/O breast biopsy H/O lymph node biopsy History of dilatation and curettage History of electrophysiologic study (12/13/98) History of left heart catheterization (03/01/98) History of tonsillectomy and adenoidectomy Family History Grandfather Cancer Grandmother Heart disease Breast cancer Obesity Mother Heart disease Myocardial infarction, Onset Age: 78 Asthma Father Dementia Hypertension Cancer prostate CVA (cerebral vascular accident) Afib Social History household members: spouse housing: house Smoking Status: Never smoker alcohol intake: current alcohol intake frequency: holidays/special occasions only Alcohol type: wine ROS Const Const: Negative for fatigue, weakness, headache(s), frequent falls, excessive sweating, weight gain or weight loss Eyes Eyes: Negative for blind spots, loss of peripheral vision, transient loss of vision, blurry vision, change in vision or double vision ENT ENT: Negative for headache(s), dizziness, tinnitus, Nosebleed/epistaxis or balance problems Cardio Chest Pain: No Palpitations: No Edema: None Muscle aches with walking: None Resp Respiratory: Negative for SOB with activity, SOB at rest, SOB orthopnea SOB lying down or Cough GI GI: Negative nausea, vomiting, heartburn, bloating, vomiting blood/hematemesis, bright, red blood in stools or black,tarry stools : Negative for hematuria Musc Musc: Negative for muscle aches/ myalgia, muscle weakness, joint pain or balance problems Skin Skin: Negative rash or wounds Neuro Neuro: Negative for dizziness, lightheadedness, near syncope, syncope, orthostatic symptoms, frequent falls, headache(s), weakness, confusion, memory loss, restless legs, blurry vision or double vision Alan Hematologic/Lymphatic: Negative for easy bleeding or easy bruising Endo Endo: Negative for fatigue, cold intolerance, heat intolerance or excessive sweating Psych Psych: Negative for anxiety or depression Allergy Allergy/Immunology: Negative for rash Cardiology Exam Const Appearance: cooperative, healthy appearing, comfortable, no acute distress and well developed Orientation: alert, awake and oriented x3 Head Head: normal to inspection Ears: hearing grossly normal bilaterally Nose: external nose normal Face and Sinus: face symmetric Mouth: oral mucosae normal, lip normal and moist mucous membranes Eyes General: appearance normal, both eyes and all related structures Eyelids: eyelids normal Conjunctivae: conjunctivae normal Pupils: PERRL EOM: EOM intact bilaterally Neck Neck: normal visual inspection and trachea midline; Negative no JVD Carotids: Negative bruit Chest Chest inspection: normal inspection of the chest Auscultation: Bilateral: Clear to Auscultation Cardio Palpation: normal PMI Rate: regular rate Rhythm: regular rhythm Heart sounds: S1 normal and S2 normal; Negative rub, gallop or murmur GI GI: soft, no hepatosplenomegaly and bowel sounds present Neuro General: patient alert, patient awake, patient oriented x3 and CN's II-XI intact bilaterally Extremities Pulses: Normal: Right Posterior Tibial Pulse, Left Posterior Tibial Pulse, Right Radial Pulse and Left Radial Pulse Lower Extremity Edema: None: Bilateral Psych Psychological: normal affect Supplemental Info Supplemental Information ECHOCARDIOGRAM 04/12/2022 Interpretation Summary Pulmonary artery systolic pressure is 29 mmHg. Normal LV size. Left ventricular systolic function is normal. The estimated ejection fraction is 55 %. Stage 1 diastolic dysfunction. Contrast injection was performed. ??? ECHOCARDIOGRAM 12/09/2021 Interpretation Summary Normal LV size. Mild eccentric left ventricular hypertrophy. Left ventricular systolic function is normal. The estimated ejection fraction is 65 %. Pulmonary artery systolic pressure is 44 mmHg. Contrast injection was performed. Coronary Calcium Scoring 12/22/2018 High-resolution Computed Tomographic imaging of the chest was performed on [12/22/2018], with particular attention paid to the coronary arteries. Images from the examination were analyzed for the presence and extent of coronary artery calcification , using coronary calcium quantification software. The patient tolerated the procedure well and there were no complications. The results of the coronary calcification analysis are provided below. Findings Left Main (LM): 0 Left Anterior Descending (LAD): 0 Left Circumflex (LCX): 0 Right Coronary Artery (RCA): 0 Total Agatston Score: 0 Percentile Rankin CARDIAC MRI 10/04/2011 1.Normal LV size with normal wall thickness and hyperdynamic systolic function; LVEF 80%. 2. Normal RV size and systolic function. No regional wall motion abnormalities or RV aneurysms. 3. Normal biatrial sizes. No significant valvular dysfunction. 4. No myocardial scar on late post-gadolinium images. 5. There appear to be foci of intramyocardial fat, particularly evident in distal interventricular septum. Corroborated with additional fat-water imaging done on 10/01. 6. Normal T2* c/w no iron overload. IMPRESSION Myocardial fat infiltrates. While RV morphology not typical for ARVC, this may represent arrhythmic substrate. ARVC genetic testing may warrant consideration. ECHOCARDIOGRAM 09/13/2011 Interpretation Summary Definity.2ml given slow IV push to enhance endocardial definition. Left ventricular systolic function is normal. The estimated ejection fraction is 65 %. Trivial mitral valve insufficiency. Trivial tricuspid valve insufficiency. Trivial aortic valve insufficiency. Trivial pulmonic valve insufficiency. Right ventricular systolic pressure estimated to be 20 mmHg. STRESS ECHOCARDIOGRAM 09/13/2011 EKG Data Baseline EKG: Normal sinus rhythm, normal. Stress EKG: Sinus tachycardia. No arrythmias or ST changes to suggest ischemia. Resting Wall Motion All segments Normal. Ejection Fraction 65 %. Wall Motion Stress All segments Hyperkinetic. Ejection Fraction 80 %. Interpretation Summary 1. Study performed with definity contrast to enhance endocardial definition. 2. Moderate exercise tolerance achieving a work load of 8.50 METS. 3. No chest discomfort to suggest angina elicited with stress. 4. No arrhythmias or ST changes to suggest ischemia elicited with stress. 5. No regional wall motion abnormalities to suggest ischemia elicited with stress. CARDIAC MRI 12/14/1998 Ventricular tachycardia presumably of right ventricular origin. IMPRESSION: NO EVIDENCE OF RIGHT OR LEFT VENTRICULAR CARDIOMYOPATHY. FINDINGS: Chest wall anatomy is notable for scoliosis which distorts the cardiac anatomy. Lungs are clear where visualized. The mediastinum is normal. The pericardium is normal. The myocardium of the right and left ventricle are within normal limits without evidence of full-thickness replacement of the myocardium with fatty material and no regional thinning to suggest fibrous replacement. Function of both ventricles is normal. No significant valvular dysfunction is seen. Electrophysiology Study 12/13/1998 1. Evaluation of a patient with sustained or symptomatic wide complex tachycardia of uncertain origin. Summary Findings: 1. Sinus node function was normal. 2. AV benjamin testing revealed dual antegrade and retrograde pathways. 3. Infranodal conduction was normal. 4. Retrograde VA conduction was present. 5. Evidence for Accessory Pathway conduction was not found. Isoproterenol 3.0 mcg/min SVT was induced. Atrial tachycardia (cycle length: 262 ms) Additional Comments: Baseline intervals were normal with an incomplete RBBB. Anterograde and retrograde dual AV benjamin physiology was demonstrated, but only single, non-reproducible atypical AV benjamin echo beats could be induced. No typical AV benjamin echo beats or AVNRT could be provoked, including with double atrial extrastimuli and burst pacing on up to 4 ug/min of isoproterenol. No evidence of accessory pathway conduction was found. Nonsustained short runs of an atrial tachycardia were induced on isoproterenol, but these could not be reproducibly induced or sustained despite testing on up to 4 ug/min of isoproterenol. Limited mapping suggested origin was not from a low right atrial site, but from a higher atrial site. No ventricular arrhythmias were inducible with triple extrastimuli from 2 RV sites at 2 PCLs, burst pacing, and long-short intervals at baseline and repeated stimulation on isoproterenol 3 ug/min with up to 4 extrastimuli at 3 PCLs and 2 RV sites, burst pacing and long-short intervals. Labs: LDL Cholesterol 82 mg/dL (0-130) HDL Cholesterol 46 mg/dL (40-) Cholesterol 166 mg/dL (200) Triglycerides 190 mg/dL (-199) Diagnostics: Echocardiogram Abdomen/Pelvis CT Pulmonary: No Data to Display Past Visits: Cardiology Visit 06/05/23 Assessment and Plan Assessment and Plan (1) Pulmonary emboli: Status: Chronic Qualifiers: Pulmonary embolism type: multiple subsegmental (without acute cor pulmonale) Qualified Code(s): I26.94 - Multiple subsegmental pulmonary emboli without acute cor pulmonale Comment: Large volume acute pulmonary emboli involving all of the segmental and subsegmental pulmonary arteries. No evidence of right heart strain. CT 12/09/21 Plan: Pulmonary hypertension has resolved. She does follow with pulmonary for her hx of PE. (2) Essential hypertension: Status: Chronic Plan: This is well controlled on current medications. This is being managed by her primary care doctor. Plan Feel the patient can follow-up with us on an as-needed basis. She is agreeable with this. Plan Details Follow Up: 06/05/23 (PRN) Coding Level of Care Code Off vis,est,level 3 Diagnoses Multiple subsegmental pulmonary emboli without acute cor pulmonale I26.94 Pulmonary embolism type: multiple subsegmental (without acute cor pulmonale) Essential hypertension I10 Coding Level of Care Code Off vis,est,level 3 Diagnoses Multiple subsegmental pulmonary emboli without acute cor pulmonale I26.94 Pulmonary embolism type: multiple subsegmental (without acute cor pulmonale) Essential hypertension I10 06/05/23 1038 <Electronically signed by Lisa Quiles A> Date Lisa MONTENEGRO Cosigner Signature: Date (if applicable) CC: MD Esthela Roland MD Work Phone: Start: 02-28-2023 Plain x-ray of elbow MD Esthela BUTTERFIELD Start: 02-28-2023 X-ray of radius and ulna MD Esthela BUTTERFIELD Start: 02-28-2023 End: 02-28-2023 Elbow min 3 Views Procedure Note: See Note; NOTES: [facility] [address] [place] [address] Elbow min 3 Views MR#: [id number] Acct: [id number] Name: CASS GONZALES Rep #: [id number] : 1945 F 77 From: Fely vivas MD PCP: Dr. Esthela Sands MD Status: DEP AMB Study: Elbow min 3 Views Date of Exam: 02/28/23 Exam# [id number] Ordering Dr: Shiloh Lira HISTORY: right elbow pain -- STAT. TECHNIQUE: XR Elbow Min 3 Views. COMPARISON: 02/19/2023. FINDINGS: BONES : No acute fracture identified. Mild enthesopathy of the lateral epicondyle again seen. JOINTS: No dislocation. Mild degenerative change. SOFT TISSUES: Decreased posterior soft tissue swelling. RAD/Elbow min 3 Views IMPRESSION: No acute fracture or dislocation identified in the right elbow. Decreased posterior soft tissue swelling. Electronically Signed: Fely Anglin MD at 11:42 EDT , CC: Shiloh Lira THREAD SINGER; Dr. Esthela Sands MD Metals Sales Representative: Signed Shiloh Lira [facility] Work Phone: Start: 02-28-2023 End: 02-28-2023 Forearm 2 Views Procedure Note: See Note; NOTES: [facility] [address] [place] [address] Forearm 2 Views MR#: [id number] Acct: [id number] Name: CASS GONZALES Rep #: [id number] : 1945 F 77 From: Fely vivas MD PCP: Dr. Esthela Sands MD Status: [facility] [facility] Study: Forearm 2 Views Date of Exam: 02/28/23 Exam# [id number] Ordering Dr: Shiloh Lira HISTORY: FALL,PAIN -- STAT. TECHNIQUE: XR Forearm 2 Views. COMPARISON: None. FINDINGS: BONES : No acute fracture or cortical erosion identified. JOINTS: No dislocation. Mild degenerative change. SOFT TISSUES: Mild posterior soft tissue swelling. RAD/Forearm 2 Views IMPRESSION: No acute fracture or dislocation identified in the right forearm. Mild posterior soft tissue swelling. Electronically Signed: Fely Anglin MD at 11:43 EDT , CC: Shiloh Lira NP; Dr. Esthela Sands MD Metals Sales Representative: Signed Shiloh Lira CNP Work Phone: Start: 02-19-2023 End: 02-19-2023 Elbow min 3 Views Procedure Note: See Note; NOTES: [facility] Imaging Services [address] [place] [address] Elbow min 3 Views MR#: [id number] Acct: [id number] Name: CASS GONZALES Rep #: [id number] : 1945 F 77 From: Haider flores MD PCP: Dr. Esthela Sands MD Status: REG CLI Study: Elbow min 3 Views Date of Exam: 02/19/23 Exam# [id number] Ordering Dr: Shiloh Lira THREAD SINGER- C STUDY: X-RAY - RIGHT ELBOW REASON FOR EXAM: Female, 77 years old. Posterior elbow pain and swelling following a fall. TECHNIQUE: 3 view(s) of the elbow. COMPARISON: None. FINDINGS: Normal visualized humerus, radius and ulna. Normal radiocapitellar and ulnotrochlear articulations. Soft tissue swelling overlying the dorsal aspect of the proximal ulna. RAD/Elbow min 3 Views IMPRESSION: Soft tissue swelling overlying the dorsal aspect of the proximal ulna. No fracture or dislocation is seen. Electronically Signed: Haider Driscoll MD at 10:06 EDT , CC: Shiloh Lira NP; Dr. Esthela Sands MD Metals Sales Representative: Signed Shiloh Lira CNP Work Phone: Start: 06-14-2023 Plain x-ray of elbow MD Esthela [place] Start: 02-19-2023 CT of head without contrast MD Esthela [place] Start: 02-19-2023 End: 02-19-2023 Brain/Head without Contrast Procedure Note: See Note; NOTES: [facility] Imaging Services [address] [place] [address] Brain/Head without Contrast MR#: [id number] Acct: [id number] Name: CASS GONZALES Rep #: [id number] : 1945 F 77 From: Haider flores MD PCP: Dr. Esthela Sands MD Status: REG CLI Study: Brain/Head without Contrast Date of Exam: 02/06 12/29 Exam# [id number] Ordering Dr: Shiloh Lira THREAD SINGER- C STUDY: CT BRAIN WITHOUT CONTRAST REASON FOR EXAM: Female, 77 years old. HEAD TRAUMA-FALL ON BLOOD THINNERS RADIATION DOSAGE (If Supplied By Facility): CTDIvol = ( 47.06 ) mGy, DLP = ( 943.26 ) mGycm TECHNIQUE: Transaxial CT imaging of the brain was performed without administration of intravenous contrast material. Individualized dose optimization techniques were used for this CT. COMPARISON: No relevant priors. FINDINGS: Normal soft tissue structures. There is hyperostosis frontalis internus. There is mild cerebral atrophy with widening of the extra-axial spaces and ventricular dilatation. There are areas of decreased attenuation within the white matter tracts of the supratentorial brain, consistent with microvascular disease changes. Normal basal ganglia and thalami. Normal brainstem. Normal cerebellum. There is no intracranial hemorrhage. There are no findings of an acute ischemic infarction. Atherosclerotic calcification of the cavernous portions of the internal carotid arteries bilaterally. Mucosal thickening of the left maxillary and left ethmoid sinus. CT/Brain/Head without Contrast IMPRESSION: Chronic involutional changes of the brain. Electronically Signed: Haider Driscoll MD at 10:45 EDT , CC: Shiloh Lira THREAD SINGER; Dr. Esthela Sands MD Metals Sales Representative: Signed Shiloh Lira CNP Work Phone: Start: 12-23-2022 Screening mammography MD Esthela [place] Start: 12-23-2022 End: 12-23-2022 SCRN MAMM (CAD)W/EVY BILAT Procedure Note: See Note; NOTES: [facility] Imaging Services [address] [place] [address] SCRN MAMM (CAD)W/EVY BILAT MR#: [id number] Acct: [id number] Name: CASS GONZALES Rep #: [id number] : 1945 F 77 From: Haider flores MD PCP: Esthela Sands MD Status: REG CLI Study: SCRN MAMM (CAD)W/EVY BILAT Date of Exam: 12/07 03/30 Exam# [id number] Ordering Dr: Esthela Sands MD MAMMOGRAPHY - BILATERAL SCREENING REASON FOR EXAM: Female, 77 years old. Routine annual screening examination. PERTINENT HISTORY: Grandmother with breast cancer. Aunt with breast cancer. TECHNIQUE: Digital bilateral breast evy (3D mammographic acquisition) in the CC and MLO projections. 2-D mediolateral oblique (MLO) and craniocaudad (CC) views of both breasts were obtained. CAD: Full Field Digital Mammography with Computer Added Detection was performed. COMPARISON: Comparison is made with prior study dated December 18, 2021 and June 28, 2020. FINDINGS: Breast Composition: There are scattered areas of fibroglandular density. There are no dominant masses or suspicious calcifications. Stable benign-appearing bilateral axillary lymph nodes. Stable 3.9 mm well-defined nodule in the upper lateral aspect of the right breast. No other significant abnormalities are identified. There has been no significant change since the prior study. BI/SCRN MAMM (CAD)W/EVY BILAT IMPRESSION: Stable bilateral screening mammogram. Yearly follow-up mammogram recommended. (A) ASSESSMENT CATEGORY: BIRADS Category 2: Benign. A letter regarding these results will be sent to the patient by the facility within 30 days. Approximately 10% of breast cancers are not detected by mammography. A normal mammogram should not delay biopsy of a clinically suspicious abnormality. [id number] Electronically Signed: Haider Driscoll MD at 8:54 EDT Reading Location ID and State: [address] [place] [address] , Service support , CC: Esthela Sands MD; Dr. Esthela Sands MD Metals Sales Representative: Signed Esthela Sands MD Work Phone: Start: 05-23-2022 End: 05-24-2022 Dexa Bone Density Study Procedure Note: See Note; NOTES: [facility] Imaging Services [address] [place] [address] Dexa Bone Density Study MR#: [id number] Acct: [id number] Name: CASS GONZALES Rep #: [id number] : 1945 F 77 From: Haider flores MD PCP: Esthela Sands MD Status: REG CLI Study: Dexa Bone Density Study Date of Exam: 05/23/22 Exam# [id number] Ordering Dr: Esthela Sands MD STUDY: DUAL ENERGY X-RAY ABSORPTIOMETRY / DXA REASON FOR EXAM: Female, 77 years old. [id number]. Patient is postmenopausal. TECHNIQUE: Bone Mineral Density (BMD) measurements of lumbar spine and bilateral hips were obtained. COMPARISON: Comparison is made with prior study dated 01/14/2019. FINDINGS: Lumbar Spine (L1-L4): g/cm2 (0.931) / T-score (-1.1) / Z-score (1.4) Findings are suggestive of osteopenia with a low fracture risk. Left Femur Total: g/cm2 (0.815) / T-score (-1.0) / Z-score (0.8) Left Femoral Neck: g/cm2 (0.626) / T-score (-2.0) / Z-score (0.1) Right Femur Total: g/cm2 (0.848) / T-score (-0.8) / Z-score (1.1) Right Femoral Neck: g/cm2 (0.645) / T-score (-1.8) / Z-score (0.3) The T-Scores on the most recent prior examination were: Lumbar Spine (L1-L4): There has been worsening of bone density since the previous examination. Left Femur Total: which represents an improvement of 0.4%. Right Femur Total: which represents an improvement of 1.6%. BD/Dexa Bone Density Study IMPRESSION: The patient is considered osteopenic as outlined below according to World [place] Organization (WHO) criteria with a moderate fracture risk. There has been improvement of bone density since the previous examination. Reference Information: The T-score is the number of standard deviations above or below the standard which is normal for young adults at their peak bone mineral density. The World Health Organization (WHO) interprets the T-scores as follows: Above -1 Normal bone density Between -1 and -2.5 Osteopenia Equal to / or below -2.5 Osteoporosis As a practical clinical guideline, osteopenia may be graded as follows: Mild -1 through -1.5 Moderate -1.6 through -2.0 Severe -2.1 through -2.4 The Z-score is the number of standard deviations above or below age-matched controls. A Z-score of less than -1.5 would be considered abnormal. References: 1. NIH Osteoporosis and Related Bone Diseases www osteo.org 2. International Society for Clinical Densitometry www iscd.org 3. National Osteoporosis Foundation www nof.org Electronically Signed: Haider Driscoll MD at 10:04 EDT , CC: Esthela Sands MD; Dr. Esthela Sands MD Metals Sales Representative: Signed Esthela Sands MD Work Phone: Start: 05-23-2022 Dual energy X-ray absorptiometry Dr. Tejas Garcia Work Phone: Start: 05-02-[address] Tejas Garcia Work Phone: Start: 05-02-2022 End: 05-03-2022 Pelvic (Non ) Procedure Note: See Note; NOTES: [facility] Imaging Services [address] [place] [address] Pelvic (Non ) MR#: [id number] Acct: [id number] Name: CASS GONZALES Rep #: [id number] : 1945 F 77 From: Arnaud Carlos DO PCP: Esthela Sands MD Status: REG CLI Study: Pelvic (Non ) Date of Exam: 05/02/22 Exam# [id number] Ordering Dr: Esthela Sands MD STUDY: ULTRASOUND OF THE FEMALE PELVIS - COMPLETE REASON FOR EXAM: Female, 77 years old. CYST-LTO LMP: Unknown. TECHNIQUE: Transabdominal and Transvaginal TECHNICAL QUALITY: Limited. Examination limited by bowel gas. COMPARISON: None. FINDINGS: The uterus is anteverted and is in a midline position. The uterus measures 6.8 x 4.1 x 3.7 cm. Normal uterine cervix. The endometrium measures 3 mm in thickness, and is fluid distended. There is no demonstrated endometrial mass. There is no demonstrated myometrial mass. I.U.D. - The patient does not have an I.U.D. The right ovary is non-visualized. No right adnexal lesions. The left ovary is visualized. The left ovary measures 3.5 x 2.2 x 1.8 cm. Dominant anechoic left ovarian follicle measuring 2.4 x 1.7 x 1.6 cm. There is no visualized left adnexal mass or complex lesion. There is normal arterial and normal venous vascularity. There is no fluid in the cul-de-sac. US/Pelvic (Non ) IMPRESSION: Mildly fluid distended endometrium, nonspecific. Nonvisualized right ovary. Dominant left ovarian follicle. Remainder is unremarkable. Electronically Signed: Arnaud Carlos DO at 6:44 EDT Reading Location ID and State: [facility] / [place] Tel , Service support , CC: Esthela Sands MD; Dr. Esthela Sands MD Metals Sales Representative: Signed Esthela Sands MD Work Phone: Start: 04-25-2022 CT of abdomen and pelvis without contrast Dr. Tejas Garcia Work Phone: Start: 04-12-2022 End: 04-12-2022 Echo Complete W/ Contrast Procedure Note: See Note; NOTES: [facility] Cardiovascular Services [address] [place] [address] Echo Complete W/ Contrast 04/12/22 1004 MR#: [id number] Acct: [id number] Name: CASS GONZALES Rep #: [id number] : 1945 77 From: Jean-Claude Parkinson MD Attending Dr: Dr. Jean-Claude Parkinson MD Status: SADIQ ALDRIDGE Ordering Dr: Jean-Claude Parkinson MD Date: 04/12/22 Location: [facility] Sex: F C Admitted: Reason For Study: Dyspnea/SOB Procedure This was a 2D Doppler, Color Flow transthoracic echocardiogram. Contrast injection was performed. Exam performed in department. Left Ventricle Normal LV size. Left ventricular systolic function is normal. The estimated ejection fraction is 55 %. Stage 1 diastolic dysfunction. No regional wall motion abnormalities noted. Right Ventricle Normal RV size. Normal systolic function. Atria Normal left atrium. Normal right atrium. Mitral Valve Normal mitral valve. Tricuspid Valve Normal tricuspid valve. Mild tricuspid valve insufficiency. Pulmonary artery systolic pressure is 29 mmHg. Aortic Valve Trisinus/trileaflet aortic valve. Pulmonic Valve The pulmonic valve is not well visualized. Great Vessels Normal aortic root. The pulmonary artery is normal size. Normal inferior vena cava. Pericardium/Pleural No pericardial effusion. Medication Diluted definity 3.5ml given slow IV push to enhance endocardial definition. MMode/2D Measurements Calculations LVIDd: 3.8 cm IVSd: 1.3 cm Ao root diam: 3.8 cm LVIDs: 2.2 cm LVPWd: 1.0 cm RVDd: 2.6 cm FS: 42.7 % LAV(MOD-bp): 34.9 ml LVAd ap4: 20.1 cm2 SV(MOD-sp4): 36.4 ml LAV(MOD-bp) Indexed: 18.1 ml/m2 LVLd ap4: 6.4 cm LAV(MOD-sp2): 44.0 ml EDV(MOD-sp4): 53.1 ml LAV(MOD-sp4): 27.9 ml EDV(sp4-el): 53.7 ml LVAs ap4: 10.2 cm2 LVLs ap4: 5.3 cm ESV(MOD-sp4): 16.7 ml ESV(sp4-el): 16.7 ml EF(MOD-sp4): 68.5 % EF(sp4-el): 68.9 % SV(sp4-el): 37.0 ml LA A4 area: 12.9 cm2 LA dimension(2D): 3.8 cm RA A4 area: 11.6 cm2 Doppler Measurements Calculations MV E max lisa: 67.0 cm/sec Lat Peak E' Lisa: 6.6 cm/sec Med Peak E' Lisa: 4.7 cm/sec MV A max lisa: 83.5 cm/sec E/E' lat: 10.2 E/E' med: 14.2 MV E/A: 0.80 Ao V2 max: 124.5 cm/sec LV V1 max: 114.3 cm/sec PA V2 max: 77.3 cm/sec Ao max P.2 mmHg LV V1 max P.2 mmHg Ao V2 mean: 85.6 cm/sec Ao mean P.2 mmHg Ao V2 VTI: 25.0 cm TR max lisa: 245.0 cm/sec TR max P.0 mmHg ECHO/Echo Complete W/ Contrast Interpretation Summary Pulmonary artery systolic pressure is 29 mmHg. Normal LV size. Left ventricular systolic function is normal. The estimated ejection fraction is 55 %. Stage 1 diastolic dysfunction. Contrast injection was performed. _ Ordering Physician: Jean-Claude Parkinson Referring Physician: Tejas Garcia Performed By: Maureen Herman, ANA LAURA, RVT 04/12/22 1235 Date Jean-Claude Parkinson MD CC: Dr. Jean-Claude Parkinson MD; Dr. Tejas Garcia MD Date Dictated: 04/12/22 1004 Date Transcribed: 04/12/22 1235 Metals Sales Representative: Signed Esthela Sands MD Work Phone: Start: 01-07-2022 Bacteria identified in Urine by Culture Dr. Tejas Garcia Work Phone: Start: 01-07-[address] Tejas Garcia Work Phone: Start: 12-18-[address] Tejas Garcia Work Phone: Start: 12-09-2021 CT angiography of chest with contrast Dr. Tejas Garcia Work Phone: Start: 12-09-2021 Plain chest X-ray Dr. Tejas Garcia Work Phone: Start: 12-09-2021 SARS-CoV-2 & FLU Antigen (Rapid) Dr. Tejas Garcia Work Phone: Start: 09-13-2015 End: 09-13-2015 Chest PA and Lateral Comments: See Note; NOTES: [facility] Imaging Services [address] [place] [address] Verdana 4d Chest PA and Lateral MR#: [id number] Acct: [id number] Name: CASS GONZALES Rep #: [id number] : 1945 F 70 From: Haider Driscoll MD PCP: Esthela Sands MD Status: REG CLI Study: Chest PA and Lateral Date of Exam: 09/13/15 Exam# [id number] Ordering Dr: Kait Portillo STUDY: X-RAY CHEST REASON FOR EXAM: Female, 70 years old. Right lung infiltration. TECHNIQUE: PA and lateral views of the chest. COMPARISON: Comparison is made with prior examination dated August 26, 2015. FINDINGS: There is minimal elevation of the right hemidiaphragm. No focal infiltrate is seen. Scattered calcified granulomas. There is no demonstrated pleural abnormality. Normal size heart. Normal mediastinum and thony. Normal visualized pulmonary arteries. There is atherosclerotic calcification of the aortic arch with tortuosity. There are diffuse degenerative changes of the visualized thoracic spine. Mild dextroscoliosis. Normal visualized ribs, clavicles, and shoulders. There is no demonstrated abnormality of the visualized soft tissue structures of the upper abdomen. IMPRESSION: The lungs are now clear. Electronically Signed: Haider Driscoll MD at 12:59 EST Tel [phone], Service support [phone], RAD/Chest PA and Lateral IMPRESSION: The lungs are now clear. Electronically Signed: Haider Driscoll MD at 12:59 EST Tel [phone], Service support [phone], CC: Kait Portillo; Esthela Sands MD Metals Sales Representative: Signed Kait Portillo Work Phone: Start: 08-29-2015 End: 08-29-2015 12 lead ECG Comments: See Note; NOTES: [facility] Cardiovascular Services [address] [place] [address] 12 Lead EKG 08/26/156 MR#: [id number] Acct: [id number] Name: CASS GONZALES Rep #: [id number] : 1945 70 From: Jean-Claude Parkinson MD Attending Dr: Status: DEP ER Ordering Dr: Abdoulaye Martin MD Date: 08/26/15 Location: ED Sex: F C Admitted: Test Reason : CP Blood Pressure : / mmHG Vent. Rate : 087 BPM Atrial Rate : 087 BPM P-R Int : 176 ms QRS Dur : 094 ms QT Int : 368 ms P-R-T Axes : 047 -54 054 degrees QTc Int : 442 ms Normal sinus rhythm Left axis deviation Nonspecific ST and T wave abnormality Abnormal ECG Confirmed by IGGY JUAREZ, JEAN-CLAUDE ([id number]), medical editor KATERINE JIMENES ([id number]) on 08/29/2015 1:24:58 PM Referred By: NAY/IBETH Confirmed By:JEAN-CLAUDE PARKINSON MD 08/29/15 1325 Date Jean-Claude Parkinson MD CC: Esthela Sands MD Date Dictated: 08/26/15 1216 Date Transcribed: 08/26/151215 Metals Sales Representative: Signed Esthela Sands MD Work Phone: Start: 08-26-2015 End: 08-26-2015 Discharge Instruction Comments: See Note; NOTES: [facility] Medical Records Department [address] [place] [address] Discharge Instruction 08/26/15 1306 MR#: [id number] Acct: [id number] Name: CASS GONZALES Rep #: [id number] : 1945 70 From: Abdoulaye Martin MD PCP: Esthela Sands MD Status: DEP ER ED Disposition - Plan for ED Patient: Chief Complaint: Cough Instructions: ED Bronchitis With Wheezing (Adult) Prescriptions: Hydrocodone Bit/Homatropine [Hycodan Syrup] 5 ml PO Q4H PRN PRN #30 udc PRN Reason: Cough Albuterol Inhaler [Ventolin Hfa] 1 - 2 puff INHALATION Q4H PRN PRN #1 inhaler PRN Reason: Wheezing Prednisone 10 mg PO UD #33 tablet Doxycycline [Vibramycin] 100 mg PO BID #20 capsule Referrals: Esthela Sands MD [Primary Care Provider] - What to do if you have Problems For any increased pain, shortness of breath, bleeding, nausea or vomiting, chest pain, or any unexpected problems, contact your doctor. Call [facility] ([phone]) or report to the closest Emergency Room. Call 911 if necessary. 08/26/15 1416 <Electronically signed by Abdoulaye Martin MD> Date Abdoulaye Martin MD Cosigner Signature (If Indicated): Date CC: Esthela Sands MD Work Phone: Start: 08-26-2015 End: 08-26-2015 Emergency Department Summary Comments: See Note; NOTES: [facility] Medical Records Department [address] [place] [address] Emergency Department Summary MR#: [id number] Acct: [id number] Name: CASS GONZALES Rep #: [id number] : 1945 70 From: Abdoulaye Martin MD PCP: Esthela Sands MD Status: DEP ER DATE OF SERVICE: 08/26/2015 CHIEF COMPLAINT: Cough. HISTORY OF PRESENT ILLNESS: A 70-year-old female who presents with cough, sore throat and mild dyspnea. The patient states symptoms began about 3 days ago. She developed mild sore throat and then had congestion. She states that over the past 2 days, she has had worsening cough. She has had very scant sputum, most of the time it is unproductive. She states that the main reason she presented is because of pain in her chest wall with coughing. She has not had hemoptysis. She has no history of PE. She denies any history of lung disease. She does not smoke. She denies any fevers; thinks that she may have had some chills, but they have since resolved. PHYSICAL EXAMINATION: VITAL SIGNS: Afebrile. Vitals unremarkable. GENERAL: Well-appearing female, in no acute distress. HEENT: Head is normocephalic, atraumatic. Pupils equal, round and reactive. Extraocular muscles intact. NECK: Supple. HEART: Regular rate and rhythm without murmur. LUNGS: Diminished with an expiratory wheeze. ABDOMEN: Soft, nontender, nondistended. EXTREMITIES: Show no edema. EMERGENCY DEPARTMENT COURSE: The patient's symptoms did seem more primary respiratory. She had wheezing in all lung hearn. She has no underlying lung disease. She was given albuterol, Atrovent, and prednisone. On reevaluation, she had marked improvement of her aeration. She was not tachypneic, not hypoxic. Chest x-ray was obtained, questionable right lower lobe infiltrate versus atelectasis. With her age and symptoms, I will treat her with doxycycline. She will also be given an inhaler, cough suppressant, and prednisone. The patient again was not tachypneic. She is not hypoxic. I do feel she qualifies for outpatient therapy, which she agrees with. She will return with any worsening symptoms. IMPRESSION: Acute bronchospasm of infectious bronchitis. DISPOSITION: Discharge. Abdoulaye Martin MD T: NTS JOB: [id number] 08/26/15 1416 <Electronically signed by Abdoulaye Martin MD> Date Abdoulaye Martin MD Cosigner Signature (If Indicated): Date CC: Esthela Sands MD Date Dictated: 08/26/15 1306 Date Transcribed: 08/26/151305 Metals Sales Representative: Signed Esthela Sands MD Work Phone: Start: 08-26-2015 End: 08-27-2015 Chest PA and Lateral Comments: See Note; NOTES: [facility] Imaging Services [address] [place] [address] Verdana 4d Chest PA and Lateral MR#: [id number] Acct: [id number] Name: CASS GONZALES Rep #: [id number] : 1945 F 70 From: Paige Jimenes MD PCP: Esthela Sands MD Status: DEP ER Study: Chest PA and Lateral Date of Exam: 08/26/15 Exam# [id number] Ordering Dr: Abdoulaye Martin MD STUDY: X-RAY CHEST REASON FOR EXAM: Female, 70 years old. Cough for 2 days. TECHNIQUE: PA and lateral views of the chest. COMPARISON: None. FINDINGS: Cardiac monitoring leads are present. Lungs are expanded. Mild interstitial thickening is present. There are Ruma B. lines within the left lung. There is left basilar subsegmental atelectasis There is no demonstrated pleural abnormality. There is borderline cardiomegaly. Normal mediastinum and thony. There is prominence of the pulmonary hilar arteries without peripheral pulmonary vascular congestion. There is atherosclerotic calcification of the aortic arch with tortuosity. The bones are osteopenic. There is moderate curvature of the thoracic spine with convexity towards the right. Normal visualized ribs, clavicles, and shoulders. There is no demonstrated abnormality of the visualized soft tissue structures of the upper abdomen. IMPRESSION: Left basilar subsegmental atelectasis. Electronically Signed: Paige Jimenes MD at 7:00 EST , Service support [phone], RAD/Chest PA and Lateral IMPRESSION: Left basilar subsegmental atelectasis. Electronically Signed: Paige Jimenes MD at 7:00 EST , Service support [phone], CC: Esthela Sands MD; Abdoulaye Martin MD Metals Sales Representative: Signed Esthela Sands MD Work Phone: Start: 07-12-2015 End: 07-12-2015 Bilat Scrn Digital AND CAD Comments: See Note; NOTES: [facility] Imaging Services [address] [place] [address] Verdana 4d Bilat Scrn Digital AND CAD MR#: [id number] Acct: [id number] Name: CASS GONZALES Rep #: [id number] : 1945 F 70 From: Haider Driscoll MD PCP: Esthela Sands MD Status: REG CLI Study: Bilat Scrn Digital AND CAD Date of Exam: 07/12/15 Exam# [id number] Ordering Dr: Esthela Sands MD MAMMOGRAPHY - BILATERAL SCREENING REASON FOR EXAM: Female, 70 years old. Routine annual screening examination. PERTINENT HISTORY: Grandmother with breast cancer. Prior left excisional breast biopsy. TECHNIQUE: Digital examination. Mediolateral oblique (MLO) and craniocaudad (CC) views of both breasts were obtained. CAD: CAD was performed on this study. COMPARISON: Comparison is made with prior study dated July 11, 2014 and July 08, 2013. FINDINGS: Breast Composition: There are scattered areas of fibroglandular density. There are no dominant masses or suspicious calcifications. Stable bilateral axillary lymph nodes. No other significant abnormalities are identified. There has been no significant change since the prior study. IMPRESSION: Stable bilateral screening mammogram. Yearly follow-up recommended. (A) ASSESSMENT CATEGORY: BIRADS Category 2: Benign. A letter regarding these results will be sent to the patient by the facility within 30 days. Approximately 10% of breast cancers are not detected by mammography. A normal mammogram should not delay biopsy of a clinically suspicious abnormality. Electronically Signed: Haider Driscoll MD at 9:01 EST Tel [phone], Service support [phone], CC: Esthela Sands MD Metals Sales Representative: Signed Esthela Sands MD Work Phone: Start: 08-11-2014 End: 08-12-2014 Dexa Bone Density Study (HP) Comments: See Note; NOTES: [facility] Imaging Services [address] [place], [place] [id number] Bone Density Report MR#: [id number] Acct: [id number] Name: CASS GONZALES Rep #: [id number] : 1945 F 69 From: Haider Driscoll MD PCP: Esthela Sands MD Status: [facility] Study: Dexa Bone Density Study (HP) Date of Exam: 08/11/14 Exam# [id number] Ordering Dr: Esthela Sands MD STUDY: DUAL ENERGY X-RAY ABSORPTIOMETRY / DXA REASON FOR EXAM: Female, 69 years old. Osteopenia. TECHNIQUE: Bone Mineral Density (BMD) measurements of lumbar spine and bilateral hips were obtained. COMPARISON: Comparison is made with prior study dated July 23, 2012. FINDINGS: Lumbar Spine (L1-L4): g/cm2 (0.968) / T-score (-1.6) / Z-score (0.0) Findings are suggestive of osteopenia with a moderate fracture risk. Left Femur Total: g/cm2 (0.919) / T-score (-0.7) / Z-score (0.7) Left Femoral Neck: g/cm2 (0.800) / T-score (-1.7) / Z-score (-0.1) Right Femur Total: g/cm2 (0.910) / T-score (-0.8) / Z-score (0.6) Right Femoral Neck: g/cm2 (0.791) / T-score (-1.8) / Z-score (-0.2) The T-Scores on the most recent prior examination were: Lumbar Spine (L1-L4): There has been worsening of bone density since the previous examination. Left Femur Total: which represents an improvement of 2.7%. Right Femur Total: which represents an improvement of 1.6%. IMPRESSION: The patient is considered osteopenic as outlined below according to World [place] Organization (WHO) criteria with a moderate fracture risk. There has been improvement of bone density since the previous examination. Reference Information: The T-score is the number of standard deviations above or below the standard which is normal for young adults at their peak bone mineral density. The World Health Organization (WHO) interprets the T-scores as follows: Above -1 Normal bone density Between -1 and -2.5 Osteopenia Equal to / or below -2.5 Osteoporosis As a practical clinical guideline, osteopenia may be graded as follows: Mild -1 through -1.5 Moderate -1.6 through -2.0 Severe -2.1 through -2.4 The Z-score is the number of standard deviations above or below age-matched controls. A Z-score of less than -1.5 would be considered abnormal. References: 1. NIH Osteoporosis and Related Bone Diseases http://www.osteo.org 2. International Society for Clinical Densitometry http://www.iscd.org 3. National Osteoporosis Foundation http://www.nof.org Electronically Signed: Haider Driscoll MD at 14:54 EST Tel [phone], Service support [phone], CC: Esthela Sands MD Metals Sales Representative: Signed Esthela Sands MD Work Phone: Start: 07-11-2014 End: 07-11-2014 Bilat Scrn Digital & CAD Comments: See Note; NOTES: [facility] Imaging Services [address] [place] [address] Breast Imaging Report MR#: [id number] Acct: [id number] Name: CASS GONZALES Rep #: [id number] : 1945 F 69 From: Haider Driscoll MD PCP: Esthela Sands MD Status: REG CLI Exam# [id number] Ordering Dr: Esthela Sands MD MAMMOGRAPHY - BILATERAL SCREENING REASON FOR EXAM: Female, 69 years old. Routine annual screening examination. PERTINENT HISTORY: Grandmother with breast cancer. TECHNIQUE: Digital examination. Mediolateral oblique (MLO) and craniocaudad (CC) views of both breasts were obtained. CAD: CAD was performed on this study. COMPARISON: Comparison is made with prior study dated July 08, 2013 and June 08, 2012. FINDINGS: Breast Composition: There are scattered areas of fibroglandular density. There are no dominant masses or suspicious calcifications. No other significant abnormalities are identified. There has been no significant change since the prior study. IMPRESSION: Stable bilateral screening mammogram. Yearly follow-up recommended. (A) ASSESSMENT CATEGORY: BIRADS Category 2: Benign finding(s). A letter regarding these results will be sent to the patient by the facility within 30 days. Approximately 10% of breast cancers are not detected by mammography. A normal mammogram should not delay biopsy of a clinically suspicious abnormality. Electronically Signed: Haider Driscoll MD at 10:29 EST Tel [phone], Service support [phone], CC: Esthela Sands MD Metals Sales Representative: Signed Esthela Sands MD Work Phone: Start: 07-08-2013 End: 07-08-2013 Bilat Scrn Digital & CAD Comments: See Note; NOTES: [facility] Imaging Services [address] [place] [address] Breast Imaging Report MR#: [id number] Acct: [id number] Name: CASS GONZALES Rep #: [id number] : 1945 F 68 From: Haider Driscoll MD PCP: Esthela Sansd MD Status: REG CLI Exam# [id number] Ordering Dr: Esthela Sands MD MAMMOGRAPHY - BILATERAL SCREENING REASON FOR EXAM: Female, 68 years old. Routine annual screening examination. PERTINENT HISTORY: Grandmother with breast cancer. TECHNIQUE: Digital examination. Mediolateral oblique (MLO) and craniocaudad (CC) views of both breasts were obtained. CAD: CAD was performed on this study. COMPARISON: Comparison is made with prior study dated June 08, 2012 and May 30, 2010. FINDINGS: The breast composition is composed of scattered fibroglandular tissues ranging from 25% to 50% of the breast. There are no dominant masses or suspicious calcifications. No other significant abnormalities are identified. There has been no significant change since the prior study. IMPRESSION: Stable bilateral screening mammogram. Yearly follow-up recommended. (A) ASSESSMENT CATEGORY: BIRADS Category 2: Benign finding(s). A letter regarding these results will be sent to the patient by the facility within 30 days. Approximately 10% of breast cancers are not detected by mammography. A normal mammogram should not delay biopsy of a clinically suspicious abnormality. Signed: Haider Driscoll M.D. July 08, 2013 at 1:05:58 PM EDT [phone] Electronically Signed GP/GP If you are the referring physician and would like to consult with the radiologist who provided this interpretation, please contact Haidre Driscoll M.D. at [phone]. If this radiologist is unavailable, you will be directed to another radiologist to assist. If you are a patient with a question regarding this report, please contact your referring physician directly. Professional Interpretation Provided By: [employer], Phone , These documents contain legally protected and confidential health information intended only for the use of the individual or entity named above. If you are not the intended recipient, you are hereby notified that any disclosure, copying, distribution, or other use of these documents is strictly prohibited. If you have received this information in error, please notify the sender immediately and arrange for the return or destruction of these documents. CC: Esthela Sands MD Metals Sales Representative: Signed Esthela Sands MD Work Phone: Bacteria identified in Urine by Culture Dr. Tejas Garcia Work Phone: Biopsy Raúl Alberts LP N Comment on above: of neck on the right-benign, biopsy of l eft breast-benign Biopsy Raúl Alberts LP N Comment on above: of neck on the right-benign, biopsy of l eft breast-benign Biopsy Marylin Henning LP N Comment on above: of neck on the right-benign, biopsy of l eft breast-benign Biopsy Marylin Henning LP N Comment on above: of neck on the right-benign, biopsy of l eft breast-benign Biopsy Blaze Le CMA Comment on above: of neck on the right-benign, biopsy of l eft breast-benign Biopsy Yamila Ferguson PN Comment on above: of neck on the right-benign, biopsy of l eft breast-benign D and C Raúl Alberts LP N Comment on above: 2-3 times D and C Raúl Alberts LP N Comment on above: 2-3 times D and C Marylin Slarb LP N Comment on above: 2-3 times D and C Marylin Slarb LP N Comment on above: 2-3 times D and C Tamikafavian Rey TELEPHONE QUOTATION CLERK Comment on above: 2-3 times D and C Yamila Rangel L PN Comment on above: 2-3 times radiofrequetcy ablat ion of heart for arrthymia Raúl Alberts [employer] DEVELOPER Comment on above: wide complex tachy. radiofrequetcy ablat ion of heart for arrthymia Marylin Slarb [employer] DEVELOPER Comment on above: wide complex tachy. radiofrequetcy ablat ion of heart for arrthymia Marylin Slarb [employer] DEVELOPER Comment on above: wide complex tachy. radiofrequetcy ablat ion of heart for arrthymia Lexiideloresfavian Rey TELEPHONE QUOTATION CLERK Comment on above: wide complex tachy. radiofrequetcy ablat ion of heart for arrthymia Yamila Rangel [employer] DEVELOPER Comment on above: wide complex tachy. SARS-CoV-2 & FLU Antigen (Rapid) Dr. Tejas Garcia Work Phone: Tonsillectomy Raúl Alberts L PN Tonsillectomy Raúl Alberts L PN Tonsillectomy Marylin Slarb L PN Tonsillectomy Marylin Slarb L PN Tonsillectomy Tamikafavian Rey TELEPHONE QUOTATION CLERK Tonsillectomy Yamila Rangel [employer]M DEVELOPER Tonsillectomy Yamila Rangel [employer]M DEVELOPER Tonsillectomy Yamila Rangel [employer] DEVELOPER Urine culture Dr. Tejas Garcia Work Phone: Yamila Rangel L PN Yamila Rangel L PN Plan of Treatment Date Care Activity Detail Author Start: 06-12-2023 Procedure Education [facility]; [facility] Work Phone: Start: 06-09-2023 Procedure Education [facility]; [facility] Work Phone: Start: 04-29-2023 Assay of thyroid stimulating hormone tsh TSH (THYROID STIMULATING HORMONE) (30453) [facility]; [facility] Work Phone: Start: 04-08-2023 Basic metabolic panel calcium total [facility]; [facility] Work Phone: Comment on above: in 3 weeks Start: 04-08-2023 Procedure Education [facility]; [facility] Work Phone: Start: 03-10-2023 Culture bct isol&prsmptv id isolate ea urine URINE ZIGGY CULTURE-IDENTIFICATN (01210) [facility]; [facility] Work Phone: Start: 03-10-2023 Procedure Education [facility]; [facility] Work Phone: Start: 02-28-2023 Procedure Education [facility]; [facility] Work Phone: Start: 02-28-2023 Provider Instructions for Treatment [facility]; [facility] Work Phone: Start: 02-19-2023 Procedure Education [facility]; [facility] Work Phone: Start: 02-14-2023 Procedure Education [facility]; [facility] Work Phone: Start: 05-14-2022 Procedure Education [facility]; [facility] Work Phone: Start: 05-14-2022 Assay of thyroid stimulating hormone tsh [facility]; [facility] Work Phone: Start: 05-14-2022 Comprehensive metabolic panel [facility]; [facility] Work Phone: Start: 05-14-2022 Lipid panel [facility]; [facility] Work Phone: Start: 04-30-2022 Procedure Education [facility]; [facility] Work Phone: Start: 04-25-2022 [facility] Work Phone: Start: 04-10-2022 Procedure Education [facility]; [facility] Work Phone: Start: 04-10-2022 Hemoglobin glycosylated a1c [facility]; [facility] Work Phone: Start: 12-11-2021 Patient discharge [facility] Work Phone: Start: 12-10-2021 Care planning and problem solving actions [facility] Work Phone: Start: 12-09-2021 Oxygen therapy [facility] Work Phone: Start: 12-09-2021 Following clinical pathway protocol [facility] Work Phone: Start: 12-09-2021 Assessment of risk of venous thromboembolism [facility] Work Phone: Start: 12-09-2021 Elevation of affected extremity [facility] Work Phone: Start: 12-09-2021 Insertion of catheter into peripheral vein [facility] Work Phone: Start: 12-09-2021 Measuring intake and output [facility] Work Phone: Start: 12-09-2021 Providing care according to standard [facility] Work Phone: Start: 12-09-2021 Self-administration of medication [facility] Work Phone: Start: 12-09-2021 [facility] Work Phone: Start: 12-09-2021 Admission procedure [facility] Work Phone: Start: 04-02-2016 Procedure Education [facility]; [facility] Work Phone: Start: 11-27-2015 Provider Instructions for Treatment [facility]; [facility] Work Phone: Start: 11-17-2015 Patient Education [facility]; [facility] Work Phone: Start: 11-17-2015 Provider Instructions for Treatment [facility]; [facility] Work Phone: Start: 11-17-2015 Comprehensive metabolic panel [facility]; [facility] Work Phone: Start: 11-17-2015 Lipid panel [facility]; [facility] Work Phone: Start: 11-17-2015 Assay of thyroid stimulating hormone tsh [facility]; [facility] Work Phone: Start: 09-15-2015 Provider Instructions for Treatment [facility]; [facility] Work Phone: Start: 08-30-2015 Provider Instructions for Treatment [facility]; [facility] Work Phone: Start: 05-19-2015 Comprehensive metabolic panel [facility]; [facility] Work Phone: Start: 05-19-2015 Lipid panel [facility]; [facility] Work Phone: Start: 05-19-2015 Assay of thyroid stimulating hormone tsh [facility]; [facility] Work Phone: Start: 01-06-2015 Patient Education [facility]; [facility] Work Phone: Start: 01-06-2015 Procedure Education [facility]; [facility] Work Phone: Start: 01-06-2015 Assay of thyroid stimulating hormone tsh [facility]; [facility] Work Phone: Start: 01-06-2015 Urine albumin quantitative [facility]; [facility] Work Phone: Start: 01-06-2015 Comprehensive metabolic panel [facility]; [facility] Work Phone: Start: 01-06-2015 Lipid panel [facility]; [facility] Work Phone: Start: 01-06-2015 Blood count manual cell count each [facility]; [facility] Work Phone: Start: 08-08-2014 Assay of free thyroxine [facility]; [facility] Work Phone: Start: 08-08-2014 Assay of thyroid stimulating hormone tsh [facility]; [facility] Work Phone: Start: 08-08-2014 Provider Instructions for Treatment [facility]; [facility] Work Phone: Start: 03-14-2014 Assay of free thyroxine [facility]; [facility] Work Phone: Start: 03-14-2014 Assay of thyroid stimulating hormone tsh [facility]; [facility] Work Phone: Start: 03-14-2014 Comprehensive metabolic panel [facility]; [facility] Work Phone: Start: 03-14-2014 Blood count manual cell count each [facility]; [facility] Work Phone: Start: 03-14-2014 Lipid panel [facility]; [facility] Work Phone: Start: 07-22-2013 Patient Education [facility]; [facility] Work Phone: Start: 07-22-2013 Provider Instructions for Treatment [facility]; [facility] Work Phone: Start: 05-24-2013 Patient Education [facility]; [facility] Work Phone: Start: 05-24-2013 Provider Instructions for Treatment [facility]; [facility] Work Phone: Start: 05-11-2013 Provider Instructions for Treatment [facility]; [facility] Work Phone: Start: 03-31-2013 Patient Education [facility]; [facility] Work Phone: Start: 12-17-2012 Patient Education [facility]; [facility] Work Phone: Start: 12-17-2012 Assay of thyroid stimulating hormone tsh [facility]; [facility] Work Phone: Start: 12-17-2012 Lipid panel [facility]; [facility] Work Phone: Start: 12-17-2012 Comprehensive metabolic panel [facility]; [facility] Work Phone: Start: 09-10-2012 Patient Education [facility]; [facility] Work Phone: Start: 09-10-2012 Provider Instructions for Treatment [facility]; [facility] Work Phone: Start: 03-02-2012 Assay of thyroid stimulating hormone tsh [facility]; [facility] Work Phone: Start: 03-02-2012 Assay of homocysteine [facility]; [facility] Work Phone: Start: 03-02-2012 Comprehensive metabolic panel [facility]; [facility] Work Phone: Start: 02-28-2012 Glucose quantitative blood xcpt reagent strip [facility]; [facility] Work Phone: Start: 02-28-2012 Lipid panel [facility]; [facility] Work Phone: Start: 09-01-2011 Glucose quantitative blood xcpt reagent strip [facility]; [facility] Work Phone: Start: 09-01-2011 Lipid panel LIPID PANEL (35323) [facility]; [facility] Work Phone: Start: 08-26-2011 Assay of homocysteine [facility]; [facility] Work Phone: Start: 08-21-2011 Provider Instructions for Treatment [facility]; [facility] Work Phone: Start: 08-21-2011 Glucose quantitative blood xcpt reagent strip [facility]; [facility] Work Phone: Start: 08-21-2011 Lipid panel [facility]; [facility] Work Phone: Start: 03-05-2011 Glucose quantitative blood xcpt reagent strip [facility]; [facility] Work Phone: Start: 11-01-2010 Assay of lipase [facility]; [facility] Work Phone: Start: 11-01-2010 Assay of amylase [facility]; [facility] Work Phone: Start: 11-01-2010 Blood count complete auto&auto difrntl wbc [facility]; [facility] Work Phone: Start: 11-01-2010 Comprehensive metabolic panel [facility]; [facility] Work Phone: Start: 03-29-2010 Assay of thyroid stimulating hormone tsh [facility]; [facility] Work Phone: Start: 03-29-2010 Comprehensive metabolic panel [facility]; [facility] Work Phone: Start: 03-29-2010 Lipid panel [facility]; [facility] Work Phone: Comment on above: now and in six months (approximately) Start: 03-05-2010 Provider Instructions for Treatment [facility]; [facility] Work Phone: Start: 02-19-2010 Provider Instructions for Treatment [facility]; [facility] Work Phone: Start: 08-29-2009 Provider Instructions for Treatment [facility]; [facility] Work Phone: Start: 08-02-2009 Comprehensive metabolic panel [facility]; [facility] Work Phone: Start: 08-02-2009 Lipid panel [facility]; [facility] Work Phone: Start: 04-20-2009 Patient Education [facility]; [facility] Work Phone: Start: 04-20-2009 Provider Instructions for Treatment [facility]; [facility] Work Phone: Start: 04-20-2009 Culture bacterial quanttative colony count urine [facility]; [facility] Work Phone: Start: 10-27-2008 Cul bact xcpt urine blood/stool aerobic isol [facility]; [facility] Work Phone: Comment on above: done aw throat cx Start: 09-26-2008 Isaiah viper venom time diluted [facility]; [facility] Work Phone: Start: 09-26-2008 Thromboplastin time prtl substit plasma frctj ea [facility]; [facility] Work Phone: Start: 09-26-2008 Thrombin time plasma [facility]; [facility] Work Phone: Start: 09-26-2008 Thromboplastin inhibition tissue [facility]; [facility] Work Phone: Start: 09-26-2008 Beta 2 glycoprotein i antibody each [facility]; [facility] Work Phone: Start: 09-26-2008 Clotting inhibitrs antithrombn iii antigen assay [facility]; [facility] Work Phone: Start: 09-26-2008 Clotting inhibitors antithrombin iii activity [facility]; [facility] Work Phone: Start: 09-26-2008 Clotting factor ii prothrombin specific [facility]; [facility] Work Phone: Start: 09-26-2008 Activated protein c apc resistance assay [facility]; [facility] Work Phone: Start: 09-26-2008 Clotting inhibitors protein c antigen [facility]; [facility] Work Phone: Start: 09-26-2008 Clotting inhibitors protein c activity [facility]; [facility] Work Phone: Start: 09-26-2008 Clotting inhibitors protein s total [facility]; [facility] Work Phone: Start: 09-26-2008 Clotting inhibitors protein s free [facility]; [facility] Work Phone: Start: 09-26-2008 Molecule isolate nucleic [facility]; [facility] Work Phone: Start: 09-26-2008 Molecule nucleic ampli, each [facility]; [facility] Work Phone: Start: 09-26-2008 Molecular diagnostics [facility]; [facility] Work Phone: Start: 09-26-2008 Molecule gel electrophor [facility]; [facility] Work Phone: Start: 09-26-2008 Genetic examination [facility]; [facility] Work Phone: Start: 08-08-2008 Comprehensive metabolic panel [facility]; [facility] Work Phone: Start: 08-08-2008 Blood count manual cell count each [facility]; [facility] Work Phone: Start: 08-08-2008 Lipid panel [facility]; [facility] Work Phone: Start: 08-08-2008 Assay of free thyroxine [facility]; [facility] Work Phone: Start: 08-08-2008 Assay of thyroid stimulating hormone tsh [facility]; [facility] Work Phone: Start: 08-08-2008 Assay of triiodothyronine t3 free [facility]; [facility] Work Phone: Comment on above: 4 weeks and prn standing order Start: 03-07-2008 Immunoassay tumor antigen quantitative [facility]; [facility] Work Phone: Start: 03-07-2008 Assay of triiodothyronine t3 free [facility]; [facility] Work Phone: Start: 03-07-2008 Assay of free thyroxine [facility]; [facility] Work Phone: Start: 03-07-2008 Assay of thyroid stimulating hormone tsh [facility]; [facility] Work Phone: Comment on above: 8 weeks Start: 08-27-2007 Comprehensive metabolic panel [facility]; [facility] Work Phone: Start: 08-27-2007 Lipid panel [facility]; [facility] Work Phone: Comment on above: in six months (approximately) Start: 01-16-2007 Blood count complete automated [facility]; [facility] Work Phone: Start: 01-16-2007 Lipid panel [facility]; [facility] Work Phone: Start: 01-16-2007 Comprehensive metabolic panel [facility]; [facility] Work Phone: Comment on above: in six months Start: 01-16-2007 Assay of thyroid stimulating hormone tsh [facility]; [facility] Work Phone: Start: 01-16-2007 Assay of free thyroxine [facility]; [facility] Work Phone: Start: 01-16-2007 Assay of triiodothyronine t3 free [facility]; [facility] Work Phone: Comment on above: 6-8 w Start: 09-05-2006 Comprehensive metabolic panel [facility]; [facility] Work Phone: Start: 09-05-2006 Lipid panel [facility]; [facility] Work Phone: Start: 09-05-2006 Assay of thyroid stimulating hormone tsh [facility]; [facility] Work Phone: Start: 05-08-2006 Assay of thyroid stimulating hormone tsh [facility]; [facility] Work Phone: Start: 05-08-2006 Assay of triiodothyronine t3 free [facility]; [facility] Work Phone: Start: 05-08-2006 Assay of triiodothyronine t3 total tt3 [facility]; [facility] Work Phone: Start: 05-08-2006 Hepatic function panel [facility]; [facility] Work Phone: Start: 05-08-2006 Lipid panel [facility]; [facility] Work Phone: Bacteria identified in Urine by Culture Urine Culture [facility] Work Phone: Measurement of respiratory function [facility] Patient Education ED Constipatio n (Adult) ED Renal Insufficiency [facility] Work Phone: Patient referral [facility] Work Phone: US Heart [facility] Work Phone: [facility] Work Phone: [facility] Work Phone: [facility] Work Phone: [facility] Work Phone: [facility] Work Phone: [facility] Work Phone: [facility] Work Phone: [facility] Work Phone: [facility] Work Phone: [facility] Work Phone: [facility] Work Phone: [facility] Work Phone: [facility] Work Phone: [facility] Work Phone: [facility] Work Phone: [facility] Work Phone: [facility] Work Phone: [facility] Work Phone: [facility] Work Phone: [facility] Work Phone: [facility] Work Phone: [facility] Work Phone: [facility] Work Phone: [facility] Work Phone: [facility] Work Phone: [facility] Work Phone: [facility] Work Phone: [facility] Work Phone: [facility] Work Phone: [facility] Work Phone: [facility] Work Phone: [facility] Work Phone: [facility] Work Phone: [facility] Work Phone: [facility]; [facility] Work Phone: Immunizations Immunization Date Immunization Notes Care Provider [facility] 06-08-2021 influenza, injectabl e, quadrivalent, preservative free Dr. Esthela Sands Work Phone: [facility] 06-08-2021 influenza, seasonal, injectable Dr. Tejas Garcia Work Phone: [facility] 12-07-2016 pneumococcal conjuga te vaccine, 13 valent Esthela Sands MD Work Phone: [facility]; [facility] Work Phone: 03-31-2013 varicella zoster immune globulin; Translations: [ZOSTAVAX, [id number]/0.65ML (Subcutaneous Solution Reconstituted)] Esthela Sands MD Work Phone: [facility]; [facility] Work Phone: Payers Date Payer Category Payer Self-pay [id number] 2023 Private Health Insurance CLI [id number] Medicare [id number] Medicare ANTHEM MEDICARE PPO [id number] Unknown Unknown [id number] Unknown [id number] Unknown [id number] Unknown [id number] Unknown [id number] Unknown [id number] Unknown [id number] Unknown [id number] Unknown [id number] Social History Date Type Detail Facility Start: 12-09-2021 End: 06-05-2023 Tobacco smoking status NHIS Unknown if ever smoked [facility] Start: 1945 Sex Assigned At Female [facility] Alcohol Use Alcohol Use [facility]; [facility] Work Phone: Comment on above: Occasional alcohol u se 1 cup of coffee/day retired Inactive , Lives with spouse Tobacco use: Tobacco use: [facility]; [facility] Work Phone: Comment on above: remote 5 years 1971 Start: 06-05-2023 Tobacco smoking stat us NHIS Never smoked tobacco (finding) [facility] Goals Date Patient Goal Desired Activity /State Functional Status Date Assessment Result Facility 12-11-2021 Functional status Activity Ability Indepe ndent [facility] Work Phone: 12-11-2021 Functional status Ambulates [facility] Work Phone: Mental Status Date Assessment Result Facility 12-11-2021 Cognitive function Voice/Name [facility] Work Phone: Clinical Notes 12-09-2021 Note Date & Type Note Facility 12-09-2021 Evaluation note Diagnosis Onset Date Pulmonary emboli December 09, 2021 chronic Elevated troponin resolved NSTEMI, initial episode of care resolved Pulmonary emboli December 09, 2021 chronic Essential hypertension chron ic Pulmonary emboli December 09, 2021 chronic [facility] Work Phone: 1(767) 460-428404-03-2022 Evaluation note* Diagnosis Onset Date Resolution Status Pulmonary emboli December 09, 2021 chronic Elevated troponin resolved NSTEMI, initial episode of care resolved Pulmonary emboli December 09, 2021 chronic Essential hypertension chron ic Pulmonary emboli December 09, 2021 chronic Cough acute Pulmonary emboli December 09, 2021 [facility] Work Phone: 1(211) 890-513004-03-2022 Evaluation note* Diagnosis Onset Date Resolution Status Pulmonary emboli December 09, 2021 chronic Essential hypertension chron ic Pulmonary emboli December 09, 2021 chronic Cough acute Pulmonary emboli December 09, 2021 [facility] Work Phone: 1(486) 230-745904-03-2022 Evaluation note* Diagnosis Onset Date Resolution Status Essential hypertension chron ic Pulmonary emboli December 09, 2021 chronic Cough acute Pulmonary emboli December 09, 2021 chronic Essential hypertension chron ic Pulmonary emboli December 09, 2021 [facility] Work Phone: 1(861) 180-785104-03-2022 Evaluation note* Diagnosis Onset Date Resolution Status Cough acute Pulmonary emboli December 09, 2021 chronic Essential hypertension chron ic Pulmonary emboli December 09, 2021 [facility] Work Phone: [phone]) 586-591504-03-2022 Evaluation note* Diagnosis Onset Date Resolution Status Pulmonary emboli December 09, 2021 [facility] Work Phone: 1(812) 848-557704-03-2022 Evaluation note* Diagnosis Onset Date Resolution Status Admit Date BLAKE (dyspnea on exertion) acute February 02, 2025 1:31pm Essential hypertension chronic Ma y 2024 1:31pm Pulmonary emboli December 09, 2021 chronic February 02, 2025 1:31pm [facility] Work Phone: Evaluation note* Diagnosis Onset Date Resolution Status Elevated troponin acute Hypoxemia acute NSTEMI, initial episode of care acute Pulmonary emboli acute Acute and chronic respiratory failure with hypoxia [facility] Work Phone: Evaluation note* Diagnosis Onset Date Resolution Status Pulmonary emboli acute Elevated troponin resolved NSTEMI, initial episode of care resolved Pulmonary emboli [facility] Work Phone: Evaluation note* Diagnosis Onset Date Resolution Status Pulmonary emboli acute Elevated troponin resolved NSTEMI, initial episode of care resolved Pulmonary emboli acute Pulmonary emboli [facility] Work Phone: Evaluation noteNo assessment information available [facility] Work Phone: Instructions* Name Dates Details Patient Instructions Indication:Impaired fasting glucose Start:10-Apr-2022 Instruction Type:Provider Instructions for Treatment How to Access Health Informa tion Online using Patient Portal and [employer] Apps Indication:Impaired fasting glucose Start:10-Apr-2022 Instruction Type:Patient Education How to access health informa tion online Indication:UTI symptoms Start:02-Apr-2016 Instruction Type:Patient Education How to access health informa tion online - Detail Indication:UTI symptoms Start:02-Apr-2016 Instruction Type:Patient Education Patient Instructions Indication:Laceration of finger, initial encounter Start:27-Nov-2015 Instruction Type:Provider Instructions for Treatment How to access health informa tion online Indication:Encounter for Medicare annual wellness exam Start:17-Nov-2015 Instruction Type:Patient Education How to access health informa tion online - Detail Indication:Encounter for Medicare annual wellness exam Start:17-Nov-2015 Instruction Type:Patient Education How to access health informa tion online Indication:Impaired fasting glucose Start:19-May-2015 Instruction Type:Patient Education How to access health informa tion online - Detail Indication:Impaired fasting glucose Start:19-May-2015 Instruction Type:Patient Education Patient Instructions Indication:Impaired fasting glucose Start:19-May-2015 Instruction Type:Provider Instructions for Treatment How to access health informa tion online Indication:Impaired fasting glucose Start:06-Jan-2015 Instruction Type:Patient Education How to access health informa tion online - Detail Indication:Impaired fasting glucose Start:06-Jan-2015 Instruction Type:Patient Education Patient Instructions Indication:Impaired fasting glucose Start:06-Jan-2015 Instruction Type:Provider Instructions for Treatment Patient Instructions Indication:Encounter for immunization Start:08-Aug-2014 Instruction Type:Provider Instructions for Treatment Patient Instructions Indication:Cough Start:22-Jul-2013 Instruction Type:Provider Instructions for Treatment Patient Instructions Indication:Sciatica Start:24-May-2013 Instruction Type:Provider Instructions for Treatment Patient Instructions Indication:Greater trochanteric bursitis Start:08-Mar-2013 Instruction Type:Provider Instructions for Treatment Patient Instructions Indication:Depression with anxiety Start:17-Dec-2012 Instruction Type:Provider Instructions for Treatment Patient Instructions Indication:Depression with anxiety Start:12-Oct-2012 Instruction Type:Provider Instructions for Treatment Patient Instructions Indication:Depression with anxiety Start:10-Sep-2012 Instruction Type:Provider Instructions for Treatment [facility]; [facility] Work Phone: Instructions* Name Dates Details Patient Instructions Indication:Impaired fasting glucose Start:10-Apr-2022 Instruction Type:Provider Instructions for Treatment How to Access Health Informa tion Online using Patient Portal and [employer] Apps Indication:Impaired fasting glucose Start:10-Apr-2022 Instruction Type:Patient Education How to access health informa tion online Indication:UTI symptoms Start:02-Apr-2016 Instruction Type:Patient Education How to access health informa tion online - Detail Indication:UTI symptoms Start:02-Apr-2016 Instruction Type:Patient Education Patient Instructions Indication:Laceration of finger, initial encounter Start:27-Nov-2015 Instruction Type:Provider Instructions for Treatment How to access health informa tion online Indication:Encounter for Medicare annual wellness exam Start:17-Nov-2015 Instruction Type:Patient Education How to access health informa tion online - Detail Indication:Encounter for Medicare annual wellness exam Start:17-Nov-2015 Instruction Type:Patient Education How to access health informa tion online Indication:Impaired fasting glucose Start:19-May-2015 Instruction Type:Patient Education How to access health informa tion online - Detail Indication:Impaired fasting glucose Start:19-May-2015 Instruction Type:Patient Education Patient Instructions Indication:Impaired fasting glucose Start:19-May-2015 Instruction Type:Provider Instructions for Treatment How to access health informa tion online Indication:Impaired fasting glucose Start:06-Jan-2015 Instruction Type:Patient Education How to access health informa tion online - Detail Indication:Impaired fasting glucose Start:06-Jan-2015 Instruction Type:Patient Education Patient Instructions Indication:Impaired fasting glucose Start:06-Jan-2015 Instruction Type:Provider Instructions for Treatment Patient Instructions Indication:Encounter for immunization Start:08-Aug-2014 Instruction Type:Provider Instructions for Treatment Patient Instructions Indication:Cough Start:22-Jul-2013 Instruction Type:Provider Instructions for Treatment Patient Instructions Indication:Sciatica Start:24-May-2013 Instruction Type:Provider Instructions for Treatment Patient Instructions Indication:Greater trochanteric bursitis Start:08-Mar-2013 Instruction Type:Provider Instructions for Treatment Patient Instructions Indication:Depression with anxiety Start:17-Dec-2012 Instruction Type:Provider Instructions for Treatment Patient Instructions Indication:Depression with anxiety Start:12-Oct-2012 Instruction Type:Provider Instructions for Treatment Patient Instructions Indication:Depression with anxiety Start:10-Sep-2012 Instruction Type:Provider Instructions for Treatment [facility]; [facility] Work Phone: Instructions* Name Dates Details Patient Instructions Indication:Impaired fasting glucose Start:10-Apr-2022 Instruction Type:Provider Instructions for Treatment How to Access Health Informa tion Online using Patient Portal and [employer] Apps Indication:Impaired fasting glucose Start:10-Apr-2022 Instruction Type:Patient Education How to access health informa tion online Indication:UTI symptoms Start:02-Apr-2016 Instruction Type:Patient Education How to access health informa tion online - Detail Indication:UTI symptoms Start:02-Apr-2016 Instruction Type:Patient Education Patient Instructions Indication:Laceration of finger, initial encounter Start:27-Nov-2015 Instruction Type:Provider Instructions for Treatment How to access health informa tion online Indication:Encounter for Medicare annual wellness exam Start:17-Nov-2015 Instruction Type:Patient Education How to access health informa tion online - Detail Indication:Encounter for Medicare annual wellness exam Start:17-Nov-2015 Instruction Type:Patient Education How to access health informa tion online Indication:Impaired fasting glucose Start:19-May-2015 Instruction Type:Patient Education How to access health informa tion online - Detail Indication:Impaired fasting glucose Start:19-May-2015 Instruction Type:Patient Education Patient Instructions Indication:Impaired fasting glucose Start:19-May-2015 Instruction Type:Provider Instructions for Treatment How to access health informa tion online Indication:Impaired fasting glucose Start:06-Jan-2015 Instruction Type:Patient Education How to access health informa tion online - Detail Indication:Impaired fasting glucose Start:06-Jan-2015 Instruction Type:Patient Education Patient Instructions Indication:Impaired fasting glucose Start:06-Jan-2015 Instruction Type:Provider Instructions for Treatment Patient Instructions Indication:Encounter for immunization Start:08-Aug-2014 Instruction Type:Provider Instructions for Treatment Patient Instructions Indication:Cough Start:22-Jul-2013 Instruction Type:Provider Instructions for Treatment Patient Instructions Indication:Sciatica Start:24-May-2013 Instruction Type:Provider Instructions for Treatment Patient Instructions Indication:Greater trochanteric bursitis Start:08-Mar-2013 Instruction Type:Provider Instructions for Treatment Patient Instructions Indication:Depression with anxiety Start:17-Dec-2012 Instruction Type:Provider Instructions for Treatment Patient Instructions Indication:Depression with anxiety Start:12-Oct-2012 Instruction Type:Provider Instructions for Treatment Patient Instructions Indication:Depression with anxiety Start:10-Sep-2012 Instruction Type:Provider Instructions for Treatment [facility]; [facility] Work Phone: Instructions* Name Dates Details Patient Instructions Indication:Tobacco abuse, in remission (Renamed from Tobacco dependence in remission) Start:14-May-2022 Instruction Type:Provider Instructions for Treatment How to Access Health Informa tion Online using Patient Portal and [employer] Apps Indication:Tobacco abuse, in remission (Renamed from Tobacco dependence in remission) Start:14-May-2022 Instruction Type:Patient Education Patient Instructions Indication:Tobacco abuse, in remission (Renamed from Tobacco dependence in remission) Start:30-Apr-2022 Instruction Type:Provider Instructions for Treatment How to Access Health Informa tion Online using Patient Portal and [employer] Apps Indication:Tobacco abuse, in remission (Renamed from Tobacco dependence in remission) Start:30-Apr-2022 Instruction Type:Patient Education Patient Instructions Indication:Impaired fasting glucose Start:10-Apr-2022 Instruction Type:Provider Instructions for Treatment How to Access Health Informa tion Online using Patient Portal and [employer] Apps Indication:Impaired fasting glucose Start:10-Apr-2022 Instruction Type:Patient Education How to access health informa tion online Indication:UTI symptoms Start:02-Apr-2016 Instruction Type:Patient Education How to access health informa tion online - Detail Indication:UTI symptoms Start:02-Apr-2016 Instruction Type:Patient Education Patient Instructions Indication:Laceration of finger, initial encounter Start:27-Nov-2015 Instruction Type:Provider Instructions for Treatment How to access health informa tion online Indication:Encounter for Medicare annual wellness exam Start:17-Nov-2015 Instruction Type:Patient Education How to access health informa tion online - Detail Indication:Encounter for Medicare annual wellness exam Start:17-Nov-2015 Instruction Type:Patient Education How to access health informa tion online Indication:Impaired fasting glucose Start:19-May-2015 Instruction Type:Patient Education How to access health informa tion online - Detail Indication:Impaired fasting glucose Start:19-May-2015 Instruction Type:Patient Education Patient Instructions Indication:Impaired fasting glucose Start:19-May-2015 Instruction Type:Provider Instructions for Treatment How to access health informa tion online Indication:Impaired fasting glucose Start:06-Jan-2015 Instruction Type:Patient Education How to access health informa tion online - Detail Indication:Impaired fasting glucose Start:06-Jan-2015 Instruction Type:Patient Education Patient Instructions Indication:Impaired fasting glucose Start:06-Jan-2015 Instruction Type:Provider Instructions for Treatment Patient Instructions Indication:Encounter for immunization Start:08-Aug-2014 Instruction Type:Provider Instructions for Treatment Patient Instructions Indication:Cough Start:22-Jul-2013 Instruction Type:Provider Instructions for Treatment Patient Instructions Indication:Sciatica Start:24-May-2013 Instruction Type:Provider Instructions for Treatment Patient Instructions Indication:Greater trochanteric bursitis Start:08-Mar-2013 Instruction Type:Provider Instructions for Treatment Patient Instructions Indication:Depression with anxiety Start:17-Dec-2012 Instruction Type:Provider Instructions for Treatment Patient Instructions Indication:Depression with anxiety Start:12-Oct-2012 Instruction Type:Provider Instructions for Treatment Patient Instructions Indication:Depression with anxiety Start:10-Sep-2012 Instruction Type:Provider Instructions for Treatment [facility]; [facility] Work Phone: Instructions* Name Dates Details Patient Instructions Indication:Tobacco abuse, in remission (Renamed from Tobacco dependence in remission) Start:14-May-2022 Instruction Type:Provider Instructions for Treatment How to Access Health Informa tion Online using Patient Portal and [employer] Apps Indication:Tobacco abuse, in remission (Renamed from Tobacco dependence in remission) Start:14-May-2022 Instruction Type:Patient Education Patient Instructions Indication:Tobacco abuse, in remission (Renamed from Tobacco dependence in remission) Start:30-Apr-2022 Instruction Type:Provider Instructions for Treatment How to Access Health Informa tion Online using Patient Portal and [employer] Apps Indication:Tobacco abuse, in remission (Renamed from Tobacco dependence in remission) Start:30-Apr-2022 Instruction Type:Patient Education Patient Instructions Indication:Impaired fasting glucose Start:10-Apr-2022 Instruction Type:Provider Instructions for Treatment How to Access Health Informa tion Online using Patient Portal and [employer] Apps Indication:Impaired fasting glucose Start:10-Apr-2022 Instruction Type:Patient Education How to access health informa tion online Indication:UTI symptoms Start:02-Apr-2016 Instruction Type:Patient Education How to access health informa tion online - Detail Indication:UTI symptoms Start:02-Apr-2016 Instruction Type:Patient Education Patient Instructions Indication:Laceration of finger, initial encounter Start:27-Nov-2015 Instruction Type:Provider Instructions for Treatment How to access health informa tion online Indication:Encounter for Medicare annual wellness exam Start:17-Nov-2015 Instruction Type:Patient Education How to access health informa tion online - Detail Indication:Encounter for Medicare annual wellness exam Start:17-Nov-2015 Instruction Type:Patient Education How to access health informa tion online Indication:Impaired fasting glucose Start:19-May-2015 Instruction Type:Patient Education How to access health informa tion online - Detail Indication:Impaired fasting glucose Start:19-May-2015 Instruction Type:Patient Education Patient Instructions Indication:Impaired fasting glucose Start:19-May-2015 Instruction Type:Provider Instructions for Treatment How to access health informa tion online Indication:Impaired fasting glucose Start:06-Jan-2015 Instruction Type:Patient Education How to access health informa tion online - Detail Indication:Impaired fasting glucose Start:06-Jan-2015 Instruction Type:Patient Education Patient Instructions Indication:Impaired fasting glucose Start:06-Jan-2015 Instruction Type:Provider Instructions for Treatment Patient Instructions Indication:Encounter for immunization Start:08-Aug-2014 Instruction Type:Provider Instructions for Treatment Patient Instructions Indication:Cough Start:22-Jul-2013 Instruction Type:Provider Instructions for Treatment Patient Instructions Indication:Sciatica Start:24-May-2013 Instruction Type:Provider Instructions for Treatment Patient Instructions Indication:Greater trochanteric bursitis Start:08-Mar-2013 Instruction Type:Provider Instructions for Treatment Patient Instructions Indication:Depression with anxiety Start:17-Dec-2012 Instruction Type:Provider Instructions for Treatment Patient Instructions Indication:Depression with anxiety Start:12-Oct-2012 Instruction Type:Provider Instructions for Treatment Patient Instructions Indication:Depression with anxiety Start:10-Sep-2012 Instruction Type:Provider Instructions for Treatment [facility]; [facility] Work Phone: Instructions* Name Dates Details Patient Instructions Indication:Tobacco abuse, in remission (Renamed from Tobacco dependence in remission) Start:14-May-2022 Instruction Type:Provider Instructions for Treatment How to Access Health Informa tion Online using Patient Portal and [employer] Apps Indication:Tobacco abuse, in remission (Renamed from Tobacco dependence in remission) Start:14-May-2022 Instruction Type:Patient Education Patient Instructions Indication:Tobacco abuse, in remission (Renamed from Tobacco dependence in remission) Start:30-Apr-2022 Instruction Type:Provider Instructions for Treatment How to Access Health Informa tion Online using Patient Portal and [employer]rd [employer] Apps Indication:Tobacco abuse, in remission (Renamed from Tobacco dependence in remission) Start:30-Apr-2022 Instruction Type:Patient Education Patient Instructions Indication:Impaired fasting glucose Start:10-Apr-2022 Instruction Type:Provider Instructions for Treatment How to Access Health Informa tion Online using Patient Portal and [employer]rd [employer] Apps Indication:Impaired fasting glucose Start:10-Apr-2022 Instruction Type:Patient Education How to access health informa tion online Indication:UTI symptoms Start:02-Apr-2016 Instruction Type:Patient Education How to access health informa tion online - Detail Indication:UTI symptoms Start:02-Apr-2016 Instruction Type:Patient Education Patient Instructions Indication:Laceration of finger, initial encounter Start:27-Nov-2015 Instruction Type:Provider Instructions for Treatment How to access health informa tion online Indication:Encounter for Medicare annual wellness exam Start:17-Nov-2015 Instruction Type:Patient Education How to access health informa tion online - Detail Indication:Encounter for Medicare annual wellness exam Start:17-Nov-2015 Instruction Type:Patient Education How to access health informa tion online Indication:Impaired fasting glucose Start:19-May-2015 Instruction Type:Patient Education How to access health informa tion online - Detail Indication:Impaired fasting glucose Start:19-May-2015 Instruction Type:Patient Education Patient Instructions Indication:Impaired fasting glucose Start:19-May-2015 Instruction Type:Provider Instructions for Treatment How to access health informa tion online Indication:Impaired fasting glucose Start:06-Jan-2015 Instruction Type:Patient Education How to access health informa tion online - Detail Indication:Impaired fasting glucose Start:06-Jan-2015 Instruction Type:Patient Education Patient Instructions Indication:Impaired fasting glucose Start:06-Jan-2015 Instruction Type:Provider Instructions for Treatment Patient Instructions Indication:Encounter for immunization Start:08-Aug-2014 Instruction Type:Provider Instructions for Treatment Patient Instructions Indication:Cough Start:22-Jul-2013 Instruction Type:Provider Instructions for Treatment Patient Instructions Indication:Sciatica Start:24-May-2013 Instruction Type:Provider Instructions for Treatment Patient Instructions Indication:Greater trochanteric bursitis Start:08-Mar-2013 Instruction Type:Provider Instructions for Treatment Patient Instructions Indication:Depression with anxiety Start:17-Dec-2012 Instruction Type:Provider Instructions for Treatment Patient Instructions Indication:Depression with anxiety Start:12-Oct-2012 Instruction Type:Provider Instructions for Treatment Patient Instructions Indication:Depression with anxiety Start:10-Sep-2012 Instruction Type:Provider Instructions for Treatment [facility]; [facility] Work Phone: Instructions* Name Dates Details Patient Instructions Indication:Tobacco abuse, in remission (Renamed from Tobacco dependence in remission) Start:14-May-2022 Instruction Type:Provider Instructions for Treatment How to Access Health Informa tion Online using Patient Portal and [employer] Apps Indication:Tobacco abuse, in remission (Renamed from Tobacco dependence in remission) Start:14-May-2022 Instruction Type:Patient Education Patient Instructions Indication:Tobacco abuse, in remission (Renamed from Tobacco dependence in remission) Start:30-Apr-2022 Instruction Type:Provider Instructions for Treatment How to Access Health Informa tion Online using Patient Portal and [employer] Apps Indication:Tobacco abuse, in remission (Renamed from Tobacco dependence in remission) Start:30-Apr-2022 Instruction Type:Patient Education Patient Instructions Indication:Impaired fasting glucose Start:10-Apr-2022 Instruction Type:Provider Instructions for Treatment How to Access Health Informa tion Online using Patient Portal and [employer]rd [employer] Apps Indication:Impaired fasting glucose Start:10-Apr-2022 Instruction Type:Patient Education How to access health informa tion online Indication:UTI symptoms Start:02-Apr-2016 Instruction Type:Patient Education How to access health informa tion online - Detail Indication:UTI symptoms Start:02-Apr-2016 Instruction Type:Patient Education Patient Instructions Indication:Laceration of finger, initial encounter Start:27-Nov-2015 Instruction Type:Provider Instructions for Treatment How to access health informa tion online Indication:Encounter for Medicare annual wellness exam Start:17-Nov-2015 Instruction Type:Patient Education How to access health informa tion online - Detail Indication:Encounter for Medicare annual wellness exam Start:17-Nov-2015 Instruction Type:Patient Education How to access health informa tion online Indication:Impaired fasting glucose Start:19-May-2015 Instruction Type:Patient Education How to access health informa tion online - Detail Indication:Impaired fasting glucose Start:19-May-2015 Instruction Type:Patient Education Patient Instructions Indication:Impaired fasting glucose Start:19-May-2015 Instruction Type:Provider Instructions for Treatment How to access health informa tion online Indication:Impaired fasting glucose Start:06-Jan-2015 Instruction Type:Patient Education How to access health informa tion online - Detail Indication:Impaired fasting glucose Start:06-Jan-2015 Instruction Type:Patient Education Patient Instructions Indication:Impaired fasting glucose Start:06-Jan-2015 Instruction Type:Provider Instructions for Treatment Patient Instructions Indication:Encounter for immunization Start:08-Aug-2014 Instruction Type:Provider Instructions for Treatment Patient Instructions Indication:Cough Start:22-Jul-2013 Instruction Type:Provider Instructions for Treatment Patient Instructions Indication:Sciatica Start:24-May-2013 Instruction Type:Provider Instructions for Treatment Patient Instructions Indication:Greater trochanteric bursitis Start:08-Mar-2013 Instruction Type:Provider Instructions for Treatment Patient Instructions Indication:Depression with anxiety Start:17-Dec-2012 Instruction Type:Provider Instructions for Treatment Patient Instructions Indication:Depression with anxiety Start:12-Oct-2012 Instruction Type:Provider Instructions for Treatment Patient Instructions Indication:Depression with anxiety Start:10-Sep-2012 Instruction Type:Provider Instructions for Treatment [facility]; [facility] Work Phone: Instructions* Name Dates Details Patient Instructions Indication:Tobacco abuse, in remission (Renamed from Tobacco dependence in remission) Start:14-May-2022 Instruction Type:Provider Instructions for Treatment How to Access Health Informa tion Online using Patient Portal and [employer] Apps Indication:Tobacco abuse, in remission (Renamed from Tobacco dependence in remission) Start:14-May-2022 Instruction Type:Patient Education Patient Instructions Indication:Tobacco abuse, in remission (Renamed from Tobacco dependence in remission) Start:30-Apr-2022 Instruction Type:Provider Instructions for Treatment How to Access Health Informa tion Online using Patient Portal and [employer] Apps Indication:Tobacco abuse, in remission (Renamed from Tobacco dependence in remission) Start:30-Apr-2022 Instruction Type:Patient Education Patient Instructions Indication:Impaired fasting glucose Start:10-Apr-2022 Instruction Type:Provider Instructions for Treatment How to Access Health Informa tion Online using Patient Portal and [employer] Apps Indication:Impaired fasting glucose Start:10-Apr-2022 Instruction Type:Patient Education How to access health informa tion online Indication:UTI symptoms Start:02-Apr-2016 Instruction Type:Patient Education How to access health informa tion online - Detail Indication:UTI symptoms Start:02-Apr-2016 Instruction Type:Patient Education Patient Instructions Indication:Laceration of finger, initial encounter Start:27-Nov-2015 Instruction Type:Provider Instructions for Treatment How to access health informa tion online Indication:Encounter for Medicare annual wellness exam Start:17-Nov-2015 Instruction Type:Patient Education How to access health informa tion online - Detail Indication:Encounter for Medicare annual wellness exam Start:17-Nov-2015 Instruction Type:Patient Education How to access health informa tion online Indication:Impaired fasting glucose Start:19-May-2015 Instruction Type:Patient Education How to access health informa tion online - Detail Indication:Impaired fasting glucose Start:19-May-2015 Instruction Type:Patient Education Patient Instructions Indication:Impaired fasting glucose Start:19-May-2015 Instruction Type:Provider Instructions for Treatment How to access health informa tion online Indication:Impaired fasting glucose Start:06-Jan-2015 Instruction Type:Patient Education How to access health informa tion online - Detail Indication:Impaired fasting glucose Start:06-Jan-2015 Instruction Type:Patient Education Patient Instructions Indication:Impaired fasting glucose Start:06-Jan-2015 Instruction Type:Provider Instructions for Treatment Patient Instructions Indication:Encounter for immunization Start:08-Aug-2014 Instruction Type:Provider Instructions for Treatment Patient Instructions Indication:Cough Start:22-Jul-2013 Instruction Type:Provider Instructions for Treatment Patient Instructions Indication:Sciatica Start:24-May-2013 Instruction Type:Provider Instructions for Treatment Patient Instructions Indication:Greater trochanteric bursitis Start:08-Mar-2013 Instruction Type:Provider Instructions for Treatment Patient Instructions Indication:Depression with anxiety Start:17-Dec-2012 Instruction Type:Provider Instructions for Treatment Patient Instructions Indication:Depression with anxiety Start:12-Oct-2012 Instruction Type:Provider Instructions for Treatment Patient Instructions Indication:Depression with anxiety Start:10-Sep-2012 Instruction Type:Provider Instructions for Treatment [facility]; [facility] Work Phone: Instructions* Name Dates Details Patient Instructions Indication:Tobacco abuse, in remission (Renamed from Tobacco dependence in remission) Start:19-Feb-2023 Instruction Type:Provider Instructions for Treatment How to Access Health Informa tion Online using Patient Portal and [employer] Apps Indication:Tobacco abuse, in remission (Renamed from Tobacco dependence in remission) Start:19-Feb-2023 Instruction Type:Patient Education Patient Instructions Indication:Depression with anxiety Start:14-Feb-2023 Instruction Type:Provider Instructions for Treatment How to Access Health Informa tion Online using Patient Portal and [employer] Apps Indication:Depression with anxiety Start:14-Feb-2023 Instruction Type:Patient Education Patient Instructions Indication:Tobacco abuse, in remission (Renamed from Tobacco dependence in remission) Start:14-May-2022 Instruction Type:Provider Instructions for Treatment How to Access Health Informa tion Online using Patient Portal and [employer] Apps Indication:Tobacco abuse, in remission (Renamed from Tobacco dependence in remission) Start:14-May-2022 Instruction Type:Patient Education Patient Instructions Indication:Tobacco abuse, in remission (Renamed from Tobacco dependence in remission) Start:30-Apr-2022 Instruction Type:Provider Instructions for Treatment How to Access Health Informa tion Online using Patient Portal and [employer] Apps Indication:Tobacco abuse, in remission (Renamed from Tobacco dependence in remission) Start:30-Apr-2022 Instruction Type:Patient Education Patient Instructions Indication:Impaired fasting glucose Start:10-Apr-2022 Instruction Type:Provider Instructions for Treatment How to Access Health Informa tion Online using Patient Portal and [employer] Apps Indication:Impaired fasting glucose Start:10-Apr-2022 Instruction Type:Patient Education How to access health informa tion online Indication:UTI symptoms Start:02-Apr-2016 Instruction Type:Patient Education How to access health informa tion online - Detail Indication:UTI symptoms Start:02-Apr-2016 Instruction Type:Patient Education Patient Instructions Indication:Laceration of finger, initial encounter Start:27-Nov-2015 Instruction Type:Provider Instructions for Treatment How to access health informa tion online Indication:Encounter for Medicare annual wellness exam Start:17-Nov-2015 Instruction Type:Patient Education How to access health informa tion online - Detail Indication:Encounter for Medicare annual wellness exam Start:17-Nov-2015 Instruction Type:Patient Education How to access health informa tion online Indication:Impaired fasting glucose Start:19-May-2015 Instruction Type:Patient Education How to access health informa tion online - Detail Indication:Impaired fasting glucose Start:19-May-2015 Instruction Type:Patient Education Patient Instructions Indication:Impaired fasting glucose Start:19-May-2015 Instruction Type:Provider Instructions for Treatment How to access health informa tion online Indication:Impaired fasting glucose Start:06-Jan-2015 Instruction Type:Patient Education How to access health informa tion online - Detail Indication:Impaired fasting glucose Start:06-Jan-2015 Instruction Type:Patient Education Patient Instructions Indication:Impaired fasting glucose Start:06-Jan-2015 Instruction Type:Provider Instructions for Treatment Patient Instructions Indication:Encounter for immunization Start:08-Aug-2014 Instruction Type:Provider Instructions for Treatment Patient Instructions Indication:Cough Start:22-Jul-2013 Instruction Type:Provider Instructions for Treatment Patient Instructions Indication:Sciatica Start:24-May-2013 Instruction Type:Provider Instructions for Treatment Patient Instructions Indication:Greater trochanteric bursitis Start:08-Mar-2013 Instruction Type:Provider Instructions for Treatment Patient Instructions Indication:Depression with anxiety Start:17-Dec-2012 Instruction Type:Provider Instructions for Treatment Patient Instructions Indication:Depression with anxiety Start:12-Oct-2012 Instruction Type:Provider Instructions for Treatment Patient Instructions Indication:Depression with anxiety Start:10-Sep-2012 Instruction Type:Provider Instructions for Treatment [facility]; [facility] Work Phone: Instructions* Name Dates Details Patient Instructions Indication:Right elbow pain Start:28-Feb-2023 Instruction Type:Provider Instructions for Treatment How to Access Health Informa tion Online using Patient Portal and [employer] Apps Indication:Right elbow pain Start:28-Feb-2023 Instruction Type:Patient Education Patient Instructions Indication:Tobacco abuse, in remission (Renamed from Tobacco dependence in remission) Start:19-Feb-2023 Instruction Type:Provider Instructions for Treatment How to Access Health Informa tion Online using Patient Portal and [employer] Apps Indication:Tobacco abuse, in remission (Renamed from Tobacco dependence in remission) Start:19-Feb-2023 Instruction Type:Patient Education Patient Instructions Indication:Depression with anxiety Start:14-Feb-2023 Instruction Type:Provider Instructions for Treatment How to Access Health Informa tion Online using Patient Portal and [employer] Apps Indication:Depression with anxiety Start:14-Feb-2023 Instruction Type:Patient Education Patient Instructions Indication:Tobacco abuse, in remission (Renamed from Tobacco dependence in remission) Start:14-May-2022 Instruction Type:Provider Instructions for Treatment How to Access Health Informa tion Online using Patient Portal and [employer] Apps Indication:Tobacco abuse, in remission (Renamed from Tobacco dependence in remission) Start:14-May-2022 Instruction Type:Patient Education Patient Instructions Indication:Tobacco abuse, in remission (Renamed from Tobacco dependence in remission) Start:30-Apr-2022 Instruction Type:Provider Instructions for Treatment How to Access Health Informa tion Online using Patient Portal and [employer] Apps Indication:Tobacco abuse, in remission (Renamed from Tobacco dependence in remission) Start:30-Apr-2022 Instruction Type:Patient Education Patient Instructions Indication:Impaired fasting glucose Start:10-Apr-2022 Instruction Type:Provider Instructions for Treatment How to Access Health Informa tion Online using Patient Portal and [employer] Apps Indication:Impaired fasting glucose Start:10-Apr-2022 Instruction Type:Patient Education How to access health informa tion online Indication:UTI symptoms Start:02-Apr-2016 Instruction Type:Patient Education How to access health informa tion online - Detail Indication:UTI symptoms Start:02-Apr-2016 Instruction Type:Patient Education Patient Instructions Indication:Laceration of finger, initial encounter Start:27-Nov-2015 Instruction Type:Provider Instructions for Treatment How to access health informa tion online Indication:Encounter for Medicare annual wellness exam Start:17-Nov-2015 Instruction Type:Patient Education How to access health informa tion online - Detail Indication:Encounter for Medicare annual wellness exam Start:17-Nov-2015 Instruction Type:Patient Education How to access health informa tion online Indication:Impaired fasting glucose Start:19-May-2015 Instruction Type:Patient Education How to access health informa tion online - Detail Indication:Impaired fasting glucose Start:19-May-2015 Instruction Type:Patient Education Patient Instructions Indication:Impaired fasting glucose Start:19-May-2015 Instruction Type:Provider Instructions for Treatment How to access health informa tion online Indication:Impaired fasting glucose Start:06-Jan-2015 Instruction Type:Patient Education How to access health informa tion online - Detail Indication:Impaired fasting glucose Start:06-Jan-2015 Instruction Type:Patient Education Patient Instructions Indication:Impaired fasting glucose Start:06-Jan-2015 Instruction Type:Provider Instructions for Treatment Patient Instructions Indication:Encounter for immunization Start:08-Aug-2014 Instruction Type:Provider Instructions for Treatment Patient Instructions Indication:Cough Start:22-Jul-2013 Instruction Type:Provider Instructions for Treatment Patient Instructions Indication:Sciatica Start:24-May-2013 Instruction Type:Provider Instructions for Treatment Patient Instructions Indication:Greater trochanteric bursitis Start:08-Mar-2013 Instruction Type:Provider Instructions for Treatment Patient Instructions Indication:Depression with anxiety Start:17-Dec-2012 Instruction Type:Provider Instructions for Treatment Patient Instructions Indication:Depression with anxiety Start:12-Oct-2012 Instruction Type:Provider Instructions for Treatment Patient Instructions Indication:Depression with anxiety Start:10-Sep-2012 Instruction Type:Provider Instructions for Treatment [facility]; [facility] Work Phone: Instructions* Name Dates Details Patient Instructions Indication:BMI 27.0-27.9,adult Start:10-Mar-2023 Instruction Type:Provider Instructions for Treatment How to Access Health Informa tion Online using Patient Portal and [employer] Apps Indication:BMI 27.0-27.9,adult Start:10-Mar-2023 Instruction Type:Patient Education Patient Instructions Indication:Right elbow pain Start:28-Feb-2023 Instruction Type:Provider Instructions for Treatment How to Access Health Informa tion Online using Patient Portal and [employer] Apps Indication:Right elbow pain Start:28-Feb-2023 Instruction Type:Patient Education Patient Instructions Indication:Tobacco abuse, in remission (Renamed from Tobacco dependence in remission) Start:19-Feb-2023 Instruction Type:Provider Instructions for Treatment How to Access Health Informa tion Online using Patient Portal and [employer] Apps Indication:Tobacco abuse, in remission (Renamed from Tobacco dependence in remission) Start:19-Feb-2023 Instruction Type:Patient Education Patient Instructions Indication:Depression with anxiety Start:14-Feb-2023 Instruction Type:Provider Instructions for Treatment How to Access Health Informa tion Online using Patient Portal and [employer] Apps Indication:Depression with anxiety Start:14-Feb-2023 Instruction Type:Patient Education Patient Instructions Indication:Tobacco abuse, in remission (Renamed from Tobacco dependence in remission) Start:14-May-2022 Instruction Type:Provider Instructions for Treatment How to Access Health Informa tion Online using Patient Portal and [employer] Apps Indication:Tobacco abuse, in remission (Renamed from Tobacco dependence in remission) Start:14-May-2022 Instruction Type:Patient Education Patient Instructions Indication:Tobacco abuse, in remission (Renamed from Tobacco dependence in remission) Start:30-Apr-2022 Instruction Type:Provider Instructions for Treatment How to Access Health Informa tion Online using Patient Portal and [employer] Apps Indication:Tobacco abuse, in remission (Renamed from Tobacco dependence in remission) Start:30-Apr-2022 Instruction Type:Patient Education Patient Instructions Indication:Impaired fasting glucose Start:10-Apr-2022 Instruction Type:Provider Instructions for Treatment How to Access Health Informa tion Online using Patient Portal and [employer] Apps Indication:Impaired fasting glucose Start:10-Apr-2022 Instruction Type:Patient Education How to access health informa tion online Indication:UTI symptoms Start:02-Apr-2016 Instruction Type:Patient Education How to access health informa tion online - Detail Indication:UTI symptoms Start:02-Apr-2016 Instruction Type:Patient Education Patient Instructions Indication:Laceration of finger, initial encounter Start:27-Nov-2015 Instruction Type:Provider Instructions for Treatment How to access health informa tion online Indication:Encounter for Medicare annual wellness exam Start:17-Nov-2015 Instruction Type:Patient Education How to access health informa tion online - Detail Indication:Encounter for Medicare annual wellness exam Start:17-Nov-2015 Instruction Type:Patient Education How to access health informa tion online Indication:Impaired fasting glucose Start:19-May-2015 Instruction Type:Patient Education How to access health informa tion online - Detail Indication:Impaired fasting glucose Start:19-May-2015 Instruction Type:Patient Education Patient Instructions Indication:Impaired fasting glucose Start:19-May-2015 Instruction Type:Provider Instructions for Treatment How to access health informa tion online Indication:Impaired fasting glucose Start:06-Jan-2015 Instruction Type:Patient Education How to access health informa tion online - Detail Indication:Impaired fasting glucose Start:06-Jan-2015 Instruction Type:Patient Education Patient Instructions Indication:Impaired fasting glucose Start:06-Jan-2015 Instruction Type:Provider Instructions for Treatment Patient Instructions Indication:Encounter for immunization Start:08-Aug-2014 Instruction Type:Provider Instructions for Treatment Patient Instructions Indication:Cough Start:22-Jul-2013 Instruction Type:Provider Instructions for Treatment Patient Instructions Indication:Sciatica Start:24-May-2013 Instruction Type:Provider Instructions for Treatment Patient Instructions Indication:Greater trochanteric bursitis Start:08-Mar-2013 Instruction Type:Provider Instructions for Treatment Patient Instructions Indication:Depression with anxiety Start:17-Dec-2012 Instruction Type:Provider Instructions for Treatment Patient Instructions Indication:Depression with anxiety Start:12-Oct-2012 Instruction Type:Provider Instructions for Treatment Patient Instructions Indication:Depression with anxiety Start:10-Sep-2012 Instruction Type:Provider Instructions for Treatment [facility]; [facility] Work Phone: Instructions* Name Dates Details Patient Instructions Indication:BMI 27.0-27.9,adult Start:10-Mar-2023 Instruction Type:Provider Instructions for Treatment How to Access Health Informa tion Online using Patient Portal and [employer]rd [employer] Apps Indication:BMI 27.0-27.9,adult Start:10-Mar-2023 Instruction Type:Patient Education Patient Instructions Indication:Right elbow pain Start:28-Feb-2023 Instruction Type:Provider Instructions for Treatment How to Access Health Informa tion Online using Patient Portal and [employer] Apps Indication:Right elbow pain Start:28-Feb-2023 Instruction Type:Patient Education Patient Instructions Indication:Tobacco abuse, in remission (Renamed from Tobacco dependence in remission) Start:19-Feb-2023 Instruction Type:Provider Instructions for Treatment How to Access Health Informa tion Online using Patient Portal and [employer] Apps Indication:Tobacco abuse, in remission (Renamed from Tobacco dependence in remission) Start:19-Feb-2023 Instruction Type:Patient Education Patient Instructions Indication:Depression with anxiety Start:14-Feb-2023 Instruction Type:Provider Instructions for Treatment How to Access Health Informa tion Online using Patient Portal and [employer] Apps Indication:Depression with anxiety Start:14-Feb-2023 Instruction Type:Patient Education Patient Instructions Indication:Tobacco abuse, in remission (Renamed from Tobacco dependence in remission) Start:14-May-2022 Instruction Type:Provider Instructions for Treatment How to Access Health Informa tion Online using Patient Portal and [employer] Apps Indication:Tobacco abuse, in remission (Renamed from Tobacco dependence in remission) Start:14-May-2022 Instruction Type:Patient Education Patient Instructions Indication:Tobacco abuse, in remission (Renamed from Tobacco dependence in remission) Start:30-Apr-2022 Instruction Type:Provider Instructions for Treatment How to Access Health Informa tion Online using Patient Portal and [employer] Apps Indication:Tobacco abuse, in remission (Renamed from Tobacco dependence in remission) Start:30-Apr-2022 Instruction Type:Patient Education Patient Instructions Indication:Impaired fasting glucose Start:10-Apr-2022 Instruction Type:Provider Instructions for Treatment How to Access Health Informa tion Online using Patient Portal and [employer] Apps Indication:Impaired fasting glucose Start:10-Apr-2022 Instruction Type:Patient Education How to access health informa tion online Indication:UTI symptoms Start:02-Apr-2016 Instruction Type:Patient Education How to access health informa tion online - Detail Indication:UTI symptoms Start:02-Apr-2016 Instruction Type:Patient Education Patient Instructions Indication:Laceration of finger, initial encounter Start:27-Nov-2015 Instruction Type:Provider Instructions for Treatment How to access health informa tion online Indication:Encounter for Medicare annual wellness exam Start:17-Nov-2015 Instruction Type:Patient Education How to access health informa tion online - Detail Indication:Encounter for Medicare annual wellness exam Start:17-Nov-2015 Instruction Type:Patient Education How to access health informa tion online Indication:Impaired fasting glucose Start:19-May-2015 Instruction Type:Patient Education How to access health informa tion online - Detail Indication:Impaired fasting glucose Start:19-May-2015 Instruction Type:Patient Education Patient Instructions Indication:Impaired fasting glucose Start:19-May-2015 Instruction Type:Provider Instructions for Treatment How to access health informa tion online Indication:Impaired fasting glucose Start:06-Jan-2015 Instruction Type:Patient Education How to access health informa tion online - Detail Indication:Impaired fasting glucose Start:06-Jan-2015 Instruction Type:Patient Education Patient Instructions Indication:Impaired fasting glucose Start:06-Jan-2015 Instruction Type:Provider Instructions for Treatment Patient Instructions Indication:Encounter for immunization Start:08-Aug-2014 Instruction Type:Provider Instructions for Treatment Patient Instructions Indication:Cough Start:22-Jul-2013 Instruction Type:Provider Instructions for Treatment Patient Instructions Indication:Sciatica Start:24-May-2013 Instruction Type:Provider Instructions for Treatment Patient Instructions Indication:Greater trochanteric bursitis Start:08-Mar-2013 Instruction Type:Provider Instructions for Treatment Patient Instructions Indication:Depression with anxiety Start:17-Dec-2012 Instruction Type:Provider Instructions for Treatment Patient Instructions Indication:Depression with anxiety Start:12-Oct-2012 Instruction Type:Provider Instructions for Treatment Patient Instructions Indication:Depression with anxiety Start:10-Sep-2012 Instruction Type:Provider Instructions for Treatment [facility]; [facility] Work Phone: Instructions* Name Dates Details Patient Instructions Indication:BMI 27.0-27.9,adult Start:10-Mar-2023 Instruction Type:Provider Instructions for Treatment How to Access Health Informa tion Online using Patient Portal and [employer] Apps Indication:BMI 27.0-27.9,adult Start:10-Mar-2023 Instruction Type:Patient Education Patient Instructions Indication:Right elbow pain Start:28-Feb-2023 Instruction Type:Provider Instructions for Treatment How to Access Health Informa tion Online using Patient Portal and [employer] Apps Indication:Right elbow pain Start:28-Feb-2023 Instruction Type:Patient Education Patient Instructions Indication:Tobacco abuse, in remission (Renamed from Tobacco dependence in remission) Start:19-Feb-2023 Instruction Type:Provider Instructions for Treatment How to Access Health Informa tion Online using Patient Portal and [employer]rd [employer] Apps Indication:Tobacco abuse, in remission (Renamed from Tobacco dependence in remission) Start:19-Feb-2023 Instruction Type:Patient Education Patient Instructions Indication:Depression with anxiety Start:14-Feb-2023 Instruction Type:Provider Instructions for Treatment How to Access Health Informa tion Online using Patient Portal and [employer] Apps Indication:Depression with anxiety Start:14-Feb-2023 Instruction Type:Patient Education Patient Instructions Indication:Tobacco abuse, in remission (Renamed from Tobacco dependence in remission) Start:14-May-2022 Instruction Type:Provider Instructions for Treatment How to Access Health Informa tion Online using Patient Portal and [employer] Apps Indication:Tobacco abuse, in remission (Renamed from Tobacco dependence in remission) Start:14-May-2022 Instruction Type:Patient Education Patient Instructions Indication:Tobacco abuse, in remission (Renamed from Tobacco dependence in remission) Start:30-Apr-2022 Instruction Type:Provider Instructions for Treatment How to Access Health Informa tion Online using Patient Portal and [employer] Apps Indication:Tobacco abuse, in remission (Renamed from Tobacco dependence in remission) Start:30-Apr-2022 Instruction Type:Patient Education Patient Instructions Indication:Impaired fasting glucose Start:10-Apr-2022 Instruction Type:Provider Instructions for Treatment How to Access Health Informa tion Online using Patient Portal and [employer]rd [employer] Apps Indication:Impaired fasting glucose Start:10-Apr-2022 Instruction Type:Patient Education How to access health informa tion online Indication:UTI symptoms Start:02-Apr-2016 Instruction Type:Patient Education How to access health informa tion online - Detail Indication:UTI symptoms Start:02-Apr-2016 Instruction Type:Patient Education Patient Instructions Indication:Laceration of finger, initial encounter Start:27-Nov-2015 Instruction Type:Provider Instructions for Treatment How to access health informa tion online Indication:Encounter for Medicare annual wellness exam Start:17-Nov-2015 Instruction Type:Patient Education How to access health informa tion online - Detail Indication:Encounter for Medicare annual wellness exam Start:17-Nov-2015 Instruction Type:Patient Education How to access health informa tion online Indication:Impaired fasting glucose Start:19-May-2015 Instruction Type:Patient Education How to access health informa tion online - Detail Indication:Impaired fasting glucose Start:19-May-2015 Instruction Type:Patient Education Patient Instructions Indication:Impaired fasting glucose Start:19-May-2015 Instruction Type:Provider Instructions for Treatment How to access health informa tion online Indication:Impaired fasting glucose Start:06-Jan-2015 Instruction Type:Patient Education How to access health informa tion online - Detail Indication:Impaired fasting glucose Start:06-Jan-2015 Instruction Type:Patient Education Patient Instructions Indication:Impaired fasting glucose Start:06-Jan-2015 Instruction Type:Provider Instructions for Treatment Patient Instructions Indication:Encounter for immunization Start:08-Aug-2014 Instruction Type:Provider Instructions for Treatment Patient Instructions Indication:Cough Start:22-Jul-2013 Instruction Type:Provider Instructions for Treatment Patient Instructions Indication:Sciatica Start:24-May-2013 Instruction Type:Provider Instructions for Treatment Patient Instructions Indication:Greater trochanteric bursitis Start:08-Mar-2013 Instruction Type:Provider Instructions for Treatment Patient Instructions Indication:Depression with anxiety Start:17-Dec-2012 Instruction Type:Provider Instructions for Treatment Patient Instructions Indication:Depression with anxiety Start:12-Oct-2012 Instruction Type:Provider Instructions for Treatment Patient Instructions Indication:Depression with anxiety Start:10-Sep-2012 Instruction Type:Provider Instructions for Treatment [facility]; [facility] Work Phone: Instructions* Name Dates Details Patient Instructions Indication:Tobacco abuse, in remission (Renamed from Tobacco dependence in remission) Start:08-Apr-2023 Instruction Type:Provider Instructions for Treatment How to Access Health Informa tion Online using Patient Portal and [employer] Apps Indication:Tobacco abuse, in remission (Renamed from Tobacco dependence in remission) Start:08-Apr-2023 Instruction Type:Patient Education Patient Instructions Indication:BMI 27.0-27.9,adult Start:10-Mar-2023 Instruction Type:Provider Instructions for Treatment How to Access Health Informa tion Online using Patient Portal and [employer]rd [employer] Apps Indication:BMI 27.0-27.9,adult Start:10-Mar-2023 Instruction Type:Patient Education Patient Instructions Indication:Right elbow pain Start:28-Feb-2023 Instruction Type:Provider Instructions for Treatment How to Access Health Informa tion Online using Patient Portal and [employer]rd [employer] Apps Indication:Right elbow pain Start:28-Feb-2023 Instruction Type:Patient Education Patient Instructions Indication:Tobacco abuse, in remission (Renamed from Tobacco dependence in remission) Start:19-Feb-2023 Instruction Type:Provider Instructions for Treatment How to Access Health Informa tion Online using Patient Portal and [employer]rd [employer] Apps Indication:Tobacco abuse, in remission (Renamed from Tobacco dependence in remission) Start:19-Feb-2023 Instruction Type:Patient Education Patient Instructions Indication:Depression with anxiety Start:14-Feb-2023 Instruction Type:Provider Instructions for Treatment How to Access Health Informa tion Online using Patient Portal and [employer] Apps Indication:Depression with anxiety Start:14-Feb-2023 Instruction Type:Patient Education Patient Instructions Indication:Tobacco abuse, in remission (Renamed from Tobacco dependence in remission) Start:14-May-2022 Instruction Type:Provider Instructions for Treatment How to Access Health Informa tion Online using Patient Portal and [employer] Apps Indication:Tobacco abuse, in remission (Renamed from Tobacco dependence in remission) Start:14-May-2022 Instruction Type:Patient Education Patient Instructions Indication:Tobacco abuse, in remission (Renamed from Tobacco dependence in remission) Start:30-Apr-2022 Instruction Type:Provider Instructions for Treatment How to Access Health Informa tion Online using Patient Portal and [employer]rd [employer] Apps Indication:Tobacco abuse, in remission (Renamed from Tobacco dependence in remission) Start:30-Apr-2022 Instruction Type:Patient Education Patient Instructions Indication:Impaired fasting glucose Start:10-Apr-2022 Instruction Type:Provider Instructions for Treatment How to Access Health Informa tion Online using Patient Portal and [employer] Apps Indication:Impaired fasting glucose Start:10-Apr-2022 Instruction Type:Patient Education How to access health informa tion online Indication:UTI symptoms Start:02-Apr-2016 Instruction Type:Patient Education How to access health informa tion online - Detail Indication:UTI symptoms Start:02-Apr-2016 Instruction Type:Patient Education Patient Instructions Indication:Laceration of finger, initial encounter Start:27-Nov-2015 Instruction Type:Provider Instructions for Treatment How to access health informa tion online Indication:Encounter for Medicare annual wellness exam Start:17-Nov-2015 Instruction Type:Patient Education How to access health informa tion online - Detail Indication:Encounter for Medicare annual wellness exam Start:17-Nov-2015 Instruction Type:Patient Education How to access health informa tion online Indication:Impaired fasting glucose Start:19-May-2015 Instruction Type:Patient Education How to access health informa tion online - Detail Indication:Impaired fasting glucose Start:19-May-2015 Instruction Type:Patient Education Patient Instructions Indication:Impaired fasting glucose Start:19-May-2015 Instruction Type:Provider Instructions for Treatment How to access health informa tion online Indication:Impaired fasting glucose Start:06-Jan-2015 Instruction Type:Patient Education How to access health informa tion online - Detail Indication:Impaired fasting glucose Start:06-Jan-2015 Instruction Type:Patient Education Patient Instructions Indication:Impaired fasting glucose Start:06-Jan-2015 Instruction Type:Provider Instructions for Treatment Patient Instructions Indication:Encounter for immunization Start:08-Aug-2014 Instruction Type:Provider Instructions for Treatment Patient Instructions Indication:Cough Start:22-Jul-2013 Instruction Type:Provider Instructions for Treatment Patient Instructions Indication:Sciatica Start:24-May-2013 Instruction Type:Provider Instructions for Treatment Patient Instructions Indication:Greater trochanteric bursitis Start:08-Mar-2013 Instruction Type:Provider Instructions for Treatment Patient Instructions Indication:Depression with anxiety Start:17-Dec-2012 Instruction Type:Provider Instructions for Treatment Patient Instructions Indication:Depression with anxiety Start:12-Oct-2012 Instruction Type:Provider Instructions for Treatment Patient Instructions Indication:Depression with anxiety Start:10-Sep-2012 Instruction Type:Provider Instructions for Treatment [facility]; [facility] Work Phone: Instructions* Name Dates Details Patient Instructions Indication:Tobacco abuse, in remission (Renamed from Tobacco dependence in remission) Start:08-Apr-2023 Instruction Type:Provider Instructions for Treatment How to Access Health Informa tion Online using Patient Portal and [employer] Apps Indication:Tobacco abuse, in remission (Renamed from Tobacco dependence in remission) Start:08-Apr-2023 Instruction Type:Patient Education Patient Instructions Indication:BMI 27.0-27.9,adult Start:10-Mar-2023 Instruction Type:Provider Instructions for Treatment How to Access Health Informa tion Online using Patient Portal and [employer]rd [employer] Apps Indication:BMI 27.0-27.9,adult Start:10-Mar-2023 Instruction Type:Patient Education Patient Instructions Indication:Right elbow pain Start:28-Feb-2023 Instruction Type:Provider Instructions for Treatment How to Access Health Informa tion Online using Patient Portal and [employer]rd [employer] Apps Indication:Right elbow pain Start:28-Feb-2023 Instruction Type:Patient Education Patient Instructions Indication:Tobacco abuse, in remission (Renamed from Tobacco dependence in remission) Start:19-Feb-2023 Instruction Type:Provider Instructions for Treatment How to Access Health Informa tion Online using Patient Portal and [employer]rd [employer] Apps Indication:Tobacco abuse, in remission (Renamed from Tobacco dependence in remission) Start:19-Feb-2023 Instruction Type:Patient Education Patient Instructions Indication:Depression with anxiety Start:14-Feb-2023 Instruction Type:Provider Instructions for Treatment How to Access Health Informa tion Online using Patient Portal and [employer] Apps Indication:Depression with anxiety Start:14-Feb-2023 Instruction Type:Patient Education Patient Instructions Indication:Tobacco abuse, in remission (Renamed from Tobacco dependence in remission) Start:14-May-2022 Instruction Type:Provider Instructions for Treatment How to Access Health Informa tion Online using Patient Portal and [employer] Apps Indication:Tobacco abuse, in remission (Renamed from Tobacco dependence in remission) Start:14-May-2022 Instruction Type:Patient Education Patient Instructions Indication:Tobacco abuse, in remission (Renamed from Tobacco dependence in remission) Start:30-Apr-2022 Instruction Type:Provider Instructions for Treatment How to Access Health Informa tion Online using Patient Portal and [employer] Apps Indication:Tobacco abuse, in remission (Renamed from Tobacco dependence in remission) Start:30-Apr-2022 Instruction Type:Patient Education Patient Instructions Indication:Impaired fasting glucose Start:10-Apr-2022 Instruction Type:Provider Instructions for Treatment How to Access Health Informa tion Online using Patient Portal and [employer] Apps Indication:Impaired fasting glucose Start:10-Apr-2022 Instruction Type:Patient Education How to access health informa tion online Indication:UTI symptoms Start:02-Apr-2016 Instruction Type:Patient Education How to access health informa tion online - Detail Indication:UTI symptoms Start:02-Apr-2016 Instruction Type:Patient Education Patient Instructions Indication:Laceration of finger, initial encounter Start:27-Nov-2015 Instruction Type:Provider Instructions for Treatment How to access health informa tion online Indication:Encounter for Medicare annual wellness exam Start:17-Nov-2015 Instruction Type:Patient Education How to access health informa tion online - Detail Indication:Encounter for Medicare annual wellness exam Start:17-Nov-2015 Instruction Type:Patient Education How to access health informa tion online Indication:Impaired fasting glucose Start:19-May-2015 Instruction Type:Patient Education How to access health informa tion online - Detail Indication:Impaired fasting glucose Start:19-May-2015 Instruction Type:Patient Education Patient Instructions Indication:Impaired fasting glucose Start:19-May-2015 Instruction Type:Provider Instructions for Treatment How to access health informa tion online Indication:Impaired fasting glucose Start:06-Jan-2015 Instruction Type:Patient Education How to access health informa tion online - Detail Indication:Impaired fasting glucose Start:06-Jan-2015 Instruction Type:Patient Education Patient Instructions Indication:Impaired fasting glucose Start:06-Jan-2015 Instruction Type:Provider Instructions for Treatment Patient Instructions Indication:Encounter for immunization Start:08-Aug-2014 Instruction Type:Provider Instructions for Treatment Patient Instructions Indication:Cough Start:22-Jul-2013 Instruction Type:Provider Instructions for Treatment Patient Instructions Indication:Sciatica Start:24-May-2013 Instruction Type:Provider Instructions for Treatment Patient Instructions Indication:Greater trochanteric bursitis Start:08-Mar-2013 Instruction Type:Provider Instructions for Treatment Patient Instructions Indication:Depression with anxiety Start:17-Dec-2012 Instruction Type:Provider Instructions for Treatment Patient Instructions Indication:Depression with anxiety Start:12-Oct-2012 Instruction Type:Provider Instructions for Treatment Patient Instructions Indication:Depression with anxiety Start:10-Sep-2012 Instruction Type:Provider Instructions for Treatment [facility]; [facility] Work Phone: Instructions* Name Dates Details Patient Instructions Indication:Tobacco abuse, in remission (Renamed from Tobacco dependence in remission) Start:08-Apr-2023 Instruction Type:Provider Instructions for Treatment How to Access Health Informa tion Online using Patient Portal and [employer]rd [employer] Apps Indication:Tobacco abuse, in remission (Renamed from Tobacco dependence in remission) Start:08-Apr-2023 Instruction Type:Patient Education Patient Instructions Indication:BMI 27.0-27.9,adult Start:10-Mar-2023 Instruction Type:Provider Instructions for Treatment How to Access Health Informa tion Online using Patient Portal and [employer]rd [employer] Apps Indication:BMI 27.0-27.9,adult Start:10-Mar-2023 Instruction Type:Patient Education Patient Instructions Indication:Right elbow pain Start:28-Feb-2023 Instruction Type:Provider Instructions for Treatment How to Access Health Informa tion Online using Patient Portal and [employer]rd [employer] Apps Indication:Right elbow pain Start:28-Feb-2023 Instruction Type:Patient Education Patient Instructions Indication:Tobacco abuse, in remission (Renamed from Tobacco dependence in remission) Start:19-Feb-2023 Instruction Type:Provider Instructions for Treatment How to Access Health Informa tion Online using Patient Portal and [employer]rd [employer] Apps Indication:Tobacco abuse, in remission (Renamed from Tobacco dependence in remission) Start:19-Feb-2023 Instruction Type:Patient Education Patient Instructions Indication:Depression with anxiety Start:14-Feb-2023 Instruction Type:Provider Instructions for Treatment How to Access Health Informa tion Online using Patient Portal and [employer] Apps Indication:Depression with anxiety Start:14-Feb-2023 Instruction Type:Patient Education Patient Instructions Indication:Tobacco abuse, in remission (Renamed from Tobacco dependence in remission) Start:14-May-2022 Instruction Type:Provider Instructions for Treatment How to Access Health Informa tion Online using Patient Portal and [employer]rd [employer] Apps Indication:Tobacco abuse, in remission (Renamed from Tobacco dependence in remission) Start:14-May-2022 Instruction Type:Patient Education Patient Instructions Indication:Tobacco abuse, in remission (Renamed from Tobacco dependence in remission) Start:30-Apr-2022 Instruction Type:Provider Instructions for Treatment How to Access Health Informa tion Online using Patient Portal and [employer]rd [employer] Apps Indication:Tobacco abuse, in remission (Renamed from Tobacco dependence in remission) Start:30-Apr-2022 Instruction Type:Patient Education Patient Instructions Indication:Impaired fasting glucose Start:10-Apr-2022 Instruction Type:Provider Instructions for Treatment How to Access Health Informa tion Online using Patient Portal and [employer]rd [employer] Apps Indication:Impaired fasting glucose Start:10-Apr-2022 Instruction Type:Patient Education How to access health informa tion online Indication:UTI symptoms Start:02-Apr-2016 Instruction Type:Patient Education How to access health informa tion online - Detail Indication:UTI symptoms Start:02-Apr-2016 Instruction Type:Patient Education Patient Instructions Indication:Laceration of finger, initial encounter Start:27-Nov-2015 Instruction Type:Provider Instructions for Treatment How to access health informa tion online Indication:Encounter for Medicare annual wellness exam Start:17-Nov-2015 Instruction Type:Patient Education How to access health informa tion online - Detail Indication:Encounter for Medicare annual wellness exam Start:17-Nov-2015 Instruction Type:Patient Education How to access health informa tion online Indication:Impaired fasting glucose Start:19-May-2015 Instruction Type:Patient Education How to access health informa tion online - Detail Indication:Impaired fasting glucose Start:19-May-2015 Instruction Type:Patient Education Patient Instructions Indication:Impaired fasting glucose Start:19-May-2015 Instruction Type:Provider Instructions for Treatment How to access health informa tion online Indication:Impaired fasting glucose Start:06-Jan-2015 Instruction Type:Patient Education How to access health informa tion online - Detail Indication:Impaired fasting glucose Start:06-Jan-2015 Instruction Type:Patient Education Patient Instructions Indication:Impaired fasting glucose Start:06-Jan-2015 Instruction Type:Provider Instructions for Treatment Patient Instructions Indication:Encounter for immunization Start:08-Aug-2014 Instruction Type:Provider Instructions for Treatment Patient Instructions Indication:Cough Start:22-Jul-2013 Instruction Type:Provider Instructions for Treatment Patient Instructions Indication:Sciatica Start:24-May-2013 Instruction Type:Provider Instructions for Treatment Patient Instructions Indication:Greater trochanteric bursitis Start:08-Mar-2013 Instruction Type:Provider Instructions for Treatment Patient Instructions Indication:Depression with anxiety Start:17-Dec-2012 Instruction Type:Provider Instructions for Treatment Patient Instructions Indication:Depression with anxiety Start:12-Oct-2012 Instruction Type:Provider Instructions for Treatment Patient Instructions Indication:Depression with anxiety Start:10-Sep-2012 Instruction Type:Provider Instructions for Treatment [facility] Work Phone: Instructions* Name Dates Details Patient Instructions Indication:BMI 26.0-26.9,adult Start:09-Jun-2023 Instruction Type:Provider Instructions for Treatment How to Access Health Informa tion Online using Patient Portal and [employer]rd [employer] Apps Indication:BMI 26.0-26.9,adult Start:09-Jun-2023 Instruction Type:Patient Education Patient Instructions Indication:Tobacco abuse, in remission (Renamed from Tobacco dependence in remission) Start:08-Apr-2023 Instruction Type:Provider Instructions for Treatment How to Access Health Informa tion Online using Patient Portal and [employer] Apps Indication:Tobacco abuse, in remission (Renamed from Tobacco dependence in remission) Start:08-Apr-2023 Instruction Type:Patient Education Patient Instructions Indication:BMI 27.0-27.9,adult Start:10-Mar-2023 Instruction Type:Provider Instructions for Treatment How to Access Health Informa tion Online using Patient Portal and [employer] Apps Indication:BMI 27.0-27.9,adult Start:10-Mar-2023 Instruction Type:Patient Education Patient Instructions Indication:Right elbow pain Start:28-Feb-2023 Instruction Type:Provider Instructions for Treatment How to Access Health Informa tion Online using Patient Portal and [employer] Apps Indication:Right elbow pain Start:28-Feb-2023 Instruction Type:Patient Education Patient Instructions Indication:Tobacco abuse, in remission (Renamed from Tobacco dependence in remission) Start:19-Feb-2023 Instruction Type:Provider Instructions for Treatment How to Access Health Informa tion Online using Patient Portal and [employer] Apps Indication:Tobacco abuse, in remission (Renamed from Tobacco dependence in remission) Start:19-Feb-2023 Instruction Type:Patient Education Patient Instructions Indication:Depression with anxiety Start:14-Feb-2023 Instruction Type:Provider Instructions for Treatment How to Access Health Informa tion Online using Patient Portal and [employer] Apps Indication:Depression with anxiety Start:14-Feb-2023 Instruction Type:Patient Education Patient Instructions Indication:Tobacco abuse, in remission (Renamed from Tobacco dependence in remission) Start:14-May-2022 Instruction Type:Provider Instructions for Treatment How to Access Health Informa tion Online using Patient Portal and [employer] Apps Indication:Tobacco abuse, in remission (Renamed from Tobacco dependence in remission) Start:14-May-2022 Instruction Type:Patient Education Patient Instructions Indication:Tobacco abuse, in remission (Renamed from Tobacco dependence in remission) Start:30-Apr-2022 Instruction Type:Provider Instructions for Treatment How to Access Health Informa tion Online using Patient Portal and [employer] Apps Indication:Tobacco abuse, in remission (Renamed from Tobacco dependence in remission) Start:30-Apr-2022 Instruction Type:Patient Education Patient Instructions Indication:Impaired fasting glucose Start:10-Apr-2022 Instruction Type:Provider Instructions for Treatment How to Access Health Informa tion Online using Patient Portal and [employer]rd [employer] Apps Indication:Impaired fasting glucose Start:10-Apr-2022 Instruction Type:Patient Education How to access health informa tion online Indication:UTI symptoms Start:02-Apr-2016 Instruction Type:Patient Education How to access health informa tion online - Detail Indication:UTI symptoms Start:02-Apr-2016 Instruction Type:Patient Education Patient Instructions Indication:Laceration of finger, initial encounter Start:27-Nov-2015 Instruction Type:Provider Instructions for Treatment How to access health informa tion online Indication:Encounter for Medicare annual wellness exam Start:17-Nov-2015 Instruction Type:Patient Education How to access health informa tion online - Detail Indication:Encounter for Medicare annual wellness exam Start:17-Nov-2015 Instruction Type:Patient Education How to access health informa tion online Indication:Impaired fasting glucose Start:19-May-2015 Instruction Type:Patient Education How to access health informa tion online - Detail Indication:Impaired fasting glucose Start:19-May-2015 Instruction Type:Patient Education Patient Instructions Indication:Impaired fasting glucose Start:19-May-2015 Instruction Type:Provider Instructions for Treatment How to access health informa tion online Indication:Impaired fasting glucose Start:06-Jan-2015 Instruction Type:Patient Education How to access health informa tion online - Detail Indication:Impaired fasting glucose Start:06-Jan-2015 Instruction Type:Patient Education Patient Instructions Indication:Impaired fasting glucose Start:06-Jan-2015 Instruction Type:Provider Instructions for Treatment Patient Instructions Indication:Encounter for immunization Start:08-Aug-2014 Instruction Type:Provider Instructions for Treatment Patient Instructions Indication:Cough Start:22-Jul-2013 Instruction Type:Provider Instructions for Treatment Patient Instructions Indication:Sciatica Start:24-May-2013 Instruction Type:Provider Instructions for Treatment Patient Instructions Indication:Greater trochanteric bursitis Start:08-Mar-2013 Instruction Type:Provider Instructions for Treatment Patient Instructions Indication:Depression with anxiety Start:17-Dec-2012 Instruction Type:Provider Instructions for Treatment Patient Instructions Indication:Depression with anxiety Start:12-Oct-2012 Instruction Type:Provider Instructions for Treatment Patient Instructions Indication:Depression with anxiety Start:10-Sep-2012 Instruction Type:Provider Instructions for Treatment [facility] Work Phone: Instructions* Name Dates Details Patient Instructions Indication:BMI 26.0-26.9,adult Start:12-Jun-2023 Instruction Type:Provider Instructions for Treatment How to Access Health Informa tion Online using Patient Portal and [employer]rd [employer] Apps Indication:BMI 26.0-26.9,adult Start:12-Jun-2023 Instruction Type:Patient Education Patient Instructions Indication:BMI 26.0-26.9,adult Start:09-Jun-2023 Instruction Type:Provider Instructions for Treatment How to Access Health Informa tion Online using Patient Portal and [employer]rd [employer] Apps Indication:BMI 26.0-26.9,adult Start:09-Jun-2023 Instruction Type:Patient Education Patient Instructions Indication:Tobacco abuse, in remission (Renamed from Tobacco dependence in remission) Start:08-Apr-2023 Instruction Type:Provider Instructions for Treatment How to Access Health Informa tion Online using Patient Portal and [employer]rd [employer] Apps Indication:Tobacco abuse, in remission (Renamed from Tobacco dependence in remission) Start:08-Apr-2023 Instruction Type:Patient Education Patient Instructions Indication:BMI 27.0-27.9,adult Start:10-Mar-2023 Instruction Type:Provider Instructions for Treatment How to Access Health Informa tion Online using Patient Portal and [employer]rd [employer] Apps Indication:BMI 27.0-27.9,adult Start:10-Mar-2023 Instruction Type:Patient Education Patient Instructions Indication:Right elbow pain Start:28-Feb-2023 Instruction Type:Provider Instructions for Treatment How to Access Health Informa tion Online using Patient Portal and [employer]rd [employer] Apps Indication:Right elbow pain Start:28-Feb-2023 Instruction Type:Patient Education Patient Instructions Indication:Tobacco abuse, in remission (Renamed from Tobacco dependence in remission) Start:19-Feb-2023 Instruction Type:Provider Instructions for Treatment How to Access Health Informa tion Online using Patient Portal and [employer]rd [employer] Apps Indication:Tobacco abuse, in remission (Renamed from Tobacco dependence in remission) Start:19-Feb-2023 Instruction Type:Patient Education Patient Instructions Indication:Depression with anxiety Start:14-Feb-2023 Instruction Type:Provider Instructions for Treatment How to Access Health Informa tion Online using Patient Portal and [employer]rd [employer] Apps Indication:Depression with anxiety Start:14-Feb-2023 Instruction Type:Patient Education Patient Instructions Indication:Tobacco abuse, in remission (Renamed from Tobacco dependence in remission) Start:14-May-2022 Instruction Type:Provider Instructions for Treatment How to Access Health Informa tion Online using Patient Portal and [employer]rd [employer] Apps Indication:Tobacco abuse, in remission (Renamed from Tobacco dependence in remission) Start:14-May-2022 Instruction Type:Patient Education Patient Instructions Indication:Tobacco abuse, in remission (Renamed from Tobacco dependence in remission) Start:30-Apr-2022 Instruction Type:Provider Instructions for Treatment How to Access Health Informa tion Online using Patient Portal and [employer] Apps Indication:Tobacco abuse, in remission (Renamed from Tobacco dependence in remission) Start:30-Apr-2022 Instruction Type:Patient Education Patient Instructions Indication:Impaired fasting glucose Start:10-Apr-2022 Instruction Type:Provider Instructions for Treatment How to Access Health Informa tion Online using Patient Portal and [employer] Apps Indication:Impaired fasting glucose Start:10-Apr-2022 Instruction Type:Patient Education How to access health informa tion online Indication:UTI symptoms Start:02-Apr-2016 Instruction Type:Patient Education How to access health informa tion online - Detail Indication:UTI symptoms Start:02-Apr-2016 Instruction Type:Patient Education Patient Instructions Indication:Laceration of finger, initial encounter Start:27-Nov-2015 Instruction Type:Provider Instructions for Treatment How to access health informa tion online Indication:Encounter for Medicare annual wellness exam Start:17-Nov-2015 Instruction Type:Patient Education How to access health informa tion online - Detail Indication:Encounter for Medicare annual wellness exam Start:17-Nov-2015 Instruction Type:Patient Education How to access health informa tion online Indication:Impaired fasting glucose Start:19-May-2015 Instruction Type:Patient Education How to access health informa tion online - Detail Indication:Impaired fasting glucose Start:19-May-2015 Instruction Type:Patient Education Patient Instructions Indication:Impaired fasting glucose Start:19-May-2015 Instruction Type:Provider Instructions for Treatment How to access health informa tion online Indication:Impaired fasting glucose Start:06-Jan-2015 Instruction Type:Patient Education How to access health informa tion online - Detail Indication:Impaired fasting glucose Start:06-Jan-2015 Instruction Type:Patient Education Patient Instructions Indication:Impaired fasting glucose Start:06-Jan-2015 Instruction Type:Provider Instructions for Treatment Patient Instructions Indication:Encounter for immunization Start:08-Aug-2014 Instruction Type:Provider Instructions for Treatment Patient Instructions Indication:Cough Start:22-Jul-2013 Instruction Type:Provider Instructions for Treatment Patient Instructions Indication:Sciatica Start:24-May-2013 Instruction Type:Provider Instructions for Treatment Patient Instructions Indication:Greater trochanteric bursitis Start:08-Mar-2013 Instruction Type:Provider Instructions for Treatment Patient Instructions Indication:Depression with anxiety Start:17-Dec-2012 Instruction Type:Provider Instructions for Treatment Patient Instructions Indication:Depression with anxiety Start:12-Oct-2012 Instruction Type:Provider Instructions for Treatment Patient Instructions Indication:Depression with anxiety Start:10-Sep-2012 Instruction Type:Provider Instructions for Treatment [facility]; [facility] Work Phone: Instructions* Name Dates Details Patient Instructions Indication:BMI 26.0-26.9,adult Start:12-Jun-2023 Instruction Type:Provider Instructions for Treatment How to Access Health Informa tion Online using Patient Portal and [employer]rd [employer] Apps Indication:BMI 26.0-26.9,adult Start:12-Jun-2023 Instruction Type:Patient Education Patient Instructions Indication:BMI 26.0-26.9,adult Start:09-Jun-2023 Instruction Type:Provider Instructions for Treatment How to Access Health Informa tion Online using Patient Portal and [employer]rd [employer] Apps Indication:BMI 26.0-26.9,adult Start:09-Jun-2023 Instruction Type:Patient Education Patient Instructions Indication:Tobacco abuse, in remission (Renamed from Tobacco dependence in remission) Start:08-Apr-2023 Instruction Type:Provider Instructions for Treatment How to Access Health Informa tion Online using Patient Portal and [employer]rd [employer] Apps Indication:Tobacco abuse, in remission (Renamed from Tobacco dependence in remission) Start:08-Apr-2023 Instruction Type:Patient Education Patient Instructions Indication:BMI 27.0-27.9,adult Start:10-Mar-2023 Instruction Type:Provider Instructions for Treatment How to Access Health Informa tion Online using Patient Portal and [employer]rd [employer] Apps Indication:BMI 27.0-27.9,adult Start:10-Mar-2023 Instruction Type:Patient Education Patient Instructions Indication:Right elbow pain Start:28-Feb-2023 Instruction Type:Provider Instructions for Treatment How to Access Health Informa tion Online using Patient Portal and [employer]rd [employer] Apps Indication:Right elbow pain Start:28-Feb-2023 Instruction Type:Patient Education Patient Instructions Indication:Tobacco abuse, in remission (Renamed from Tobacco dependence in remission) Start:19-Feb-2023 Instruction Type:Provider Instructions for Treatment How to Access Health Informa tion Online using Patient Portal and [employer] Apps Indication:Tobacco abuse, in remission (Renamed from Tobacco dependence in remission) Start:19-Feb-2023 Instruction Type:Patient Education Patient Instructions Indication:Depression with anxiety Start:14-Feb-2023 Instruction Type:Provider Instructions for Treatment How to Access Health Informa tion Online using Patient Portal and [employer] Apps Indication:Depression with anxiety Start:14-Feb-2023 Instruction Type:Patient Education Patient Instructions Indication:Tobacco abuse, in remission (Renamed from Tobacco dependence in remission) Start:14-May-2022 Instruction Type:Provider Instructions for Treatment How to Access Health Informa tion Online using Patient Portal and [employer] Apps Indication:Tobacco abuse, in remission (Renamed from Tobacco dependence in remission) Start:14-May-2022 Instruction Type:Patient Education Patient Instructions Indication:Tobacco abuse, in remission (Renamed from Tobacco dependence in remission) Start:30-Apr-2022 Instruction Type:Provider Instructions for Treatment How to Access Health Informa tion Online using Patient Portal and [employer] Apps Indication:Tobacco abuse, in remission (Renamed from Tobacco dependence in remission) Start:30-Apr-2022 Instruction Type:Patient Education Patient Instructions Indication:Impaired fasting glucose Start:10-Apr-2022 Instruction Type:Provider Instructions for Treatment How to Access Health Informa tion Online using Patient Portal and [employer] Apps Indication:Impaired fasting glucose Start:10-Apr-2022 Instruction Type:Patient Education How to access health informa tion online Indication:UTI symptoms Start:02-Apr-2016 Instruction Type:Patient Education How to access health informa tion online - Detail Indication:UTI symptoms Start:02-Apr-2016 Instruction Type:Patient Education Patient Instructions Indication:Laceration of finger, initial encounter Start:27-Nov-2015 Instruction Type:Provider Instructions for Treatment How to access health informa tion online Indication:Encounter for Medicare annual wellness exam Start:17-Nov-2015 Instruction Type:Patient Education How to access health informa tion online - Detail Indication:Encounter for Medicare annual wellness exam Start:17-Nov-2015 Instruction Type:Patient Education How to access health informa tion online Indication:Impaired fasting glucose Start:19-May-2015 Instruction Type:Patient Education How to access health informa tion online - Detail Indication:Impaired fasting glucose Start:19-May-2015 Instruction Type:Patient Education Patient Instructions Indication:Impaired fasting glucose Start:19-May-2015 Instruction Type:Provider Instructions for Treatment How to access health informa tion online Indication:Impaired fasting glucose Start:06-Jan-2015 Instruction Type:Patient Education How to access health informa tion online - Detail Indication:Impaired fasting glucose Start:06-Jan-2015 Instruction Type:Patient Education Patient Instructions Indication:Impaired fasting glucose Start:06-Jan-2015 Instruction Type:Provider Instructions for Treatment Patient Instructions Indication:Encounter for immunization Start:08-Aug-2014 Instruction Type:Provider Instructions for Treatment Patient Instructions Indication:Cough Start:22-Jul-2013 Instruction Type:Provider Instructions for Treatment Patient Instructions Indication:Sciatica Start:24-May-2013 Instruction Type:Provider Instructions for Treatment Patient Instructions Indication:Greater trochanteric bursitis Start:08-Mar-2013 Instruction Type:Provider Instructions for Treatment Patient Instructions Indication:Depression with anxiety Start:17-Dec-2012 Instruction Type:Provider Instructions for Treatment Patient Instructions Indication:Depression with anxiety Start:12-Oct-2012 Instruction Type:Provider Instructions for Treatment Patient Instructions Indication:Depression with anxiety Start:10-Sep-2012 Instruction Type:Provider Instructions for Treatment [facility]; [facility] Work Phone: reason for referral (narrative)No reason for referral [facility] Work [facility]: Chief Complaint and Reason for Visit Chief Complaint PE PE PE PE Reason for Visit Elevated troponin Hypoxemia NSTEMI, initial episode of care Pulmonary emboli Acute and chronic respiratory failure with hypoxia Chief Complaint PE PE PE PE SCREENING NEW-PE Reason for Visit Pulmonary emboli Elevated troponin NSTEMI, initial episode of care Pulmonary emboli Chief Complaint PE PE PE PE PE SCREENING [facility] hospital fu Other pulmonary embolism without acute cor pulmona Other pulmonary embolism without acute cor pulmona Reason for Visit Pulmonary emboli Elevated troponin NSTEMI, initial episode of care Pulmonary emboli Pulmonary emboli Chief Complaint PE PE PE PE PE SCREENING [facility] hospital fu Other pulmonary embolism without acute cor pulmona Other pulmonary embolism without acute cor pulmona DIASTOLIC HEART FAILURE Reason for Visit Pulmonary emboli Elevated troponin NSTEMI, initial episode of care Pulmonary emboli Essential hypertension Pulmonary emboli Chief Complaint PE PE PE PE PE SCREENING [facility] hospital fu Other pulmonary embolism without acute cor pulmona Other pulmonary embolism without acute cor pulmona DIASTOLIC HEART FAILURE 3 M FU Reason for Visit Pulmonary emboli Elevated troponin NSTEMI, initial episode of care Pulmonary emboli Essential hypertension Pulmonary emboli Cough Pulmonary emboli Chief Complaint [facility] Other pulmonary embolism without acute cor pulmona Other pulmonary embolism without acute cor pulmona DIASTOLIC HEART FAILURE 3 M FU DYSPNEA Amb Documentation Reason for Visit Pulmonary emboli Essential hypertension Pulmonary emboli Cough Pulmonary emboli Chief Complaint hospital fu Other pulmonary embolism without acute cor pulmona Other pulmonary embolism without acute cor pulmona DIASTOLIC HEART FAILURE 3 M FU DYSPNEA Amb Documentation 3 M FU abd pain Reason for Visit Essential hypertensi on Pulmonary emboli Cough Pulmonary emboli Essential hypertension Pulmonary emboli Chief Complaint Other pulmonary embo lism without acute cor pulmona Other pulmonary embolism without acute cor pulmona DIASTOLIC HEART FAILURE 3 M FU DYSPNEA Amb Documentation 3 M FU abd pain CYST OF LEFT OVARY Reason for Visit Essential hypertensi on Pulmonary emboli Cough Pulmonary emboli Essential hypertension Pulmonary emboli Chief Complaint 3 M FU DYSPNEA Amb Documentation 3 M FU abd pain CYST OF LEFT OVARY ASYMPTOMATIC MENOPAUSAL STATE Reason for Visit Cough Pulmonary emboli Essential hypertension Pulmonary emboli Chief Complaint SCREENING 1 YR NO LABS Reason for Visit Pulmonary emboli Chief Complaint SCREENING 1 YR NO LABS HEAD TRAUMA Reason for Visit Pulmonary emboli Chief Complaint SCREENING 1 YR NO LABS HEAD TRAUMA XRAY Reason for Visit Pulmonary emboli Chief Complaint CHEST PAIN ABD EKG CHEST PAIN ABD EKG Chief Complaint CHEST PAIN ABD EKG CHEST PAIN ABD EKG SCREENING DISEASE OF SALIVARY GLANDS Chief Complaint Admit Date SCREENING January 24, 2025 7:48a m 8 m fu February 02, 2025 1:31p m Reason for Visit Admit Date BLAKE (dyspnea on exertion) February 02, 2025 1:31pm Essential hypertension February 02, 2025 1: 31pm Pulmonary emboli February 02, 2025 1:31p m Advance Directives No Advanced Directives Records Found Advance Directive Response Recorded Date/ Time Living Will Yes December 09, 2021 5:53pm Power of Isotope Hydrologist Yes December 09 5:53pm Advance Directive Response Recorded Date/ Time Name of Medical Power of Isotope Hydrologist Vi Gonzales December 09, 2021 5:53pm Living Will Yes December 09, 2021 5:53pm Power of Isotope Hydrologist Yes December 09 5:53pm Advance Directive Response Recorded Date/ Time Name of Medical Power of Isotope Hydrologist VI GONZALES April 25, 2022 7:36pm Living Will Yes April 25 7:36pm Power of Isotope Hydrologist Yes April 25 7:36pm Name Dates Details Immunization Registry [place] - Effective on 04/29/2022. Expiration date unspecified Effective:29-Apr-2022 Name Dates Details Immunization Registry [place] - Effective on 04/29/2022. Expiration date unspecified Effective:29-Apr-2022 Name Dates Details Immunization Registry [place] - Effective on 04/29/2022. Expiration date unspecified Effective:29-Apr-2022 Name Dates Details Immunization Registry [place] - Effective on 04/29/2022. Expiration date unspecified Effective:29-Apr-2022 Advance Directive Response Recorded Date/ Time Living Will Yes April 25 7:36pm Power of Isotope Hydrologist Yes April 25 7:36pm Name Dates Details Immunization Registry [place] - Effective on 04/29/2022. Expiration date unspecified Effective:29-Apr-2022 Name Dates Details Immunization Registry [place] - Effective on 04/29/2022. Expiration date unspecified Effective:29-Apr-2022 Name Dates Details Immunization Registry [place] - Effective on 04/29/2022. Expiration date unspecified Effective:29-Apr-2022 Name Dates Details Immunization Registry [place] - Effective on 04/29/2022. Expiration date unspecified Effective:29-Apr-2022 Name Dates Details Immunization Registry [place] - Effective on 04/29/2022. Expiration date unspecified Effective:29-Apr-2022 Name Dates Details Immunization Registry [place] - Effective on 04/29/2022. Expiration date unspecified Effective:29-Apr-2022 Name Dates Details Immunization Registry [place] - Effective on 04/29/2022. Expiration date unspecified Effective:29-Apr-2022 Name Dates Details Immunization Registry [place] - Effective on 04/29/2022. Expiration date unspecified Effective:29-Apr-2022 Name Dates Details Immunization Registry [place] - Effective on 04/29/2022. Expiration date unspecified Effective:29-Apr-2022 Name Dates Details Immunization Registry [place] - Effective on 04/29/2022. Expiration date unspecified Effective:29-Apr-2022 Name Dates Details Immunization Registry [place] - Effective on 04/29/2022. Expiration date unspecified Effective:29-Apr-2022 Advance Directive Response Recorded Date/ Time Living Will Yes April 25 7:36pm Do you have a Healthcare Power of Isotope Hydrologist? Yes April 25, 2022 7:36pm Family History No Family History Records Found Relationship Condition Age at Onset Recorded Date/T john grandfather Malignant neoplasm Unknown grandmother Cardiac disease Unknown Malignant neoplasm of breast Unknown Obesity Unknown mother Cardiac disease Unknown Myocardial infarction 78 father Dementia Unknown Hypertension Unknown Malignant neoplasm Unknown Cerebrovascular accident (CVA) Unknown Relationship Condition Age at Onset Recorded Date/T john grandfather Malignant neoplasm Unknown grandmother Cardiac disease Unknown Malignant neoplasm of breast Unknown Obesity Unknown mother Cardiac disease Unknown Myocardial infarction 78 Asthma Unknown father Dementia Unknown Hypertension Unknown Malignant neoplasm Unknown Cerebrovascular accident (CVA) Unknown Atrial fibrillation Unknown Unknown Family Member Name Dates Details Brother 1 Comments:glaucoma Status:Active Family Members In General Comments:Breast Cancer, High Blood Pressure, High Cholesterol, Thyroid Disease Status:Active Father Comments:Prostate Ca, a t 91 yo of cva Status:Active Mother Comments:Anxiety, Depression , Heart/Lung Disease Status:Active Unknown Family Member Name Dates Details Brother 1 Comments:glaucoma Status:Active Family Members In General Comments:Breast Cancer, High Blood Pressure, High Cholesterol, Thyroid Disease Status:Active Father Comments:Prostate Ca, a t 91 yo of cva Status:Active Mother Comments:Anxiety, Depression , Heart/Lung Disease Status:Active Unknown Family Member Name Dates Details Brother 1 Comments:glaucoma Status:Active Family Members In General Comments:Breast Cancer, High Blood Pressure, High Cholesterol, Thyroid Disease Status:Active Father Comments:Prostate Ca, a t 91 yo of cva Status:Active Mother Comments:Anxiety, Depression , Heart/Lung Disease Status:Active Unknown Family Member Name Dates Details Brother 1 Comments:youngr glaucoma, HT N chiropator in [place] in past Status:Active Family Members In General Comments:Breast Cancer, High Blood Pressure, High Cholesterol, Thyroid Disease Status:Active Father Comments:depression, Prostat e Ca, at 91 yo of cva Status:Active Mother Comments:lung disease nonsmo ker, ? cosmetology. [place] 79yo Status:Active Unknown Family Member Name Dates Details Brother 1 Comments:youngr glaucoma, HT N chiropator in [place] in past Status:Active Family Members In General Comments:Breast Cancer, High Blood Pressure, High Cholesterol, Thyroid Disease Status:Active Father Comments:depression, Prostat e Ca, at 91 yo of cva Status:Active Mother Comments:lung disease nonsmo ker, ? cosmetology. [place] 79yo Status:Active Unknown Family Member Name Dates Details Brother 1 Comments:youngr glaucoma, HT N chiropator in [place] in past Status:Active Family Members In General Comments:Breast Cancer, High Blood Pressure, High Cholesterol, Thyroid Disease Status:Active Father Comments:depression, Prostat e Ca, at 91 yo of cva Status:Active Mother Comments:lung disease nonsmo ker, ? cosmetology. [place] 79yo Status:Active Unknown Family Member Name Dates Details Brother 1 Comments:youngr glaucoma, HT N chiropator in [place] in past Status:Active Family Members In General Comments:Breast Cancer, High Blood Pressure, High Cholesterol, Thyroid Disease Status:Active Father Comments:depression, Prostat e Ca, at 91 yo of cva Status:Active Mother Comments:lung disease nonsmo ker, ? cosmetology. [place] 79yo Status:Active Unknown Family Member Name Dates Details Brother 1 Comments:youngr glaucoma, HT N chiropator in [place] in past Status:Active Family Members In General Comments:Breast Cancer, High Blood Pressure, High Cholesterol, Thyroid Disease Status:Active Father Comments:depression, Prostat e Ca, at 91 yo of cva Status:Active Mother Comments:lung disease nonsmo ker, ? cosmetology. [place] 79yo Status:Active Unknown Family Member Name Dates Details Brother 1 Comments:youngr glaucoma, HT N chiropator in [place] in past Status:Active Family Members In General Comments:Breast Cancer, High Blood Pressure, High Cholesterol, Thyroid Disease Status:Active Father Comments:depression, Prostat e Ca, at 91 yo of cva Status:Active Mother Comments:lung disease nonsmo ker, ? cosmetology. [place] 79yo Status:Active Unknown Family Member Name Dates Details Brother 1 Comments:youngr glaucoma, HT N chiropator in [place] in past Status:Active Family Members In General Comments:Breast Cancer, High Blood Pressure, High Cholesterol, Thyroid Disease Status:Active Father Comments:depression, Prostat e Ca, at 91 yo of cva Status:Active Mother Comments:lung disease nonsmo ker, ? cosmetology. [place] 79yo Status:Active Unknown Family Member Name Dates Details Brother 1 Comments:youngr glaucoma, HT N chiropator in [place] in past Status:Active Family Members In General Comments:Breast Cancer, High Blood Pressure, High Cholesterol, Thyroid Disease Status:Active Father Comments:depression, Prostat e Ca, at 91 yo of cva Status:Active Mother Comments:lung disease nonsmo ker, ? cosmetology. [place] 79yo Status:Active Unknown Family Member Name Dates Details Brother 1 Comments:youngr glaucoma, HT N chiropator in [place] in past Status:Active Family Members In General Comments:Breast Cancer, High Blood Pressure, High Cholesterol, Thyroid Disease Status:Active Father Comments:depression, Prostat e Ca, at 91 yo of cva Status:Active Mother Comments:lung disease nonsmo ker, ? cosmetology. [place] 79yo Status:Active Unknown Family Member Name Dates Details Brother 1 Comments:youngr glaucoma, HT N chiropator in [place] in past Status:Active Family Members In General Comments:Breast Cancer, High Blood Pressure, High Cholesterol, Thyroid Disease Status:Active Father Comments:depression, Prostat e Ca, at 91 yo of cva Status:Active Mother Comments:lung disease nonsmo ker, ? cosmetology. [place] 79yo Status:Active Unknown Family Member Name Dates Details Brother 1 Comments:youngr glaucoma, HT N chiropator in [place] in past Status:Active Family Members In General Comments:Breast Cancer, High Blood Pressure, High Cholesterol, Thyroid Disease Status:Active Father Comments:depression, Prostat e Ca, at 91 yo of cva Status:Active Mother Comments:lung disease nonsmo ker, ? cosmetology. [place] 79yo Status:Active Unknown Family Member Name Dates Details Brother 1 Comments:youngr glaucoma, HT N chiropator in [place] in past Status:Active Family Members In General Comments:Breast Cancer, High Blood Pressure, High Cholesterol, Thyroid Disease Status:Active Father Comments:depression, Prostat e Ca, at 91 yo of cva Status:Active Mother Comments:lung disease nonsmo ker, ? cosmetology. massive [place] 79yo Status:Active Unknown Family Member Name Dates Details Brother 1 Comments:youngr glaucoma, HT N chiropator in [place] in past Status:Active Family Members In General Comments:Breast Cancer, High Blood Pressure, High Cholesterol, Thyroid Disease Status:Active Father Comments:depression, Prostat e Ca, at 91 yo of cva Status:Active Mother Comments:lung disease nonsmo ker, ? cosmetology. massive [place] 79yo Status:Active Unknown Family Member Name Dates Details Brother 1 Comments:youngr glaucoma, HT N chiropator in [place] in past Status:Active Family Members In General Comments:Breast Cancer, High Blood Pressure, High Cholesterol, Thyroid Disease Status:Active Father Comments:depression, Prostat e Ca, at 91 yo of cva Status:Active Mother Comments:lung disease nonsmo ker, ? cosmetology. massive [place] 79yo Status:Active Unknown Family Member Name Dates Details Brother 1 Comments:youngr glaucoma, HT N chiropator in [place] in past Status:Active Family Members In General Comments:Breast Cancer, High Blood Pressure, High Cholesterol, Thyroid Disease Status:Active Father Comments:depression, Prostat e Ca, at 91 yo of cva Status:Active Mother Comments:lung disease nonsmo ker, ? cosmetology. massive [place] 79yo Status:Active Unknown Family Member Name Dates Details Brother 1 Comments:youngr glaucoma, HT N chiropator in [place] in past Status:Active Family Members In General Comments:Breast Cancer, High Blood Pressure, High Cholesterol, Thyroid Disease Status:Active Father Comments:depression, Prostat e Ca, at 91 yo of cva Status:Active Mother Comments:lung disease nonsmo ker, ? cosmetology. massive [place] 79yo Status:Active Summary Purpose Additional Source Comments Goals (unrecognized section and content) Goals may be documented in a n alternate sectionGoals may be documented in an alternate sectionGoals may be documented in an alternate sectionGoals may be documented in an alternate sectionGoals may be documented in an alternate sectionGoals may be documented in an alternate sectionGoals may be documented in an alternate sectionGoals may be documented in an alternate sectionGoals may be documented in an alternate sectionGoals may be documented in an alternate sectionGoals may be documented in an alternate sectionGoals may be documented in an alternate sectionGoals may be documented in an alternate sectionGoals may be documented in an alternate sectionGoals may be documented in an alternate section Care Teams (unrecognized sec tion and content) Team Status: Active Member Role Status Dates Dr. Tejas Garcia MD Family Provider Active Esthela BUTTERFIELD MD Primary Care Provider Active Team Status: Inactive Member Role Status Dates Esthela BUTTERFIELD MD Primary Care Provider, Referring Provider Active Dr. Sotero Murphy MD Attending Provider Active Team Status: Inactive Member Role Status Dates Esthela BUTTERFIELD MD Primary Care Provider Active Dr. Esthela Sands MD Attending Provider, Referring Pr ovider Active Team Status: Active Member Role Status Dates Dr. Tejas Garcia MD Family Provider Active Dr. Esthela Sands MD Primary Care Provider Active Team Status: Active Member Role Status Dates Dr. Esthela Sands MD Primary Care Provi joe, Attending Provider, Referring Provider Active Team Status: Inactive Member Role Status Dates Dr. Esthela Sands MD Primary Care Provider Active Shiloh Lira NP-C Attending Provider, Referring Pr ovider Active Team Status: Inactive Member Role Status Dates Dr. Esthela Sands MD Primary Care Provider Active Dr. Jean-Claude Parkinson MD Attending Provider Active Team Status: Inactive Member Role Status Dates Dr. Esthela Sands MD Primary Care Provi joe, Attending Provider, Referring Provider Active Team Status: Active Member Role Status Dates Dr. Esthela Sands MD Primary Care Provider Active Dr. Audra Milan DO Referring Provider, Other Provider Active Dr. Jean-Claude Parkinson MD Attending Provider Active Team Status: Inactive Member Role Status Dates Dr. Esthela Sands MD Primary Care Provider Active Dr. Audra Milan DO Attending Provider, Referring Prov ider Active Team Status: Active Member Role Status Dates Dr. Esthela Sands MD Primary Care Provider Active Dr. Audra Milan DO Attending Provider, Referring Prov ider Active Team Status: Active Member Role Status Dates Dr. Esthela Sands MD Primary Care Provider, Attending Provider Active Team Status: Active Member Role Status Dates Dr. Esthela Sands MD Primary Care Provider Active Team Status: Inactive Member Role Status Dates Dr. Esthela Sands MD Primary Care Provider Active Start: January 24, 2025 End: January 24, 2025 Dr. Esthela Sands MD Attending Provider Active Start: January 24, 2025 End: January 24, 2025 Dr. Esthela Sands MD Referring Provider Active Start: January 24, 2025 End: January 24, 2025 Team Status: Inactive Member Role Status Dates Dr. Esthela Sands MD Primary Care Provider Active Start: February 02, 2025 End: February 02, 2025 Dr. Esthela Sands MD Referring Provider Active Start: February 02, 2025 End: February 02, 2025 Lisa MONTENEGRO, PA Attending Provider Active Start: February 02, 2025 End: February 02, 2025 INFORMATION SOURCE (unrecogn ized section and content) DATE CREATED AUTHOR 02/09/2025 [facility] FOR RECORDS PERTAINING TO PATIENTS WHO ARE OR HAVE BEEN ENROLLED IN A CHEMICAL DEPENDENCY/SUBSTANCEABUSE PROGRAM, SOME INFORMATION MAY BE OMITTED. This clinical summary was aggregated from multiple sources. Caution should be exercised in using it in the provision of clinical care. This summary normalizes information from multiple sources, and as a consequence, information in this document may materially change the coding, format and clinical context of patient data. In addition, data may be omitted in some cases. CLINICAL DECISIONS SHOULD BE BASED ON THE PRIMARY CLINICAL RECORDS. [employer] provides no warranty or guarantee of the accuracy or completeness of information in this document.
== END | disposition home or self-care (01) ==
LOC: PSN 06:43
PROVIDERS: PCP Internal Medicine; Referring Provider Physician Assistant Medical; Visit Provider Physician Assistant Medical
DX: R06.09 Other forms of dyspnea (principal)
CPT/HCPCS: 94060; 94726; 94729

== ENCOUNTER → 2025-05-14 | Outpatient (CLI) | payer MEDICARE, OTHER, SELFPAY ==
--- OUTSIDE RECORDS SUMMARY | 2025-05-14 07:52 | XMS RPT_ITS | CCD ---
Author Organization [facility] Care Team Providers Care Pomologist Name Role Phone Dr. Tejas Garcia Primary Care Provider Dr. Steven Mccarty Emergency Provider Dr. Tejas Titus Admit Provider Dr. Tejas Titus Attending Provider Dr. Tejas Titus Other Provider Dr. Jakob Gomez Attending Provider Dr. Jakob Gomez Other Provider [phone]([facility])[phone] Jean-Claude Parkinson Attending Provider Dr. Tejas Garcia Referring Provider Dr. Sotero Murphy Attending Provider Dr. Tejas Garcia Primary Care Provider [phone] Stuart Prado Attending Provider Dr. Tejas Titus Referring Provider Dr. Jean-Claude Parkinson Attending Provider Dr. Steve Staley Attending Provider Dr. Steve Staley Other Provider Dr. Steve Staley Referring Provider Virgilio SLEEVE TURNER, SLEEVE TURNER-C Daria Attending Provider Esthela Sands MD Unavailable Carlin Peoples Unavailable Milady BASEBALL UMPIRE FOR LITTLE LEAGUE, Marylin Unavailable Unavailable Raúl Alberts LPN Unavailable Unavailable Edgardo RN, Dary Ferguson Unavailable Unavailable Unavailable Unavailable Unavailable Unavailable Dr. Tejas Garcia Primary Care Provider Dr. Jean-Claude Parkinson Attending Provider Teresita Reed Attending Provider Unavailable Dr. Tejas Garcia Primary Care Provider Dr. Tejas Garcia Referring Provider Dr. Tejas Garcia Primary Care Provider Dr. Steve Staley Attending Provider [phone] Tejas Garcia Referring Provider Dr. Tejas Garcia Primary Care Provider Dr. Tejas Garcia Referring Provider Dr. Jean-Claude Parkinson Attending Provider [phone] Unavailable Unavailable Esthela Sands MD Unavailable [place] ACCELERATOR OPERATOR, Kayela Unavailable Unavailable MD Esthela Rice Primary [...] Proctor Referring Provider Lisa Estevez Attending Provider Lisa Estevez Referring Provider [phone] Bonezzi, Esthela Primary Care Unavailable Bonezzi, Esthela Attending Unavailable Bonezzi, Esthela Referring Unavailable Bonezzi, Esthela Attending Unavailable Bonezzi, Esthela Referring Unavailable Bonezzi, Esthela Primary Care Unavailable Bonezzi, Esthela Primary Care Unavailable Lisa Estevez Attending Unavail able Bonezzi, Esthela Referring Unavailable Brown, Steve Attending Unavailable Fawn MONTENEGRO, Lisa Gore Referring Unavail able Bonezzi, Esthela Primary Care Unavailable Bonezzi, Esthela Primary Care Unavailable Bonezzi, Esthela Attending Unavailable Bonezzi, Esthela Referring Unavailable Bonezzi, Esthela Primary Care Unavailable Lisa Estevez Attending Unavail able Lisa Estevez Referring Unavail able Allergies Allergy Classification Reported Allergen(s) Allergy Type Date of Onset Reaction(s) Facility (19 sources) Iodinated Contrast Media; Translations: [Iodinated Contrast Media] Allergy to substance 12-10-[address] [facility] (17 sources) buPROPion Drug Allergy 12-25-[address] [facility] (20 sources) busPIRone; Translations: [BuSpar *ANTIANXIETY AGENTS*] Drug Allergy 12-25-[address] [facility] Work Phone: Comment on above: weight gain (20 sources) Escitalopram; Translations: [Lexapro *ANTIDEPRESSANTS *] Drug Allergy 12-25-[address] [facility] Work Phone: Comment on above: affect sex (20 sources) nefazodone; Translations: [Serzone *ANTIDEPRESSANTS *] Drug Allergy 12-25-[address] [facility] Work Phone: Comment on above: rash (20 sources) Sertraline; Translations: [Zoloft *ANTIDEPRESSANTS *] Drug Allergy 12-25-[address] [facility] Work Phone: Comment on above: affect sex (20 sources) venlafaxine; Translations: [Effexor *ANTIDEPRESSANTS *] Drug Allergy 12-25-[address] [facility] Work Phone: Comment on above: affect sex (20 sources) Iodinated Contrast; Translations: [Iodinated Contrast] Allergy to substance (finding) [facility]; [email or web address] Internal Medicine Work Phone: Comment on above: hives (1 source) buPROPion Drug Allergy 02-03-20 [facility] (1 source) busPIRone Drug Allergy 02-03-20 [facility] (1 source) Escitalopram Drug Allergy 02-03-20 [facility] (1 source) nefazodone Drug Allergy 02-03-20 [facility] (1 source) Sertraline Drug Allergy 03-15-20 [facility] (1 source) venlafaxine Drug Allergy 02-03-20 [facility] NEGATED: Highlighted row has been [...] Quantity: 90 {Tablet} Refills: 3 Ordered: 10-Mar-2023 Shavon JUAREZ, Esthela Javeir MD Start : 10-Mar-2023 Active Comments: EMILIE Start: 04-19-2022 End: 06-05-2023 take 1 tablet by mouth once daily Amitriptyline 50 mg tablet Discontinued 50 mg PO DAILY April 19, 2022 12:00am June 05, 2023 9:58am Start: 11-17-2015 take 1 tablet by jaylene th once daily AMITRIPTYLINE HCL, 50MG (Oral Tablet) 1 Tablet QD for 0 days Quantity: 90 {Tablet} Refills: 3 Ordered: 17-Nov-2015 Shavon JUAREZ, Esthela Sands MD, Esthela Gore Start : 17-Nov-2015 Active [...] for 30 days Refills: 0 Ordered: 17-Nov-2015 Lindsey Kait Start : 30-Aug-2015 End : 29-Sep-2015 Inactive folic acid 0.8 mg oral tablet (20 sources) Start: 12-20-2021 take 0.8 mg by mouth once daily Folic Acid 800 mcg tablet Active 0.8 mg PO DAILY December 20, 2021 12:00am Start: 12-20-2021 take 0.8 mg by mouth once adolph y Folic Acid Active 0.8 MG PO DAILY December 20, 2021 12:00am End: 08-08-2008 Zfpaouk-Gnyxsymki-Lpqlitndvh hn (20 sources) Start: 12-24-2021 Fyexpaz-Mlcvchwdl-Qnbzjmulvr hn Active 1 CAP PO .prn December 24, 2021 10:00am Start: 12-20-2021 End: 12-24-2021 Rtfxxxu-Gqknauatm-Titknkctmk hn Discontinued 0 PO .COMPLEX December 20, 2021 1:25pm December 24, 2021 10:01am PO; Start: 12-20-2021 End: 12-24-2021 Ujtbovf-Irjfzqbhq-Nkaxxymejp hn Discontinued 0 PO .COMPLEX December 20, 2021 12:00am December 24, 2021 10:01am PO; levothyroxine sodium 0.1 mg oral tablet (20 sources) l-Thyroxine Start: 08-26-2015 End: 11-17-2015 take 1 tablet by mouth once daily Levothyroxine 100 MCG tablet Active 100 ug PO DAILY August 26, 2015 1:00am pt cant take generic. on synthroid Comment on above: Mail order. EMILIE Mail order. EMILIE magnesium oxide 250 mg oral tablet (20 sources) Start: 02-02-2025 take 1 tablet by mouth once daily Magnesium Oxide 250 mg magnesium tablet Active 250 mg PO daily February 02, 2025 12:00am take 3 tablets by mouth once nancy ly MAGNESIUM OXIDE, 400MG (Oral Tablet) 3 qd (400 MG) Inactive melatonin 5 mg oral capsule (2 sources) Start: 02-02-2025 Melatonin 5 mg capsule Active [...] Start: 02-14-2023 take 1 tablet by jaylene once daily metoprolol succinate 50 mg oral [...] Mail order. sertraline 50 mg oral tablet (2 sources) Serotonin Reuptake Inhibitor Start: 05-28-202 5 Sertraline 50 mg tablet Active 75 mg PO daily February 02, 2025 12:00am tiZANidine 4 mg oral capsule (17 sources) Central alpha-2 Adrenergic Agonist Start: 2 [...] capsule by mouth once as needed MIGRAZONE, [id number] (Oral Capsule) Capsule prn for 0 days [...] 14-Feb-2023 Inactive Comments: ten Comment on above: alejandra acetaminophen 325 mg / oxyCO DONE hydrochloride [...] Inactive Comments: ten Comment on above: alejandra [id number] actuat albuter ol 0.09 mg/actuat metered [...] Refills: 0 Ordered: 05-Apr-2016 Shavon JUAREZ, Esthela Javier MD Start : 05-Apr-2016 End : 15-Apr-2016 Inactive [...] 17-Dec-2012 Inactive take 1 tablet by jaylene once daily VITAMIN C (Oral Tablet Chewable) 1,000mg qd Inactive aspirin 81 mg chewable tablet (20 sources) Platelet Aggregation Inhibitor, Nonsteroidal Anti-inflammatory Drug Start: 08-26-2015 End: 12-11-2021 take 1 tablet by mouth once daily Aspirin 81 MG tablet,chewable Discontinued 81 mg PO DAILY@0800 August 26, 2015 1:00am December 11, 2021 10:23am atenolol 50 mg oral tablet (20 sources) beta-Adrenergic Elham Start: 11-17-2015 End: 08-03-2022 Comment on above: Mail order. ZITHROMAX Z-MYRTLE, 250MG (Oral Tablet) (20 sources) Macrolide Antimicrobial Start: 07-22-2013 End: 03-14-2014 Start: 07-22-2013 End: 03-14-2014 take 1 tablet by mouth once daily ZITHROMAX Z-MYRTLE, 250MG (Oral Tablet) tad Tablet qd for 0 days Quantity: 1 {package(s)} Refills: 0 Ordered: 14-Mar-2014 PRANAY Colon LPN Start : 22-Jul-2013 End : 14-Mar-2014 Inactive bifidobacterium animalis 160 [id number] unt / lactobacillus acidophilus [id number] unt oral capsule (20 sources) Start: 04-02-2016 [...] Refills: 3 Ordered: 29-May-2022 Shavon JUAREZ, Esthela Sands MD, Esthela Gore Start : 29-May-2022 Active Start: 04-19-2022 End: [...] Esthela Javier MD Start : 10-Apr-2022 Active Comment on above: [...] Ordered: 12-Oct-2012 Shavon JUAREZ, Esthela Sands MD, Estheal Gore Start : 12-Oct-2012 End : 12-Oct-2012 [...] Start: 04-08-2023 take 1 capsule by mo uth once daily hydroCHLOROthiazide 12.5 mg oral capsule 1 (one) Capsule daily for 0 days Quantity: 90 {Capsule} Refills: 3 Ordered: 08-Apr-2023 Shavon JUAREZ, Esthela Sands MD, Estheal Gore Start : 08-Apr-2023 Active Comments: Mail [...] 0 Ordered: 10-Apr-2022 Esthela Sands MD, MD, Dana M Start : 10-Apr-2022 Active ibuprofen 600 mg oral tablet (20 sources) Nonsteroidal Anti-inflammatory Drug Start: 03-08-2013 End: 05-28-2013 Start: 03-08-2013 End: 05-28-2013 IBUPROFEN, 600MG (Oral Table t) 1 Tablet q 8 with food for 7 days then prn for 0 days Quantity: 60 {Tablet} Refills: 0 Ordered: 28-May-2013 PRANAY Colon LPN Start : 08-Mar-2013 End : 28-May-2013 Inactive Blkmxex-Cijhwylnv-Vywwaafjse hn 65-100-325 mg capsule (4 sources) Start: 12-24-2021 End: 02-02-2025 Ojfylqf-Swtorznsl-Gawhmauwxj hn 65-100-325 mg capsule Discontinued 1 NMA PO .prn December 24, 2021 10:00am February 02, 2025 1:45pm Start: 12-20-2021 End: 12-24-2021 Ofmprsl-Shsszwbge-Xjjwxobxzb hn 65-100-325 mg capsule Discontinued 0 PO .COMPLEX December 20, 2021 12:00am December 24, 2021 10:01am PO; linaclotide 0.29 mg oral capsule (20 sources) Guanylate Cyclase-C Agonist Start: 05-21-2022 liothyronine sodium 0.025 mg oral tablet (20 sources) l-Triiodothyronine Start: 08-27-2007 End: 09-26-2008 losartan potassium 50 mg oral tablet (20 sources) Angiotensin 2 Receptor Elham Start: 12-09-2021 End: 03-08-2024 take 1 tablet by mouth twice daily Losartan 50 mg tablet Discontinued 50 mg PO TWICE A DAY 180 February 19, 2023 4:13pm March 08, 2024 2:22pm lubiprostone 0.008 mg oral capsule (20 sources) [...] 04-02-2016 Chronic Comment on above: seeing sam mcda margarita counselor. tried buspar, wellbutrin, SSRI. not notice [...] nothing to ablate. using metoprolol Cardiac dysrhythmias (8 sources) Tachycardia; Translations: [Tachycardia, unspecified] 01-21-2022 Episodic [...] above: onset 4-22 Congestive heart failure; nonhypertensive (15 sources) Heart failure with normal ejection fraction; [...] using isometh/apap but not making anymore. last [id number] ago rare try fiorect Immunizations and screening for infectious disease (20 sources) Patient encounter status; Translations: [Encounter for immunization] Resolved: 5 07-25-2015 Episodic Comment on above: 2010 BD osteopenia. colonscopy 2009. pap 1-13 Malaise and fatigue (15 sources) Fatigue; Translations: [Other fatigue] 01-22-2022 Episodic Mood disorders (6 sources) Mild depression; Translations: [...] Episodic Other diseases of kidney and ureters (11 sources) Acute renal insufficiency; Translations: [Disorder of [...] above: 2009 had MTHFR Other hematologic conditions (18 sources) Raised cardiac enzyme or marker; Translations: [...] sources) Dyspnea Episodic Other lower respiratory disease (1 source) Other forms of dyspnea; Translations: [Other forms of dyspnea] Onset: 5 Episodic Other non-traumatic joint disorders (20 sources) [...] [BMI 26.0-26.9,adult] Resolved: 3 05-14-2022 Episodic Other skin disorders (20 sources) Copeland - lesion ; Translations: [Copeland of foot] 06-09-2023 Episodic Other upper respiratory [...] Respiratory failure; insufficiency; arrest (adult) (2 sources) Rutfi-js-xcmqocb respiratory failure; Translations: [Acute and chronic respiratory [...] and do home program doing better with iropactor care. will give some percocet and [...] AND BLOOD-FORMING ORGANS (289.81) Unclassified (20 sources) [employer] Woman Exam , Medicare (V76.2) (Renamed from [employer] Woman Exam , Medicare (V76.2, V72.31)) Unclassified (12 [...] Problem Classification Problem Date Documented Date Episodic/Chronic Other screening for suspected conditions (not mental disorders or infectious disease) (20 sources) Electrocardiogram abnormal; Translations: [Abnormal EKG] Onset: 01-27-2025 Resolved: 05-19-2015 07-24-2015 Episodic Comment on above: new flipped T waves in anterior leads. in past had vt with stress. Pulmonary heart disease (20 sources) Pulmonary embolism; [...] Facility Cardiology Visit Reporton Cardiology Visit Report [facility] [place] [id number] [facility] [place] [address] OFFICE VISIT Date of Service: 02/02/25 MR#: [id number] Acct: [id number] Name: CASS GONZALES Rep #: [id number] : 1945 Provider: LAN Diaz Age/Sex: 79/F [place] [facility]: Signed HPI HPI History of Present [...] She said that she had been in [place] the last few months and had noticed that she was getting increasingly short of breath. In December of this year they decided to drive up from [place] and she was getting rather short of [...] NIBP Intake Visit Reasons: 8 m fu Consumer Marketing Analyst Required: No Accompanied by: Is patient [...] Hi st (more content not included)... Normal [facility] SCRN MAMM (CAD)W/EVY Tony n 01-24-2025 SCRN MAMM (CAD)W/EVY [facility] Imaging Services [address] [place], [place] [address] SCRN MAMM (CAD)W/EVY BILAT MR#: [id number] Acct: [id number] Name: CASS GONZALES Rep #: [id number] : 1945 F 79 From: Judy Fonseca PCP: Dr. Esthela Sands MD Status: REG CLI Study: SCRN MAMM (CAD)W/EVY BILAT Date of Exam: 01/06 06/02 Exam# [id number] Ordering Dr: Esthela Sands MD EXAM: SCRN [...] be mailed to the patient. Reading Location: [id number] CC: Dr. Esthela Sands MD Bean Viner: Signed Normal [facility] Dexa Bone Density Studyon Dexa Bone Density Study [facility] Imaging Services [address] [place], [place] [address] Dexa Bone Density Study MR#: [id number] Acct: [id number] Name: CASS GONZALES Rep #: [id number] : 1945 F 79 From: Haider flores MD PCP: Dr. Esthela Sands MD Status: REG CLI Study: Dexa Bone Density Study Date of Exam: 05/25/24 Exam# [id number] Ordering Dr: Esthela Sands MD [id number] STUDY: DUAL ENERGY X-RAY ABSORPTIOMETRY / DXA [...] Signed: Haider Driscoll MD at 10:12 EDT , CC: Dr. Esthela Sands MD Bean Viner: Signed Normal [facility] Basophil percentageOrdered B y: Esthela Sands on 01-15-2024 Creatinine [Mass/Vol] 1.1 mg/dL 0.55-1.02 [facility] Laboratory - Chemistry and C hemistry - challengeOrdered By: Esthela Sands on 01-15-2024 GFR/1.73 sq M.predicted among non-blacks MDRD (S/P/Bld) [Vol rate/Area] 52.0000 mL/min/{1.73_m2} >60 [facility] No Panel InformationOrdered By: Audra Milan on 12-02-2023 Troponin I High Sensitivity 9 pg/mL 3.0-54.0 [facility] Comment on above: Please Note: New Francheska t Units and Gender Specific Reference Ranges. For more information see Policy Stat Procedure [place] High Sensitivity Troponin (TNIH) and attachments. TSH (THYROID STIMULATING HOR MALCOLM) (16858)Ordered By: Call Center Director on 05-01-2023 TSH Qn 0.795 {uIU/mL} Normal 0.450-4.500 Kelli burrell [facility]; [facility] Work Phone: Comment on above: PATIENT WAS FASTINGP ERFORMED BY: [facility] [id number] [facility] [id number] URINE ZIGGY CULTURE-IDENTIFICA TN ([id number])Ordered By: Call Center Director on 03-10-2023 Bacteria identified Cx Nom (U) Final report Abnormal [facility]; [facility] Work Phone: Comment on above: PERFORMED BY: [facility] [id number] Information: SRC:UR Bacteria identified Cx Nom (U) [...] SPiperacillin/Tazobactam STetracycline STobramycin STrimethoprim/Sulfa S PERFORMED BY: [facility] [id number] [facility] [id number] Information: SRC:UR Urinalysis, Office ([id number])Or dered By: Blaze Le on 03-10-2023 Bilirubin [...] on 01-28-2023 Bilirubin [Mass/Vol] 0.40 mg/dL 0.20-1.00 [facility] Comment on above: For patients on eltr ombopag therapy, use of Dimension [place] TBIL is not recommended. Chloride [Moles/Vol] 110 mmol/L 98-107 [facility] Cholesterol [Mass/Vol] 166 mg/dL <200 [facility] Comment on above: <200 mg/dL Desirable 200-240 mg/dL Borderline >240 mg/dL High Risk Glucose [Mass/Vol] 117 mg/dL 74-106 [facility] Comment on above: Fasting Glucose resu lt from 100 to 125 mg/dL suggests IMPAIRED HOMEOSTASIS per A.D.A. criteria. Potassium [Moles/Vol] 3.9 mmol/L 3.5-5.1 [facility] Protein [Mass/Vol] 6.6 g/dL 6.4-8.2 [facility] Sodium [Moles/Vol] 142 mmol/L 136-145 [facility] Triglyceride [Mass/Vol] 190 mg/dL <199 [facility] Comment on above: The drugs N-Acetylcy steine and Metamizole may falsely depress this assay.Serum Triglycerides Reference Interval Normal <150 mg/dL Borderline high 150 - 199 mg/dL High 200 - 499 mg/dL Very High > or = 500 mg/dL Laboratory - Chemistry and C hemistry - challengeOrdered By: Dr. Sands on 01-28-2023 ALP [Catalytic activity/Vol] 86 U/L 45-117 [facility] ALT [Catalytic activity/Vol] 33 U/L 13-56 [facility] CO2 [Moles/Vol] 27.0 mmol/L 21.0-32.0 [facility] Globulin (S) [Mass/Vol] 3.3 g/dL 2.2-4.2 [facility] Urea nitrogen/Creatinine [Mass ratio] 13.4 mg/mg 10-20 [facility] No Panel InformationOrdered By: Dr. Sands on 01-28-2023 Estimated GFR (MDRD) Amer 57 mL/min >60 [facility] Comment on above: GFR Calc Estimated GFR (MDRD) Non-Af Amer 47 mL/min >60 [facility] Comment on above: Non- GFR Calc Thyroid Stimulating Hormone (TSH) 0.97 uIU/mL 0.358-3.74 [facility] Serum or plasma albumin delilah urement (mass/volume)Ordered By: Dr. Sands on 01-28-2023 Albumin [Mass/Vol] 3.3 g/dL 3.2-5.0 [facility] Serum or plasma albumin/glob ulin mass ratioOrdered By: Dr. Sands on 01-28-2023 Albumin/Globulin [Mass ratio] 1.0 {ratio} 0.9-2.4 [facility] Serum or plasma calcium delilah urement (mass/volume)Ordered By: Dr. Sands on 01-28-2023 Calcium [Mass/Vol] 9.2 mg/dL 8.5-10.1 [facility] Serum or plasma cholesterol in HDL measurement (mass/volume)Ordered By: Dr. Sands on 01-28-2023 Cholesterol in HDL [Mass/Vol] 46 mg/dL >40 [facility] Comment on above: The drugs N-Acetylcy steine and Metamizole may falsely depress this assay. Reference Range HDL <40 mg/dL Low HDL Cholesterol HDL >or= 60 mg/dL High HDL Cholesterol Serum or plasma cholesterol in VLDL measurement (mass/volume)Ordered By: Dr. Sands on 01-28-2023 Cholesterol in VLDL [Mass/Vol] 38 mg/dL 5-40 [facility] Serum or plasma creatinine m easurement (mass/volume)Ordered By: Dr. Sands on 01-28-2023 Creatinine [Mass/Vol] 1.19 mg/dL 0.55-1.02 [facility] Comment on above: The validity of the calculated GFR & GFRAA in patients over 70 years has not been determined. Clinical correlation is essential. Serum or plasma low density lipoprotein (LDL) cholesterol measurement (mass/volume)Ordered By: Dr. Sands on 01-28-2023 Cholesterol in LDL [Mass/Vol] 82 mg/dL 0-130 [facility] Serum or plasma urea nitroge n measurement (mass/volume)Ordered By: Dr. Sands on 01-28-2023 Urea nitrogen [Mass/Vol] 16 mg/dL 7-18 [facility] Thin prep Papanicolaou smear with manual screeningOrdered By: Dr. Sands on 01-28-2023 Thin prep Papanicolaou smear with manual screening 29 U/L 15-37 [facility] Thin prep Papanicolaou smear with manual screening 5 5-15 [facility] Absolute lymphocyte counton 04-25-2022 Lymphocytes Auto (Unsp spec) [#/Vol] 2.15 10*3/uL 0.83-4.51 [facility] Work Phone: Basophil percentageon 2021 Basophil percentage 10-25 SEEN /hpf 0-5 [facility] Work Phone: Basophils/100 WBC (Bld) 0.8 % 0-1 [facility] Work Phone: Chloride [Moles/Vol] 107 mmol/L 98-[facility]: Eosinophils/100 WBC (Bld) 3.9 % 0-5 [facility] Work Phone: Glucose [Mass/Vol] 135 mg/dL 74-106 [facility] Work Phone: Comment on above: Fasting Glucose resu lt greater than or equal to 126 mg/dL suggests DIABETES MELLITUS per A.D.A. criteria. Neutrophils (Bld) [#/Vol] 5.2 10*3/uL 2.0-7.7 [facility] Work Phone: Neutrophils/100 WBC (Bld) 62.0 % 47-70 [facility] Work Phone: Potassium [Moles/Vol] 4.6 mmol/L 3.5-5.1 [facility] Work Phone: Comment on above: Moderate Hemolysis, Result may be falsely increased. Sodium [Moles/Vol] 139 mmol/L 136-145 [facility] Work Phone: WBC (Bld) [#/Vol] 8.4 10*3/uL 4.4-11.0 [facility] Work Phone: Bilirubin Test strip Ql (U)o n 04-25-2022 Bilirubin Ql (U) Negative Negative [facility] Work Phone: Blood erythrocytes count (nu mber/volume)on 04-25-2022 RBC (Bld) [#/Vol] 4.65 10*6/uL 4.2-5.4 [facility] Work Phone: Blood hemoglobin measurement (mass/volume)on 04-25-2022 Hemoglobin (Bld) [Mass/Vol] 14.6 g/dL 12.0-15.0 [facility] Work Phone: Blood lymphocytes/100 leukoc yteson 04-25-2022 Lymphocytes/100 WBC (Bld) 25.7 % 19-41 [facility] Work Phone: Blood monocytes/100 leukocyt eson 04-25-2022 Monocytes/100 WBC (Bld) 7.4 % 0-10 [facility] Work Phone: Blood platelet mean volumeon 04-25-2022 Platelet mean volume (Bld) [Entitic vol] 10.3 fL 6.2-12.0 [facility] Work Phone: Determination of erythrocyte mean corpuscular volume (MCV)on 04-25-2022 MCV (RBC) [Entitic vol] 94.8 fL 81-99 [facility] Work Phone: Hematocrit Auto (Bld) [Volum e fraction]on 04-25-2022 Hematocrit (Bld) [Volume fraction] 44.1 % 37-47 [facility] Work Phone: Ketones Test strip Ql (U)on 04-25-2022 Ketones Ql (U) 5 mg/dl Negative [facility] Work Phone: Laboratory - Chemistry and C hemistry - challengeon 04-25-2022 CO2 [Moles/Vol] 26.0 mmol/L 21.0-32.0 [facility] Work Phone: Urea nitrogen/Creatinine [Mass ratio] 11.7 mg/mg 10-20 [facility] Work Phone: Laboratory - Hematology and Cell countson 04-25-2022 Erythrocyte distribution width (RBC) [Entitic vol] 42.3 fL 35.1-43.9 [facility] Work Phone: Erythrocyte distribution width (RBC) [Ratio] 12.1 % 11.6-14.6 [facility] Work Phone: Immature granulocytes/100 WBC (Bld) 0.200 % 0.0-0.9 [facility] Work Phone: Comment on above: IG% - Immature Granu locytes (promyelocytes, myelocytes and metamyelocytes) > 1% indicates that a LEFT SHIFT is Present. MCH (RBC) [Entitic mass] 31.4 pg 27.0-32.0 [facility] Work Phone: Nucleated RBC/100 WBC (Bld) [Ratio] 0 % 0-5 [facility] Work Phone: MCHC Auto (RBC) [Mass/Vol]on 04-25-2022 MCHC (RBC) [Mass/Vol] 33.1 g/dL 32-36 [facility] Work Phone: Mucus LM Ql (Urine sed)on Mucus Ql (Urine sed) 0 SEEN /hpf [facility] Work Phone: Nitrite Test strip Ql (U)on 04-25-2022 Nitrite Ql (U) Negative Negative [facility] Work Phone: No Panel Informationon 04-25 Estimated Creatinine Clearance Calc 27.66 ml/min [facility] Work Phone: Estimated GFR (MDRD) Amer 40 mL/min >60 [facility] Work Phone: Comment on above: GFR Calc Estimated GFR (MDRD) Non-Af Amer 33 mL/min >60 [facility] Work Phone: Comment on above: Non- GFR Calc Platelets bldon 04-25-2022 Platelets (Bld) [#/Vol] 203 10*3/uL 150-450 [facility] Work Phone: Protein Test strip Ql (U)on 04-25-2022 Protein Ql (U) 15 mg/dl Negative [facility] Work Phone: Serum or plasma calcium delilah urement (mass/volume)on 04-25-2022 Calcium [Mass/Vol] 9.8 mg/dL 8.5-10.1 [facility] Work Phone: Serum or plasma creatinine m easurement (mass/volume)on 04-25-2022 Creatinine [Mass/Vol] 1.62 mg/dL 0.55-1.02 [facility] [place] Work Phone: Comment on above: The validity of the calculated GFR & GFRAA in patients over 70 years has not been determined. Clinical correlation is essential. Serum or plasma urea nitroge n measurement (mass/volume)on 04-25-2022 Urea nitrogen [Mass/Vol] 19 mg/dL 03-25 [facility] Work Phone: Squamous epithelial cells de tection in urine sediment by light microscopyon 04-25-2022 Epithelial cells.squamous LM Ql (Urine sed) 10-25 SEEN /hpf 5-10 [facility] Work Phone: Thin prep Papanicolaou smear with manual screeningon 04-25-2022 Thin prep Papanicolaou smear with manual screening 6 5-15 [facility] Work Phone: Urine blood detectionon 04-08 RBC Ql (U) 10 /ul Negative [facility] Work Phone: RBC Ql (U) 0-5 SEEN /hpf 0-5 [facility] Work Phone: Urine clarityon 04-25-2022 Clarity (U) Sl. Cloudy Clear [facility] Work Phone: Urine color determinationon 04-25-2022 Color (U) Yellow Yellow [facility] Work Phone: Urine glucose detectionon Glucose Ql (U) Normal mg/dl Normal [facility] Work Phone: Urine leukocyte esterase det ection by dipstickon 04-25-2022 Leukocyte esterase Test strip Ql (U) 500 /ul Negative [facility] Work Phone: Urine pHon 04-25-2022 pH (U) 6.0 [pH] 5.0 - 8.0 [facility] Work Phone: Urine sediment bacteria coun t by microscopy (number/high power field)on 04-25-2022 Bacteria LM.HPF (Urine sed) [#/Area] 2 /[HPF] None Seen [facility] Work Phone: Urine specific gravity measu rementon 04-25-2022 Specific gravity (U) [Rel density] 1.015 1.002-1.030 [facility] Work Phone: Urobilinogen Auto test strip Ql (U)on 04-25-2022 Urobilinogen Ql (U) 1 mg/dl Normal [facility] Work Phone: Basophil percentageon 2021 Chloride [Moles/Vol] 106 mmol/L 98-107 [facility] Work Phone: Glucose [Mass/Vol] 100 mg/dL 74-106 [facility] Work Phone: Comment on above: Fasting Glucose resu lt from 100 to 125 mg/dL suggests IMPAIRED HOMEOSTASIS per A.D.A. criteria. Potassium [Moles/Vol] 4.1 mmol/L 3.5-5.1 [facility] [place] Work Phone: Sodium [Moles/Vol] 140 mmol/L 136-145 [facility] Work Phone: Laboratory - Chemistry and C hemistry - challengeon 03-26-2022 CO2 [Moles/Vol] 29.0 mmol/L 21.0-32.0 [facility] Work Phone: Urea nitrogen/Creatinine [Mass ratio] 11.5 mg/mg 10-20 [facility] Work Phone: No Panel Informationon 03-26 Estimated GFR (MDRD) Amer 66 mL/min >60 [facility] Work Phone: Comment on above: GFR Calc Estimated GFR (MDRD) Non-Af Amer 55 mL/min >60 [facility] Work Phone: Comment on above: Non- GFR Calc Serum or plasma calcium delilah urement (mass/volume)on 03-26-2022 Calcium [Mass/Vol] 9.7 mg/dL 8.5-10.1 [facility] Work Phone: Serum or plasma creatinine m easurement (mass/volume)on 03-26-2022 Creatinine [Mass/Vol] 1.04 mg/dL 0.55-1.02 [facility] [place] Work Phone: Comment on above: The validity of the calculated GFR & GFRAA in patients over 70 years has not been determined. Clinical correlation is essential. Serum or plasma urea nitroge n measurement (mass/volume)on 03-26-2022 Urea nitrogen [Mass/Vol] 12 mg/dL 7-18 [facility] Work Phone: Thin prep Papanicolaou smear with manual screeningon 03-26-2022 Thin prep Papanicolaou smear with manual screening 5 5-15 [facility] Work Phone: No Panel Informationon 02-11 Miscellaneous Test See comment [facility] Work Phone: Comment on above: TEST [...] antibodies specific to the viral spike protein. [employer] offers two test codes that detect viral spike-specific antibodies:553304 SARS-CoV-2 Semi-Quantitative Total Antibody, Tony [id number] SARS-CoV-2 Antibody, IgG, Tony (Qualitative).Positive results with [...] viruses or pathogens. ___ TESTING PERFORMED AT [facility]. ORIGINAL REPORT ON FILE IN LAB CONTAINS ADDITIONAL TEST SITE INFORMATION. Culture, urineon 01-07-2022 Bacteria identified Cx Nom (U) Escherichia coli [facility] Work Phone: Absolute lymphocyte counton 12-11-2021 Lymphocytes Auto (Unsp spec) [#/Vol] 2.77 10*3/uL 0.83-4.51 [facility] Work Phone: Basophil percentageon 2021 Basophils/100 WBC (Bld) 0.4 % 0-1 [facility] Work Phone: Eosinophils/100 WBC (Bld) 1.8 % 0-5 [facility] Work Phone: Neutrophils (Bld) [#/Vol] 9.2 10*3/uL 2.0-7.7 [facility] Work Phone: Neutrophils/100 WBC (Bld) 68.7 % 47-70 [facility] Work Phone: WBC (Bld) [#/Vol] 13.4 10*3/uL 4.4-11.0 [facility] Work Phone: Blood erythrocytes count (nu mber/volume)on 12-11-2021 RBC (Bld) [#/Vol] 4.87 10*6/uL 4.2-5.4 [facility] Work Phone: Blood hemoglobin measurement (mass/volume)on 12-11-2021 Hemoglobin (Bld) [Mass/Vol] 15.3 g/dL 12.0-15.0 [facility] Work Phone: Blood lymphocytes/100 leukoc yteson 12-11-2021 Lymphocytes/100 WBC (Bld) 20.7 % 19-41 [facility] Work Phone: Blood monocytes/100 leukocyt eson 12-11-2021 Monocytes/100 WBC (Bld) 8.0 % 0-10 [facility] Work Phone: Blood platelet mean volumeon 12-11-2021 Platelet mean volume (Bld) [Entitic vol] 9.7 fL 6.2-12.0 [facility] Work Phone: Determination of erythrocyte mean corpuscular volume (MCV)on 12-11-2021 MCV (RBC) [Entitic vol] 95.5 fL 81-99 [facility] Work Phone: Hematocrit Auto (Bld) [Volum e fraction]on 12-11-2021 Hematocrit (Bld) [Volume fraction] 46.5 % 37-47 [facility] Work Phone: Laboratory - Hematology and Cell countson 12-11-2021 Erythrocyte distribution width (RBC) [Entitic vol] 44.9 fL 35.1-43.9 [facility] Work Phone: Erythrocyte distribution width (RBC) [Ratio] 12.7 % 11.6-14.6 [facility] Work Phone: Immature granulocytes/100 WBC (Bld) 0.400 % 0.0-0.9 [facility] Work Phone: Comment on above: IG% - Immature Granu locytes (promyelocytes, myelocytes and metamyelocytes) > 1% indicates that a LEFT SHIFT is Present. MCH (RBC) [Entitic mass] 31.4 pg 27.0-32.0 [facility] Work Phone: Nucleated RBC/100 WBC (Bld) [Ratio] 0 % 0-5 [facility] Work Phone: MCHC Auto (RBC) [Mass/Vol]on 12-11-2021 MCHC (RBC) [Mass/Vol] 32.9 g/dL 32-36 [facility] [place] Work Phone: Platelets bldon 12-11-2021 Platelets (Bld) [#/Vol] 249 10*3/uL 150-450 [facility] Work Phone: Basophil percentageon 2021 Bilirubin [Mass/Vol] 0.70 mg/dL 0.20-1.00 [facility] Work Phone: Comment on above: For patients on eltr ombopag therapy, use of Dimension [place] TBIL is not recommended. Chloride [Moles/Vol] 109 mmol/L 98-107 [facility] Work Phone: Glucose [Mass/Vol] 142 mg/dL 74-106 [facility] Work Phone: Comment on above: Fasting Glucose resu lt greater than or equal to 126 mg/dL suggests DIABETES MELLITUS per A.D.A. criteria. Potassium [Moles/Vol] 4.0 mmol/L 3.5-5.1 [facility] [place] Work Phone: Protein [Mass/Vol] 7.3 g/dL 6.4-8.2 [facility] Work Phone: Sodium [Moles/Vol] 138 mmol/L 136-145 [facility] Work Phone: Laboratory - Chemistry and C hemistry - challengeon 12-10-2021 ALP [Catalytic activity/Vol] 73 U/L 45-117 [facility] Work Phone: ALT [Catalytic activity/Vol] 24 U/L 13-56 [facility] Work Phone: CO2 [Moles/Vol] 23.0 mmol/L 21.0-32.0 [facility] Work Phone: Globulin (S) [Mass/Vol] 4.2 g/dL 2.2-4.2 [facility] Work Phone: Urea nitrogen/Creatinine [Mass ratio] 16.7 mg/mg 10-20 [facility] Work Phone: Laboratory - Coagulationon 0 4-04-2022 aPTT Coag (Bld) [Time] 85.4 s 24.1-36.2 [facility] Work Phone: No Panel Informationon 12-10 Estimated Creatinine Clearance Calc 52.52 ml/min [facility] Work Phone: Estimated GFR (MDRD) Amer 79 mL/min >60 [facility] Work Phone: Comment on above: GFR Calc Estimated GFR (MDRD) Non-Af Amer 65 mL/min >60 [facility] Work Phone: Comment on above: Non- GFR Calc Serum or plasma albumin delilah urement (mass/volume)on 12-10-2021 Albumin [Mass/Vol] 3.1 g/dL 3.2-5.0 [facility] Work Phone: Serum or plasma albumin/glob ulin mass ratioon 12-10-2021 Albumin/Globulin [Mass ratio] 0.7 {ratio} 0.9-2.4 [facility] Work Phone: Serum or plasma calcium delilah urement (mass/volume)on 12-10-2021 Calcium [Mass/Vol] 9.5 mg/dL 8.5-10.1 [facility] Work Phone: Serum or plasma creatinine m easurement (mass/volume)on 12-10-2021 Creatinine [Mass/Vol] 0.90 mg/dL 0.55-1.02 [facility] [place] Work Phone: Comment on above: The validity of the calculated GFR & GFRAA in patients over 70 years has not been determined. Clinical correlation is essential. Serum or plasma urea nitroge n measurement (mass/volume)on 12-10-2021 Urea nitrogen [Mass/Vol] 15 mg/dL 7-18 [facility] Work Phone: Thin prep Papanicolaou smear with manual screeningon 12-10-2021 Thin prep Papanicolaou smear with manual screening 28 U/L 15-37 [facility] Work Phone: Thin prep Papanicolaou smear with manual screening 6 5-15 [facility] Work Phone: INR in Blood by Coagulation assayon 12-09-2021 INR Coag (Bld) [Relative time] 1.0 {INR} [facility] Work Phone: Laboratory - Chemistry and C hemistry - challengeon 12-09-2021 Natriuretic peptide B (Bld) [Mass/Vol] 330.0 pg/mL 0-100 [facility] Work Phone: Laboratory - Coagulationon 0 12-09-2021 PT Coag (PPP) [Time] 12.7 s 11.7-14.9 [facility] Work Phone: No Panel Informationon 12-09 Troponin I High Sensitivity 452 pg/mL 3.0-54.0 [facility] Work Phone: Comment on above: Critical Result(s) C alled at: 20:35:51 12/09/2021 by: Marcelo Gongora to Rosalba(RN PCU). Results read back by same. Please Note: New Test Units and Gender Specific Reference Ranges. For more information see Policy Stat Procedure [place] High Sensitivity Troponin (TNIH) and attachments. D-Dimer Quantitative (PE/DVT) 6.27 FEU/ug/m 0.27-0.49 [facility] Work Phone: Comment on above: D-Dimer ELEVATED (>0 .49): Additional studies and clinicalassessments are indicated to conclude diagnosis of:Deep Vein Thrombosis (DVT) or Pulmonary Embolism (PE) SARS-CoV-2 & FLU Antigen (Rapid) [facility] Work Phone: URINE ZIGGY CULTURE-KVNG COL C OUNT ([id number])Ordered By: Call Center Director on 04-02-2016 Bacteria identified Cx Nom (U) Final report Abnormal [facility]; [facility] Work Phone: Comment on above: PATIENT NOT FASTINGP ERFORMED BY: LabCoSaint Barnabas Medical CenterGwequm1703 [facility] [id number] Information: SRC:UR [id number] Bacteria identified Cx Nom (U) ECV Abnormal [...] PATIENT NOT FASTINGP ERFORMED BY: ABIEL [facility] Rvimxc7876 Bob RoadSampson Regional Medical Center [id number] Information: SRC:[facility] [id number] Urinalysis, Office ([phone])Or dered By: Nikole Guaman on 04-02-2016 Bilirubin [...] Internal Medicine Work Phone: Thin Prep Pap ([phone])Ordered By: Call Center Director on 11-20-2015 Thin Prep Pap ([id number]) AGE7 Normal [facility] prehens[facility]; [facility] Work Phone: Comment on above: <21 or >65 or no age provided Source.............C ervical;EndocervicalNo. of containers..01 CYTYC Thin Prep VialPATIENT NOT FASTINGPERFORMED BY: =G [employer] [id number] BY: WB [employer] [facility] [id number] Information: [id number] HgA1C , Office ([phone])Ordere d By: PRANAY Colon on 11-17-2015 HbA1c (Bld) [Mass fraction] 5.3 % Normal 4.6 - 7.1 [facility]; [facility] Work Phone: Blood Glucose , Office ([phone])Ordered By: Nikole Guaman on 08-30-2015 Glucose Glucometer (BldC) [Moles/Vol] 96 1 Normal [facility]; [facility] Work Phone: Blood Glucose , Office ([phone])Ordered By: PRANAY Colon on 05-19-2015 Glucose Glucometer (BldC) [Moles/Vol] 97 1 Normal [facility]; [facility] Work Phone: HgA1C , Office ([phone])Ordere d By: Esthela Sands on 05-19-2015 HbA1c (Bld) [Mass fraction] 5.5 % Normal 4.6 - 7.1 [facility]; [facility] Work Phone: Blood Glucose , Office ([phone])Ordered By: Rashmi Billingsley on 01-06-2015 Glucose Glucometer (BldC) [Moles/Vol] 105 1 Normal [facility]; [facility] Work Phone: Comment on above: fasting HgA1C , Office ([phone])Ordere d By: Rashmi Billingsley on 01-06-2015 HbA1c (Bld) [Mass fraction] 5.6 % Normal 4.6 - 7.1 [facility]; [facility] Work Phone: Blood Glucose , Office ([phone])Ordered By: PRANAY Colon on 10-07-2014 Glucose Glucometer (BldC) [Moles/Vol] 107 1 Normal [facility]; [facility] Work Phone: HgA1C , Office ([phone])Ordere d By: PRANAY Colon on 10-07-2014 HbA1c (Bld) [Mass fraction] 5.7 % Normal 4.6 - 7.1 [facility]; [facility] Work Phone: Thin prep Pap ([phone])Ordered By: Call Center Director on 09-10-2012 Microscopic observation Other stain Nom (Unsp spec) . Normal Comprehens ruchi [facility]; [facility] Work Phone: Comment on above: Source.............C ervical;EndocervicalNo. of containers..01 CYTYC Thin Prep VialPATIENT NOT FASTINGPERFORMED BY: [employer] [place] itzbig [id number] Information: [id number] Pathology report final diagnosis Narrative SPRCS Normal [facility]; [facility] Work Phone: Comment on above: NEGATIVE FOR INTRAEP ITHELIAL LESION AND MALIGNANCY.Satisfactory for evaluation. Endocervical and/or squamous metaplasticcells (endocervical component) are present.V76.2 ; Screening for malignant neoplasm of the cervixNatalie Devan Lynne, Etiology Teacher Source.............C ervical;EndocervicalNo. of containers..01 CYTYC Thin Prep VialPATIENT NOT FASTINGPERFORMED BY: [employer] [place] [id number] Information: [id number] Thin prep Pap ([id number]) PAPSMR Normal [facility]; [facility] [...] CYTYC Thin Prep VialPATIENT NOT FASTINGPERFORMED BY: [employer] [id number] Information: [id number] Blood Glucose , Office ([phone])Ordered By: PRANAY Colon on 03-06-2012 Glucose Glucometer (BldC) [Moles/Vol] 100 1 Normal [facility]; [facility] Work Phone: HgA1C , Office ([phone])Ordere d By: PRANAY Colon on 03-06-2012 HbA1c (Bld) [Mass fraction] 5.8 % Normal 4.6 - 7.1 [facility]; [facility] Work Phone: Thin prep Pap ([phone])Ordered By: Call Center Director on 08-21-2011 Microscopic observation Other stain Nom (Unsp spec) . Normal Comprehens r[facility]; [facility] Work Phone: Comment on above: Source.............C ervical;EndocervicalNo. of containers..01 CYTYC Thin Prep VialPATIENT NOT FASTINGPERFORMED BY: [employer] [id number] Information: [id number] Pathology report final diagnosis Narrative SPRCS Normal [facility]; [facility] Work Phone: Comment on above: NEGATIVE FOR INTRAEP ITHELIAL LESION AND MALIGNANCY.Satisfactory for evaluation. Endocervical and/or squamous metaplasticcells (endocervical component) are present.V76.2 ; Screening for malignant neoplasm of the cervixNay Calvillo, Etiology Teacher (ASCP) Source.............C ervical;EndocervicalNo. of containers..01 CYTYC Thin Prep VialPATIENT NOT FASTINGPERFORMED BY: [employer] [id number] Information: [id number] Thin prep Pap ([id number]) PAPSMR Normal [facility]; [facility] [...] CYTYC Thin Prep VialPATIENT NOT FASTINGPERFORMED BY: [employer] [id number] Information: [id number] HgA1C , Office ([phone])Ordere d By: Krista Antonio on 09-04-2010 HbA1c (Bld) [Mass fraction] 5.8 % Normal 4.6 - 7.1 [facility]; [facility] Work Phone: Urinalysis, Office ([phone])Or dered By: Krista Antonio on 04-20-2009 Bilirubin [...] Medicine Work Phone: Rapid Strep Test, Office ([phone])Ordered By: Nay Gomes on 10-27-2008 S. pyogenes Ag EIA Ql (Throat) Positive Normal [facility]; [facility] Work Phone: Comment on above: pos Culture, urine Bacteria identified Cx Nom (U) Escherichia coli [facility] Work Phone: No Panel Information SARS-CoV-2 & FLU Antigen (Rapid) [facility] Work Phone: Vital Signs Date Time Vital Sign Value Performing Clinician Facility 02-02-2025 13:48-0400 Body height 170.[address] Esthela Sands MD Work Phone: [facility] 02-02-2025 13:48-0400 Body mass index (BMI) [Ratio] 27.3 kg/m2 Dr. Esthela Sands MD Work Phone: [facility] 02-02-2025 13:48-0400 Body weight 79.[address] Esthela Sands MD Work Phone: [facility] 02-02-2025 13:48-0400 Diastolic blood pressure 83 mm[Hg] Dr. Esthela Sands MD Work Phone: [facility] 02-02-2025 13:48-0400 Heart rate 73 /min Dr. Esthela Sands MD Work Phone: [facility] 02-02-2025 13:48-0400 Respiratory rate 16 /min Dr. Esthela Sands MD Work Phone: [facility] 02-02-2025 13:48-0400 Systolic blood pressure 128 mm[Hg] Dr. Esthela Sands MD Work Phone: [facility] 06-12-2023 14:44-0400 Body height 172.72 cm [...] Phone: 06-12-2023 14:44-0400 Respiratory rate 16 /min Yamilabisi Multani CANDICE [facility]; [facility] Work Phone: 06-12-2023 14:44-0400 SaO2% (BldA) [Mass fraction] 97 % Yamilabisi Multani CANDICE [facility]; [facility] Work Phone: 06-12-2023 14:44-0400 Systolic blood pressure 118 mm[Hg] Yamilabisi Multani CANDICE [facility]; [facility] Work Phone: 06-09-2023 10:07-0400 Body height 172.72 cm Yamilabisi Multani CANDICE [facility]; [facility] Work Phone: 06-09-2023 10:07-0400 Body mass index (BMI) [Ratio] 26.53 kg/m2 Yamilabisi Multani CANDICE [facility]; [facility] Work Phone: 06-09-2023 10:07-0400 Body surface area Derived from formula 1.93 m2 Yamilabisi Multani CANDICE [facility]; [facility] Work Phone: 06-09-2023 10:07-0400 Body temperature 98.1 [degF] Yamilabisi Multani CANDICE [facility]; [facility] Work Phone: 06-09-2023 10:07-0400 Body weight 79.15 kg Yamila Rangel CANDICE [facility]; [facility] Work Phone: 06-09-2023 10:07-0400 Diastolic blood pressure 90 mm[Hg] Yamilabisi Multani CANDICE [facility]; [facility] Work Phone: 06-09-2023 10:07-0400 Heart rate 69 /min Yamila Rangel LPN [facility]; [facility] Work Phone: 06-09-2023 10:07-0400 Respiratory rate 16 /min Yamila Rangel CANDICE [facility]; [facility] Work Phone: 06-09-2023 10:07-0400 SaO2% (BldA) [Mass fraction] 97 % Yamila Multani CANDICE [facility]; [facility] Work Phone: 06-09-2023 10:07-0400 Systolic blood pressure 128 mm[Hg] Yamilabisi Multani CADNICE [facility]; [facility] Work Phone: 04-08-2023 09:32-0400 Body height 172.72 cm Yamila Multani CANDICE [facility]; [facility] Work Phone: 04-08-2023 09:32-0400 Body mass index (BMI) [Ratio] 26.93 kg/m2 Yamila Multani CANDICE [facility]; [facility] Work Phone: 04-08-2023 09:32-0400 Body surface area Derived from formula 1.94 m2 Yamila Multani CANDICE [facility]; [facility] Work Phone: 04-08-2023 09:32-0400 Body temperature 98.1 [degF] Yamila Multani CANDICE [facility]; [facility] Work Phone: 04-08-2023 09:32-0400 Body weight 80.34 kg Yamila Multani CANDICE [facility]; [facility] Work Phone: 04-08-2023 09:32-0400 Diastolic blood pressure 92 mm[Hg] Yamila Multani CANDICE [facility]; [facility] Work Phone: Comment on above: Patient Position: Sitting; Cuff Location : Left Arm; Cuff Size: Standard 04-08-2023 09:32-0400 Heart rate 64 /min Yamila Multani CANDICE [facility]; [facility] Work Phone: Comment on above: Pattern: Regular 04-08-2023 09:32-0400 Respiratory rate 16 /min Yamilabisi Multani CANDICE [facility]; [facility] Work Phone: Comment on above: Pattern: Unlabored 04-08-2023 09:32-0400 SaO2% (BldA) [Mass fraction] 99 % Yamilabisi Multani CANDICE [facility]; [facility] Work Phone: Comment on above: Room air 04-08-2023 09:32-0400 Systolic blood pressure 148 mm[Hg] Yamila Rangel HARVEY [facility]; [facility] Work Phone: Comment on above: Patient Position: Sitting; Cuff Location : Left Arm; Cuff Size: Standard 03-10-2023 08:13-0400 Body height 172.72 cm [facility] Work Phone: 03-10-2023 08:13-0400 Body mass index (BMI) [Ratio] 27.29 kg/m2 [facility]; [facility] Work Phone: 03-10-2023 08:13-0400 Body surface area Derived from formula 1.95 m2 [facility] Work Phone: 03-10-2023 08:13-0400 Body temperature 98 [degF] [facility] Work Phone: 03-10-2023 08:13-0400 Body weight 81.42 kg [facility] Work Phone: 03-10-2023 08:13-0400 Diastolic blood pressure 80 mm[Hg] [facility] Work Phone: Comment on above: Patient Position: Sitting; Cuff Location : Left Arm; Cuff Size: Standard 03-10-2023 08:13-0400 Heart rate 65 /min [facility] Work Phone: Comment on above: Pattern: Regular 03-10-2023 08:13-0400 Respiratory rate 16 /min [facility] Work Phone: Comment on above: Pattern: Unlabored 03-10-2023 08:13-0400 SaO2% (BldA) [Mass fraction] 99 % [facility]; [facility] Work Phone: Comment on above: Room air 03-10-2023 08:13-0400 Systolic blood pressure 130 mm[Hg] Blaze Le ACCELERATOR OPERATOR [facility]; [facility] Work Phone: Comment on above: Patient Position: Sitting; Cuff Location : Left Arm; Cuff Size: Standard 02-28-2023 09:55-0400 Body height 172.72 cm Marylin Slarb [employer] [facility]; [facility] Work Phone: 02-28-2023 09:55-0400 Body mass index (BMI) [Ratio] 27.49 kg/m2 Marylin Slarb [employer] [facility]; [facility] Work Phone: 02-28-2023 09:55-0400 Body surface area Derived from formula 1.96 m2 Marylin Slarb BASEBALL UMPIRE FOR [employer] [facility] Work Phone: 02-28-2023 09:55-0400 Body temperature 97.3 [degF] Marylin Slarb [employer] [facility] Work Phone: Comment on above: Method: Temporal 02-28-2023 09:55-0400 Body weight 82.01 kg Marylin Slarb [employer] [facility] Work Phone: 02-28-2023 09:55-0400 Diastolic blood pressure 82 mm[Hg] Marylin Slarb [employer] [facility] Work Phone: Comment on above: Patient Position: Sitting; Cuff Location : Left Arm; Cuff Size: Standard 02-28-2023 09:55-0400 Heart rate 80 /min Marylin Slarb [employer] [facility] Work Phone: Comment on above: Pattern: Regular 02-28-2023 09:55-0400 Respiratory rate 17 /min Marylin Slarb [employer] [facility] Work Phone: Comment on above: Pattern: Unlabored 02-28-2023 09:55-0400 SaO2% (BldA) [Mass fraction] 98 % Marylin Slarb [employer] [facility] Work Phone: Comment on above: Room air 02-28-2023 09:55-0400 Systolic blood pressure 124 mm[Hg] Marylin Olguinrb [employer] [facility] Work Phone: Comment on above: Patient Position: Sitting; Cuff Location : Left Arm; Cuff Size: Standard 02-19-2023 08:35-0400 Body height 172.72 cm Marylin Olguinrb [employer] [facility] Work Phone: 02-19-2023 08:35-0400 Body mass index (BMI) [Ratio] 27.49 kg/m2 Marylin Slarb [employer] [facility] Work Phone: 02-19-2023 08:35-0400 Body surface area Derived from formula 1.96 m2 Marylin Slarb [employer] [facility] Work Phone: 02-19-2023 08:35-0400 Body temperature 97.1 [degF] Marylin Sharifrb [employer] [facility]; [facility] Work Phone: Comment on above: Method: Temporal 02-19-2023 08:35-0400 Body weight 82.01 kg Marylin Olguinrb [employer] [facility] Work Phone: 02-19-2023 08:35-0400 Diastolic blood pressure 86 mm[Hg] Marylin Slarb [employer] [facility] Work Phone: Comment on above: Patient Position: Sitting; Cuff Location : Left Arm; Cuff Size: Standard 02-19-2023 08:35-0400 Heart rate 77 /min Marylin Slarb [employer] [facility] Work Phone: Comment on above: Pattern: Regular 02-19-2023 08:35-0400 Respiratory rate 16 /min Marylin Slarb [employer] [facility] Work Phone: Comment on above: Pattern: Unlabored 02-19-2023 08:35-0400 SaO2% (BldA) [Mass fraction] 99 % Marylin Henning [facility]; [facility] Work Phone: Comment on above: Room air 02-19-2023 08:35-0400 Systolic blood pressure 130 mm[Hg] Marylin Henning [facility] Work Phone: Comment on above: Patient Position: Sitting; Cuff Location : Left Arm; Cuff Size: Standard 02-14-2023 08:06-0400 [facility] Work Phone: 02-14-2023 08:06-0400 Body mass index (BMI) [Ratio] 27.49 kg/m2 [facility] Work Phone: 02-14-2023 08:06-0400 Body surface area Derived from formula 1.96 m2 [facility] Work Phone: 02-14-2023 08:06-0400 Body temperature 97.4 [degF] [facility] Work Phone: Comment on above: Method: Thermal Scan 02-14-2023 08:06-0400 Body weight 82.01 kg Rashmi Billingsley [facility]; [facility] Work Phone: 02-14-2023 08:06-0400 Diastolic blood pressure 88 mm[Hg] [facility] Work Phone: Comment on above: Patient Position: Sitting; Cuff Location : Left Arm; Cuff Size: Standard 02-14-2023 08:06-0400 Heart rate 61 /[facility] Work Phone: Comment on above: Pattern: Regular 02-14-2023 08:06-0400 Respiratory rate 16 /[facility] Work Phone: Comment on above: Pattern: Unlabored 02-14-2023 08:06-0400 SaO2% (BldA) [Mass fraction] 98 % Rashmi Mccrackendeysi [facility]; [facility] Work Phone: Comment on above: Room air 02-14-2023 08:06-0400 Systolic blood pressure 132 mm[Hg] Rashmi Billingsley [facility]; [facility] Work Phone: Comment on above: Patient Position: Sitting; Cuff Location : Left Arm; Cuff Size: Standard 12-23-2022 15:07-0400 Body height 170.18 cm MD Proctor [facility] 12-23-2022 15:07-0400 Body mass index (BMI) [Ratio] 28.5 kg/m2 [facility] 12-23-2022 15:07-0400 Body temperature 97.6 [degF] [facility] 12-23-2022 15:07-0400 Body weight 82.78 kg Esthela [facility] 12-23-2022 15:07-0400 Diastolic blood pressure 89 mm[Hg] [facility] 12-23-2022 15:07-0400 Heart rate 59 /min [facility] 12-23-2022 15:07-0400 Respiratory rate 16 /min [facility] 12-23-2022 15:07-0400 SaO2% (BldA) [Mass fraction] 97 % Esthela [facility] 12-23-2022 15:07-0400 Systolic blood pressure 128 mm[Hg] [facility] 05-23-2022 12:55-0400 Body height [address] Tejas Garcia Work Phone: [facility] Work Phone: 05-14-2022 07:54-0400 Body height [...] 75 mm[Hg] Dr. Tejas Garcia Work Phone: [facility] Work Phone: 04-25-2022 22:44-0400 Heart rate 70 /min Dr. Teajs Garcia Work Phone: [facility] Work Phone: 04-25-2022 22:44-0400 Respiratory rate 15 /min Dr. Tejas Garcia Work Phone: [facility] Work Phone: 04-25-2022 22:44-0400 SaO2% (BldA) [Mass fraction] 98 % Dr. Tejas Garcia Work Phone: [facility] Work Phone: 04-25-2022 22:44-0400 Systolic blood pressure 162 mm[Hg] Dr. Tejas Garcia Work Phone: [facility] Work Phone: 04-25-2022 19:29-0400 Body height [address] Tejas Garcia Work Phone: [facility] Work Phone: 04-25-2022 19:29-0400 Body mass index (BMI) [Ratio] 28.6 kg/m2 Dr. Tejas Garcia Work Phone: [facility] Work Phone: 04-25-2022 19:29-0400 Body temperature 98.3 [degF] Dr. Tejas Garcia Work Phone: [facility] Work Phone: 04-25-2022 19:29-0400 Body weight 82.[address] Tejas Garcia Work Phone: [facility] Work Phone: 04-19-2022 09:20-0400 Body mass index (BMI) [Ratio] 27.8 kg/m2 Dr. Tejas Garcia Work Phone: [facility] Work Phone: 04-19-2022 09:20-0400 Body weight 80.[address] Tejas Garcia Work Phone: [facility] Work Phone: 04-19-2022 09:20-0400 Diastolic blood pressure 86 mm[Hg] Dr. Tejas Garcia Work Phone: [facility] Work Phone: 04-19-2022 09:20-0400 Heart rate 72 /min Dr. Tejas Garcia Work Phone: [facility] Work Phone: 04-19-2022 09:20-0400 Respiratory rate 16 /min Dr. Tejas Garcia Work Phone: [facility] Work Phone: 04-19-2022 09:20-0400 SaO2% (BldA) [Mass fraction] 96 % Dr. Tejas Garcia Work Phone: [facility] Work Phone: 04-19-2022 09:20-0400 Systolic blood pressure 127 mm[Hg] Dr. Tejas Garcia Work Phone: [facility] Work Phone: 04-10-2022 07:57-0400 Body height 172.72 cm [facility] Work Phone: 04-10-2022 07:57-0400 Body mass index (BMI) [Ratio] 27.37 kg/m2 [facility]; [facility] Work Phone: 04-10-2022 07:57-0400 Body surface area Derived from formula 1.95 m2 [facility]; [facility] Work Phone: 04-10-2022 07:57-0400 Body temperature 96.9 [degF] [facility] Work Phone: 04-10-2022 07:57-0400 Body weight 81.65 kg [facility] Work Phone: 04-10-2022 07:57-0400 Diastolic blood pressure 90 mm[Hg] [facility]; [facility] Work Phone: Comment on above: Patient Position: Sitting; Cuff Location : Left Arm; Cuff Size: Standard 04-10-2022 07:57-0400 Heart rate 63 /min [facility]; [facility] Work Phone: Comment on above: Pattern: Regular 04-10-2022 07:57-0400 Respiratory rate 16 /min [facility]; [facility] Work Phone: Comment on above: Pattern: Unlabored 04-10-2022 07:57-0400 SaO2% (BldA) [Mass fraction] 98 % [facility]; [facility] Work Phone: Comment on above: Room air 04-10-2022 07:57-0400 Systolic blood pressure 132 mm[Hg] [facility]; [facility] Work Phone: Comment on above: Patient Position: Sitting; Cuff Location : Left Arm; Cuff Size: Standard 03-19-2022 10:15-0400 Body height 170.[address] Tejas Garcia Work Phone: [facility] Work Phone: 03-19-2022 10:15-0400 Body mass index (BMI) [Ratio] 28 kg/m2 Dr. Tejas Garcia Work Phone: [facility] Work Phone: 03-19-2022 10:15-0400 Body temperature 97.2 [degF] Dr. Tejas Garcia Work Phone: [facility] Work Phone: 03-19-2022 10:15-0400 Body weight 81.[address] Tejas Garcia Work Phone: [facility] Work Phone: 03-19-2022 10:15-0400 Diastolic blood pressure 92 mm[Hg] Dr. Tejas Garcia Work Phone: [facility] Work Phone: 03-19-2022 10:15-0400 Heart rate 77 /min Dr. Tejas Garcia Work Phone: [facility] Work Phone: 03-19-2022 10:15-0400 Respiratory rate 16 /min Dr. Tejas Gracia Work Phone: [facility] Work Phone: 03-19-2022 10:15-0400 SaO2% (BldA) [Mass fraction] 95 % Dr. Tejas Garcia Work Phone: [facility] Work Phone: 03-19-2022 10:15-0400 Systolic blood pressure 150 mm[Hg] Dr. Tejas Garcia Work Phone: [facility] Work Phone: 01-22-2022 08:34-0400 Body height 170.[address] Tejas Garcia Work Phone: [facility] Work Phone: 01-22-2022 08:34-0400 Body mass index (BMI) [Ratio] 28.5 kg/m2 Dr. Tejas Garcia Work Phone: [facility] Work Phone: 01-22-2022 08:34-0400 Body weight 82.[address] Tejas Garcia Work Phone: [facility] Work Phone: 01-22-2022 08:34-0400 Diastolic blood pressure 97 mm[Hg] Dr. Tejas Garcia Work Phone: [facility] Work Phone: 01-22-2022 08:34-0400 Heart rate 70 /min Dr. Tejas Garcia Work Phone: [facility] Work Phone: 01-22-2022 08:34-0400 Respiratory rate 16 /min Dr. Tejas Garcia Work Phone: [facility] Work Phone: 01-22-2022 08:34-0400 SaO2% (BldA) [Mass fraction] 96 % Dr. Tjeas Garcia Work Phone: [facility] Work Phone: 01-22-2022 08:34-0400 Systolic blood pressure 172 mm[Hg] Dr. Tejas Garcia Work Phone: [facility] Work Phone: 01-22-2022 08:34-0400 Body height 170.[address] Tejas Garcia Work Phone: [facility] Work Phone: 01-22-2022 08:34-0400 Body mass index (BMI) [Ratio] 28.5 kg/m2 Dr. Tejas Garcia Work Phone: [facility] Work Phone: 01-22-2022 08:34-0400 Body weight 82.[address] Tejas Garcia Work Phone: [facility] Work Phone: 01-22-2022 08:34-0400 Diastolic blood pressure 97 mm[Hg] Dr. Tejas Garcia Work Phone: [facility] Work Phone: 01-22-2022 08:34-0400 Heart rate 70 /min Dr. Tejas Garcia Work Phone: [facility] Work Phone: 01-22-2022 08:34-0400 Respiratory rate 16 /min Dr. Tejas Garcia Work Phone: [facility] Work Phone: 01-22-2022 08:34-0400 SaO2% (BldA) [Mass fraction] 96 % Dr. Tejas Garcia Work Phone: [facility] Work Phone: 01-22-2022 08:34-0400 Systolic blood pressure 172 mm[Hg] Dr. Tejas Garcia Work Phone: [facility] Work Phone: 01-09-2022 12:53-0400 Body height 170.[address] Tejas Garcia Work Phone: [facility] Work Phone: 01-09-2022 12:53-0400 Body weight 81.[address] Tejas Garcia Work Phone: [facility] Work Phone: 01-09-2022 12:53-0400 Heart rate 64 /min Dr. Tejas Garcia Work Phone: [facility] Work Phone: 01-09-2022 12:53-0400 SaO2% (BldA) [Mass fraction] 98 % Dr. Tejas Garcia Work Phone: [facility] Work Phone: 12-28-2021 10:40-0400 Body mass index (BMI) [Ratio] 28.2 kg/m2 Dr. Tejas Garcia Work Phone: [facility] Work Phone: 12-28-2021 10:40-0400 Body temperature 98.4 [degF] Dr. Tejas Garcia Work Phone: [facility] Work Phone: 12-28-2021 10:40-0400 Body weight [address] Tejas Garcia Work Phone: [facility] Work Phone: 12-28-2021 10:40-0400 Diastolic blood pressure 82 mm[Hg] Dr. Tejas Garcia Work Phone: [facility] Work Phone: 12-28-2021 10:40-0400 Heart rate 67 /min Dr. Tejas Garcia Work Phone: [facility] Work Phone: 12-28-2021 10:40-0400 Inhaled oxygen flow rate 2 L/min Dr. Tejas Garcia Work Phone: [facility] Work Phone: 12-28-2021 10:40-0400 Respiratory rate 16 /min Dr. Tejas Garcia Work Phone: [facility] Work Phone: 12-28-2021 10:40-0400 SaO2% (BldA) [Mass fraction] 98 % Dr. Tejas Garcia Work Phone: [facility] Work Phone: 12-28-2021 10:40-0400 Systolic blood pressure 135 mm[Hg] Dr. Tejas Garcia Work Phone: [facility] Work Phone: 12-28-2021 10:40-0400 Body mass index (BMI) [Ratio] 28.2 kg/m2 Dr. Tejas Garcia Work Phone: [facility] Work Phone: 12-28-2021 10:40-0400 Body temperature 98.4 [degF] Dr. Tejas Garcia Work Phone: [facility] Work Phone: 12-28-2021 10:40-0400 Body weight [address] Tejas Garcia Work Phone: [facility] Work Phone: 12-28-2021 10:40-0400 Diastolic blood pressure 82 mm[Hg] Dr. Tejas Garcia Work Phone: [facility] Work Phone: 12-28-2021 10:40-0400 Heart rate 67 /min Dr. Tejas Garcia Work Phone: [facility] Work Phone: 12-28-2021 10:40-0400 Respiratory rate 16 /min Dr. Tejas Garcia Work Phone: [facility] Work Phone: 12-28-2021 10:40-0400 SaO2% (BldA) [Mass fraction] 98 % Dr. Tejas Garcia Work Phone: [facility] Work Phone: 12-28-2021 10:40-0400 Systolic blood pressure 135 mm[Hg] Dr. Tejas Garcia Work Phone: [facility] Work Phone: 12-24-2021 10:04-0400 Body mass index (BMI) [Ratio] 28.5 kg/m2 Dr. Tejas Garcia Work Phone: [facility] Work Phone: 12-24-2021 10:04-0400 Body temperature 97.3 [degF] Dr. Tejas Garcia Work Phone: [facility] Work Phone: 12-24-2021 10:04-0400 Body weight 82.[address] Tejas Garcia Work Phone: [facility] Work Phone: 12-24-2021 10:04-0400 Diastolic blood pressure 90 mm[Hg] Dr. Tejas Garcia Work Phone: [facility] Work Phone: 12-24-2021 10:04-0400 Heart rate 65 /min Dr. Tejas Garcia Work Phone: [facility] Work Phone: 12-24-2021 10:04-0400 Inhaled oxygen flow rate 2 L/min Dr. Tejas Garcia Work Phone: [facility] Work Phone: 12-24-2021 10:04-0400 Respiratory rate 16 /min Dr. Tejas Garcia Work Phone: [facility] Work Phone: 12-24-2021 10:04-0400 SaO2% (BldA) [Mass fraction] 97 % Dr. Tejas Garcia Work Phone: [facility] Work Phone: 12-24-2021 10:04-0400 Systolic blood pressure 149 mm[Hg] Dr. Tejas Garcia Work Phone: [facility] Work Phone: 12-24-2021 10:04-0400 Body height 170.[address] Tejas Garcia Work Phone: [facility] Work Phone: 12-24-2021 10:04-0400 Body mass index (BMI) [Ratio] 28.5 kg/m2 Dr. Tejas Garcia Work Phone: [facility] Work Phone: 12-24-2021 10:04-0400 Body temperature 97.3 [degF] Dr. Tejas Garcia Work Phone: [facility] Work Phone: 12-24-2021 10:04-0400 Body weight 82.[address] Tejas Garcia Work Phone: [facility] Work Phone: 12-24-2021 10:04-0400 Diastolic blood pressure 90 mm[Hg] Dr. Tejsa Garcia Work Phone: [facility] Work Phone: 12-24-2021 10:04-0400 Heart rate 65 /min Dr. Tejas Garcia Work Phone: [facility] Work Phone: 12-24-2021 10:04-0400 Respiratory rate 16 /min Dr. Tejas Garcia Work Phone: [facility] Work Phone: 12-24-2021 10:04-0400 SaO2% (BldA) [Mass fraction] 97 % Dr. Tejas Garcia Work Phone: [facility] Work Phone: 12-24-2021 10:04-0400 Systolic blood pressure 149 mm[Hg] Dr. Tejas Garcia Work Phone: [facility] Work Phone: 12-11-2021 09:50-0400 Diastolic blood pressure 79 mm[Hg] Dr. Tejas Garcia Work Phone: [facility] Work Phone: 12-11-2021 09:50-0400 Heart rate 70 /min Dr. Tejas Garcia Work Phone: [facility] Work Phone: 12-11-2021 09:50-0400 Systolic blood pressure 143 mm[Hg] Dr. Tejas Garcia Work Phone: [facility] Work Phone: 12-11-2021 08:22-0400 Inhaled oxygen flow rate 2 L/min Dr. Tejas Garcia Work Phone: [facility] Work Phone: 12-11-2021 08:12-0400 SaO2% (BldA) [Mass fraction] 94 % Dr. Tejas Garcia Work Phone: [facility] Work Phone: 12-11-2021 08:10-0400 Body temperature 97.5 [degF] Dr. Tejas Garcia Work Phone: [facility] Work Phone: 12-11-2021 08:10-0400 Respiratory rate 18 /min Dr. Tejas Garcia Work Phone: [facility] Work Phone: 12-10-2021 13:13-0400 Body height 170.[address] Tejas Garcia Work Phone: [facility] Work Phone: 12-10-2021 13:13-0400 Body weight 82.[address] Tejas Garcia Work Phone: [facility] Work Phone: 12-09-2021 17:49-0400 Body mass index (BMI) [Ratio] 28.6 kg/m2 Dr. Tejas Garcia Work Phone: [facility] Work Phone: 04-02-2016 15:12-0400 Body height 172.72 cm Marylin Henning LPN [facility] Work Phone: 04-02-2016 15:12-0400 Body mass index (BMI) [Ratio] 28.13 kg/m2 Marylin Henning LPN [facility]; [facility] Work Phone: 04-02-2016 15:12-0400 Body surface area Derived from formula 1.98 m2 Marylin Milady HARVEY [facility]; [facility] Work Phone: 04-02-2016 15:12-0400 Body temperature 97.4 [degF] Marylin Milady HAR[employer] [facility] Work Phone: 04-02-2016 15:12-0400 Body weight 83.92 kg Marylin Milady CASTREJONN [facility]; [facility] Work Phone: 04-02-2016 15:12-0400 Diastolic blood pressure 76 mm[Hg] Marylin Milady HARVEY [facility]; [facility] Work Phone: Comment on above: Patient Position: Sitting; Cuff Location : Left Arm; Cuff Size: Standard 04-02-2016 15:12-0400 Heart rate 74 /min Marylin Henning LPN [facility]; [facility] Work Phone: Comment on above: Pattern: Regular 04-02-2016 15:12-0400 Respiratory rate 16 /min Marylin Olguinrb [employer] [facility]; [facility] Work Phone: Comment on above: Pattern: Unlabored 04-02-2016 15:12-0400 SaO2% (BldA) [Mass fraction] 98 % Marylin Olguinrb [employer] [facility]; [facility] Work Phone: Comment on above: Room air 04-02-2016 15:12-0400 Systolic blood pressure 114 mm[Hg] Marylin Slarb [employer] [facility]; [facility] Work Phone: Comment on above: Patient Position: Sitting; Cuff Location : Left Arm; Cuff Size: Standard 11-27-2015 08:24-0400 Body height 172.72 cm Marylin Slarb [employer] [facility]; [facility] Work Phone: 11-27-2015 08:24-0400 Body mass index (BMI) [Ratio] 28.13 kg/m2 Marylin Slarb [employer] [facility]; [facility] Work Phone: 11-27-2015 08:24-0400 Body surface area Derived from formula 1.98 m2 Marylin Slarb [employer] [facility] Work Phone: 11-27-2015 08:24-0400 Body temperature 97.8 [degF] Marylin Slarb [employer] [facility]; [facility] Work Phone: 11-27-2015 08:24-0400 Body weight 83.92 kg Marylin Slarb [employer] [facility]; [facility] Work Phone: 11-27-2015 08:24-0400 Diastolic blood pressure 84 mm[Hg] Marylin Slarb [employer] [facility]; [facility] Work Phone: Comment on above: Patient Position: Sitting; Cuff Location : Left Arm; Cuff Size: Standard 11-27-2015 08:24-0400 Heart rate 69 /min Marylin Slarb [employer] [facility]; [facility] Work Phone: Comment on above: Pattern: Regular 11-27-2015 08:24-0400 Respiratory rate 16 /min Marylin Slaefren HARVEY [facility]; [facility] Work Phone: Comment on above: Pattern: Unlabored 11-27-2015 08:24-0400 SaO2% (BldA) [Mass fraction] 97 % Marylin Slaefren HARVEY [facility]; [facility] Work Phone: Comment on above: Room air 11-27-2015 08:24-0400 Systolic blood pressure 126 mm[Hg] Marylin Slaefren HARVEY [facility]; [facility] [...] 09:35-0500 Respiratory rate 18 /min PRANAY Colon LPN [...] 09-15-2015 10:36-0500 Body height 172.72 cm Marylin Henning LPN [facility]; [facility] Work Phone: 09-15-2015 10:36-0500 Body mass index (BMI) [Ratio] 28.17 kg/m2 Marylin Henning LPN [facility]; [facility] Work Phone: 09-15-2015 10:36-0500 Body surface area Derived from formula 1.98 m2 Marylin Henning LPN [facility]; [facility] Work Phone: 09-15-2015 10:36-0500 Body temperature 97.6 [degF] Marylin Olguinrb [employer] [facility]; [facility] Work Phone: 09-15-2015 10:36-0500 Body weight 84.03 kg Marylin Henning LPN [facility]; [facility] Work Phone: 09-15-2015 10:36-0500 Diastolic blood pressure 84 mm[Hg] Marylin Slarb [employer] [facility]; [facility] Work Phone: Comment on above: Patient Position: Sitting; Cuff Location : Left Arm; Cuff Size: Standard 09-15-2015 10:36-0500 Heart rate 72 /min Marylin Slarb [employer] [facility]; [facility] Work Phone: Comment on above: Pattern: Regular 09-15-2015 10:36-0500 Respiratory rate 16 /min Marylin Slarb [employer] [facility]; [facility] Work Phone: Comment on above: Pattern: Unlabored 09-15-2015 10:36-0500 SaO2% (BldA) [Mass fraction] 96 % Marylin Sharifrb [employer] [facility] [facility]; [facility] Work Phone: Comment on above: Room air 09-15-2015 10:36-0500 Systolic blood pressure 132 mm[Hg] Marylin Slarb [employer] [facility]; [facility] Work Phone: Comment on above: Patient Position: Sitting; Cuff Location : Left Arm; Cuff Size: Standard 08-30-2015 10:13-0500 Body height 172.72 cm Marylin Slarb [employer] [facility]; [facility] Work Phone: 08-30-2015 10:13-0500 Body mass index (BMI) [Ratio] 28.15 kg/m2 Marylin Slarb [employer] [facility]; [facility] Work Phone: 08-30-2015 10:13-0500 Body surface area Derived from formula 1.98 m2 Marylin Slarb [employer] [facility]; [facility] Work Phone: 08-30-2015 10:13-0500 Body temperature 97.1 [degF] Marylin Slarb [employer] [facility]; [facility] Work Phone: 08-30-2015 10:13-0500 Body weight 83.97 kg Marylin Slarb [employer] [facility]; [facility] Work Phone: 08-30-2015 10:13-0500 Diastolic blood pressure 78 mm[Hg] Marylin Slarb [employer] [facility]; [facility] Work Phone: Comment on above: Patient Position: Sitting; Cuff Location : Left Arm; Cuff Size: Standard 08-30-2015 10:13-0500 Heart rate 72 /min Marylin Slarb [employer] [facility]; [facility] Work Phone: Comment on above: Pattern: Regular 08-30-2015 10:13-0500 Respiratory rate 16 /min Marylin Slarb [employer] [facility]; [facility] Work Phone: Comment on above: Pattern: Unlabored 08-30-2015 10:13-0500 SaO2% (BldA) [Mass fraction] 95 % Marylin Henning LPN [facility]; [facility] Work Phone: Comment on above: Room air 08-30-2015 10:13-0500 Systolic blood pressure 122 mm[Hg] Marylin Milady HRAVEY [facility]; [facility] Work [...] 05-19-2015 09:39-0400 Respiratory rate 20 /min PRANAY Colon LPN [...] 09:03-0400 Body height 172.72 cm PRANAY Colon CANDICE [facility]; [facility] Work Phone: 02-10-2015 09:03-0400 Body mass index (BMI) [Ratio] 27.82 kg/m2 PRANAY Colon CANDICE [facility]; [facility] Work Phone: 02-10-2015 09:03-0400 Body surface area Derived from formula 1.97 m2 PRANAY Colon CANDICE [facility]; [facility] Work Phone: 02-10-2015 09:03-0400 Body temperature 97.8 [degF] PRANAY Colon CANDICE [facility]; [facility] Work Phone: Comment on above: Method: Temporal 02-10-2015 09:03-0400 Body weight 83.01 kg PRANAY Colon CANDICE [facility]; [facility] Work Phone: 02-10-2015 09:03-0400 Diastolic blood pressure 80 mm[Hg] PRANAY Colon CANDICE [facility]; [facility] Work Phone: Comment on above: Patient Position: Sitting; Cuff Location : Left Arm; Cuff Size: Standard 02-10-2015 09:03-0400 Heart rate 70 /min PRANAY Colon CANDICE [facility]; [facility] Work Phone: Comment on above: Pattern: Regular 02-10-2015 09:03-0400 Respiratory rate 18 /min PRANAY Colon CANDICE [...] Standard 01-06-2015 08:37-0400 Body height 172.72 cm Rashmi Billingsley [facility]; [facility] Work Phone: 01-06-2015 08:37-0400 Body mass index (BMI) [Ratio] 29.8 kg/m2 [facility]; [facility] Work Phone: 01-06-2015 08:37-0400 Body surface area Derived from formula 2.03 m2 [facility]; [facility] Work Phone: 01-06-2015 08:37-0400 Body temperature 98.1 [degF] [facility]; [facility] Work Phone: Comment on above: Method: Oral 01-06-2015 08:37-0400 Body weight 88.91 kg Rashmi Billingsley [facility]; [facility] Work Phone: 01-06-2015 08:37-0400 Diastolic blood pressure 80 mm[Hg] [facility]; [facility] Work Phone: Comment on above: Patient Position: Sitting; Cuff Location : Left Arm; Cuff Size: Standard 01-06-2015 08:37-0400 Heart rate 72 /min [facility]; [facility] Work Phone: Comment on above: Pattern: Regular 01-06-2015 08:37-0400 Respiratory rate 16 /min [facility]; [facility] Work Phone: Comment on above: Pattern: Unlabored 01-06-2015 08:37-0400 SaO2% (BldA) [Mass fraction] 98 % Rashmi Billingsley [facility]; [facility] Work Phone: Comment on above: Room air 01-06-2015 08:37-0400 Systolic blood pressure 130 mm[Hg] Rashmi Billingsley [facility]; [facility] [...] Temporal 10-07-2014 08:15-0500 Body weight 88 kg PRANAYDAYNE Colon LPN [facility]; [facility] [...] (BldA) [Mass fraction] 97 % PRANAY Colon LPN [facility]; [facility] Work Phone: Comment on above: Room air 10-07-2014 08:15-0500 Systolic blood pressure 130 mm[Hg] PRANAY Colon LPN [facility]; [facility] Work Phone: Comment on above: Patient Position: Sitting; Cuff Location : Left Arm; Cuff Size: Standard 08-08-2014 14:41-0500 Body height 172.72 cm PRANAY Colon LPN [facility]; [facility] Work Phone: 08-08-2014 14:41-0500 Body mass index (BMI) [Ratio] 29.5 kg/m2 PRANAY Colon LPN [facility]; [facility] Work Phone: 08-08-2014 14:41-0500 Body surface area Derived from formula 2.02 m2 PRANAY Colon [employer] [facility]; [facility] Work Phone: 08-08-2014 14:41-0500 Body temperature 97.7 [degF] PRANAY Colon LPN [facility]; [facility] Work Phone: Comment on above: Method: Temporal 08-08-2014 14:41-0500 Body weight 88 kg PRANAY Colon LPN [facility]; [facility] Work Phone: 08-08-2014 14:41-0500 Diastolic blood pressure 78 mm[Hg] PRANAY Colon LPN [facility]; [facility] Work Phone: Comment on above: Patient Position: Sitting; Cuff Location : Left Arm; Cuff Size: Standard 08-08-2014 14:41-0500 Heart rate 70 /min PRANAY Colon LPN [facility]; [facility] Work Phone: Comment on above: Pattern: Regular 08-08-2014 14:41-0500 Respiratory rate 20 /min PRANAY Colon LPN [facility]; [facility] Work Phone: Comment on above: Pattern: Unlabored 08-08-2014 14:41-0500 Systolic blood pressure 120 mm[Hg] PRANAY Colon LPN [facility]; [facility] Work Phone: Comment on above: Patient Position: Sitting; Cuff Location : Left Arm; Cuff Size: Standard 03-14-2014 13:10-0400 Body height 172.72 cm PRANAY Colon LPN [facility]; [facility] Work Phone: 03-14-2014 13:10-0400 Body mass index (BMI) [Ratio] 29.8 kg/m2 PRANAY Colon LPN [facility]; [facility] Work Phone: 03-14-2014 13:10-0400 Body surface area Derived from formula 2.03 m2 PRANAY Colon LPN [facility]; [facility] Work Phone: 03-14-2014 13:10-0400 Body temperature 97.6 [degF] PRANAY Colon LPN [facility]; [facility] Work Phone: Comment on above: Method: Oral 03-14-2014 13:10-0400 Body weight 88.91 kg PRANAY Colon LPN [facility]; [facility] Work Phone: 03-14-2014 13:10-0400 Diastolic blood pressure 80 mm[Hg] PRANAY Colon LPN [facility]; [facility] Work Phone: Comment on above: Patient Position: Sitting; Cuff Location : Left Arm; Cuff Size: Standard 03-14-2014 13:10-0400 Heart rate 74 /min PRANAY Colon LPN [facility]; [facility] Work Phone: Comment on above: Pattern: Regular 03-14-2014 13:10-0400 Respiratory rate 20 /min PRANAY Colon LPN [...] Standard 05-24-2013 09:05-0400 Body height 172.72 [facility]; [facility] Work Phone: 05-24-2013 09:05-0400 Body mass index (BMI) [Ratio] 28.89 kg/m2 [facility]; [facility] Work Phone: 05-24-2013 09:05-0400 Body surface area Derived from formula 2 m2 Rashmi Billingsley [facility]; [facility] Work Phone: 05-24-2013 09:05-0400 Body weight 86.18 kg Rashmi Billingsley [facility]; [facility] Work Phone: 05-24-2013 09:05-0400 Diastolic blood pressure 78 mm[Hg] Rashmi Billingsley [facility]; [facility] Work Phone: Comment on above: Patient Position: Sitting; Cuff Location : Left Arm; Cuff Size: Standard 05-24-2013 09:05-0400 Heart rate 80 /min Rashmi Billingsley [facility]; [facility] Work Phone: Comment on above: Pattern: Regular 05-24-2013 09:05-0400 Respiratory rate 16 /min Rashim Billingsley [facility]; [facility] Work Phone: Comment on above: Pattern: Unlabored 05-24-2013 09:05-0400 SaO2% (BldA) [Mass fraction] 98 % Rashmi Billingsley [facility]; [facility] Work Phone: Comment on above: Room air 05-24-2013 09:05-0400 Systolic blood pressure 124 mm[Hg] Rashmi Billingsley [facility]; [facility] Work Phone: Comment on above: Patient Position: Sitting; Cuff Location : Left Arm; Cuff Size: Standard 05-11-2013 15:02-0400 Body height 172.72 cm Patricia Alex [facility]; [facility] Work Phone: 05-11-2013 15:02-0400 Body mass index (BMI) [Ratio] 28.89 kg/m2 Patricia Alex [facility]; [facility] Work Phone: 05-11-2013 15:02-0400 Body surface area Derived from formula 2 m2 Patricia Alex [facility]; [facility] Work [...] 09:46-0400 Body temperature 97.8 [degF] Nikole Guaman [facility]; [facility] [...] 09:46-0400 SaO2% (BldA) [Mass fraction] 98 % Nikoletomas Guaman [facility]; [facility] [...] 12-17-2012 11:28-0400 Respiratory rate 18 /min PRANAY Isaiah [employer] [facility]; [facility] Work [...] Oral 03-06-2012 08:56-0400 Body weight 83.92 kg PRANAYDAYNE Colon LPN [facility]; [facility] Work Phone: 03-06-2012 08:56-0400 Diastolic blood pressure 70 mm[Hg] PRANAY Colon CANDICE [facility]; [facility] Work Phone: Comment on above: Patient Position: Sitting; Cuff Location : Left Arm; Cuff Size: Standard 03-06-2012 08:56-0400 Heart rate 78 /min PRANAY Isaiah HARVEY [facility]; [facility] Work Phone: Comment on above: Pattern: Regular 03-06-2012 08:56-0400 Respiratory rate 20 /min PRANAY Cloon CANDICE [facility]; [facility] Work Phone: Comment on above: Pattern: Unlabored 03-06-2012 08:56-0400 Systolic blood pressure 118 mm[Hg] PRANAY Isaiah HARVEY [facility]; [facility] [...] 12:48-0500 Body weight 83.92 kg PRANAY Colon CANDICE [facility]; [facility] Work Phone: 11-01-2010 12:48-0500 Diastolic blood pressure 78 mm[Hg] PRANAY Colon LPN [facility]; [facility] Work Phone: Comment on above: Patient Position: Sitting; Cuff Location : Left Arm; Cuff Size: Standard 11-01-2010 12:48-0500 Heart rate 72 /min PRANAY Colon CANDICE [facility]; [...] 14:49-0500 Body height 172.72 cm PRANAY Colon CANDICE [...] 14:49-0500 Body temperature 97.6 [degF] PRANAY Colon CANDICE [...] 09-04-2010 14:49-0500 Systolic blood pressure 120 mm[Hg] PRANAY Colon [...] 09:45-0400 Body weight 82.56 kg Patricia Johnson LPN [facility]; [facility] Work Phone: 03-05-2010 09:45-0400 Diastolic blood pressure 74 mm[Hg] Patricia Johnson [employer] [facility]; [facility] Work Phone: Comment on above: Patient Position: Sitting; Cuff Location : Left Arm; Cuff Size: Standard 03-05-2010 09:45-0400 Heart rate 82 /min Patricia Johnson [employer] [facility]; [facility] Work [...] Phone: Comment on above: Method: Oral 02-19-2010 12:11-0400 Body weight 82.56 kg Patricia Johnson [employer] [facility]; [facility] Work Phone: 02-19-2010 12:11-0400 Diastolic blood pressure 78 mm[Hg] Patricia Johnson [employer] [facility]; [facility] Work [...] : Left Arm; Cuff Size: Standard 08-29-2009 13:0500 Body height 0 cm Patricia Johnson LPN [facility]; [facility] Work Phone: 08-29-2009 13:21-0500 Body temperature 97.8 [degF] Patricia Johnson LPN [facility]; [facility] Work Phone: Comment on above: Method: Oral 08-29-2009 13:21-0500 Body weight 82.56 kg Patricai Johnson LPN [facility]; [facility] [...] SaO2% (BldA) [Mass fraction] 97 % Patricia Johnson CANDICE [facility]; [facility] Work Phone: Comment on above: Room air 08-29-2009 13:21-0500 Systolic blood pressure 134 mm[Hg] Patricia Johnson CANDICE [facility]; [facility] [...] 14:11-0500 Heart rate 68 /min PRANAY Colon [employer] [facility]; [facility] Work Phone: Comment on above: Pattern: Regular 09-26-2008 14:11-0500 Respiratory rate 16 /min PRANAY Colon LPN [facility]; [facility] Work Phone: Comment on above: Pattern: Unlabored 09-26-2008 14:11-0500 Systolic blood pressure 116 mm[Hg] PRANAY Colon [employer] [facility]; [facility] Work [...] Diastolic blood pressure 80 mm[Hg] PRANAY Colon [employer] [facility]; [facility] Work Phone: Comment on above: Patient Position: Sitting; Cuff Location : Left Arm; Cuff Size: Large 08-08-2008 08:35-0500 Head Occipital-frontal circumference 0 cm PRANAY Colon CANDICE [facility]; [facility] Work Phone: 08-08-2008 08:35-0500 Heart rate 70 /min PRANAY Colon CANDICE [facility]; [facility] Work Phone: Comment on above: Pattern: Regular 08-08-2008 08:35-0500 Respiratory rate 16 /min PRANAY Colon [employer] [facility]; [facility] Work Phone: Comment on above: Pattern: Unlabored 08-08-2008 08:35-0500 Systolic blood pressure 120 mm[Hg] PRANAY Colon [employer] [facility]; [facility] Work Phone: Comment on above: Patient Position: Sitting; Cuff Location : Left Arm; Cuff Size: Large 03-07-2008 09:35-0400 Body height 0 cm PRANAY Colon CANDICE [facility]; [facility] Work Phone: 03-07-2008 09:35-0400 Body temperature 97.8 [degF] PRANAY Colon CANDICE [facility]; [...] 08-27-2007 07:37-0500 Body height 0 cm PRANAY Isaiah HARVEY [facility]; [facility] Work Phone: 08-27-2007 07:37-0500 Body temperature 98.4 [degF] PRANAYDAYNE Colon CANDICE [facility]; [facility] Work Phone: Comment on above: Method: Oral 08-27-2007 07:37-0500 Body weight 81.19 kg PRANAY Isaiah CANDICE [facility]; [facility] Work Phone: 08-27-2007 07:37-0500 Diastolic blood pressure 78 mm[Hg] PRANAY Colon LPN [facility]; [facility] Work Phone: Comment on above: Patient Position: Sitting; Cuff Location : Left Arm; Cuff Size: Standard 08-27-2007 07:37-0500 Head Occipital-frontal circumference 0 cm PRANAY Colon [employer] [facility]; [facility] Work Phone: 08-27-2007 07:37-0500 Heart rate 76 /min PRANAY Colon LPN [facility]; [facility] Work Phone: Comment on above: Pattern: Regular 08-27-2007 07:37-0500 Respiratory rate 18 /min PRANAY Colon LPN [facility]; [facility] Work Phone: Comment on above: Pattern: Unlabored 08-27-2007 07:37-0500 Systolic blood pressure 124 mm[Hg] PRANAY Colon [employer] [facility]; [facility] Work Phone: Comment on above: Patient Position: Sitting; Cuff Location : Left Arm; Cuff Size: Standard 04-20-2007 12:10-0400 Body height 0 cm PRANAY Colon [employer] [facility]; [facility] Work Phone: 04-20-2007 12:10-0400 Body temperature 98.6 [degF] PRANAY Colon LPN [facility]; [facility] Work Phone: Comment on above: Method: Oral 04-20-2007 12:10-0400 Body weight 0 kg PRANAY Colon LPN [facility]; [facility] Work Phone: 04-20-2007 12:10-0400 Diastolic blood pressure 80 mm[Hg] PRANAY Colon [employer] [facility]; [facility] Work [...] 10:49-0400 Body height 0 cm PRANAY Colon [employer] [facility]; [facility] Work Phone: 01-16-2007 10:49-0400 Body temperature 97.7 [degF] PRANAY Colon LPN [facility]; [facility] Work Phone: Comment on above: Method: Oral 01-16-2007 10:49-0400 Body weight 75.75 kg PRANAY Colon LPN [facility]; [facility] Work Phone: 01-16-2007 10:49-0400 Diastolic blood pressure 80 mm[Hg] PRNAAY Colon LPN [facility]; [facility] Work Phone: Comment on above: Patient Position: Sitting; Cuff Location : Left Arm; Cuff Size: Standard 01-16-2007 10:49-0400 Head Occipital-frontal circumference 0 cm PRANAY Colon [employer] [facility]; [facility] Work Phone: 01-16-2007 10:49-0400 Heart rate 80 /min PRANAY Colon LPN [facility]; [facility] Work Phone: Comment on above: Pattern: Regular 01-16-2007 10:49-0400 Respiratory rate 20 /min PRANAY Colon LPN [facility]; [facility] Work Phone: Comment on above: Pattern: Unlabored 01-16-2007 10:49-0400 Systolic blood pressure 122 mm[Hg] PRANAY Colon [employer] [facility]; [facility] Work [...] 07:49-0400 Body height 172.72 cm Briseyda Alexander CANDICE [facility]; [facility] Work Phone: 05-08-2006 07:49-0400 Body mass index (BMI) [Ratio] 27.06 kg/m2 Briseyda Alexander CANDICE [facility]; [facility] [...] Date Encounter Type Care Provider Facility Start: 05-14-2025 ambulatory Esthela Sands Facility:[facility] Start: 02-14-2025 End: 02-14-[address] Esthela Sands MD Work Phone: [facility] Work Phone: Start: 02-14-2025 End: 02-14-2025 Patient encounter procedure Lisa MONTENEGRO -Pulmonary Services/Neurology Work Phone: Start: 02-14-2025 End: 02-14-2025 ambulatory Esthela Sands Facility:[facility] Start: 02-02-2025 End: 02-02-2025 Patient encounter procedure Lisa MONTENEGRO -[facility] Work Phone: Start: 02-02-2025 End: 02-02-[address] Esthela Sands MD Work Phone: [facility] Work Phone: Start: 01-24-2025 End: 01-24-[address] Esthela Sands MD -Outpatient Breast Imaging Work Phone: Start: 01-24-2025 End: 01-24-2025 ambulatory Esthela Sands Facility:[facility] Start: 05-25-2024 End: 05-25-2024 ambulatory Esthela Shavon Facility:[facility] Start: 01-15-[address] Esthela Sands Work Phone: [facility] Work Phone: Start: 01-08-2024 End: 01-08-[address] Esthela Sands Work Phone: [facility] Work Phone: Start: 01-08-2024 End: 01-08-[address] Esthela Sands Work Phone: [facility]-Outpatient Breast Imaging Work Phone: Start: 12-04-2023 Non-patient / Non-visit Dr. Yap Work Phone: [facility] Start: 12-04-2023 End: 12-04-[address] Esthela Sands Work Phone: [facility] Work Phone: Start: 12-04-2023 End: 12-04-[address] Esthela Sands Work Phone: [facility]-Cardiovascular Services Work Phone: Start: 12-02-2023 End: 12-02-[address] Esthela Sands Work Phone: [facility] Work Phone: Start: 12-02-2023 End: 12-02-[address] Esthela Sands Work Phone: [facility]-Laboratory, Specimen Work Phone: Start: 06-12-2023 End: [...] 02-19-2023 End: 02-19-2023 ambulatory MD Esthela Sands [facility] Work Phone: Start: 02-19-2023 End: 02-19-2023 Patient encounter procedure MD Esthela Sands [facility]-Cat Scan, [facility] Comment on above: 11-17-15 reviewed wit h [...] Start: 01-28-2023 End: 01-28-2023 ambulatory MD Esthela Sands [facility] Work Phone: Start: 01-28-2023 End: 01-28-2023 Patient encounter procedure MD Esthela [facility]Laboratory Start: 12-23-2022 End: 12-23-2022 Patient encounter procedure MD Esthela [facility] Start: 12-23-2022 End: 12-23-2022 ambulatory MD Esthela Sands [facility] Work Phone: Start: 12-23-2022 End: 12-23-2022 Patient encounter procedure MD Esthela Sands [facility]-Outpatient Breast Imaging Start: 12-17-2022 End: 12-17-2022 Phone [...] 05-23-[address] Tejas Garcia Work Phone: [facility] Work Phone: Start: 05-23-2022 End: 05-23-[address] Tejas Garcia Work Phone: [facility]-Outpatient Bone Densitometry Start: 05-21-2022 End: 05-21-2022 [...] up to date bd 08-21 [facility] Mammo-2Dexa 01/2019colonscopy ? 2019 Start: 05-14-2022 End: 06-04-2022 Esthela Sands MD Work Phone: [facility] Start: 05-02-2022 End: 05-02-[address] Tejas Garcia Work Phone: [facility] Work Phone: Start: 05-02-2022 End: 05-02-[address] Tejas Garcia Work Phone: [facility] Start: 05-01-2022 Review Esthela Renee Work [...] patient visit Dr. Tejas Garcia Work Phone: [facility]-Emergency Department Start: 04-19-2022 End: 04-19-[address] Tejas Garcia Work Phone: [facility] Start: 04-12-2022 Non-patient / Non-visit Dr. Bob Garcia Work Phone: [facility] Start: 04-12-2022 Non-patient / Non-visit Dr. Bob Garcia Work Phone: [facility] Start: 04-12-2022 End: 04-12-[address] [facility] Start: 04-10-2022 End: 04-10-2022 Office outpatient visit 15 minutes Esthela Sands MD Work Phone: [facility] Start: 04-10-2022 Review Esthela Renee Work Phone: [facility] Start: 03-26-2022 End: 03-26-[address] Tejas Garcia Work Phone: [facility] Start: 03-19-2022 End: 03-19-[address] [facility] Start: 02-11-2022 End: 02-11-[address] Tejas Garcia Work Phone: [facility] Start: 01-22-2022 End: 01-22-[address] Tejas Garcia Work Phone: [facility] Start: 01-10-2022 Non-patient / Non-visit Dr. Bob Garcia Work Phone: [facility] Start: 01-09-2022 End: 01-09-[address] [facility] Start: 01-07-2022 End: 01-07-[address] Tejas Garcia Work Phone: [facility] Start: 12-28-2021 End: 12-28-[address] [facility] Start: 12-24-2021 End: 12-24-[address] Tejas Garcia Work Phone: [facility] Start: 12-18-2021 End: 12-18-[address] Tejas Garcia Work Phone: [facility]-Outpatient Breast Imaging Start: 12-11-2021 Non-patient / Non-visit Dr. Bob Garcia Work Phone: [facility] Start: 12-10-2021 Non-patient / Non-visit Dr. Bob Garcia Work Phone: [facility] Start: 12-10-2021 Non-patient / Non-visit Dr. Bob Garcia Work Phone: [facility] Start: 12-09-2021 Non-patient / Non-visit Dr. Bob Garcia Work Phone: [facility] Start: 12-09-2021 End: 12-11-2021 Evaluation and management of inpatient Dr. Tejas Garcia Work Phone: [facility]-Progressive Care Unit Start: 12-09-2021 Non-patient / Non-visit Dr. Bob Garcia Work Phone: [facility] Start: 12-09-2021 Non-patient / Non-visit Dr. Bob Garcia Work Phone: [facility] Start: 04-05-2016 End: 04-05-2016 Phone Encounter Esthela [...] [facility] Start: 09-05-2014 End: 09-05-2014 Esthela Sands MD Work Phone: [facility] [...] all immunizations are up to date bd 12 Patient encounter procedure Yamila Rangel CANDICE [facility]; [facility] Work Phone: Comment on above: 11-17-15 reviewed wit patient all questions. dealing with husbands depression. pap colonoscopy 09-16 good, mammogram , BD , whisper test WNL, mini mental=30/30, last eye exam=august 2015 included glaucoma screening, all immunizations are up to date bd 08-21 Patient encounter procedure Yamila Multani LPN [facility]; [facility] Work Phone: Patient encounter procedure Yamila Rangel HARVEY [facility]; [facility] Work Phone: Patient encounter status Marylin Henning LPN [facility]; [facility] Work Phone: Comment on above: AMP 6- [facility] 05/14/22 AMP 4-7-32Fgyap-4/38832Tqem 2023colonscopy ? 2019 Patient encounter status Marylin Henning LPN [facility]; [facility] Work Phone: Comment on above: AMP 6- [facility] 05/14/22 AMP 1-7-12Jafhb-4/40027Iuuw 2023colonscopy ? 2019 Patient encounter status Blaze Marquis MA [facility]; [facility] Work Phone: Comment on above: AMP 6-23 [facility] 05/14/22 AMP 7-6-98Bzozi-4/80409Gqfg 2023colonscopy ? 2019 Patient encounter status Yamila Multani LUCÍA N [facility]; [facility] Work Phone: Comment on above: AMP 02-28 [facility] DELIA [facility]sworth 05/14/22 AMP 4-4-35Knfov-07633Lmwu olonscopy ? 2019 Patient encounter status Yamila Multani [...] End: 06-05-2023 Procedure Note: See Note; NOTES: [facility] [address] [place] [address] OFFICE VISIT Date of Service: 06/05/23 MR#: [id number] Acct: [id number] Name: CASS GONZALES Rep #: [id number] : 1945 Provider: LAN Diaz Age/Sex: 78/F Location[place] [facility] Status: Signed [facility] History of Present Illness Details: Pleasant [...] She said that she had been in [place] the last few months and had noticed that she was getting increasingly short of breath. In December of this year they decided to drive up from [place] and she was getting rather short of [...] air Intake Visit Reasons: 1 Y FU Consumer Marketing Analyst Required: No Is patient in pain?: [...] 25 mg PO DAILY 06/05/23 [History Confirmed 06/05/23] metoprolol succinate 100 mg tablet,extended release 24 hr 50 mg PO DAILY bp 06/05/23 [History Confirmed 06/05/23] [facility] Medical History (HFpEF) heart failure with preserved [...] I10 06/05/23 1038 <Electronically signed by Lisa Hartman> Date Lisa MONTENEGRO Cosigner Signature: Date (if applicable) CC: MD Esthela Roland MD Work Phone: Start: 02-28-2023 Plain x-ray of elbow MD Esthela BUTTERFIELD Start: 02-28-2023 X-ray of radius and ulna MD Esthela BUTTERFIELD Start: 02-28-2023 End: 02-28-2023 Elbow min 3 Views Procedure Note: See Note; NOTES: [facility] [address] [place] [address] Elbow min 3 Views MR#: [id number] Acct: [id number] Name: CASS GONZALES Rep #: [id number] : 1945 F 77 From: Fely vivas MD PCP: Dr. Esthela Sands MD Status: DEP AMB Study: Elbow min 3 Views Date of Exam: 02/28/23 Exam# [id number] Ordering Dr: Shiloh Lira SLEEVE TURNERJostin Marquis HISTORY: right elbow pain -- STAT. TECHNIQUE: [...] at 11:42 EDT , CC: Shiloh Lira SLEEVE TURNER; Dr. Esthela Sands MD Bean Viner: Signed Shiloh Lira CNP Work Phone: Start: 02-28-2023 End: 02-28-2023 Forearm 2 Views Procedure Note: See Note; NOTES: [facility] [address] [place] [address] Forearm 2 Views MR#: [id number] Acct: [id number] Name: CASS GONZALES Rep #: [id number] : 1945 F 77 From: Fely vivas MD PCP: Dr. Esthela Sands MD Status: DEP AMB Study: Forearm 2 Views Date of Exam: 02/28/23 Exam# [id number] Ordering Dr: Shiloh Lira SLEEVE TURNERJostin Marquis HISTORY: FALL,PAIN -- STAT. TECHNIQUE: XR Forearm [...] Shiloh Lira NP; Dr. Esthela Sands MD Bean Viner: Signed Shiloh Lira CNP Work Phone: Start: 02-19-2023 End: 02-19-2023 Elbow min 3 Views Procedure Note: See Note; NOTES: [facility] Imaging Services [address] [place] [address] Elbow min 3 Views MR#: [id number] Acct: [id number] Name: CASS GONZALES Rep #: [id number] : 1945 F 77 From: Haider flores MD PCP: Dr. Esthela Sands MD Status: [facility] Study: Elbow min 3 Views Date of Exam: 02/19/23 Exam# [id number] Ordering Dr: Shiloh Lira SLEEVE TURNER- C STUDY: X-RAY - RIGHT ELBOW REASON [...] Shiloh Lira NP; Dr. Esthela Sands MD Bean Viner: Signed Shiloh Lira CNP Work Phone: Start: 02-19-2023 Plain x-ray of elbow MD Esthela Sands [facility] Start: 02-19-2023 CT of head without contrast MD Esthela BUTTERFIELD Start: 02-19-2023 End: 02-19-2023 Brain/Head without Contrast Procedure Note: See Note; NOTES: [facility] Imaging Services [address] [place] [address] Brain/Head without Contrast MR#: [id number] Acct: [id number] Name: CASS GONZALES Rep #: [id number] : 1945 F 77 From: Haider flores MD PCP: Dr. Esthela Sands MD Status: REG CLI Study: Brain/Head without Contrast Date of Exam: 02/06 12/29 Exam# [id number] Ordering Dr: Shiloh Lira SLEEVE TURNER- C STUDY: CT BRAIN WITHOUT CONTRAST REASON [...] Signed: Haider Driscoll MD at 10:45 EDT Reading Location ID and State: [facility] / [place] , Service support , CC: Shiloh Lira SLEEVE TURNER; Dr. Esthela Sands MD Bean Viner: Signed Shiloh Lira CNP Work Phone: Start: 12-23-2022 Screening mammography MD Esthela BUTTERFIELD Start: 12-23-2022 End: 12-23-2022 SCRN MAMM (CAD)W/EVY BILAT Procedure Note: See Note; NOTES: [facility] Imaging Services [address] [place] [address] SCRN MAMM (CAD)W/EVY BILAT MR#: [id number] Acct: [id number] Name: CASS GONZALES Rep #: [id number] : 1945 F 77 From: Haider flores MD PCP: Esthela Sands MD Status: REG CLI Study: SCRN MAMM (CAD)W/EVY BILAT Date of Exam: 12/07 03/30 Exam# [id number] Ordering Dr: Esthela Sands MD MAMMOGRAPHY - [...] delay biopsy of a clinically suspicious abnormality. [id number] Electronically Signed: Haider Driscoll MD at 8:54 EDT Reading Location ID and State: [address] [place] [address] , Service support , CC: Esthela Sands MD; Dr. Esthela Sands MD Bean Viner: Signed Esthela Sands MD Work Phone: Start: 05-23-2022 End: 05-24-2022 Dexa Bone Density Study Procedure Note: See Note; NOTES: [facility] Imaging Services [address] [place] [address] Dexa Bone Density Study MR#: [id number] Acct: [id number] Name: CASS GONZALES Rep #: [id number] : 1945 F 77 From: Haider flores MD PCP: Esthela Sands MD Status: [facility] Study: Dexa Bone Density Study Date of Exam: 05/23/22 Exam# [id number] Ordering Dr: Esthela Sands MD STUDY: DUAL [...] Esthela Sands MD; Dr. Esthela Sands MD Bean Viner: Signed Esthela Sands MD Work Phone: Start: 05-23-2022 Dual energy X-ray absorptiometry Dr. Tejas Garcia Work Phone: Start: 05-02-[address] Tejas Garcia Work Phone: Start: 05-02-2022 End: 05-03-2022 Pelvic (Non ) Procedure Note: See Note; NOTES: [facility] Imaging Services [address] [place] [address] Pelvic (Non ) MR#: [id number] Acct: [id number] Name: CASS GONZALES Rep #: [id number] : 1945 F 77 From: Arnaud Carlos DO PCP: Esthela Sands MD Status: REG CLI Study: Pelvic (Non ) Date of Exam: 05/02/22 Exam# [id number] Ordering Dr: Esthela Sands MD STUDY: ULTRASOUND [...] Signed: Arnaud Carlos DO at 6:44 EDT , CC: Esthela Sands MD; Dr. Esthela Sands MD Bean Viner: Signed Estheal Sands MD Work Phone: Start: 04-25-2022 CT of abdomen and pelvis without contrast Dr. Tejas Garcia Work Phone: Start: 04-12-2022 End: 04-12-2022 Echo Complete W/ Contrast Procedure Note: See Note; NOTES: [facility] Services [address] [place] [address] Echo Complete W/ Contrast 04/12/22 1004 MR#: [id number] Acct: [id number] Name: CASS GONZALES Rep #: [id number] : 1945 77 From: Jean-Claude Parkinson MD Attending Dr: Dr. Jean-Claude Parkinson MD Status: SADIQ Marquis Ordering Dr: Jean-Claude Parkinson MD Date: 04/12/22 Location: [facility] Sex: F C Admitted: Reason For Study: [...] Dictated: 04/12/22 1004 Date Transcribed: 04/12/22 1235 Bean Viner: Signed Esthela Sands MD Work Phone: Start: [...] PA and Lateral Comments: See Note; NOTES: [facility] Imaging Services [address] [place] [address] Verdana 4d Chest PA and Lateral MR#: [id number] Acct: [id number] Name: CASS GONZALES Rep #: [id number] : 1945 F 70 From: Haider Driscoll MD PCP: Esthela Sands MD Status: REG CLI Study: Chest PA and Lateral Date of Exam: 09/13/15 Exam# [id number] Ordering Dr: Kait Portillo STUDY: X-RAY CHEST [...] Haider Driscoll MD at 12:59 EST Tel [phone], Service support [phone], RAD/Chest PA and Lateral IMPRESSION: The lungs are now clear. Electronically Signed: Haider Driscoll MD at 12:59 EST Tel [phone], Service support [phone], CC: Kait Portillo; Esthela Sands MD Bean Viner: Signed Kait Portillo Work Phone: Start: 08-29-2015 End: 08-29-2015 12 lead ECG Comments: See Note; NOTES: [facility] Cardiovascular Services [address] [facility] [place] [address] 12 Lead EKG 08/26/15 1216 MR#: [id number] Acct: [id number] Name: CASS GONZALES Rep #: [id number] : 1945 70 From: Jean-Claude Parkinson MD [...] T wave abnormality Abnormal ECG Confirmed by MELVIN JUAREZ, JEAN-CLAUDE ([id number]), sound editor KATERINE JIMENES ([id number]) on 08/29/2015 1:24:58 PM Referred By: NAY/IBETH Confirmed By:JEAN-CLAUDE PARKINSON MD 08/29/15 1325 Date Jean-Claude Parkinson MD CC: Esthela Sands MD Date Dictated: 08/26/15 121 Date Transcribed: 08/26/151215 Bean Viner: Signed Esthela Sands MD Work Phone: Start: 08-26-2015 End: 08-26-2015 Discharge Instruction Comments: See Note; NOTES: [facility] Medical Records Department [address] [facility] [place] [address] Discharge Instruction 08/26/15 1306 MR#: [id number] Acct: [id number] Name: CASS GONZALES Rep #: [id number] : 1945 70 From: Abdoulaye Martin MD [...] problems, contact your doctor. Call [facility] ([phone]) or report to the closest Emergency Room. Call 911 if necessary. 08/26/15 1416 <Electronically signed by Abdoulaye Martin MD> Date Abdoulaye Martin MD Cosigner Signature (If Indicated): Date CC: Esthela Sands MD Work Phone: Start: 08-26-2015 End: 08-26-2015 Emergency Department Summary Comments: See Note; NOTES: [facility] Medical Records Department [address] [place] [address] Emergency Department Summary MR#: [id number] Acct: [id number] Name: CASS GONZALES Rep #: [id number] : 1945 70 From: Abdoulaye Martin MD [...] Discharge. Abdoulaye Martin MD T: NTS JOB: [id number] 08/26/15 1416 <Electronically signed by Abdoulaye Martin MD> Date Abdoulaye Martin MD Cosigner Signature (If Indicated): Date CC: Esthela Sands MD Date Dictated: 08/26/151305 Date Transcribed: 08/26/151305 Bean Viner: Signed Esthela Sands MD Work Phone: Start: 08-26-2015 End: 08-27-2015 Chest PA and Lateral Comments: See Note; NOTES: [facility] Imaging Services [address] [place] [address] Verdana 4d Chest PA and Lateral MR#: [id number] Acct: [id number] Name: CASS GONZALES Rep #: [id number] : 1945 F 70 From: Paige Jimenes MD PCP: Esthela Sands MD Status: DEP ER Study: Chest PA and Lateral Date of Exam: 08/26/15 Exam# [id number] Ordering Dr: Abdoulaye Martin MD STUDY: X-RAY [...] MD at 7:00 EST , Service support [phone], RAD/Chest PA and Lateral IMPRESSION: Left basilar subsegmental atelectasis. Electronically Signed: Paige Jimenes MD at 7:00 EST , Service support [phone], CC: Esthela Sands MD; Abdoulaye Martin MD Bean Viner: Signed Esthela Sands MD Work Phone: Start: 07-12-2015 End: 07-12-2015 Bilat Scrn Digital AND CAD Comments: See Note; NOTES: [facility] Imaging Services [address] [place] [address] Verdana 4d Bilat Scrn Digital AND CAD MR#: [id number] Acct: [id number] Name: CASS GONZALES Rep #: [id number] : 1945 F 70 From: Haider Driscoll MD PCP: Esthela Sands MD Status: REG CLI Study: Bilat Scrn Digital AND CAD Date of Exam: 07/12/15 Exam# [id number] Ordering Dr: Esthela Sands MD MAMMOGRAPHY - [...] Haider Driscoll MD at 9:01 EST Tel [phone], Service support [phone], CC: Esthela Sands MD Bean Viner: Signed Esthela Sands MD Work Phone: Start: 08-11-2014 End: 08-12-2014 Dexa Bone Density Study (HP) Comments: See Note; NOTES: [facility] Imaging Services [address] [place] [address] Bone Density Report MR#: [id number] Acct: [id number] Name: CASS GONZALES Rep #: [id number] : 1945 F 69 From: Haider Driscoll MD PCP: Esthela Sands MD Status: REG CLI Study: Dexa Bone Density Study (HP) Date of Exam: 08/11/14 Exam# [id number] Ordering Dr: Esthela Sands MD STUDY: DUAL [...] Haider Driscoll MD at 14:54 EST Tel [phone], Service support [phone], CC: Esthela Sands MD Bean Viner: Signed Esthela Sands MD Work Phone: Start: 07-11-2014 End: 07-11-2014 Bilat Scrn Digital & CAD Comments: See Note; NOTES: [facility] Imaging Services [address] [place] [address] Breast Imaging Report MR#: [id number] Acct: [id number] Name: CASS GONZALES Rep #: [id number] : 1945 F 69 From: Haider Driscoll MD PCP: Esthela Sands MD Status: REG CLI Exam# [id number] Ordering Dr: Esthela Sands MD MAMMOGRAPHY - [...] Haider Driscoll MD at 10:29 EST Tel [phone], Service support [phone], CC: Esthela Sands MD Bean Viner: Signed Esthela Sands MD Work Phone: Start: 07-08-2013 End: 07-08-2013 Bilat Scrn Digital & CAD Comments: See Note; NOTES: [facility] Imaging Services [address] [place] [address] Breast Imaging Report MR#: [id number] Acct: [id number] Name: CASS GONZALES Rep #: [id number] : 1945 F 68 From: Haider Driscoll MD PCP: Esthela Sands MD Status: REG CLI Exam# [id number] Ordering Dr: Esthela Sands MD MAMMOGRAPHY - [...] July 08, 2013 at 1:05:58 PM EDT [phone] Electronically Signed GP/GP If you are the referring physician and would like to consult with the radiologist who provided this interpretation, please contact Haider Driscoll M.D. at [phone]. If this radiologist is unavailable, you will be directed to another radiologist to assist. If you are a patient with a question regarding this report, please contact your referring physician directly. Professional Interpretation Provided By: [employer], Phone , These documents contain legally protected [...] of these documents. CC: Esthela Sands MD Bean Viner: Signed Esthela Sands MD Work Phone: Bacteria [...] of l eft breast-benign Biopsy Blaze Le ACCELERATOR OPERATOR Comment on above: of neck on the right-benign, biopsy of l eft breast-benign Biopsy Yamila Ferguson PN Comment on above: of neck on the right-benign, biopsy of l eft breast-benign D and C Raúl Aristeo LP N Comment on above: 2-3 times D and C Raúl Alberts LP N Comment on above: 2-3 times D and C Marylin Slarb LP N Comment on above: 2-3 times D and C Marylin Slarb LP N Comment on above: 2-3 times D and C Kadeloresa [place] ACCELERATOR OPERATOR Comment on above: 2-3 times D and C Yamila Rangel L PN Comment on above: 2-3 times radiofrequetcy ablat ion of heart for arrthymia Raúl Aristeo [employer] Comment on above: wide complex tachy. radiofrequetcy ablat ion of heart for arrthymia Marylin Slarb [employer] Comment on above: wide complex tachy. radiofrequetcy ablat ion of heart for arrthymia Marylin Slarb BASEBALL U[employer] Comment on above: wide complex tachy. radiofrequetcy ablat ion of heart for arrthymia Tamikaa [place] ACCELERATOR OPERATOR Comment on above: wide complex tachy. radiofrequetcy ablat ion of heart for arrthymia Yamila Rangel B[employer]BALL [employer] Comment on above: wide complex tachy. SARS-CoV-2 & FLU Antigen (Rapid) Dr. 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 Tejas Garcia Work Phone: Yamila Rangel L PN Yamila Rangel L PN Plan of Treatment Date Care Activity Detail Author Start: 06-12-2023 Procedure Education [facility] Work Phone: Start: 06-09-2023 Procedure Education [facility]; [facility] Work Phone: Start: 04-29-2023 Assay of thyroid stimulating hormone tsh TSH (THYROID STIMULATING HORMONE) (02547) [facility]; [facility] Work Phone: Start: 04-08-2023 Basic metabolic panel calcium total [facility]; [facility] Work Phone: Comment on above: in 3 weeks Start: 04-08-2023 Procedure Education [facility]; [facility] Work Phone: Start: 03-10-2023 Culture bct isol&prsmptv id isolate ea urine URINE ZIGGY CULTURE-IDENTIFICATN (44190) [facility]; [facility] Work Phone: Start: 03-10-2023 Procedure Education [facility] Work Phone: Start: 02-28-2023 Procedure Education [facility] Work Phone: Start: 02-28-2023 Provider Instructions for Treatment [facility]; [facility] Work Phone: Start: 02-19-2023 Procedure Education [facility]; [facility] Work Phone: Start: 02-14-2023 Procedure Education [facility]; [facility] Work Phone: Start: 05-14-2022 Procedure Education [facility] Work Phone: Start: 05-14-2022 Assay of thyroid stimulating hormone tsh [facility]; [facility] Work Phone: Start: 05-14-2022 Comprehensive metabolic panel [facility]; [facility] Work Phone: Start: 05-14-2022 Lipid panel [facility] Work Phone: Start: 04-30-2022 Procedure Education [facility]; [facility] Work Phone: Start: 04-25-2022 [facility] Work Phone: Start: 04-10-2022 Procedure Education [facility] Work Phone: Start: 04-10-2022 Hemoglobin glycosylated a1c [facility]; [facility] Work Phone: Start: 12-11-[address] [facility] Work Phone: Start: 12-10-2021 Care planning and problem solving actions [facility] Work Phone: Start: 12-09-[address] [facility] Work Phone: Start: 12-09-2021 Following clinical pathway protocol [facility] Work Phone: Start: 12-09-2021 Assessment of risk of venous thromboembolism [facility] Work Phone: Start: 12-09-2021 Elevation of affected extremity [facility] Work Phone: Start: 12-09-2021 Insertion of catheter into peripheral vein [facility] Work Phone: Start: 12-09-2021 Measuring intake and output [facility] Work Phone: Start: 12-09-2021 Providing care according to standard [facility] Work Phone: Start: 12-09-2021 Self-administration of medication [facility] Work Phone: Start: 12-09-2021 [facility] Work Phone: Start: 12-09-[address] [facility] Work Phone: Start: 04-02-2016 Procedure Education [facility] Work Phone: Start: 11-27-2015 Provider Instructions for Treatment [facility] Work Phone: Start: 11-17-2015 Patient Education [facility]; [facility] Work Phone: Start: 11-17-2015 Provider Instructions for Treatment [facility]; [facility] Work Phone: Start: 11-17-2015 Comprehensive metabolic panel [facility]; [facility] Work Phone: Start: 11-17-2015 Lipid panel [facility]; [facility] Work Phone: [...] Work Phone: Start: 05-19-2015 Lipid panel [facility]; [facility] Work Phone: Start: 05-19-2015 Assay of thyroid stimulating hormone tsh [facility]; [facility] Work Phone: Start: 01-06-2015 Patient Education [facility]; [facility] Work Phone: Start: 01-06-2015 Procedure Education [facility]; [facility] Work Phone: Start: 01-06-2015 Assay of thyroid stimulating hormone tsh [facility]; [facility] Work Phone: Start: 01-06-2015 Urine albumin quantitative [facility]; [facility] Work Phone: Start: 01-06-2015 Comprehensive metabolic panel [facility]; [facility] Work Phone: Start: 01-06-2015 Lipid panel [facility]; [facility] Work Phone: [...] Work Phone: Start: 03-14-2014 Lipid panel [facility]; [facility] Work Phone: Start: 07-22-2013 Patient Education [facility]; [facility] Work Phone: Start: 07-22-2013 Provider Instructions for Treatment [facility]; [facility] Work Phone: Start: 05-24-2013 Patient Education [facility]; [facility] Work Phone: Start: 05-24-2013 Provider Instructions for Treatment [facility]; [facility] Work Phone: Start: 05-11-2013 Provider Instructions for Treatment [facility]; [facility] Work Phone: Start: 03-31-2013 Patient Education [facility]; [facility] Work Phone: Start: 12-17-2012 Patient Education [facility]; [facility] Work Phone: Start: 12-17-2012 Assay of thyroid stimulating hormone tsh [facility]; [facility] Work Phone: Start: 12-17-2012 Lipid panel [facility]; [facility] Work Phone: Start: 12-17-2012 Comprehensive metabolic panel [facility]; [facility] Work Phone: Start: 09-10-2012 Patient Education [facility]; [facility] Work Phone: [...] Work Phone: Start: 02-28-2012 Lipid panel [facility]; [facility] Work Phone: Start: 09-01-2011 Glucose quantitative blood xcpt reagent strip [facility]; [facility] Work Phone: Start: 09-01-2011 Lipid panel LIPID PANEL (97200) [facility]; [facility] Work Phone: Start: 08-26-2011 Assay of homocysteine [facility]; [facility] Work Phone: Start: 08-21-2011 Provider Instructions for Treatment [facility]; [facility] Work Phone: Start: 08-21-2011 Glucose quantitative blood xcpt reagent strip [facility]; [facility] Work Phone: Start: 08-21-2011 Lipid panel [facility]; [facility] Work Phone: Start: 03-05-2011 Glucose quantitative blood xcpt reagent strip [facility]; [facility] Work Phone: Start: 11-01-2010 Assay of lipase [facility]; [facility] Work Phone: Start: 11-01-2010 Assay of amylase [facility]; [facility] Work Phone: [...] Work Phone: Start: 03-29-2010 Lipid panel [facility]; [facility] Work Phone: [...] Work Phone: Start: 08-02-2009 Lipid panel [facility]; [facility] Work Phone: Start: 04-20-2009 Patient Education [facility]; [facility] Work Phone: [...] Work Phone: Start: 09-26-2008 Genetic examination [facility]; [facility] Work Phone: Start: 08-08-2008 Comprehensive metabolic panel [facility]; [facility] Work Phone: Start: 08-08-2008 Blood count manual cell count each [facility]; [facility] Work Phone: Start: 08-08-2008 Lipid panel [facility]; [facility] Work Phone: [...] Work Phone: Start: 08-27-2007 Lipid panel [facility]; [facility] Work Phone: Comment on above: in six months (approximately) Start: 01-16-2007 Blood count complete automated [facility]; [facility] Work Phone: Start: 01-16-2007 Lipid panel [facility]; [facility] Work Phone: [...] Work Phone: Start: 09-05-2006 Lipid panel [facility]; [facility] Work Phone: [...] Work Phone: Start: 05-08-2006 Lipid panel [facility]; [facility] Work Phone: Bacteria identified in Urine by Culture Urine Culture [facility] Work Phone: Measurement of respiratory function [facility] Patient Education ED Constipatio n (Adult) ED Renal Insufficiency [facility] Work Phone: Patient referral [facility] Work Phone: [facility] Work Phone: [facility]; [facility] [...] Immunizations Immunization Date Immunization Notes Care Provider [facility] 06-08-2021 influenza, injectabl e, quadrivalent, preservative free Dr. Esthela Sands Work Phone: [facility] 06-08-2021 influenza, seasonal, injectable Dr. Tejas Garcia Work Phone: [facility] 12-07-2016 pneumococcal conjuga te vaccine, 13 valent Esthela Sands MD Work Phone: [facility]; [facility] Work Phone: 03-31-2013 varicella zoster immune globulin; Translations: [ZOSTAVAX, [id number]/0.65ML (Subcutaneous Solution Reconstituted)] Esthela Sands MD Work Phone: [facility]; [facility] Work Phone: Payers Date Payer Category Payer Self-pay [id number] 2023 Private Health Insurance CLI [id number] 2011 Medicare [id number] Medicare ANTHEM MEDICARE PPO [id number] Unknown Unknown [id number] Unknown [id number] Unknown [id number] Social History Date Type Detail Facility Start: 12-09-2021 End: 06-05-2023 Tobacco smoking status NHIS Unknown if ever smoked [facility] Start: 1945 Sex Assigned At Female [facility] Alcohol Use Alcohol Use [facility] Work Phone: Comment on above: Occasional alcohol u se 1 cup of coffee/day retired Inactive , Lives with spouse Tobacco use: Tobacco use: [facility]; [facility] Work Phone: Comment on above: remote 5 years 1971 Start: 06-05-2023 Tobacco smoking stat us NHIS Never smoked tobacco (finding) [facility] Goals Date Patient Goal Desired Activity /State Functional Status Date Assessment Result Facility 12-11-2021 Functional status Activity Ability Indepe ndent [facility] Work Phone: 12-11-2021 Functional status Ambulates [place] Work Phone: Mental Status Date Assessment Result Facility 12-11-2021 Cognitive function Voice/Name [facility] Work Phone: Clinical Notes 12-09-2021 to 02-02-2025 Note Date & Type Note Facility 02-02-2025 Evaluation note Diagnosis Onset Date Resolution BLAKE (dyspnea on exertion) acute February 02, 2025 1:31pm Essential hypertension chronic February 02, 2025 1:31pm Pulmonary emboli December 09, 2021 chronic February 02, 2025 1:31pm [facility] Work Phone: 1(820) 874-244604-03-2022 Evaluation note* Diagnosis Onset Date Resolution Status Pulmonary emboli December 09, 2021 chronic Elevated troponin resolved NSTEMI, initial episode of care resolved Pulmonary emboli December 09, 2021 chronic Essential hypertension chron ic Pulmonary emboli December 09, [address] [facility] Work Phone: 1(858) 627-654104-03-2022 Evaluation note* Diagnosis Onset Date Resolution Status Pulmonary emboli December 09, 2021 chronic Elevated troponin resolved NSTEMI, initial episode of care resolved Pulmonary emboli December 09, 2021 chronic Essential hypertension chron ic Pulmonary emboli December 09, 2021 chronic Cough acute Pulmonary emboli December 09, 2021 [facility] Work Phone: 1(617) 287-576604-03-2022 Evaluation note* Diagnosis Onset Date Resolution Status Pulmonary emboli December 09, 2021 chronic Essential hypertension chron ic Pulmonary emboli December 09, 2021 chronic Cough acute Pulmonary emboli December 09, 2021 [facility] Work Phone: 1(510) 878-425804-03-2022 Evaluation note* Diagnosis Onset Date Resolution Status Essential hypertension chron ic Pulmonary emboli December 09, 2021 chronic Cough acute Pulmonary emboli December 09, 2021 chronic Essential hypertension chron ic Pulmonary emboli December 09, 2021 [facility] Work Phone: 1(397) 836-320204-03-2022 Evaluation note* Diagnosis Onset Date Resolution Status Cough acute Pulmonary emboli December 09, 2021 chronic Essential hypertension chron ic Pulmonary emboli December 09, 2021 [facility] Work Phone: 1(214) 875-619804-03-2022 Evaluation note* Diagnosis Onset Date Resolution Status Pulmonary emboli December 09, 2021 [facility] Work Phone: 1(954) 541-290904-03-2022 Evaluation note* Diagnosis Onset Date Resolution Status Admit Date BLAKE (dyspnea on exertion) acute February 02, 2025 1:31pm Essential hypertension chronic Ma y 2024 1:31pm Pulmonary emboli December 09, 2021 chronic February 02, 2025 1:31pm [facility] Work Phone: evaluation note* Diagnosis Onset Date Resolution Status Elevated troponin acute Hypoxemia acute NSTEMI, initial episode of care acute Pulmonary emboli acute Acute and chronic respiratory failure with hypoxia [facility] Work Phone: Evaluation note* Diagnosis Onset Date Resolution Status Pulmonary emboli acute Elevated troponin resolved NSTEMI, initial episode of care resolved Pulmonary emboli [facility] Work Phone: evaluation note* Diagnosis Onset Date Resolution Status Pulmonary emboli acute Elevated troponin resolved NSTEMI, initial episode of care resolved Pulmonary emboli acute Pulmonary emboli acute [facility] Work Phone: Evaluation noteNo assessment information available [facility] Work Phone: Instructions* Name Dates Details Patient Instructions Indication:Impaired fasting glucose Start:10-Apr-2022 Instruction Type:Provider Instructions for Treatment How to Access Health Informa tion Online using Patient Portal and [employer] Apps Indication:Impaired fasting glucose Start:10-Apr-2022 Instruction Type:Patient [...] Informa tion Online using Patient Portal and [employer] Apps Indication:Impaired fasting glucose Start:10-Apr-2022 Instruction [...] tion Online using Patient Portal and [employer] Apps Indication:Impaired fasting glucose Start:10-Apr-2022 Instruction [...] Informa tion Online using Patient Portal and [employer] Apps Indication:Tobacco abuse, in remission (Renamed from Tobacco dependence in remission) Start:14-May-2022 Instruction Type:Patient Education Patient Instructions Indication:Tobacco abuse, in remission (Renamed from Tobacco dependence in remission) Start:30-Apr-2022 Instruction Type:Provider Instructions for Treatment How to Access Health Informa tion Online using Patient Portal and [employer] Apps Indication:Tobacco abuse, in remission (Renamed from Tobacco dependence in remission) Start:30-Apr-2022 Instruction Type:Patient Education Patient Instructions Indication:Impaired fasting glucose Start:10-Apr-2022 Instruction Type:Provider Instructions for Treatment How to Access Health Informa tion Online using Patient Portal and [employer] Apps Indication:Impaired fasting glucose Start:10-Apr-2022 Instruction [...] Informa tion Online using Patient Portal and [employer] Apps Indication:Tobacco abuse, in remission (Renamed from Tobacco dependence in remission) Start:14-May-2022 Instruction Type:Patient Education Patient Instructions Indication:Tobacco abuse, in remission (Renamed from Tobacco dependence in remission) Start:30-Apr-2022 Instruction Type:Provider Instructions for Treatment How to Access Health Informa tion Online using Patient Portal and [employer] Apps Indication:Tobacco abuse, in remission (Renamed from Tobacco dependence in remission) Start:30-Apr-2022 Instruction Type:Patient Education Patient Instructions Indication:Impaired fasting glucose Start:10-Apr-2022 Instruction Type:Provider Instructions for Treatment How to Access Health Informa tion Online using Patient Portal and [employer] Apps Indication:Impaired fasting glucose Start:10-Apr-2022 Instruction Type:Patient [...] tion Online using Patient Portal and [employer] Apps Indication:Tobacco abuse, in remission (Renamed from Tobacco dependence in remission) Start:14-May-2022 Instruction Type:Patient Education Patient Instructions Indication:Tobacco abuse, in remission (Renamed from Tobacco dependence in remission) Start:30-Apr-2022 Instruction Type:Provider Instructions for Treatment How to Access Health Informa tion Online using Patient Portal and [employer] Apps Indication:Tobacco abuse, in remission (Renamed from Tobacco dependence in remission) Start:30-Apr-2022 Instruction Type:Patient Education Patient Instructions Indication:Impaired fasting glucose Start:10-Apr-2022 Instruction Type:Provider Instructions for Treatment How to Access Health Informa tion Online using Patient Portal and [employer] Apps Indication:Impaired fasting glucose Start:10-Apr-2022 Instruction [...] tion Online using Patient Portal and [employer] Apps Indication:Tobacco abuse, in remission (Renamed from Tobacco dependence in remission) Start:14-May-2022 Instruction Type:Patient Education Patient Instructions Indication:Tobacco abuse, in remission (Renamed from Tobacco dependence in remission) Start:30-Apr-2022 Instruction Type:Provider Instructions for Treatment How to Access Health Informa tion Online using Patient Portal and [employer] Apps Indication:Tobacco abuse, in remission (Renamed from Tobacco dependence in remission) Start:30-Apr-2022 Instruction Type:Patient Education Patient Instructions Indication:Impaired fasting glucose Start:10-Apr-2022 Instruction Type:Provider Instructions for Treatment How to Access Health Informa tion Online using Patient Portal and [employer] Apps Indication:Impaired fasting glucose Start:10-Apr-2022 Instruction [...] Informa tion Online using Patient Portal and [employer] Indication:Tobacco abuse, in remission (Renamed from Tobacco dependence in remission) Start:14-May-2022 Instruction Type:Patient Education Patient Instructions Indication:Tobacco abuse, in remission (Renamed from Tobacco dependence in remission) Start:30-Apr-2022 Instruction Type:Provider Instructions for Treatment How to Access Health Informa tion Online using Patient Portal and [employer] Apps Indication:Tobacco abuse, in remission (Renamed from Tobacco dependence in remission) Start:30-Apr-2022 Instruction Type:Patient Education Patient Instructions Indication:Impaired fasting glucose Start:10-Apr-2022 Instruction Type:Provider Instructions for Treatment How to Access Health Informa tion Online using Patient Portal and [employer] Apps Indication:Impaired fasting glucose Start:10-Apr-2022 Instruction [...] Informa tion Online using Patient Portal and [employer] Apps Indication:Tobacco abuse, in remission (Renamed from Tobacco dependence in remission) Start:19-Feb-2023 Instruction Type:Patient Education Patient Instructions Indication:Depression with anxiety Start:14-Feb-2023 Instruction Type:Provider Instructions for Treatment How to Access Health Informa tion Online using Patient Portal and [employer] Apps Indication:Depression with anxiety Start:14-Feb-2023 Instruction Type:Patient Education Patient Instructions Indication:Tobacco abuse, in remission (Renamed from Tobacco dependence in remission) Start:14-May-2022 Instruction Type:Provider Instructions for Treatment How to Access Health Informa tion Online using Patient Portal and [employer] Indication:Tobacco abuse, in remission (Renamed from Tobacco dependence in remission) Start:14-May-2022 Instruction Type:Patient Education Patient Instructions Indication:Tobacco abuse, in remission (Renamed from Tobacco dependence in remission) Start:30-Apr-2022 Instruction Type:Provider Instructions for Treatment How to Access Health Informa tion Online using Patient Portal and [employer] Indication:Tobacco abuse, in remission (Renamed from Tobacco dependence in remission) Start:30-Apr-2022 Instruction Type:Patient Education Patient Instructions Indication:Impaired fasting glucose Start:10-Apr-2022 Instruction Type:Provider Instructions for Treatment How to Access Health Informa tion Online using Patient Portal and [employer] Apps Indication:Impaired fasting glucose Start:10-Apr-2022 Instruction Type:Patient [...] tion Online using Patient Portal and [employer] Apps Indication:Right elbow pain Start:28-Feb-2023 Instruction Type:Patient Education Patient Instructions Indication:Tobacco abuse, in remission (Renamed from Tobacco dependence in remission) Start:19-Feb-2023 Instruction Type:Provider Instructions for Treatment How to Access Health Informa tion Online using Patient Portal and [employer] Apps Indication:Tobacco abuse, in remission (Renamed from Tobacco dependence in remission) Start:19-Feb-2023 Instruction Type:Patient Education Patient Instructions Indication:Depression with anxiety Start:14-Feb-2023 Instruction Type:Provider Instructions for Treatment How to Access Health Informa tion Online using Patient Portal and [employer] Apps Indication:Depression with anxiety Start:14-Feb-2023 Instruction Type:Patient Education Patient Instructions Indication:Tobacco abuse, in remission (Renamed from Tobacco dependence in remission) Start:14-May-2022 Instruction Type:Provider Instructions for Treatment How to Access Health Informa tion Online using Patient Portal and [employer] Apps Indication:Tobacco abuse, in remission (Renamed from Tobacco dependence in remission) Start:14-May-2022 Instruction Type:Patient Education Patient Instructions Indication:Tobacco abuse, in remission (Renamed from Tobacco dependence in remission) Start:30-Apr-2022 Instruction Type:Provider Instructions for Treatment How to Access Health Informa tion Online using Patient Portal and [employer] Apps Indication:Tobacco abuse, in remission (Renamed from Tobacco dependence in remission) Start:30-Apr-2022 Instruction Type:Patient Education Patient Instructions Indication:Impaired fasting glucose Start:10-Apr-2022 Instruction Type:Provider Instructions for Treatment How to Access Health Informa tion Online using Patient Portal and [employer] Apps Indication:Impaired fasting glucose Start:10-Apr-2022 Instruction Type:Patient [...] tion Online using Patient Portal and [employer] Apps Indication:BMI 27.0-27.9,adult Start:10-Mar-2023 Instruction Type:Patient Education Patient Instructions Indication:Right elbow pain Start:28-Feb-2023 Instruction Type:Provider Instructions for Treatment How to Access Health Informa tion Online using Patient Portal and [employer] Apps Indication:Right elbow pain Start:28-Feb-2023 Instruction Type:Patient Education Patient Instructions Indication:Tobacco abuse, in remission (Renamed from Tobacco dependence in remission) Start:19-Feb-2023 Instruction Type:Provider Instructions for Treatment How to Access Health Informa tion Online using Patient Portal and [employer] Apps Indication:Tobacco abuse, in remission (Renamed from Tobacco dependence in remission) Start:19-Feb-2023 Instruction Type:Patient Education Patient Instructions Indication:Depression with anxiety Start:14-Feb-2023 Instruction Type:Provider Instructions for Treatment How to Access Health Informa tion Online using Patient Portal and [employer] Apps Indication:Depression with anxiety Start:14-Feb-2023 Instruction Type:Patient Education Patient Instructions Indication:Tobacco abuse, in remission (Renamed from Tobacco dependence in remission) Start:14-May-2022 Instruction Type:Provider Instructions for Treatment How to Access Health Informa tion Online using Patient Portal and [employer] Apps Indication:Tobacco abuse, in remission (Renamed from Tobacco dependence in remission) Start:14-May-2022 Instruction Type:Patient Education Patient Instructions Indication:Tobacco abuse, in remission (Renamed from Tobacco dependence in remission) Start:30-Apr-2022 Instruction Type:Provider Instructions for Treatment How to Access Health Informa tion Online using Patient Portal and [employer] Apps Indication:Tobacco abuse, in remission (Renamed from Tobacco dependence in remission) Start:30-Apr-2022 Instruction Type:Patient Education Patient Instructions Indication:Impaired fasting glucose Start:10-Apr-2022 Instruction Type:Provider Instructions for Treatment How to Access Health Informa tion Online using Patient Portal and [employer] Apps Indication:Impaired fasting glucose Start:10-Apr-2022 Instruction [...] tion Online using Patient Portal and [employer] Apps Indication:BMI 27.0-27.9,adult Start:10-Mar-2023 Instruction Type:Patient Education Patient Instructions Indication:Right elbow pain Start:28-Feb-2023 Instruction Type:Provider Instructions for Treatment How to Access Health Informa tion Online using Patient Portal and [employer] Apps Indication:Right elbow pain Start:28-Feb-2023 Instruction Type:Patient Education Patient Instructions Indication:Tobacco abuse, in remission (Renamed from Tobacco dependence in remission) Start:19-Feb-2023 Instruction Type:Provider Instructions for Treatment How to Access Health Informa tion Online using Patient Portal and [employer] Apps Indication:Tobacco abuse, in remission (Renamed from Tobacco dependence in remission) Start:19-Feb-2023 Instruction Type:Patient Education Patient Instructions Indication:Depression with anxiety Start:14-Feb-2023 Instruction Type:Provider Instructions for Treatment How to Access Health Informa tion Online using Patient Portal and [employer] Apps Indication:Depression with anxiety Start:14-Feb-2023 Instruction Type:Patient Education Patient Instructions Indication:Tobacco abuse, in remission (Renamed from Tobacco dependence in remission) Start:14-May-2022 Instruction Type:Provider Instructions for Treatment How to Access Health Informa tion Online using Patient Portal and [employer] Indication:Tobacco abuse, in remission (Renamed from Tobacco dependence in remission) Start:14-May-2022 Instruction Type:Patient Education Patient Instructions Indication:Tobacco abuse, in remission (Renamed from Tobacco dependence in remission) Start:30-Apr-2022 Instruction Type:Provider Instructions for Treatment How to Access Health Informa tion Online using Patient Portal and [employer] Apps Indication:Tobacco abuse, in remission (Renamed from Tobacco dependence in remission) Start:30-Apr-2022 Instruction Type:Patient Education Patient Instructions Indication:Impaired fasting glucose Start:10-Apr-2022 Instruction Type:Provider Instructions for Treatment How to Access Health Informa tion Online using Patient Portal and [employer] Apps Indication:Impaired fasting glucose Start:10-Apr-2022 Instruction [...] tion Online using Patient Portal and [employer] Apps Indication:BMI 27.0-27.9,adult Start:10-Mar-2023 Instruction Type:Patient Education Patient Instructions Indication:Right elbow pain Start:28-Feb-2023 Instruction Type:Provider Instructions for Treatment How to Access Health Informa tion Online using Patient Portal and [employer] Apps Indication:Right elbow pain Start:28-Feb-2023 Instruction Type:Patient Education Patient Instructions Indication:Tobacco abuse, in remission (Renamed from Tobacco dependence in remission) Start:19-Feb-2023 Instruction Type:Provider Instructions for Treatment How to Access Health Informa tion Online using Patient Portal and [employer] Apps Indication:Tobacco abuse, in remission (Renamed from Tobacco dependence in remission) Start:19-Feb-2023 Instruction Type:Patient Education Patient Instructions Indication:Depression with anxiety Start:14-Feb-2023 Instruction Type:Provider Instructions for Treatment How to Access Health Informa tion Online using Patient Portal and [employer] Apps Indication:Depression with anxiety Start:14-Feb-2023 Instruction Type:Patient Education Patient Instructions Indication:Tobacco abuse, in remission (Renamed from Tobacco dependence in remission) Start:14-May-2022 Instruction Type:Provider Instructions for Treatment How to Access Health Informa tion Online using Patient Portal and [employer] Apps Indication:Tobacco abuse, in remission (Renamed from Tobacco dependence in remission) Start:14-May-2022 Instruction Type:Patient Education Patient Instructions Indication:Tobacco abuse, in remission (Renamed from Tobacco dependence in remission) Start:30-Apr-2022 Instruction Type:Provider Instructions for Treatment How to Access Health Informa tion Online using Patient Portal and [employer] Apps Indication:Tobacco abuse, in remission (Renamed from Tobacco dependence in remission) Start:30-Apr-2022 Instruction Type:Patient Education Patient Instructions Indication:Impaired fasting glucose Start:10-Apr-2022 Instruction Type:Provider Instructions for Treatment How to Access Health Informa tion Online using Patient Portal and [employer]rd [employer] Apps Indication:Impaired fasting glucose Start:10-Apr-2022 Instruction [...] Informa tion Online using Patient Portal and [employer] Apps Indication:Tobacco abuse, in remission (Renamed from Tobacco dependence in remission) Start:08-Apr-2023 Instruction Type:Patient Education Patient Instructions Indication:BMI 27.0-27.9,adult Start:10-Mar-2023 Instruction Type:Provider Instructions for Treatment How to Access Health Informa tion Online using Patient Portal and [employer]rd [employer] Apps Indication:BMI 27.0-27.9,adult Start:10-Mar-2023 Instruction Type:Patient Education Patient Instructions Indication:Right elbow pain Start:28-Feb-2023 Instruction Type:Provider Instructions for Treatment How to Access Health Informa tion Online using Patient Portal and [employer] Apps Indication:Right elbow pain Start:28-Feb-2023 Instruction Type:Patient Education Patient Instructions Indication:Tobacco abuse, in remission (Renamed from Tobacco dependence in remission) Start:19-Feb-2023 Instruction Type:Provider Instructions for Treatment How to Access Health Informa tion Online using Patient Portal and [employer] Apps Indication:Tobacco abuse, in remission (Renamed from Tobacco dependence in remission) Start:19-Feb-2023 Instruction Type:Patient Education Patient Instructions Indication:Depression with anxiety Start:14-Feb-2023 Instruction Type:Provider Instructions for Treatment How to Access Health Informa tion Online using Patient Portal and [employer] Apps Indication:Depression with anxiety Start:14-Feb-2023 Instruction Type:Patient Education Patient Instructions Indication:Tobacco abuse, in remission (Renamed from Tobacco dependence in remission) Start:14-May-2022 Instruction Type:Provider Instructions for Treatment How to Access Health Informa tion Online using Patient Portal and [employer] Apps Indication:Tobacco abuse, in remission (Renamed from Tobacco dependence in remission) Start:14-May-2022 Instruction Type:Patient Education Patient Instructions Indication:Tobacco abuse, in remission (Renamed from Tobacco dependence in remission) Start:30-Apr-2022 Instruction Type:Provider Instructions for Treatment How to Access Health Informa tion Online using Patient Portal and [employer] Apps Indication:Tobacco abuse, in remission (Renamed from Tobacco dependence in remission) Start:30-Apr-2022 Instruction Type:Patient Education Patient Instructions Indication:Impaired fasting glucose Start:10-Apr-2022 Instruction Type:Provider Instructions for Treatment How to Access Health Informa tion Online using Patient Portal and [employer]rd [employer] Apps Indication:Impaired fasting glucose Start:10-Apr-2022 Instruction [...] Informa tion Online using Patient Portal and [employer] Apps Indication:Tobacco abuse, in remission (Renamed from Tobacco dependence in remission) Start:08-Apr-2023 Instruction Type:Patient Education Patient Instructions Indication:BMI 27.0-27.9,adult Start:10-Mar-2023 Instruction Type:Provider Instructions for Treatment How to Access Health Informa tion Online using Patient Portal and [employer]rd [employer] Apps Indication:BMI 27.0-27.9,adult Start:10-Mar-2023 Instruction Type:Patient Education Patient Instructions Indication:Right elbow pain Start:28-Feb-2023 Instruction Type:Provider Instructions for Treatment How to Access Health Informa tion Online using Patient Portal and [employer] Apps Indication:Right elbow pain Start:28-Feb-2023 Instruction Type:Patient Education Patient Instructions Indication:Tobacco abuse, in remission (Renamed from Tobacco dependence in remission) Start:19-Feb-2023 Instruction Type:Provider Instructions for Treatment How to Access Health Informa tion Online using Patient Portal and [employer] Apps Indication:Tobacco abuse, in remission (Renamed from Tobacco dependence in remission) Start:19-Feb-2023 Instruction Type:Patient Education Patient Instructions Indication:Depression with anxiety Start:14-Feb-2023 Instruction Type:Provider Instructions for Treatment How to Access Health Informa tion Online using Patient Portal and [employer] Apps Indication:Depression with anxiety Start:14-Feb-2023 Instruction Type:Patient Education Patient Instructions Indication:Tobacco abuse, in remission (Renamed from Tobacco dependence in remission) Start:14-May-2022 Instruction Type:Provider Instructions for Treatment How to Access Health Informa tion Online using Patient Portal and [employer] Apps Indication:Tobacco abuse, in remission (Renamed from Tobacco dependence in remission) Start:14-May-2022 Instruction Type:Patient Education Patient Instructions Indication:Tobacco abuse, in remission (Renamed from Tobacco dependence in remission) Start:30-Apr-2022 Instruction Type:Provider Instructions for Treatment How to Access Health Informa tion Online using Patient Portal and [employer] Apps Indication:Tobacco abuse, in remission (Renamed from Tobacco dependence in remission) Start:30-Apr-2022 Instruction Type:Patient Education Patient Instructions Indication:Impaired fasting glucose Start:10-Apr-2022 Instruction Type:Provider Instructions for Treatment How to Access Health Informa tion Online using Patient Portal and [employer] Apps Indication:Impaired fasting glucose Start:10-Apr-2022 Instruction [...] Informa tion Online using Patient Portal and [employer] Apps Indication:Tobacco abuse, in remission (Renamed from Tobacco dependence in remission) Start:08-Apr-2023 Instruction Type:Patient Education Patient Instructions Indication:BMI 27.0-27.9,adult Start:10-Mar-2023 Instruction Type:Provider Instructions for Treatment How to Access Health Informa tion Online using Patient Portal and [employer] Apps Indication:BMI 27.0-27.9,adult Start:10-Mar-2023 Instruction Type:Patient Education Patient Instructions Indication:Right elbow pain Start:28-Feb-2023 Instruction Type:Provider Instructions for Treatment How to Access Health Informa tion Online using Patient Portal and [employer] Apps Indication:Right elbow pain Start:28-Feb-2023 Instruction Type:Patient Education Patient Instructions Indication:Tobacco abuse, in remission (Renamed from Tobacco dependence in remission) Start:19-Feb-2023 Instruction Type:Provider Instructions for Treatment How to Access Health Informa tion Online using Patient Portal and [employer] Apps Indication:Tobacco abuse, in remission (Renamed from Tobacco dependence in remission) Start:19-Feb-2023 Instruction Type:Patient Education Patient Instructions Indication:Depression with anxiety Start:14-Feb-2023 Instruction Type:Provider Instructions for Treatment How to Access Health Informa tion Online using Patient Portal and [employer] Apps Indication:Depression with anxiety Start:14-Feb-2023 Instruction Type:Patient Education Patient Instructions Indication:Tobacco abuse, in remission (Renamed from Tobacco dependence in remission) Start:14-May-2022 Instruction Type:Provider Instructions for Treatment How to Access Health Informa tion Online using Patient Portal and [employer] Apps Indication:Tobacco abuse, in remission (Renamed from Tobacco dependence in remission) Start:14-May-2022 Instruction Type:Patient Education Patient Instructions Indication:Tobacco abuse, in remission (Renamed from Tobacco dependence in remission) Start:30-Apr-2022 Instruction Type:Provider Instructions for Treatment How to Access Health Informa tion Online using Patient Portal and [employer] Apps Indication:Tobacco abuse, in remission (Renamed from Tobacco dependence in remission) Start:30-Apr-2022 Instruction Type:Patient Education Patient Instructions Indication:Impaired fasting glucose Start:10-Apr-2022 Instruction Type:Provider Instructions for Treatment How to Access Health Informa tion Online using Patient Portal and [employer] Apps Indication:Impaired fasting glucose Start:10-Apr-2022 Instruction [...] tion Online using Patient Portal and [employer] Apps Indication:BMI 26.0-26.9,adult Start:09-Jun-2023 Instruction Type:Patient Education Patient Instructions Indication:Tobacco abuse, in remission (Renamed from Tobacco dependence in remission) Start:08-Apr-2023 Instruction Type:Provider Instructions for Treatment How to Access Health Informa tion Online using Patient Portal and [employer] Apps Indication:Tobacco abuse, in remission (Renamed from Tobacco dependence in remission) Start:08-Apr-2023 Instruction Type:Patient Education Patient Instructions Indication:BMI 27.0-27.9,adult Start:10-Mar-2023 Instruction Type:Provider Instructions for Treatment How to Access Health Informa tion Online using Patient Portal and [employer] Apps Indication:BMI 27.0-27.9,adult Start:10-Mar-2023 Instruction Type:Patient Education Patient Instructions Indication:Right elbow pain Start:28-Feb-2023 Instruction Type:Provider Instructions for Treatment How to Access Health Informa tion Online using Patient Portal and [employer] Apps Indication:Right elbow pain Start:28-Feb-2023 Instruction Type:Patient Education Patient Instructions Indication:Tobacco abuse, in remission (Renamed from Tobacco dependence in remission) Start:19-Feb-2023 Instruction Type:Provider Instructions for Treatment How to Access Health Informa tion Online using Patient Portal and [employer] Apps Indication:Tobacco abuse, in remission (Renamed from Tobacco dependence in remission) Start:19-Feb-2023 Instruction Type:Patient Education Patient Instructions Indication:Depression with anxiety Start:14-Feb-2023 Instruction Type:Provider Instructions for Treatment How to Access Health Informa tion Online using Patient Portal and [employer] Indication:Depression with anxiety Start:14-Feb-2023 Instruction Type:Patient Education Patient Instructions Indication:Tobacco abuse, in remission (Renamed from Tobacco dependence in remission) Start:14-May-2022 Instruction Type:Provider Instructions for Treatment How to Access Health Informa tion Online using Patient Portal and [employer] Apps Indication:Tobacco abuse, in remission (Renamed from Tobacco dependence in remission) Start:14-May-2022 Instruction Type:Patient Education Patient Instructions Indication:Tobacco abuse, in remission (Renamed from Tobacco dependence in remission) Start:30-Apr-2022 Instruction Type:Provider Instructions for Treatment How to Access Health Informa tion Online using Patient Portal and [employer] Apps Indication:Tobacco abuse, in remission (Renamed from Tobacco dependence in remission) Start:30-Apr-2022 Instruction Type:Patient Education Patient Instructions Indication:Impaired fasting glucose Start:10-Apr-2022 Instruction Type:Provider Instructions for Treatment How to Access Health Informa tion Online using Patient Portal and [employer] Apps Indication:Impaired fasting glucose Start:10-Apr-2022 Instruction [...] tion Online using Patient Portal and [employer] Apps Indication:BMI 26.0-26.9,adult Start:12-Jun-2023 Instruction Type:Patient Education Patient Instructions Indication:BMI 26.0-26.9,adult Start:09-Jun-2023 Instruction Type:Provider Instructions for Treatment How to Access Health Informa tion Online using Patient Portal and [employer] Apps Indication:BMI 26.0-26.9,adult Start:09-Jun-2023 Instruction Type:Patient Education Patient Instructions Indication:Tobacco abuse, in remission (Renamed from Tobacco dependence in remission) Start:08-Apr-2023 Instruction Type:Provider Instructions for Treatment How to Access Health Informa tion Online using Patient Portal and [employer] Apps Indication:Tobacco abuse, in remission (Renamed from Tobacco dependence in remission) Start:08-Apr-2023 Instruction Type:Patient Education Patient Instructions Indication:BMI 27.0-27.9,adult Start:10-Mar-2023 Instruction Type:Provider Instructions for Treatment How to Access Health Informa tion Online using Patient Portal and [employer] Indication:BMI 27.0-27.9,adult Start:10-Mar-2023 Instruction Type:Patient Education Patient Instructions Indication:Right elbow pain Start:28-Feb-2023 Instruction Type:Provider Instructions for Treatment How to Access Health Informa tion Online using Patient Portal and [employer] Apps Indication:Right elbow pain Start:28-Feb-2023 Instruction Type:Patient Education Patient Instructions Indication:Tobacco abuse, in remission (Renamed from Tobacco dependence in remission) Start:19-Feb-2023 Instruction Type:Provider Instructions for Treatment How to Access Health Informa tion Online using Patient Portal and [employer] Apps Indication:Tobacco abuse, in remission (Renamed from Tobacco dependence in remission) Start:19-Feb-2023 Instruction Type:Patient Education Patient Instructions Indication:Depression with anxiety Start:14-Feb-2023 Instruction Type:Provider Instructions for Treatment How to Access Health Informa tion Online using Patient Portal and [employer] Apps Indication:Depression with anxiety Start:14-Feb-2023 Instruction Type:Patient Education Patient Instructions Indication:Tobacco abuse, in remission (Renamed from Tobacco dependence in remission) Start:14-May-2022 Instruction Type:Provider Instructions for Treatment How to Access Health Informa tion Online using Patient Portal and [employer] Apps Indication:Tobacco abuse, in remission (Renamed from Tobacco dependence in remission) Start:14-May-2022 Instruction Type:Patient Education Patient Instructions Indication:Tobacco abuse, in remission (Renamed from Tobacco dependence in remission) Start:30-Apr-2022 Instruction Type:Provider Instructions for Treatment How to Access Health Informa tion Online using Patient Portal and [employer] Indication:Tobacco abuse, in remission (Renamed from Tobacco dependence in remission) Start:30-Apr-2022 Instruction Type:Patient Education Patient Instructions Indication:Impaired fasting glucose Start:10-Apr-2022 Instruction Type:Provider Instructions for Treatment How to Access Health Informa tion Online using Patient Portal and [employer] Indication:Impaired fasting glucose Start:10-Apr-2022 Instruction [...] tion Online using Patient Portal and [employer] Indication:BMI 26.0-26.9,adult Start:12-Jun-2023 Instruction Type:Patient Education Patient Instructions Indication:BMI 26.0-26.9,adult Start:09-Jun-2023 Instruction Type:Provider Instructions for Treatment How to Access Health Informa tion Online using Patient Portal and [employer] Indication:BMI 26.0-26.9,adult Start:09-Jun-2023 Instruction Type:Patient Education Patient Instructions Indication:Tobacco abuse, in remission (Renamed from Tobacco dependence in remission) Start:08-Apr-2023 Instruction Type:Provider Instructions for Treatment How to Access Health Informa tion Online using Patient Portal and [employer] Apps Indication:Tobacco abuse, in remission (Renamed from Tobacco dependence in remission) Start:08-Apr-2023 Instruction Type:Patient Education Patient Instructions Indication:BMI 27.0-27.9,adult Start:10-Mar-2023 Instruction Type:Provider Instructions for Treatment How to Access Health Informa tion Online using Patient Portal and [employer] Indication:BMI 27.0-27.9,adult Start:10-Mar-2023 Instruction Type:Patient Education Patient Instructions Indication:Right elbow pain Start:28-Feb-2023 Instruction Type:Provider Instructions for Treatment How to Access Health Informa tion Online using Patient Portal and [employer] Apps Indication:Right elbow pain Start:28-Feb-2023 Instruction Type:Patient Education Patient Instructions Indication:Tobacco abuse, in remission (Renamed from Tobacco dependence in remission) Start:19-Feb-2023 Instruction Type:Provider Instructions for Treatment How to Access Health Informa tion Online using Patient Portal and [employer] Indication:Tobacco abuse, in remission (Renamed from Tobacco dependence in remission) Start:19-Feb-2023 Instruction Type:Patient Education Patient Instructions Indication:Depression with anxiety Start:14-Feb-2023 Instruction Type:Provider Instructions for Treatment How to Access Health Informa tion Online using Patient Portal and [employer] Indication:Depression with anxiety Start:14-Feb-2023 Instruction Type:Patient Education Patient Instructions Indication:Tobacco abuse, in remission (Renamed from Tobacco dependence in remission) Start:14-May-2022 Instruction Type:Provider Instructions for Treatment How to Access Health Informa tion Online using Patient Portal and [employer] Indication:Tobacco abuse, in remission (Renamed from Tobacco dependence in remission) Start:14-May-2022 Instruction Type:Patient Education Patient Instructions Indication:Tobacco abuse, in remission (Renamed from Tobacco dependence in remission) Start:30-Apr-2022 Instruction Type:Provider Instructions for Treatment How to Access Health Informa tion Online using Patient Portal and [employer] Indication:Tobacco abuse, in remission (Renamed from Tobacco dependence in remission) Start:30-Apr-2022 Instruction Type:Patient Education Patient Instructions Indication:Impaired fasting glucose Start:10-Apr-2022 Instruction Type:Provider Instructions for Treatment How to Access Health Informa tion Online using Patient Portal and [employer] Apps Indication:Impaired fasting glucose Start:10-Apr-2022 Instruction [...] for referral (narrative)No reason for referral information available[facility] Work Phone: Chief Complaint and [...] Pulmonary emboli February 02, 2025 1:31p m Chief Complaint Admit Date SCREENING January 24, 2025 7:48a m 8 m fu February 02, 2025 1:31p m R06.09 - Other forms of dyspnea February 6:42am Advance Directives No Advanced Directives Records Found Advance Directive Response Recorded Date/ Time Living Will Yes December 09, 2021 5:53pm Power of Hospital Insurance Clerk Yes December 09 5:53pm Advance Directive Response Recorded Date/ Time Name of Medical Power of Hospital Insurance Clerk Vi Gonzales December 09, 2021 5:53pm Living Will Yes December 09, 2021 5:53pm Power of Hospital Insurance Clerk Yes December 09 5:53pm Advance Directive Response Recorded Date/ Time Name of Medical Power of Hospital Insurance Clerk VI GONZALES April 25, 2022 7:36pm Living Will Yes April 25 7:36pm Power of Hospital Insurance Clerk Yes April 25 022 7:36pm Name Dates Details Immunization Registry [place] - Effective on 04/29/2022. Expiration date unspecified Effective:29-Apr-2022 Name Dates Details Immunization Registry [place] - Effective on 04/29/2022. Expiration date unspecified Effective:29-Apr-2022 Name Dates Details Immunization Registry [place] - Effective on 04/29/2022. Expiration date unspecified Effective:29-Apr-2022 Name Dates Details Immunization Registry [place] - Effective on 04/29/2022. Expiration date unspecified Effective:29-Apr-2022 Advance Directive Response Recorded Date/ Time Living Will Yes April 25 7:36pm Power of Hospital Insurance Clerk Yes April 25 7:36pm Name Dates Details Immunization Registry [place] - Effective on 04/29/2022. Expiration date unspecified Effective:29-Apr-2022 Name Dates Details Immunization Registry [place] - Effective on 04/29/2022. Expiration date unspecified Effective:29-Apr-2022 Name Dates Details Immunization Registry [place] - Effective on 04/29/2022. Expiration date unspecified Effective:29-Apr-2022 Name Dates Details Immunization Registry [place] - Effective on 04/29/2022. Expiration date unspecified Effective:29-Apr-2022 Name Dates Details Immunization Registry [place] - Effective on 04/29/2022. Expiration date unspecified Effective:29-Apr-2022 Name Dates Details Immunization Registry [place] - Effective on 04/29/2022. Expiration date unspecified Effective:29-Apr-2022 Name Dates Details Immunization Registry [place] - Effective on 04/29/2022. Expiration date unspecified Effective:29-Apr-2022 Name Dates Details Immunization Registry [place] - Effective on 04/29/2022. Expiration date unspecified Effective:29-Apr-2022 Name Dates Details Immunization Registry [place] - Effective on 04/29/2022. Expiration date unspecified Effective:29-Apr-2022 Name Dates Details Immunization Registry [place] - Effective on 04/29/2022. Expiration date unspecified Effective:29-Apr-2022 Name Dates Details Immunization Registry [place] - Effective on 04/29/2022. Expiration date unspecified Effective:29-Apr-2022 Advance Directive Response Recorded Date/ Time Living Will Yes April 25 7:36pm Do you have a Healthcare Power of Hospital Insurance Clerk? Yes April 25, 2022 7:36pm Family History [...] 1 Comments:youngr glaucoma, HT N chiropator in [place] in past Status:Active Family Members In General Comments:Breast Cancer, High Blood Pressure, High Cholesterol, Thyroid Disease Status:Active Father Comments:depression, Prostat e Ca, at 89 yo of cva Status:Active Mother Comments:lung disease nonsmo ker, ? cosmetology. massive MD 79yo Status:Active Unknown Family Member Name Dates Details Brother 1 Comments:youngr glaucoma, HT N chiropator in [place] in past Status:Active Family Members In General Comments:Breast Cancer, High Blood Pressure, High Cholesterol, Thyroid Disease Status:Active Father Comments:depression, Prostat e Ca, at 91 yo of cva Status:Active Mother Comments:lung disease nonsmo ker, ? cosmetology. massive MD 79yo Status:Active Unknown Family Member Name Dates Details Brother 1 Comments:youngr glaucoma, HT N chiropator in [place] in past Status:Active Family Members In General Comments:Breast Cancer, High Blood Pressure, High Cholesterol, Thyroid Disease Status:Active Father Comments:depression, Prostat e Ca, at 91 yo of cva Status:Active Mother Comments:lung disease nonsmo ker, ? cosmetology. massive MD 79yo Status:Active Unknown Family Member Name Dates Details Brother 1 Comments:youngr glaucoma, HT N chiropator in [place] in past Status:Active Family Members In General Comments:Breast Cancer, High Blood Pressure, High Cholesterol, Thyroid Disease Status:Active Father Comments:depression, Prostat e Ca, at 91 yo of cva Status:Active Mother Comments:lung disease nonsmo ker, ? cosmetology. massive MD 79yo Status:Active Unknown Family Member Name Dates Details Brother 1 Comments:youngr glaucoma, HT N chiropator in [place] in past Status:Active Family Members In General Comments:Breast Cancer, High Blood Pressure, High Cholesterol, Thyroid Disease Status:Active Father Comments:depression, Prostat e Ca, at 91 yo of cva Status:Active Mother Comments:lung disease nonsmo ker, ? cosmetology. massive MD 79yo Status:Active Unknown Family Member Name Dates Details Brother 1 Comments:youngr glaucoma, HT N chiropator in [place] in past Status:Active Family Members In General Comments:Breast Cancer, High Blood Pressure, High Cholesterol, Thyroid Disease Status:Active Father Comments:depression, Prostat e Ca, at 91 yo of cva Status:Active Mother Comments:lung disease nonsmo ker, ? cosmetology. massive MD 79yo Status:Active Unknown Family Member Name Dates Details Brother 1 Comments:youngr glaucoma, HT N chiropator in [place] in past Status:Active Family Members In General Comments:Breast Cancer, High Blood Pressure, High Cholesterol, Thyroid Disease Status:Active Father Comments:depression, Prostat e Ca, at 91 yo of cva Status:Active Mother Comments:lung disease nonsmo ker, ? cosmetology. massive MD 79yo Status:Active Unknown Family Member Name Dates Details Brother 1 Comments:youngr glaucoma, HT N chiropator in [place] in past Status:Active Family Members In General Comments:Breast Cancer, High Blood Pressure, High Cholesterol, Thyroid Disease Status:Active Father Comments:depression, Prostat e Ca, at 91 yo of cva Status:Active Mother Comments:lung disease nonsmo ker, ? cosmetology. massive MD 79yo Status:Active Unknown Family Member Name Dates Details Brother 1 Comments:youngr glaucoma, HT N chiropator in [place] in past Status:Active Family Members In General Comments:Breast Cancer, High Blood Pressure, High Cholesterol, Thyroid Disease Status:Active Father Comments:depression, Prostat e Ca, at 91 yo of cva Status:Active Mother Comments:lung disease nonsmo ker, ? cosmetology. massive MD 79yo Status:Active Unknown Family Member Name Dates Details Brother 1 Comments:youngr glaucoma, HT N chiropator in [place] in past Status:Active Family Members In General Comments:Breast Cancer, High Blood Pressure, High Cholesterol, Thyroid Disease Status:Active Father Comments:depression, Prostat e Ca, at 91 yo of cva Status:Active Mother Comments:lung disease nonsmo ker, ? cosmetology. massive MD 79yo Status:Active Unknown Family Member Name Dates Details Brother 1 Comments:youngr glaucoma, HT N chiropator in [place] in past Status:Active Family Members In General Comments:Breast Cancer, High Blood Pressure, High Cholesterol, Thyroid Disease Status:Active Father Comments:depression, Prostat e Ca, at 91 yo of cva Status:Active Mother Comments:lung disease nonsmo ker, ? cosmetology. massive MD 79yo Status:Active Unknown Family Member Name Dates Details Brother 1 Comments:youngr glaucoma, HT N chiropator in [place] in past Status:Active Family Members In General Comments:Breast Cancer, High Blood Pressure, High Cholesterol, Thyroid Disease Status:Active Father Comments:depression, Prostat e Ca, at 91 yo of cva Status:Active Mother Comments:lung disease nonsmo ker, ? cosmetology. massive MD 79yo Status:Active Unknown Family Member Name Dates Details Brother 1 Comments:youngr glaucoma, HT N chiropator in [place] in past Status:Active Family Members In General Comments:Breast Cancer, High Blood Pressure, High Cholesterol, Thyroid Disease Status:Active Father Comments:depression, Prostat e Ca, at 91 yo of cva Status:Active Mother Comments:lung disease nonsmo ker, ? cosmetology. massive MD 79yo Status:Active Unknown Family Member Name Dates Details Brother 1 Comments:youngr glaucoma, HT N chiropator in [place] in past Status:Active Family Members In General Comments:Breast Cancer, High Blood Pressure, High Cholesterol, Thyroid Disease Status:Active Father Comments:depression, Prostat e Ca, at 91 yo of cva Status:Active Mother Comments:lung disease nonsmo ker, ? cosmetology. massive MD 79yo Status:Active Unknown Family Member Name Dates Details Brother 1 Comments:youngr glaucoma, HT N chiropator in [place] in past Status:Active Family Members In General Comments:Breast Cancer, High Blood Pressure, High Cholesterol, Thyroid Disease Status:Active Father Comments:depression, Prostat e Ca, at 91 yo of cva Status:Active Mother Comments:lung disease nonsmo ker, ? cosmetology. massive MD 79yo Status:Active Unknown Family Member Name Dates Details Brother 1 Comments:youngr glaucoma, HT N chiropator in [place] in past Status:Active Family Members In General Comments:Breast Cancer, High Blood Pressure, High Cholesterol, Thyroid Disease Status:Active Father Comments:depression, Prostat e Ca, at 91 yo of cva Status:Active Mother Comments:lung disease nonsmo ker, ? cosmetology. massive MD 79yo Status:Active Summary Purpose Additional Source Comments [...] Active Member Role Status Dates Dr. Esthela Snads MD Primary Care Provider Active Dr. Audra [...] February 02, 2025 End: February 02, 2025 LAN Dunn Attending Provider Active Start: February 02, 2025 End: February 02, 2025 Team Status: Inactive Member Role Status Dates Dr. Esthela Sands MD Primary Care Provider Active Start: February 14, 2025 End: February 14, 2025 LAN Dunn Attending Provider Active Start: February 14, 2025 End: February 14, 2025 LAN Dunn Referring Provider Active Start: February 14, 2025 End: February 14, 2025 INFORMATION SOURCE (unrecogn ized section and content) DATE CREATED AUTHOR 05/11/2025 [facility] FOR RECORDS PERTAINING TO PATIENTS WHO ARE [...] BE BASED ON THE PRIMARY CLINICAL RECORDS. [employer] provides no warranty or guarantee of the accuracy or completeness of information in this document.
--- NOTE | 2025-05-14 08:02 | MRI_ITS ---
PROCEDURE: TMJ/BILAT 05/14/2025 REASON FOR EXAM: MRI OF TMJ: TMJ PAIN OR LIMITED MOVEMENT ON LEFT SIDE TECHNIQUE: Procedure Code: [id number] Modality: MR Procedure: TMJ/BILAT Closed and open mouth imaging. Multiplanar and multisequence images were obtained. COMPARISON: None. FINDINGS: Right TMJ: Satisfactory positioning the temporomandibular joint on both open and closed mouth views. No joint effusion is seen. No significant arthritic process is noted. Left TMJ: Satisfactory positioning the temporomandibular joint on both open and closed mouth views. On the clinically concerning left side, no significant arthritic process is seen. No joint effusion is seen. No significant arthritic process is noted. Additional findings: Visualized portions of the brain show no abnormality. Visualized portions of the orbit are unremarkable in appearance. MRI/TMJ/Bilat IMPRESSION: Satisfactory and symmetric appearance of the temporomandibular joints is seen o n open-mouth and closed-mouth views. Reading Location: [place] [id number]
== END | disposition home or self-care (01) ==
LOC: MRI 07:49
PROVIDERS: PCP Internal Medicine; Referring Provider Internal Medicine; Visit Provider Internal Medicine
DX: M26.622 Arthralgia of left temporomandibular joint (principal)
CPT/HCPCS: 70336